=== PATIENT | male | born 1955 | race Caucasian/White ===

== ENCOUNTER → 2017-05-13 09:01 | Outpatient (CLI) | payer OTHER, SELFPAY ==
[2017-05-13 10:13] LABS: PSA,Total - Annual Screen 6.87 ng/mL (0.00-4.00)
== END ==
PROVIDERS: Visit Provider Family Medicine
DX: Z12.5 Encounter for screening for malignant neoplasm of prostate (principal)
CPT/HCPCS: 36415; 84153; G0103

== ENCOUNTER → 2017-06-24 09:11 | Outpatient (CLI) | payer OTHER, SELFPAY ==
--- NOTE | 2017-06-24 10:00 | PROSBIL_PTH ---
PATIENT: JAYDEN OLSEN LOC: [facility] U#:[id number] AGE/SX: 69/M ROOM: RE06/24/[address]: Dr. Jameson Brand MD : 1955 BED: DIS: SPEC #: [id number] RECD: 06/25/17 10:07 STATUS: ANAMARIA LATASHA #: [id number] TACHO: 06/24/17 10:[address]: Jameson Brand DEPT: SURGICAL PATHOLOGY RECD BY: Ifeanyi Thorpe ENTERED: 06/25/17 10:07 SP TYPE: PROST BX SAMIA DR: Dr. Pino Roberts MD Tissues: A - PROSTATE RIGHT B - PROSTATE RIGHT C - PROSTATE RIGHT D - PROSTATE LEFT E - PROSTATE LEFT F - PROSTATE LEFT Procedures: PROSTATE BX HEADER OPERATION: Prostate biopsy PRE-OP DIAGNOSIS: R97.20 TISSUE SUBMITTED: A - Right apex, B - Right mid, C - Right base, D - Left apex, E - Left mid, F - Left base MICROSCOPIC DIAGNOSIS A. Right prostate, apex, core biopsy: Focal glandular atrophy and mild chronic inflammation. B. Right prostate, mid, core biopsy: Benign prostatic tissue. C. Right prostate, base, core biopsy: Benign prostatic tissue. D. Left prostate, apex, core biopsy: Mild chronic inflammation. Focal high-grade prostatic intraepithelial neoplasia (HGPIN). E. Left prostate, mid, core biopsy: Focal glandular atrophy. F. Left prostate, base, core biopsy: Benign prostatic tissue. AM:tommy 06/28/17 COMMENT Case has been reviewed in consultation with Dr. Thayer who concurs with the above diagnosis. IDC:SJ MICROSCOPIC DESCRIPTION Slides are reviewed. GROSS DESCRIPTION A - Received is one container designated prostate, right apex. The specimen consists of two elongated fragments of light dolan-white soft tissue each measuring 1.7 cm in length and 0.1 cm in diameter. The specimen is totally submitted in one cassette. B - Received is one container designated prostate, right mid. The specimen consists of two elongated fragments of light dolan-white soft tissue measuring 1.2 and 1.5 cm in length and 0.1 cm in diameter. The specimen is totally submitted in one cassette. C - Received is one container designated prostate, right base. The specimen consists of two elongated fragments of light dolan-white soft tissue each measuring 1.5 and 0.1 cm in length and 0.1 cm in diameter. The specimen is totally submitted in one cassette. D - Received is one container designated prostate, left apex. The specimen consists of four elongated fragments of light dolan-white soft tissue measuring 0.5 to 1 cm in length and 0.1 cm in diameter. The specimen is totally submitted in one cassette. E - Received is one container designated prostate, left mid. The specimen consists of two elongated fragments of light dolan-white soft tissue each measuring 1.3 cm in length and 0.1 cm in diameter. The specimen is totally submitted in one cassette. F - Received is one container designated prostate, left base. The specimen consists of two elongated fragments of light dolan-white soft tissue measuring 1 and 2 cm in length and 0.1 cm in diameter. The specimen is totally submitted in one cassette. / SJ:rg 06/25/17 TC:5 CPT: 13472 x6
== END ==
PROVIDERS: Family Provider Family Medicine; PCP Family Medicine; Visit Provider Urology
DX: R97.20 Elevated prostate specific antigen [PSA] (principal)
CPT/HCPCS: 88305; G0416

== ENCOUNTER → 2017-07-23 14:47 | Outpatient (CLI) | payer OTHER, SELFPAY ==
[2017-07-23 17:32] LABS: AST(SGOT) 20 U/L (15-37); Alanine Aminotransfer ALT/SGPT 30 U/L (16-61); Albumin, Serum 4.1 g/dL (3.2-5.0); Alkaline Phosphatase 56 U/L (45-117); Bilirubin, Direct 0.21 mg/dL (0.00-0.30); Cholesterol 132 mg/dL (200); Globulin 3.1 g/dL (2.2-4.2); High Density Lipoprotein 49 mg/dL; Protein, Total 7.2 g/dL (6.4-8.2); Triglycerides 81 mg/dL; Very Low Density Lipoprotein 16 mg/dL (5-40)
== END ==
PROVIDERS: Family Provider Family Medicine; PCP Family Medicine; Visit Provider Physician Assistant Medical
DX: E78.5 Hyperlipidemia, unspecified (principal)
CPT/HCPCS: 36415; 80061; 80076

== ENCOUNTER → 2017-11-26 06:53 | Outpatient (CLI) | payer OTHER, SELFPAY | PROVIDERS: Family Provider Family Medicine; PCP Family Medicine; Visit Provider Urology | DX: R97.20 Elevated prostate specific antigen [PSA] (principal) | CPT/HCPCS: 36415; 84153 ==

== ENCOUNTER → 2018-01-20 07:17 | Outpatient (CLI) | payer OTHER, SELFPAY ==
[2018-01-20 08:46] LABS: AST(SGOT) 19 U/L (15-37); Alanine Aminotransfer ALT/SGPT 40 U/L (16-61); Albumin, Serum 3.7 g/dL (3.2-5.0); Alkaline Phosphatase 62 U/L (45-117); Bilirubin, Direct 0.22 mg/dL (0.00-0.30); Cholesterol 129 mg/dL (200); Globulin 3.2 g/dL (2.2-4.2); High Density Lipoprotein 55 mg/dL; Protein, Total 6.9 g/dL (6.4-8.2); Triglycerides 66 mg/dL; Very Low Density Lipoprotein 13 mg/dL (5-40)
== END ==
PROVIDERS: Family Provider Family Medicine; PCP Family Medicine; Referring Provider Physician Assistant Medical; Visit Provider Physician Assistant Medical
DX: E78.5 Hyperlipidemia, unspecified (principal)
CPT/HCPCS: 36415; 80061; 80076

== ENCOUNTER → 2018-05-12 09:50 | Outpatient (CLI) | payer OTHER, SELFPAY ==
[2018-05-12 12:17] LABS: Anion Gap 7 (5-15); BUN 16 mg/dL (7-18); BUN/Creat Ratio 17.3 RATIO (10-20); Calcium,Total 9.1 mg/dL (8.5-10.1); Chloride 104 mmol/L (98-107); Creatinine, Serum 0.92 mg/dL (0.70-1.30); EST Glomerular Filtration Rate 88 mL/min (>60); Est Glom Filt Rate - Afr Amer 107 mL/min (>60); Glucose 85 mg/dL (74-106); PSA,Total- Diagnostic 4.49 ng/mL (0.0-4.0); Potassium 4.2 mmol/L (3.5-5.1); Sodium Level 144 mmol/L (136-145)
== END ==
PROVIDERS: Family Provider Family Medicine; PCP Family Medicine; Visit Provider Family Medicine
DX: Z00.00 Encounter for general adult medical examination without abnormal findings (principal); R97.20 Elevated prostate specific antigen [PSA]
CPT/HCPCS: 36415; 80048; 84153

== ENCOUNTER → 2019-03-30 11:29 | Outpatient (CLI) | payer OTHER, SELFPAY ==
[2018-06-16 09:56] VITALS: BMI 26.4
[2019-03-30 14:27] LABS: Absolute Lymphocyte Count 1.59 X10^3/uL (0.83-4.51); Absolute Neutrophil Count 4.8 X10^3/uL (2.0-7.7); Basophil# 0.04 X10^3/uL; Basophil% 0.6 % (0-1); Eosinophils% 4.2 % (0-5); Hematocrit 42.4 % (40-54); Hemoglobin 13.7 g/dL (13.0-16.5); Lymphocyte # 1.59 X10^3/ul (4.0); Lymphocyte % 22.1 % (19-41); Mean Corp Hgb Conc 32.3 g/dL (32-36); Mean Corpuscular Hgb 30.4 pg (27.0-32.0); Mean Corpuscular Volume 94.2 fL (80-94); Mean Platelet Vol. 12.2 fl (6.2-12.0); Monocyte% 6.9 % (0-10); NRBC Flagged by Analyzer 0 % (0-5); Neutrophil # 4.75 X10^3/uL (2.7-7.7); Neutrophil % 65.9 % (47-70); Platelet Count 180 K/mm3 (150-450); RBC Distribution Width CV 12.9 % (11.6-14.6); RBC Distribution Width SD 44.3 fl (35.1-43.9); White Blood Count 7.2 K/mm3 (4.4-11.0)
[2019-03-30 14:48] LABS: ALB/GLOB Ratio 1.1 RATIO (0.9-2.4); AST(SGOT) 23 U/L (15-37); Alanine Aminotransfer ALT/SGPT 33 U/L (16-61); Albumin, Serum 3.7 g/dL (3.2-5.0); Alkaline Phosphatase 68 U/L (45-117); Anion Gap 3 (5-15); BUN 14 mg/dL (7-18); BUN/Creat Ratio 14.7 RATIO (10-20); Calcium,Total 8.6 mg/dL (8.5-10.1); Chloride 105 mmol/L (98-107); Cholesterol 129 mg/dL (200); Creatinine, Serum 0.95 mg/dL (0.70-1.30); EST Glomerular Filtration Rate 85 mL/min (>60); Est Glom Filt Rate - Afr Amer 103 mL/min (>60); Globulin 3.5 g/dL (2.2-4.2); Glucose 82 mg/dL (74-106); High Density Lipoprotein 51 mg/dL; PSA,Total- Diagnostic 5.87 ng/mL (0.0-4.0); Potassium 3.9 mmol/L (3.5-5.1); Protein, Total 7.2 g/dL (6.4-8.2); Sodium Level 139 mmol/L (136-145); Triglycerides 90 mg/dL; Very Low Density Lipoprotein 18 mg/dL (5-40)
[2019-03-30 14:55] LABS: Microalbumin:Creatinine Ratio 8.1 mg/g CRE (<30 mg/g CRE)
[2019-03-31 09:52] LABS: HIV - WCH Non-Reactive (Nonreactive); Hepatitis C Antibody Non-Reactive (Nonreactive)
== END ==
PROVIDERS: Family Provider Family Medicine; PCP Family Medicine; Referring Provider Family Medicine; Visit Provider Family Medicine
DX: R97.20 Elevated prostate specific antigen [PSA] (principal); I10 Essential (primary) hypertension; Z98.890 Other specified postprocedural states; W46.0XXA Contact with hypodermic needle, initial encounter
CPT/HCPCS: 36415; 80053; 80061; 82043; 82570; 84153; 85025; 86703; 86803

== ENCOUNTER → 2019-11-30 | Outpatient (CLI) | payer OTHER, SELFPAY ==
[2019-06-15 10:02] VITALS: BMI 26.4
[2019-11-30 15:38] LABS: Anion Gap 2 (5-15); BUN 18 mg/dL (7-18); BUN/Creat Ratio 17.6 RATIO (10-20); Chloride 104 mmol/L (98-107); Creatinine, Serum 1.02 mg/dL (0.70-1.30); EST Glomerular Filtration Rate 78 mL/min (>60); Est Glom Filt Rate - Afr Amer 95 mL/min (>60); Glucose 88 mg/dL (74-106); PSA,Total- Diagnostic 5.88 ng/mL (0.0-4.0); Sodium Level 140 mmol/L (136-145)
== END | disposition home or self-care (01) ==
LOC: MFPLAB 11:37
PROVIDERS: PCP Family Medicine; Referring Provider Family Medicine; Visit Provider Family Medicine
DX: I10 Essential (primary) hypertension (principal); R97.20 Elevated prostate specific antigen [PSA]
CPT/HCPCS: 36415; 80048; 84153

== ENCOUNTER → 2020-01-18 | Outpatient (CLI) | payer OTHER, SELFPAY ==
[2019-12-28 10:07] VITALS: BMI 26.2
--- NOTE | 2020-01-18 07:40 | ECHOD_ITS ---
Reason For Study: VALVE REPAIR EVAL Procedure This was a 2D Doppler, Color Flow transthoracic echocardiogram. The exam was of adequate technical quality. Exam performed in department. Left Ventricle Normal LV size. Left ventricular systolic function is normal. The estimated ejection fraction is 55 %. Diastolic function is indeterminate. No regional wall motion abnormalities noted. Right Ventricle Normal RV size. Normal systolic function. Atria The left atrium is mildly enlarged. Normal right atrium. No doppler evidence for ASD. Mitral Valve Mild diffuse mitral valve thickening. The mitral valve chordae are thickened and/or calcified. An annuloplasty ring is noted in the mitral position. MIld (1+) transvalvular insufficiency of the mitral valve. Tricuspid Valve Normal tricuspid valve. Mild tricuspid valve insufficiency. Right ventricular systolic pressure estimated to be 29 mmHg. Aortic Valve Trisinus/trileaflet aortic valve. Normal aortic valve. Trivial aortic valve insufficiency. Pulmonic Valve The pulmonic valve is not well visualized. Mild (1+) pulmonic valve insufficiency. Great Vessels Normal sized aortic root. Pericardium/Pleural No pericardial effusion. MMode/2D Measurements & Calculations LVIDd: 5.5 cm IVSd: 1.1 cm LVOT diam: 2.5 cm LVIDs: 3.8 cm LVPWd: 1.1 cm LVOT area: 5.0 cm2 RVDd: 4.2 cm FS: 31.3 % Ao root diam: 3.5 cm LAV(MOD-bp): 105.4 ml LVAd ap4: 43.2 cm2 LAV(MOD-bp) Indexed: 47.0 ml/m2 EDV(MOD-sp4): 171.6 ml LAV(MOD-sp2): 93.5 ml EDV(sp4-el): 176.3 ml LAV(MOD-sp4): 90.9 ml LVAs ap4: 27.3 cm2 ESV(MOD-sp4): 78.7 ml ESV(sp4-el): 79.6 ml EF(MOD-sp4): 54.1 % EF(sp4-el): 54.8 % SV(MOD-sp4): 92.9 ml SV(sp4-el): 96.7 ml LA A4 area: 28.5 cm2 LA dimension(2D): 4.4 cm RA A4 area: 20.9 cm2 Time Measurements MV dec time: 0.35 sec Doppler Measurements & Calculations MV E max afshin: 133.7 cm/sec Lat Peak E' Afshin: 11.5 cm/sec Med Peak E' Afshin: 6.7 cm/sec MV A max afshin: 118.3 cm/sec E/E' lat: 11.6 E/E' med: 20.0 MV E/A: 1.1 MV V2 max: 145.1 cm/sec MV P1/2t max afshin: 159.5 cm/sec Ao V2 max: 98.8 cm/sec MV max P.4 mmHg MV P1/2t: 105.1 msec Ao max P.9 mmHg MV V2 mean: 85.1 cm/sec MV mean P.4 mmHg MV dec slope: 444.3 cm/sec2 LYDIA(V,D): 3.7 cm2 MV V2 VTI: 47.0 cm MVA(P1/2t): 2.1 cm2 MVA(VTI): 2.0 cm2 AI max afshin: 449.7 cm/sec LV V1 max: 74.5 cm/sec SV(LVOT): 91.8 ml AI max P.9 mmHg LV V1 max P.2 mmHg AI dec slope: 214.1 cm/sec2 LV V1 mean P.1 mmHg AI P1/2t: 615.3 msec LV V1 mean: 49.4 cm/sec LV V1 VTI: 18.5 cm PA V2 max: 95.4 cm/sec PI end-d afshin: 85.0 cm/sec TR max afshin: 230.9 cm/sec TR max P.3 mmHg MV P1/2t-pr_phl: 112.2 msec Interpretation Summary Left ventricular systolic function is normal. The estimated ejection fraction is 55 %. The left atrium is mildly enlarged. An annuloplasty ring is noted in the mitral position. Mild diffuse mitral valve thickening. The mitral valve chordae are thickened and/or calcified. MIld (1+) transvalvular insufficiency of the mitral valve. Mild tricuspid valve insufficiency. Trivial aortic valve insufficiency. Mild (1+) pulmonic valve insufficiency. Right ventricular systolic pressure estimated to be 29 mmHg. Diastolic function is indeterminate. Ordering Physician: Mars Paz Referring Physician: MUKUL ANDRADE Performed By: Marion Olivares RDCS
== END | disposition home or self-care (01) ==
LOC: CVS 07:40
PROVIDERS: PCP Family Medicine; Visit Provider Internal Medicine Cardiovascular Disease
DX: I48.0 Paroxysmal atrial fibrillation (principal); I48.92 Unspecified atrial flutter; Z98.890 Other specified postprocedural states; I43 Cardiomyopathy in diseases classified elsewhere
CPT/HCPCS: 93306

== ENCOUNTER → 2020-08-23 12:43 | Outpatient (CLI) | payer BC, SELFPAY ==
[2020-08-16 14:43] VITALS: BMI 25.8
[2020-08-23 13:57] LABS: AST(SGOT) 28 U/L (15-37); Alanine Aminotransfer ALT/SGPT 43 U/L (16-61); Alkaline Phosphatase 71 U/L (45-117); Bilirubin, Direct 0.25 mg/dL (0.00-0.30); Cholesterol 114 mg/dL (200); Globulin 3.4 g/dL (2.2-4.2); High Density Lipoprotein 57 mg/dL; Protein, Total 7.4 g/dL (6.4-8.2); Triglycerides 52 mg/dL; Very Low Density Lipoprotein 10 mg/dL (5-40)
== END ==
PROVIDERS: PCP Family Medicine; Referring Provider Internal Medicine Cardiovascular Disease; Visit Provider Internal Medicine Cardiovascular Disease
DX: E78.00 Pure hypercholesterolemia, unspecified (principal); I34.0 Nonrheumatic mitral (valve) insufficiency; I48.92 Unspecified atrial flutter; Z98.890 Other specified postprocedural states
CPT/HCPCS: 36415; 80061; 80076

== ENCOUNTER → 2021-01-06 10:27 | Outpatient (CLI) | payer MEDICARE, BC, SELFPAY ==
[2021-01-06 12:06] LABS: Hematocrit 40.5 % (40-54); Hemoglobin 13.1 g/dL (13.0-16.5); Mean Corp Hgb Conc 32.3 g/dL (32-36); Mean Corpuscular Volume 95.7 fL (80-94); Mean Platelet Vol. 12.7 fl (6.2-12.0); Platelet Count 106 K/mm3 (150-450); RBC Distribution Width CV 13.1 % (11.6-14.6); RBC Distribution Width SD 45.7 fl (35.1-43.9); Red Blood Count 4.23 M/mm3 (4.6-6.2); White Blood Count 4.4 K/mm3 (4.4-11.0)
[2021-01-06 12:39] LABS: Anion Gap 7 (5-15); BUN 20 mg/dL (7-18); BUN/Creat Ratio 19.4 RATIO (10-20); Calcium,Total 9.4 mg/dL (8.5-10.1); Chloride 105 mmol/L (98-107); Creatinine, Serum 1.03 mg/dL (0.70-1.30); EST Glomerular Filtration Rate 77 mL/min (>60); Est Glom Filt Rate - Afr Amer 93 mL/min (>60); Glucose 102 mg/dL (74-106); Potassium 4.5 mmol/L (3.5-5.1); Sodium Level 141 mmol/L (136-145)
== END ==
PROVIDERS: PCP Family Medicine; Visit Provider Nurse Practitioner Family
DX: I10 Essential (primary) hypertension (principal); Z13.1 Encounter for screening for diabetes mellitus
CPT/HCPCS: 36415; 80048; 85027

== ENCOUNTER → 2021-01-23 15:20 | Outpatient (CLI) | payer MEDICARE, BC, SELFPAY ==
[2021-01-23 17:12] LABS: PSA,Total- Diagnostic 5.69 ng/mL (0.0-4.0)
== END ==
PROVIDERS: PCP Family Medicine; Referring Provider Urology; Visit Provider Urology
DX: R97.20 Elevated prostate specific antigen [PSA] (principal)
CPT/HCPCS: 36415; 84153

== ENCOUNTER → 2021-03-17 10:03 | Outpatient (CLI) | payer MEDICARE, BC, SELFPAY ==
[2021-03-17 11:26] LABS: AST(SGOT) 38 U/L (15-37); Alanine Aminotransfer ALT/SGPT 93 U/L (16-61); Albumin, Serum 3.7 g/dL (3.2-5.0); Alkaline Phosphatase 71 U/L (45-117); Bilirubin, Direct 0.23 mg/dL (0.00-0.30); Cholesterol 118 mg/dL (200); Globulin 3.6 g/dL (2.2-4.2); High Density Lipoprotein 49 mg/dL; Protein, Total 7.3 g/dL (6.4-8.2); Triglycerides 57 mg/dL; Very Low Density Lipoprotein 11 mg/dL (5-40)
== END ==
PROVIDERS: PCP Family Medicine; Referring Provider Internal Medicine Cardiovascular Disease; Visit Provider Internal Medicine Cardiovascular Disease
DX: E78.00 Pure hypercholesterolemia, unspecified (principal)
CPT/HCPCS: 36415; 80061; 80076

== ENCOUNTER → 2021-09-29 | Outpatient (CLI) | payer MEDICARE, BC, SELFPAY ==
[2021-09-29 17:34] LABS: AST(SGOT) 33 U/L (15-37); Alanine Aminotransfer ALT/SGPT 44 U/L (16-61); Albumin, Serum 3.9 g/dL (3.2-5.0); Alkaline Phosphatase 59 U/L (45-117); Bilirubin, Direct 0.23 mg/dL (0.00-0.30); Cholesterol 131 mg/dL (200); Globulin 3.3 g/dL (2.2-4.2); High Density Lipoprotein 54 mg/dL; Protein, Total 7.2 g/dL (6.4-8.2); Triglycerides 97 mg/dL; Very Low Density Lipoprotein 19 mg/dL (5-40)
== END | disposition home or self-care (01) ==
LOC: LAB 15:41
PROVIDERS: PCP Family Medicine; Visit Provider Internal Medicine Cardiovascular Disease
DX: E78.00 Pure hypercholesterolemia, unspecified (principal)
CPT/HCPCS: 36415; 80061; 80076

== ENCOUNTER → 2022-02-05 | Outpatient (CLI) | payer MEDICARE, BC, SELFPAY ==
[2022-02-05 11:52] LABS: PSA,Total- Diagnostic 6.86 ng/mL (0.0-4.0)
== END | disposition home or self-care (01) ==
LOC: LAB 09:36
PROVIDERS: PCP Family Medicine; Referring Provider Registered Nurse; Visit Provider Registered Nurse
DX: R97.20 Elevated prostate specific antigen [PSA] (principal)
CPT/HCPCS: 36415; 84153

== ENCOUNTER → 2022-05-07 | Outpatient (CLI) | payer MEDICARE, BC, SELFPAY ==
[2022-05-07 11:28] LABS: AST(SGOT) 21 U/L (15-37); Alanine Aminotransfer ALT/SGPT 37 U/L (16-61); Albumin, Serum 3.7 g/dL (3.2-5.0); Alkaline Phosphatase 63 U/L (45-117); Bilirubin, Direct 0.25 mg/dL (0.00-0.30); Cholesterol 115 mg/dL (200); Globulin 3.4 g/dL (2.2-4.2); High Density Lipoprotein 51 mg/dL; Protein, Total 7.1 g/dL (6.4-8.2); Triglycerides 63 mg/dL; Very Low Density Lipoprotein 13 mg/dL (5-40)
== END | disposition home or self-care (01) ==
LOC: LAB 10:47
PROVIDERS: PCP Family Medicine; Referring Provider Internal Medicine Cardiovascular Disease; Visit Provider Internal Medicine Cardiovascular Disease
DX: E78.00 Pure hypercholesterolemia, unspecified (principal)
CPT/HCPCS: 36415; 80061; 80076

== ENCOUNTER → 2022-05-25 | Outpatient (CLI) | payer MEDICARE, BC, SELFPAY ==
--- NOTE | 2022-05-25 07:52 | CT_ITS ---
PROCEDURE: CT RIGHT KNEE WITHOUT CONTRAST REASON FOR EXAM: Male, 66 years old. Preoperative planning for the Mako[employer] Robotic knee surgery. Knee pain. TECHNIQUE: Transaxial CT of the hip, knee and ankle were obtained. Coronal and sagittal reconstruction images of the knee were provided. Individualized dose optimization techniques were used for this CT. COMPARISON: None. FINDINGS: Standard protocol for the preoperative planning for the Mako[employer] robotic knee surgery was performed. There is mild osteoarthrosis of the hip, knee and ankle. CT/Extremity Lower without Contra IMPRESSION: Preoperative Mako[employer] Robotic knee surgical CT evaluation with findings as described above. Electronically Signed: Jak Hill, at 10:28 EST ,
== END | disposition home or self-care (01) ==
LOC: CT 07:50
PROVIDERS: PCP Family Medicine; Visit Provider Orthopaedic Surgery
DX: M17.11 Unilateral primary osteoarthritis, right knee (principal)
CPT/HCPCS: 73700

== ENCOUNTER 2022-06-01 05:18 | Day surgery (SDC) | payer MEDICARE, BC, SELFPAY ==
[2022-05-27 16:19] LABS: Absolute Lymphocyte Count 1.65 X10^3/uL (0.83-4.51); Absolute Neutrophil Count 3.6 X10^3/uL (2.0-7.7); Basophil# 0.04 X10^3/uL; Basophil% 0.6 % (0-1); Eosinophils% 6.4 % (0-5); Hematocrit 38.9 % (40-54); Hemoglobin 12.6 g/dL (13.0-16.5); Lymphocyte # 1.65 X10^3/ul (0.83-4.51); Lymphocyte % 26.2 % (19-41); Mean Corp Hgb Conc 32.4 g/dL (32-36); Mean Corpuscular Hgb 30.7 pg (27.0-32.0); Mean Corpuscular Volume 94.9 fL (80-94); Mean Platelet Vol. 12.8 fl (6.2-12.0); Monocyte% 9.5 % (0-10); NRBC Flagged by Analyzer 0 % (0-5); Neutrophil # 3.59 X10^3/uL (2.7-7.7); Neutrophil % 57.1 % (47-70); Platelet Count 120 K/mm3 (150-450); RBC Distribution Width CV 13.2 % (11.6-14.6); RBC Distribution Width SD 46.1 fl (35.1-43.9); White Blood Count 6.3 K/mm3 (4.4-11.0)
[2022-05-27 17:18] LABS: Albumin, Serum 3.8 g/dL (3.2-5.0); Anion Gap 5 (5-15); BUN 23 mg/dL (7-18); BUN/Creat Ratio 18.1 RATIO (10-20); Calcium,Total 8.8 mg/dL (8.5-10.1); Chloride 106 mmol/L (98-107); Creatinine, Serum 1.27 mg/dL (0.70-1.30); EST Glomerular Filtration Rate 60 mL/min (>60); Est Glom Filt Rate - Afr Amer 73 mL/min (>60); Glucose 95 mg/dL (74-106); Sodium Level 142 mmol/L (136-145)
[2022-05-27 17:23] LABS: Magnesium 2.5 mg/dL (1.6-2.6)
[2022-05-27 18:15] LABS: Hemoglobin A1c 5.5 % (3.8-5.6)
[2022-06-01] VITALS (9 sets, daily range): BP systolic 90–101; BP diastolic 50–68; PULSE 51–65; RESP 16–18; TEMP 36.2–36.9; O2SAT 95–100; BMI 28.2
[2022-06-01] MEDS: Magnesium 1 GM over 15 mins IV (06:07)
[2022-06-01] MEDS: Gabapentin 600 MG Tablet PO (06:12)
[2022-06-01] MEDS: Lactated Ringers 1,000 ML 999 ML IV (06:12)
[2022-06-01] MEDS: Acetaminophen 500 MG Tablet 1000 MG PO ×2 (06:12→13:54)
[2022-06-01 06:45] LABS: Bedside Glucose 97 mg/dL (74-106)
--- NOTE | 2022-06-01 07:30 | KNEE_PTH ---
PATIENT: JAYDEN [place]LSEN [place] [facility] [id number] AGE/SX: 66/M ROOM: RE06/01/[address]: Dr. Robb Longoria DO : 1955 BED: DIS: 06/01/2022 SPEC #: [id number] RECD: 06/01/22 11:24 STATUS: ANAMARIA REQ #: [id number] TACHO: 06/01/22 07:[address]: Robb Longoria DEPT: SURGICAL PATHOLOGY RECD BY: Susana Leigh ENTERED: 06/01/22 11:57 SP TYPE: TOTAL KNEE OTHR DR: Dr. Dustin Castro MD Tissues: Knee, NOS Procedures: Decalcification bone/plaque Surgery Specimen Level IV HEADER OPERATION: ERAS, total knee replacement robotic arm assist PRE-OP DIAGNOSIS: Unilateral primary osteoarthritis right knee TISSUE SUBMITTED: Right knee bone MICROSCOPIC DIAGNOSIS Right knee bone, total knee replacement/resection: Pieces of bone with degenerative osteoarthritic changes. SUSU:tommy 06/04/2022 MICROSCOPIC DESCRIPTION Slides are reviewed. GROSS DESCRIPTION Received is one container designated right knee bone. The specimen consists of multiple fragments of dolan-yellow bone measuring in aggregate 12.0 x 10.0 x 3.0 cm. No soft tissue is identified. A number of bony fragments contain articular surfaces consistent with tibial plateau and femoral condyle and displaying prominent osteophyte formation, eburnation, and bone erosion. Gravity Prospecting Observer Helper sections are submitted in one cassette after decalcification. / SUSU:tommy 06/01/2022 TC:5 CPT: 80337, 69039
--- NOTE | 2022-06-01 07:46 | RAD_ITS ---
STUDY: X-RAY - RIGHT KNEE REASON FOR EXAM: Male, 66 years old. Postoperative evaluation after total knee arthroplasty. TECHNIQUE: view(s) of the knee. COMPARISON: None. FINDINGS: 3 component total knee arthroplasty in anatomic position. There are expected post-operative findings. There are no complications. No other significant abnormality is identified. RAD/Knee 1 or 2 Views IMPRESSION: Total knee arthroplasty in anatomic alignment without complications. Electronically Signed: Jak Hill, at 10:22 EST ,
[2022-06-01] MEDS: Cefazolin 2 GM in 0.9% Normal Saline 100 ML IV (07:47)
[2022-06-01] MEDS: 0.9% Normal Saline 1,000 ML 125 ML IV (07:50)
[2022-06-01] MEDS: Scopolamine 1mg/72hr Patch 1 PATCH TD (08:00)
--- NOTE | 2022-06-01 09:20 | OP.PCM_ITS ---
Report of Operation Date of Procedure: 06/01/22 Pre-Operative Diagnosis: OA right knee Post-Operative Diagnosis: same Surgery/Procedure Performed:: Right TKR Description of Surgical Findings:: Report of Operation Date of Procedure: 06/01/2022 Preoperative Diagnosis: [right ] knee primary osteoarthritis Postoperative Diagnosis: [right ] knee primary osteoarthritis Operation: Robotic Assisted Knee Total Arthroplasty, [right ] knee Surgeon: Dr Robb Longoria DO Top Dyeing Machine Loader: Jak Steele PA-C Anesthesia: spinal Anesthesiologist: Bhargav Martin M.D. Findings: Stable knee with good patella tracking Specimen(s): Bony cuts Complications: No intraoperative complications Estimated Blood Loss:30 cc IV Fluids: 1000 cc crystalloid Implants Used: 1. Artur Triathlon press-fit CR size 7 femur 2. Artur Triathlon size 7 tibia 3. 38 mm patella 4. 10 mm CS polyethylene Brief History Operative Indications: [ (66 y/o male) ] with history of [right ] knee osteoarthrosis with radiographic findings with loss of joint space, osteophyte formation and subchondral sclerosis. Failed conservative measures as mentioned in the H&P. Discussion of total knee arthroplasty as well as risk and benefits were discussed with the patient including but not limited to blood loss, DVTs, PEs, neurovascular damage, general risk of anesthesia including loss of life, and stiffness or instability were also discussed with the patient. Patient demonstrated understanding and was able to sign informed consent. Procedure: On the date of procedure, patient's [right ] lower extremity was marked in the preoperative area. The patient was then taken back to the operating room where that patient was placed on the table in the supine position. All bony prominences were identified and well-padded. Anesthesia assumed control of the C-spine and airway throughout the remainder of the procedure. A tourniquet was placed on the [right ] upper thigh and the leg was prepped in a sterile fashion. The surgeon then scrubbed at this time. Upon reentering the room, the [right ] lower extremity was draped in a standard orthopedic fashion. A timeout was then called and everyone agreed upon the side, the site, the procedure to be performed, patient's identity and antibiotics given. Esmarch bandage was used to exsanguinate the extremity and the tourniquet was placed up to 250 mmHg with the knee in flexion. A midline skin incision was made and a sharp dissection was taken down through skin, subcutaneous tissue and fat. The standard medial parapatellar incision was made and the patella was subluxed laterally. An appropriate deep MCL release was done and the fat pad was resected. Our attention was then directed to the patella. The patella was everted and a flat resection was made. The knee was then flexed up and 2 femoral pins were placed inside the incision and 2 tibial pins were placed outside the incision in the medial tibia bicortically. Once this was completed, the 2 checkpoints in the femur and tibia were placed. Knee was then flexed up and the bony landmarks were registered. Once the was completed, the knee taken through range of motion and manually stressed allowing us to plan for an appropriate tibial cut. The robotic arm was brought into the field sterilely and checkpoint and saw were registered. Based on the patient's deformity, the tibial cut was made in [3 degrees varus ]. At this time, the tensioner was then placed in the joint and ligament tension was checked at 90 degrees and full extension. Based on the patient's ligamentous tension, appropriate adjustments were made to the operative plan and ligament releases were done. Once we were happy with our operative plan with balanced flexion and extension gaps, our attention was directed to the femur. The robot was brought into the field sterilely and registered. Posterior condylar cuts, anterior chamfer cuts and anterior cuts were appropriately made for a [size 7 ] femur. When these were completed, the saws were switched out in the distal femoral and posterior chamfer cuts were made. Protecting the soft tissue throughout this time. A [size 7 ] base plate was selected. The knee was flexed to 90 degrees and soft tissues and posterior osteophytes were removed from the joint. 40 cc of the periarticular injection was injected into the posterior medial corner of the joint. The appropriate trials were then placed on the femur and tibia. A trial polyethylene was trialed to ensure proper balancing and stability of the knee. The appropriate tibial internal rotation was then marked with a bovie. Our attention was then directed to the patella. The lug holes were drilled and the patella trial was placed. Patellar tracking was checked and deemed appropriate. Once we were happy, lug holes were drilled for the femur and trial components were removed. The tibia was subluxed and pinned into place and the keel was punched and drilled appropriately. Final components were verified and opened. The wound was copiously irrigated with normal saline. The components were impacted into place with the tibia, femur and finally the patella. The trial poly component was placed and the knee was placed in full extension. The tracking, alignment and balance were verified and a [ 10 mm CS ] polyethylene component was placed. Once the final components were placed an Irrisept lavage was performed and the wound was copiously irrigated with normal saline solution and the periarticular injection was given. the wound was closed in a layer-grey fashion using #1 vicryl interrupted sutures for the arthrotomy, 2-0 interrupted vicryl suture for the subcuticular layer and layla for final skin closure. A sterile compressive dressing was then placed. The patient was then awakened from anesthesia, transferred to the rjeannette and transferred to the PACU for recovery. My physician assistant operations manager was a vital part of this case. He was important in appropriate retraction during the case, and protection of soft tissues during bony cuts. His intimate knowledge of the case and my steps aided in safe and expedient completion of the procedure as well as appropriate position of the leg during the case. He was also vital in assisting with closure under my direct supervision. Due to the complexity of this case, robotic arm was used to assist in the surgery to improve accuracy and clinical outcomes. Post-op Plan: DVT ppx; Eliquis 5 mg po BID, thigh high compression stockings Follow up: in office in 2 weeks for wound check PT: to start POD #0 at hospital, outpatient PT should be arranged. Preoperative antibiotic: Ancef 2 grams IV Robb Longoria DO Surgeon: Robb Longoria gasser machine operator: Jak Steele Type of Anesthesia: Spinal Anesthesiologist: Bhargav Martin Specimen's removed: bone Estimated Blood Loss (mL): 30 cc Fluids Replaced: 1000 cc crysytalloid Admit VTE Documentation VTE Present on Admission: No VTE Mechan Device Prophylaxis: SCD's and Thigh High REECE Hose VTE Pharm Prophylaxis ordered?: Yes
[2022-06-01] MEDS: Lactated Ringers 1,000 ML 75 ML IV (10:10)
[2022-06-01] MEDS: oxyCODONE 5 MG Tablet PO (12:53)
--- NOTE | 2022-06-01 12:57 | SUR.PHASEII ---
PATIENT ABLE TO STAND AT THE BEDSIDE WITHOUT DIZZINESS, AND ABLE TO BEAR WEIGHT ON THE OPERATIVE LEG AND TAKE TWO STEPS. PHYSICAL THERAPY CALLED.
--- NOTE | 2022-06-01 13:24 | SUR.PHASEII ---
PATIENT IS CURRENTLY UP WITH PHYSICAL THERAPY.
== END 2022-06-01 16:20 | disposition home or self-care (01) ==
LOC: SDC 05:19 → AC 05:19
PROVIDERS: Anesthesiology; PCP Family Medicine; Referring Provider Orthopaedic Surgery; Visit Provider Orthopaedic Surgery
PROC: 0SRC0JZ Replacement of Right Knee Joint with Synthetic Substitute, Open Approach (ICD-10-PCS; CPT 27447; principal; 2022-06-01 07:00)
DX: M17.11 Unilateral primary osteoarthritis, right knee (principal); I48.0 Paroxysmal atrial fibrillation; E78.00 Pure hypercholesterolemia, unspecified; I10 Essential (primary) hypertension; G47.30 Sleep apnea, unspecified; E66.3 Overweight; Z68.26 Body mass index [BMI] 26.0-26.9, adult; Z79.82 Long term (current) use of aspirin; Z79.01 Long term (current) use of anticoagulants; Z79.899 Other long term (current) drug therapy; Z86.718 Personal history of other venous thrombosis and embolism
CPT/HCPCS: 27447; 01402; 64447; 36415; 73560; 80048; 82040; 82962; 83036; 83735; 85025; 87077; 87081; 88305; 88311; 97162; C1776; J7120; J2405; J3475

== ENCOUNTER → 2022-07-14 | Outpatient (CLI) | payer MEDICARE, BC, SELFPAY ==
[2022-07-14 13:10] LABS: Absolute Lymphocyte Count 1.12 X10^3/uL (0.83-4.51); Absolute Neutrophil Count 3.2 X10^3/uL (2.0-7.7); Basophil# 0.04 X10^3/uL; Basophil% 0.8 % (0-1); Eosinophil# 0.16 X10^3/uL; Eosinophils% 3.2 % (0-5); Hematocrit 31.1 % (40-54); Lymphocyte # 1.12 X10^3/ul (0.83-4.51); Lymphocyte % 22.6 % (19-41); Mean Corp Hgb Conc 32.2 g/dL (32-36); Mean Corpuscular Hgb 32.2 pg (27.0-32.0); Mean Platelet Vol. 12.5 fl (6.2-12.0); Monocyte# 0.39 X10^3/uL; Monocyte% 7.9 % (0-10); NRBC Flagged by Analyzer 0 % (0-5); Neutrophil # 3.23 X10^3/uL (2.7-7.7); Neutrophil % 65.3 % (47-70); Platelet Count 155 K/mm3 (150-450); RBC Distribution Width CV 15.3 % (11.6-14.6); RBC Distribution Width SD 55.8 fl (35.1-43.9); Red Blood Count 3.11 M/mm3 (4.6-6.2)
[2022-07-14 13:30] LABS: D-Dimer Quantitative (DVT/PE) 3.13 FEU/ug/m (0.27-0.49)
[2022-07-14 13:39] LABS: BNP,B-Type NATRIURETIC PEPTIDE 57.2 pg/mL (0-100)
[2022-07-14 13:46] LABS: ALB/GLOB Ratio 1.2 RATIO (0.9-2.4); AST(SGOT) 31 U/L (15-37); Alanine Aminotransfer ALT/SGPT 35 U/L (16-61); Albumin, Serum 3.9 g/dL (3.2-5.0); Alkaline Phosphatase 64 U/L (45-117); Anion Gap 3 (5-15); BUN 27 mg/dL (7-18); Calcium,Total 9.4 mg/dL (8.5-10.1); Chloride 109 mmol/L (98-107); Creatinine, Serum 1.23 mg/dL (0.70-1.30); EST Glomerular Filtration Rate 62 mL/min (>60); Est Glom Filt Rate - Afr Amer 76 mL/min (>60); Globulin 3.3 g/dL (2.2-4.2); Glucose 101 mg/dL (74-106); Potassium 4.3 mmol/L (3.5-5.1); Protein, Total 7.2 g/dL (6.4-8.2); Sodium Level 139 mmol/L (136-145)
== END | disposition home or self-care (01) ==
LOC: LAB 11:38
PROVIDERS: PCP Family Medicine; Referring Provider Nurse Practitioner Gerontology; Visit Provider Nurse Practitioner Gerontology
DX: R06.02 Shortness of breath (principal); I48.92 Unspecified atrial flutter; R42 Dizziness and giddiness
CPT/HCPCS: 36415; 80053; 83880; 85025; 85379

== ENCOUNTER → 2022-07-14 | Outpatient (CLI) | payer MEDICARE, BC, SELFPAY ==
--- NOTE | 2022-07-14 15:12 | CT_ITS ---
STUDY: CTA CHEST REASON FOR EXAM: Male, 66 years old. ELEVATE D DIMER RADIATION DOSAGE (If Supplied By Facility): CTDIvol = ( 13.26 ) mGy, DLP = ( 437.30 ) mGycm TECHNIQUE: The examination was performed with the intravenous administration of IV 100mL Isovue-370. Post-processing of the angiographic images was performed, with multiplanar reformation and 3D reconstruction. Individualized dose optimization techniques were used for this CT. COMPARISON: None. FINDINGS: Normal enhancement of the main pulmonary artery and right and left pulmonary arteries. Normal enhancement of the bilateral peripheral pulmonary arteries. There is no demonstrated pulmonary embolism. Normal thoracic aorta and visualized great vessels. There is no demonstrated aortic dissection. Calcific coronary artery disease. Prosthetic mitral valve. Normal mediastinum. Normal hilar regions. Normal visualized trachea and bronchi. The lungs are well expanded. Normal pulmonary parenchyma. Normal pleura. Gynecomastia. Sternotomy wires. Normal visualized upper abdomen. CT/CTA Chest W/WO Contrast IMPRESSION: No acute disease. Prosthetic mitral valve and sternotomy. Coronary artery disease. Electronically Signed: Mark Real MD at 17:37 EDT Reading Location ID and State: [address] [place] [address] , Service support ,
== END | disposition home or self-care (01) ==
LOC: CT 14:35
PROVIDERS: PCP Family Medicine; Visit Provider Nurse Practitioner Gerontology
DX: R79.89 Other specified abnormal findings of blood chemistry (principal); I48.92 Unspecified atrial flutter; R06.02 Shortness of breath; R42 Dizziness and giddiness
CPT/HCPCS: 36415; 71275; 80053; 83880; 85025; 85379; Q9967

== ENCOUNTER → 2022-07-17 | Outpatient (CLI) | payer MEDICARE, BC, SELFPAY | END | disposition home or self-care (01) | LOC: PSN 11:51 | PROVIDERS: PCP Family Medicine; Referring Provider Nurse Practitioner Gerontology; Visit Provider Nurse Practitioner Gerontology | DX: R42 Dizziness and giddiness (principal); I49.3 Ventricular premature depolarization | CPT/HCPCS: 93225; 93226 ==

== ENCOUNTER → 2022-07-24 | Outpatient (CLI) | payer MEDICARE, BC, SELFPAY ==
[2022-07-24 15:38] LABS: PSA,Total- Diagnostic 5.56 ng/mL (0.0-4.0)
== END | disposition home or self-care (01) ==
LOC: MFPLAB 11:27
PROVIDERS: PCP Family Medicine; Visit Provider Family Medicine
DX: I48.92 Unspecified atrial flutter (principal); R97.20 Elevated prostate specific antigen [PSA]
CPT/HCPCS: 36415; 84153

== ENCOUNTER → 2022-08-03 | Outpatient (CLI) | payer MEDICARE, BC, SELFPAY ==
--- NOTE | 2022-08-03 12:33 | ECHOD_ITS ---
Reason For Study: SOB Procedure This was a 2D Doppler, Color Flow transthoracic echocardiogram. Exam performed in department. Left Ventricle Normal LV size. Mild concentric left ventricular hypertrophy. The left ventricular ejection fraction is 65 %. Diastolic function is indeterminate. Right Ventricle Normal right ventricle. Atria The left atrium is severely enlarged. The right atrium is severely enlarged. Mitral Valve Mean transmitral valve gradient 7 mmHg. Mild-Moderate (1-2+) mitral valve insufficiency. Status post mitral valve repair with annuloplasty ring. Tricuspid Valve Moderate (2+) tricuspid valve insufficiency. Pulmonary artery systolic pressure is 51 mmHg. Moderate pulmonary hypertension. Aortic Valve Trisinus/trileaflet aortic valve. Mild (1+) aortic valve insufficiency. Pulmonic Valve The pulmonic valve is not well visualized. Mild (1+) pulmonic valve insufficiency. Great Vessels Mildly dilated aortic root. Pericardium/Pleural No pericardial effusion. MMode/2D Measurements & Calculations LVIDd: 6.9 cm IVSd: 0.99 cm Ao root diam: 3.7 cm LVIDs: 5.4 cm LVPWd: 1.2 cm RVDd: 4.7 cm FS: 21.5 % LAV(MOD-bp): 94.3 ml LVAd ap4: 43.2 cm2 SV(MOD-sp4): 88.8 ml LAV(MOD-bp) Indexed: 43.0 ml/m2 LVLd ap4: 8.8 cm LAV(MOD-sp2): 93.1 ml EDV(MOD-sp4): 172.7 ml LAV(MOD-sp4): 91.3 ml EDV(sp4-el): 179.7 ml LVAs ap4: 28.1 cm2 LVLs ap4: 7.8 cm ESV(MOD-sp4): 83.9 ml ESV(sp4-el): 85.5 ml EF(MOD-sp4): 51.4 % EF(sp4-el): 52.4 % SV(sp4-el): 94.2 ml LA A4 area: 28.7 cm2 LA dimension(2D): 5.5 cm RA A4 area: 22.9 cm2 Time Measurements MV dec time: 0.23 sec Doppler Measurements & Calculations MV E max afshin: 163.5 cm/sec Lat Peak E' Afshin: 15.9 cm/sec Med Peak E' Afshin: 10.8 cm/sec MV A max afshin: 35.3 cm/sec E/E' lat: 10.3 E/E' med: 15.2 MV E/A: 4.6 MV V2 max: 213.6 cm/sec Ao V2 max: 96.7 cm/sec MV max P.2 mmHg MV dec slope: 710.7 cm/sec2 Ao max P.7 mmHg MV V2 mean: 118.8 cm/sec Ao V2 mean: 73.4 cm/sec MV mean P.0 mmHg Ao mean P.4 mmHg MV V2 VTI: 51.3 cm Ao V2 VTI: 22.7 cm AV (velocity ratio): 0.84 AI max afshin: 353.6 cm/sec LV V1 max: 80.8 cm/sec PA V2 max: 94.1 cm/sec AI max P.0 mmHg LV V1 max P.6 mmHg PA V2 mean: 62.7 cm/sec LV V1 mean P.5 mmHg AI dec slope: 110.0 cm/sec2 LV V1 mean: 57.5 cm/sec AI P1/2t: 941.8 msec LV V1 VTI: 19.1 cm TR max afshin: 302.7 cm/sec PI dec slope: 381.3 cm/sec2 TR max P.6 mmHg ECHO/Echo Complete Interpretation Summary The left ventricular ejection fraction is 65 %. Diastolic function is indeterminate. The left atrium is severely enlarged. The right atrium is severely enlarged. Status post mitral valve repair with annuloplasty ring. Mild-Moderate (1-2+) mitral valve insufficiency. Mean transmitral valve gradient 7 mmHg. Consider further evaluation with cardic MR if clinically indicated. Moderate (2+) tricuspid valve insufficiency. Pulmonary artery systolic pressure is 51 mmHg. Moderate pulmonary hypertension. Mild (1+) aortic valve insufficiency. Mild (1+) pulmonic valve insufficiency. Mildly dilated aortic root. Ordering Physician: Laura Blanco Referring Physician: Laura Blanco Performed By: Ledy Padilla RCS
== END | disposition home or self-care (01) ==
LOC: CVS 12:31
PROVIDERS: PCP Family Medicine; Referring Provider Nurse Practitioner Gerontology; Visit Provider Nurse Practitioner Gerontology
DX: R06.02 Shortness of breath (principal); R42 Dizziness and giddiness
CPT/HCPCS: 93306

== ENCOUNTER → 2022-08-06 | Outpatient (CLI) | payer MEDICARE, BC, SELFPAY ==
--- NOTE | 2022-08-06 13:08 | CT_ITS ---
STUDY: CT BRAIN WITH AND WITHOUT CONTRAST REASON FOR EXAM: Male, 66 years old. HEARING LOSS BILATERAL; ACOUSTIC NEUROMA RADIATION DOSAGE (If Supplied By Facility): CTDIvol = ( 44.99 ) mGy, DLP = ( 1850.94 ) mGycm TECHNIQUE: Transaxial CT imaging of the brain was performed pre and post contrast administration. The examination was performed with intravenous administration of IV 50mL Isovue-370. Individualized dose optimization techniques were used for this CT. COMPARISON: Comparison is made with prior study July 06, 2016. FINDINGS: Normal soft tissue structures. Normal calvarium. Normal size ventricles and extra-axial spaces for the patient''s age. Normal white matter tracts of the cerebral hemispheres. Normal basal ganglia and thalami. Normal brainstem. Normal cerebellum. There is no intracranial hemorrhage. There are no findings of an acute ischemic infarction. Partial opacification of the maxillary sinuses. Mucosal thickening of the ethmoid sinuses. CT/Brain/Head W/WO Contrast IMPRESSION: Sinusitis. Electronically Signed: Ankit Granados MD at 10:51 EDT ,
== END | disposition home or self-care (01) ==
LOC: CT 13:07
PROVIDERS: PCP Family Medicine; Referring Provider Otolaryngology Otolaryngology/Facial Plastic Surgery; Visit Provider Otolaryngology Otolaryngology/Facial Plastic Surgery
DX: D33.3 Benign neoplasm of cranial nerves (principal); H90.3 Sensorineural hearing loss, bilateral
CPT/HCPCS: 70470; Q9967

== ENCOUNTER → 2022-08-14 | Outpatient (CLI) | payer MEDICARE, BC, SELFPAY ==
[2022-08-14 08:22] LABS: Anion Gap 3 (5-15); BUN 26 mg/dL (7-18); BUN/Creat Ratio 23.9 RATIO (10-20); Calcium,Total 8.7 mg/dL (8.5-10.1); Chloride 108 mmol/L (98-107); Creatinine, Serum 1.09 mg/dL (0.70-1.30); EST Glomerular Filtration Rate 72 mL/min (>60); Est Glom Filt Rate - Afr Amer 87 mL/min (>60); Glucose 105 mg/dL (74-106); Potassium 4.4 mmol/L (3.5-5.1); Sodium Level 140 mmol/L (136-145)
== END | disposition home or self-care (01) ==
LOC: LAB 07:35
PROVIDERS: PCP Family Medicine; Referring Provider Nurse Practitioner Gerontology; Visit Provider Nurse Practitioner Gerontology
DX: I05.9 Rheumatic mitral valve disease, unspecified (principal)
CPT/HCPCS: 36415; 80048

== ENCOUNTER → 2022-09-24 | Outpatient (CLI) | payer MEDICARE, BC, SELFPAY ==
[2022-09-24 16:39] LABS: Hematocrit 34.4 % (40-54); Hemoglobin 10.9 g/dL (13.0-16.5)
== END | disposition home or self-care (01) ==
LOC: LAB 16:17
PROVIDERS: PCP Family Medicine; Visit Provider Physician Assistant Medical
DX: D64.9 Anemia, unspecified (principal)
CPT/HCPCS: 36415; 85014; 85018

== ENCOUNTER → 2022-09-25 | Outpatient (CLI) | payer MEDICARE, BC, SELFPAY | END | disposition home or self-care (01) | LOC: LAB 06:35 → LABSPEC 06:38 | PROVIDERS: PCP Family Medicine; Referring Provider Physician Assistant Medical; Visit Provider Physician Assistant Medical | DX: D64.9 Anemia, unspecified (principal) | CPT/HCPCS: 82274 ==

== ENCOUNTER → 2022-10-05 | Outpatient (CLI) | payer MEDICARE, BC, SELFPAY | END | disposition home or self-care (01) | LOC: SL 20:21 | PROVIDERS: PCP Family Medicine; Referring Provider Nurse Practitioner Acute Care; Visit Provider Nurse Practitioner Acute Care | DX: G47.30 Sleep apnea, unspecified (principal) | CPT/HCPCS: 95811 ==

== ENCOUNTER → 2022-10-22 | Outpatient (CLI) | payer MEDICARE, BC, SELFPAY ==
--- NOTE | 2022-10-22 07:10 | CT_ITS ---
INDICATION: left inguinal hernia, h/o repair A radiation dose optimization technique was used for this scan. COMPARISON: None. IV Contrast dosage and agent: 98 cc Isovue-300 IV. FINDINGS: Contrast-enhanced serial CT axial images through the abdomen and pelvis with coronal and sagittal reformatted series. PANCREAS: No peripancreatic fat stranding. BOWEL/MESENTERY: No dilated bowel loops. No significant free fluid. No free air. GALLBLADDER: No pericholecystic fat stranding. LIVER/STOMACH: No obvious abnormality. URINARY COLLECTING SYSTEM/ KIDNEYS: No obstructing ureteral calculus. Left posterior exophytic interpolar renal lesion, likely renal cyst. Enlarged heterogeneous prostate. APPENDIX: Absent appendix with pericecal suture line. LUNG BASES: Unremarkable. BONES: Unremarkable for age. CT/Abdomen/Pelvis WITH Contrast IMPRESSION: No acute abdominal abnormality is identified. Electronically Signed: Wilbert Self MD at 6:29 EDT ,
[2022-10-22 07:41] LABS: EGFR FINGERSTICK > 60.0000 mL/min (>60)
== END | disposition home or self-care (01) ==
LOC: CT 07:09
PROVIDERS: PCP Family Medicine; Referring Provider Surgery; Visit Provider Surgery
DX: K40.90 Unilateral inguinal hernia, without obstruction or gangrene, not specified as recurrent (principal)
CPT/HCPCS: 74177; Q9967

== ENCOUNTER → 2022-11-11 | Outpatient (CLI) | payer MEDICARE, BC, SELFPAY | END | disposition home or self-care (01) | LOC: LABSPEC 10:57 | PROVIDERS: PCP Family Medicine; Referring Provider Surgery; Visit Provider Surgery | DX: Z01.818 Encounter for other preprocedural examination (principal) | CPT/HCPCS: 87077; 87081 ==

== ENCOUNTER 2022-11-30 09:45 | Day surgery (SDC) | payer MEDICARE, BC, SELFPAY ==
[2022-11-19 12:33] LABS: Absolute Lymphocyte Count 1.26 X10^3/uL (0.83-4.51); Absolute Neutrophil Count 3.1 X10^3/uL (2.0-7.7); Basophil# 0.03 X10^3/uL; Basophil% 0.6 % (0-1); Eosinophil# 0.19 X10^3/uL; Eosinophils% 3.7 % (0-5); Hemoglobin 11.4 g/dL (13.0-16.5); Lymphocyte # 1.26 X10^3/ul (0.83-4.51); Lymphocyte % 24.6 % (19-41); Mean Corp Hgb Conc 31.7 g/dL (32-36); Mean Corpuscular Hgb 30.2 pg (27.0-32.0); Mean Corpuscular Volume 95.2 fL (80-94); Mean Platelet Vol. 12.7 fl (6.2-12.0); Monocyte# 0.49 X10^3/uL; Monocyte% 9.6 % (0-10); NRBC Flagged by Analyzer 0 % (0-5); Neutrophil # 3.14 X10^3/uL (2.7-7.7); Neutrophil % 61.3 % (47-70); Platelet Count 113 K/mm3 (150-450); RBC Distribution Width CV 14.6 % (11.6-14.6); RBC Distribution Width SD 51.4 fl (35.1-43.9); Red Blood Count 3.78 M/mm3 (4.6-6.2); White Blood Count 5.1 K/mm3 (4.4-11.0)
[2022-11-19 13:03] LABS: Anion Gap 4 (5-15); BUN 22 mg/dL (7-18); BUN/Creat Ratio 21.8 RATIO (10-20); Calcium,Total 8.9 mg/dL (8.5-10.1); Chloride 106 mmol/L (98-107); Creatinine, Serum 1.01 mg/dL (0.70-1.30); EST Glomerular Filtration Rate 78 mL/min (>60); Est Glom Filt Rate - Afr Amer 95 mL/min (>60); Glucose 78 mg/dL (74-106); Sodium Level 140 mmol/L (136-145)
[2022-11-30] VITALS (8 sets, daily range): BP systolic 103–117; BP diastolic 62–97; PULSE 59–93; RESP 14–16; TEMP 36.3–37.2; O2SAT 92–97; BMI 24.1
[2022-11-30] MEDS: Lactated Ringers 1,000 ML 15 ML IV (10:32)
--- NOTE | 2022-11-30 11:14 | HP.PCM_ITS ---
History and Physical MR#: [id number] Acct: [id number] Name: JAYDEN OLSEN Rep #: [id number] : 1955 Provider: Dr. 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 Is patient in pain?: No Allergies No Known Allergies Allergy (Verified 11/11/22 08:34) Medications multivitamin 0.5 ea PO BID 02/17/17 [History Confirmed 11/11/22] tamsulosin 0.4 mg capsule 0.4 mg PO QHS 05/21/22 [History Confirmed 11/11/22] apixaban 5 mg tablet (Eliquis) 5 mg PO BID #180 tabs 07/14/22 [Rx Confirmed 11/11/22] furosemide 40 mg tablet (Lasix) 40 mg PO DAILY #30 tabs 08/07/22 [Rx Confirmed 11/11/22] atorvastatin 40 mg tablet 40 mg PO QHS #90 tabs 08/13/22 [Rx Confirmed 11/11/22] carvedilol 25 mg tablet 25 mg PO BID #180 tabs 08/13/22 [Rx Confirmed 11/11/22] ramipril 10 mg capsule 10 mg PO DAILY #90 caps 08/13/22 [Rx Confirmed 11/11/22] [facility] Medical History Alcohol use Arthritis Atrial fibrillation and flutter Bladder disease Cardiology follow-up encounter Cardiomyopathy CPAP (continuous positive airway pressure) dependence High cholesterol History of echocardiogram History of pain when walking History of stress test Hyperlipidemia Hypertension Left inguinal hernia Non-smoker Nonrheumatic mitral (valve) insufficiency Nonrheumatic mitral (valve) prolapse Palpitations Paroxysmal atrial fibrillation Paroxysmal atrial flutter Pulmonary hypertension Pure hypercholesterolemia radiofrequency ablation Tricuspid valve disorder Wears glasses Wears hearing aid Surgical History H/O mitral valve repair (~05/05/06) History of cardiac radiofrequency ablation (~01/26/07) Hx of appendectomy Family History Father Hypertension Cancer prostate Afib Social History Smoking Status: Never smoker alcohol intake: current alcohol intake frequency: a few times a week substance use type: does not use caffeine: Yes (socially) what type of physical activity do you participate in: walking frequency: 3-4 times per week duration: 30-45 minutes/day seatbelt use: always do you feel safe at home: Yes HPI HPI HPI: Update: Patient presents for update H&P. He denies any significant health updates. He did complete a CT scan as requested before today's visit. He also confirms that he has completed his moved to his new house and no longer will be needing to lift anything for a while. He reports that his symptoms are stable for his left inguinal hernia and that he is still experiencing bulging that he has to push back in 1-2 times per day. Below is recapitulated from patient's consultation visit 10/10/2022: Patient is a 66-year-old male who presents for complaint of new left groin bulge. He is referred from [facility] urgent care after a recent visit on 10/03/2022. This finding was first noticed by patient approximately 2 weeks ago while he was doing some moving activity as he and his family are transitioning to a new home. Patient states that he feels a twinge of discomfort, but by enlarge he has simply noticed a bulge. He denies any impact to his bowels. Patient gives a history of a prior inguinal hernia repair on the contralateral side with Dr. Herr. Patient is a retired dentist. Patient has no personal history of smoking. Patient has no personal history of recurrent cutaneous infections including staph. He is prescribed Eliquis for history of atrial fibrillation. He also has a diagnosis of pulmonary hypertension which he states pain after he experienced some exertional shortness of breath while walking his dog, but has not experienced this of late. Although Dr. Olsen is no longer working, he reports that he remains active in physical therapy after having a total knee replacement 4 months ago. He also states that he works with a sailing crew and that this activity should be wrapped up by the end of October. Pertinent surgical history includes: Appendectomy with primary umbilical hernia repair in 2018 (patient notes that his right inguinal hernia was performed sometime before this, but is unable to provide an exact date ROS General General: Yes weight change; No appetite, fatigue, colon cancer, breast cancer or weakness HEENT HEENT: No difficulty swallowing, eye injury, eye surgery, swollen glands or hoarseness Endo Endocrine: No thyroid disease, diabetes mellitus, thyroid cancer, Hair loss, heat intolerance or cold intolerance Skin Skin: No rash or changing moles Breast Breast: No left breast lump, right breast lump, nipple discharge, breast pain, abnormal mammogram, abnormal US or breast enlargement Musc Musculoskeletal: No back problems, arthritis, rheumatoid arthritis, gout or joint pain Cardio Cardiovascular: Yes murmur, heart disease and atrial fibrillation; No pacemaker, high blood pressure, heart attack, heart stent, palpitations, shortness of breat with exertion or chest pain Psych Psychiatric: No depression, anxiety or hearing voices Resp Respiratory: No shortness of breath, Yes sleep apnea, No cough, No COPD, No asthma, No emphysema and No wheezing Gastro Gastrointestinal: No abdominal pain, No nausea or vomiting, No diarrhea, No constipation, No blood in stool, No acid reflux, No hemorrhoids, No ulcers, No gallbladder problem and No black,tarry stools [place] Hematologic: No blood thinners, No blood disorders, No bleeding, No anemia and No blood clots Neuro Neurologic: No system reviewed and no additional complaints, except as documented, No as per HPI, No abnormal gait, No abnormal hearing, No abnormal movements, No abnormal speech, No behavioral changes, No burning sensations, No confusion, No convulsions, No disequilibrium, No dizziness, No localized weakness, No frequent falls, No headache(s), No lack of coordination, No loss of vision, No memory loss, No numbness, No other visual disturbances, No radicular pain, No restless legs, No sensory deficit, No syncope, No tingling, No tremor(s), No weakness and No other Exam Const General: cooperative, comfortable and no acute distress Orientation: alert, awake and oriented x3 Resp Effort & Inspection: normal respiratory effort Other: Left inguinal bulge that is reducible with some discomfort. Palpable indirect inguinal hernia defect Assessment and Plan Assessment and Plan (1) Left inguinal hernia: Status: Acute Comment: This is a 66-year-old male who presents for newly appreciated left inguinal hernia that is minimally symptomatic. Patient with stable symptoms and has now cleared to schedule to be able to abide by lifting restrictions. CT imaging was performed and no hernia was discussed by radiology, however, I see soft tissue adjacent to the spermatic cord on the left which is not present on the right. Patient does have a hernia by exam. Therefore, I recommend proceeding with our original plan of a robot-assisted left inguinal hernia repair with mesh. I briefly reviewed the details of the procedure and Dr. Olsen denies any further questions. A MRSA swab was obtained before our appointment ahead of mesh placement intraoperatively. Plan: ? Plan to proceed with outpatient left robot-assisted inguinal hernia repair with mesh via a transabdominal preperitoneal approach. We will follow-up MRSA swab to be sure patient does not require treatment for staph aureus. I have examined the patient and the H&P has been reviewed. There are no clinical changes since date of exam and patient confirms completion of staph eradication protocol. Procedure and post procedure details were briefly reviewed. Neither patient nor spouse offer any further questions. Therefore we will proceed to the operating room for scheduled robotic assisted left inguinal hernia repair with mesh.
[2022-11-30] MEDS: Cefazolin 2 GM in 0.9% Normal Saline 100 ML IV (11:16)
--- NOTE | 2022-11-30 13:57 | PCM.OPRPT ---
Report of Operation Date of Procedure: 11/30/22 Pre-Operative Diagnosis: Left inguinal hernia Post-Operative Diagnosis: Left indirect inguinal hernia with small cord lipoma Surgery/Procedure Performed:: Left robot-assisted transabdominal preperitoneal hernia repair with mesh Description of Surgical Findings:: Moderately large left indirect inguinal hernia Surgeon: Robb Sheridan yarn preparation supervisor: Jaida Linn Type of Anesthesia: General/Supplemental Anesthesiologist: Bhargav Martin Specimen's removed: None Estimated Blood Loss (mL): 20 Fluids Replaced: 1800 Description of Procedure: After appropriate identification the preoperative holding area the patient was brought to the operating room where he was positioned supine on the operating table. Preoperative antibiotics were completed and the patient was administered a general anesthetic. Patient's abdomen was then prepped and draped in usual sterile fashion. Formal timeout followed to confirm patient and procedure. Procedure was begun with an optical entry facilitated by Veress insufflation at Emmanuel's point. Once pneumoperitoneum reached a set point pressure of 12 mmHg a left paramedian incision was made and a 8 mm robotic trocar was placed with a careful Optiview technique. Follow-up laparoscopic investigation revealed no inadvertent injury to the viscera below. A second port was placed a hand's breath right of this index port under laparoscopic visualization. Then the Veress needle was withdrawn and a third and final robotic port was placed through this site. Patient was positioned in slight Trendelenburg and in this positioning I could visualize a moderately large indirect abdominal wall defect on the left but the right was closed with a tail of suture visible in the midportion of the closure. The robot was docked in standard fashion. Robotically, a peritoneal flap was created on the left extending from the medial umbilical ligament to the level of the ASIS (external) and was bluntly dissected to expose the medial parietal compartment and lateral visceral compartments. Medially I could visualize the pubis and Julito's ligament while laterally I extended the dissection down to the level of the ASIS/psoas complex. The hernia sac was identified and from the cord structures deeply with selective use of monopolar energy. This ultimately demonstrated that the hernia was an inguinoscrotal indirect hernia. A small cord lipoma was identified and removed from the internal opening with careful dissection, but as I attempted to free this from the cord structures inferiorly I encountered a fatty cord and no discrete plane. Mild oozing was encountered as I tried to insinuate a plane and thus this attempt was abandoned. Additionally I identified what appeared to be some retroperitoneal fat diving deeply between the cord and the vas deferens. This was delivered into the surgical bed, but I elected to not transected as it did not appear to compromise her mesh lie. Lastly, more medially I encountered a fat pad that appeared to lie directly adjacent the medial aspect of the femoral vein based on pulsations from the femoral artery. Part of this fat pad appeared to put the future mesh placement at risk for curling inferiorly so great care was taken to try to eliminate at least this portion of the fat pad, but the majority of it was left intact against the location of the vessels deeply. Then the peritoneal flap was inspected to ensure that cord was appropriately parietalized and there was no pulling of the cord structures or the viscera deeply over the psoas using the pull test. Once satisfied, a Bard 3D max, size large, mid weight mesh was placed into the abdomen along with suture. It was positioned within the preperitoneal pocket so that there was good medial and inferior overlap. It was then tacked to the admuniculum of the linea alba just superior to the pubic tubercle and laterally in a partial-thickness bite of the abdominal wall using a 3-0 Vicryl suture. The peritoneal flap was then closed with a running 3-0 V-Loc suture taking care to conceal the barbs of the suture beneath the peritoneum. With the peritoneal defects closed, sutures and a Ray-Lorna (placed for some mild oozing within the preperitoneal pocket) were systematically removed from the peritoneum. At this point I instructed my assistant child care teacher to perform a local block of the ilioinguinal nerve under my direction and inspection using 10 mL local anesthetic taking advantage of our laparoscopic visualization. Pneumoperitoneum was evacuated before removing the trocars. The port sites were closed at the skin with running 4-0 Monocryl in a subcuticular fashion. Steri-Strips and OpSite's were used as dressings. Patient's testicles were confirmed within the scrotum. Patient was then awoken from anesthetic and transferred to PACU for ongoing recovery. Grafts/Implants Used: Left 3D max MID anatomic mesh Lot [id number], reference [id number] Complications None Admit VTE Documentation VTE Present on Admission: Yes VTE Mechan Device Prophylaxis: SCD's Procedures Digestive 40xxx-49xxx: 43487 Lap ing hernia repair init
[2022-11-30] MEDS: Bupivacaine Mpf 0.5% 30 ML VIAL (14:00)
--- NOTE | 2022-11-30 14:08 | DCINST_ITS ---
Discharge Instructions Diet Discharge Diet: No restrictions Activity Discharge Activity: May Not Drive (While taking narcotic pain medication) and May Shower May shower in (days): 2 Ice area for (Minutes): 20 Lifting Restrictions: No lifting greater than 10 pounds for the next 5 weeks Dressing / Incision Call your doctor if your incision/area has: Continuous Slow Oozing, Increased Pain/ Swelling, Increased Redness, Foul Smelling Discharge and Swelling at the incision site Call your doctor if you observe: Fever of 101 or Higher, Inability to urinate and Inability to have a bowel movement Change Dressing in: 2 days (Please leave Steri-Strips intact until they fall off spontaneously or are taken off at your follow-up visit) Remove Dressing in: 2 days Cleanse incision/area with: Soap & Water and Keep Dressing Clean & Dry Follow Up Care Please Follow Up With: Robb Sheridan MD When: 1 week postop Test Results: Test results from this visit will be discussed in further detail at your follow- up appointment, if applicable. Discharge Plan Admission Primary Reason for Your Visit: Left inguinal hernia repair Attending Provider: Robb Sheridan Primary Care Provider: Dustin Castro Discharge Orders/Prescriptions Prescriptions: New oxycodone 5 mg tablet 5 mg PO Q6H PRN (Reason: pain) 3 Days Qty: 14 0RF Continued multivitamin 1 EACH tablet 0.5 ea PO BID tamsulosin 0.4 mg Capsule 0.4 mg PO QHS furosemide [Lasix] 40 mg tablet 40 mg PO DAILY Qty: 30 6RF atorvastatin 40 mg tablet 40 mg PO QHS Qty: 90 3RF carvedilol 25 mg tablet 25 mg PO BID Qty: 180 3RF ramipril 10 mg capsule 10 mg PO DAILY Qty: 90 3RF chlorhexidine gluconate [Hibiclens] 4 % liquid 1 applic topical ONCE Qty: 118 0RF Rx Instructions: as a single dose, Shower with 1x daily x 1 week mupirocin 2 % ointment 1 applic topical BID Qty: 15 0RF Rx Instructions: apply to bilateral nares bid x 1 week Held Eliquis 5 mg tablet 5 mg PO BID Qty: 180 3RF Hold Instructions: Resume on 12/02/22. Hold for 48 hours postop Referrals / Follow Up: Dustin Castro MD [Primary Care Provider] - Disposition Disposition (needs filled in before D/C Order can be placed): Home, Self Care
--- NOTE | 2022-11-30 16:10 | SUR.PHASEII ---
DR. BENNETT AT BEDSIDE TO SEE PT WHEN THIS NURSE WAS IN THE ROOM TO TAKE PT TO BATHROOM. PER DR. BENNETT VERBAL ORDER PT TO BE D/C TO HOME ONCE ALL CRITERIA IS MET.
== END 2022-11-30 16:18 | disposition home or self-care (01) ==
LOC: SDC 09:49 → AC 09:49
PROVIDERS: Anesthesiology; PCP Family Medicine; Referring Provider Surgery; Visit Provider Surgery
PROC: 0YQ64ZZ Repair Left Inguinal Region, Percutaneous Endoscopic Approach (ICD-10-PCS; CPT 49650; principal; 2022-11-30 11:15)
DX: K40.90 Unilateral inguinal hernia, without obstruction or gangrene, not specified as recurrent (principal); I27.20 Pulmonary hypertension, unspecified; I48.0 Paroxysmal atrial fibrillation; I10 Essential (primary) hypertension; E78.00 Pure hypercholesterolemia, unspecified; Z79.899 Other long term (current) drug therapy; Z79.01 Long term (current) use of anticoagulants; Z96.659 Presence of unspecified artificial knee joint
CPT/HCPCS: 49650; S2900; 00840; 36415; 80048; 85025; J7120; J2405

== ENCOUNTER 2023-01-07 11:03 | Outpatient (CLI) | payer MEDICARE, BC, SELFPAY ==
[2023-01-07 12:04] LABS: Absolute Lymphocyte Count 1.56 X10^3/uL (0.83-4.51); Absolute Neutrophil Count 2.9 X10^3/uL (2.0-7.7); Basophil# 0.05 X10^3/uL; Eosinophil# 0.23 X10^3/uL; Eosinophils% 4.4 % (0-5); Hematocrit 35.5 % (40-54); Hemoglobin 11.6 g/dL (13.0-16.5); Lymphocyte # 1.56 X10^3/ul (0.83-4.51); Lymphocyte % 30.1 % (19-41); Mean Corp Hgb Conc 32.7 g/dL (32-36); Mean Corpuscular Hgb 31.3 pg (27.0-32.0); Mean Corpuscular Volume 95.7 fL (80-94); Mean Platelet Vol. 12.1 fl (6.2-12.0); Monocyte# 0.37 X10^3/uL; Monocyte% 7.1 % (0-10); NRBC Flagged by Analyzer 0 % (0-5); Neutrophil # 2.94 X10^3/uL (2.7-7.7); Neutrophil % 56.8 % (47-70); Platelet Count 131 K/mm3 (150-450); RBC Distribution Width CV 13.6 % (11.6-14.6); Red Blood Count 3.71 M/mm3 (4.6-6.2); White Blood Count 5.2 K/mm3 (4.4-11.0)
[2023-01-07 12:24] LABS: Microalbumin,Random Urine < 5.0 mg/L (NO RANGE EST.)
[2023-01-07 12:34] LABS: Vitamin B12 989 pg/mL (211-911)
[2023-01-07 14:21] LABS: ALB/GLOB Ratio 1.1 RATIO (0.9-2.4); AST(SGOT) 30 U/L (15-37); Alanine Aminotransfer ALT/SGPT 48 U/L (16-61); Albumin, Serum 3.8 g/dL (3.2-5.0); Alkaline Phosphatase 72 U/L (45-117); Anion Gap 3 (5-15); BUN 20 mg/dL (7-18); BUN/Creat Ratio 18.2 RATIO (10-20); Calcium,Total 9.1 mg/dL (8.5-10.1); Chloride 106 mmol/L (98-107); EST Glomerular Filtration Rate 71 mL/min (>60); Est Glom Filt Rate - Afr Amer 86 mL/min (>60); Globulin 3.6 g/dL (2.2-4.2); Glucose 93 mg/dL (74-106); PSA,Total- Diagnostic 7.52 ng/mL (0.0-4.0); Potassium 4.2 mmol/L (3.5-5.1); Protein, Total 7.4 g/dL (6.4-8.2); Sodium Level 138 mmol/L (136-145)
[2023-01-08 09:41] LABS: Ferritin 113 ng/mL (26-388)
[2023-01-12 18:07] LABS: Methylmalonic Acid Bld 112 nmol/L (0-378)
== END 2023-01-07 23:59 | disposition home or self-care (01) ==
LOC: MFPLAB 11:05
PROVIDERS: PCP Family Medicine; Visit Provider Family Medicine
DX: R20.2 Paresthesia of skin (principal); R97.20 Elevated prostate specific antigen [PSA]; I10 Essential (primary) hypertension; G47.33 Obstructive sleep apnea (adult) (pediatric); D64.9 Anemia, unspecified
CPT/HCPCS: 36415; 80053; 82043; 82570; 82607; 82728; 82746; 83921; 84153; 85025

== ENCOUNTER → 2023-07-14 | Outpatient (CLI) | payer MEDICARE, BC, SELFPAY ==
--- NOTE | 2023-07-14 10:08 | ECHOD_ITS ---
Reason For Study: PULMONARY HYPERTENSION Procedure This was a 2D Doppler, Color Flow transthoracic echocardiogram. Exam performed in department. Left Ventricle Normal LV size. Left ventricular systolic function is normal. The estimated ejection fraction is 55 %. No regional wall motion abnormalities noted. Right Ventricle Normal RV size. Normal systolic function. Atria The left atrium is mildly enlarged. Normal right atrium. Mitral Valve Mild-Moderate (1-2+) anteriorly directed mitral valve insufficiency. Status post mitral valve repair. Tricuspid Valve Normal tricuspid valve. Mild (1+) tricuspid valve insufficiency. Pulmonary artery systolic pressure is 34 mmHg. Aortic Valve Trisinus/trileaflet aortic valve. Mild (1+) aortic valve insufficiency. Pulmonic Valve Normal pulmonic valve. Great Vessels Normal aortic root. The pulmonary artery is normal size. Inferior vena cava collapse with sniff. Pericardium/Pleural No pericardial effusion. MMode/2D Measurements & Calculations LVIDd: 6.2 cm IVSd: 1.2 cm LVOT diam: 2.5 cm LVIDs: 2.9 cm LVPWd: 0.99 cm LVOT area: 5.0 cm2 RVDd: 4.8 cm FS: 53.5 % Ao root diam: 4.3 cm LAV(MOD-bp): 96.7 ml LVAd ap4: 42.2 cm2 LAV(MOD-bp) Indexed: 43.2 ml/m2 LVLd ap4: 8.9 cm LAV(MOD-sp2): 121.7 ml EDV(MOD-sp4): 161.7 ml LAV(MOD-sp4): 70.8 ml EDV(sp4-el): 169.9 ml LVAs ap4: 24.4 cm2 LVLs ap4: 7.7 cm ESV(MOD-sp4): 63.6 ml ESV(sp4-el): 65.6 ml EF(MOD-sp4): 60.7 % EF(sp4-el): 61.4 % LVAd ap2: 41.9 cm2 SV(MOD-sp4): 98.1 ml SV(MOD-sp2): 97.4 ml LVLd ap2: 8.8 cm EDV(MOD-sp2): 173.4 ml EDV(sp2-el): 169.1 ml LVAs ap2: 27.0 cm2 LVLs ap2: 7.9 cm ESV(MOD-sp2): 76.1 ml ESV(sp2-el): 78.2 ml EF(MOD-sp2): 56.1 % SV(sp4-el): 104.4 ml LA dimension(2D): 5.2 cm LA A4 area: 25.0 cm2 RA A4 area: 17.0 cm2 TAPSE: 1.8 cm Time Measurements MV dec time: 0.34 sec Doppler Measurements & Calculations MV E max afshin: 163.2 cm/sec Lat Peak E' Afshin: 7.2 cm/sec Med Peak E' Afshin: 4.8 cm/sec MV A max afshin: 37.3 cm/sec E/E' lat: 22.5 E/E' med: 34.2 MV E/A: 4.4 MV V2 max: 183.0 cm/sec Ao V2 max: 97.4 cm/sec MV max P.4 mmHg MV dec slope: 477.2 cm/sec2 Ao max P.8 mmHg MV V2 mean: 84.5 cm/sec Ao V2 mean: 69.1 cm/sec MV mean P.9 mmHg Ao mean P.1 mmHg MV V2 VTI: 39.3 cm Ao V2 VTI: 20.0 cm AV (velocity ratio): 0.77 MVA(VTI): 1.9 cm2 LYDIA(I,D): 3.8 cm2 LYDIA(V,D): 3.0 cm2 AI max afshin: 414.3 cm/sec LV V1 max: 59.3 cm/sec SV(LVOT): 76.6 ml AI max P.6 mmHg LV V1 max P.4 mmHg AI dec slope: 215.8 cm/sec2 LV V1 mean P.91 mmHg AI P1/2t: 562.2 msec LV V1 mean: 46.4 cm/sec LV V1 VTI: 15.4 cm PA V2 max: 99.3 cm/sec PI end-d afshin: 107.4 cm/sec TR max afshin: 255.8 cm/sec PA max PG (full): 2.9 mmHg TR max P.2 mmHg ECHO/Echo Complete Interpretation Summary Status post mitral valve repair. Normal LV size. Left ventricular systolic function is normal. The estimated ejection fraction is 55 %. Mild-Moderate (1-2+) anteriorly directed mitral valve insufficiency. Mild (1+) aortic valve insufficiency. Pulmonary artery systolic pressure is 34 mmHg. Compared to the previous echocardiogram the pulmonary pressures are much improv ed. Ordering Physician: Donald Callahan Referring Physician: Dustin Castro MD Performed By: Stephani Soria RDCS
== END | disposition home or self-care (01) ==
LOC: CVS 10:07
PROVIDERS: PCP Family Medicine; Referring Provider Internal Medicine Cardiovascular Disease; Visit Provider Internal Medicine Cardiovascular Disease
DX: I27.20 Pulmonary hypertension, unspecified (principal)
CPT/HCPCS: 93306

== ENCOUNTER → 2023-09-09 | Outpatient (CLI) | payer MEDICARE, BC, SELFPAY ==
--- NOTE | 2023-09-09 09:07 | CDU_ITS ---
Reason For Study: R/O ocular stroke Rt. Velocities/BP Lt. Velocities/BP Prox CCA 121.9/31.1 cm/sec. Prox CCA 133.9/38.9 cm/sec. Mid CCA 85.1/18.8 cm/sec. Mid CCA 101/24.3 cm/sec. Dist CCA 71.6/26.2 cm/sec. Dist CCA 82.8/30 cm/sec. Prox ICA 53.2/16.3 cm/sec. Prox ICA 55.3/28.9 cm/sec. Mid ICA 90/42.1 cm/sec. Mid ICA 98.1/39.9 cm/sec. Dist ICA 88.8/39.7 cm/sec. Dist ICA 77.3/38.8 cm/sec. Rt. ICA/CCA = 1.06. Lt. ICA/CCA = 0.97. Prox ECA 60.5/11.4 cm/sec. Prox ECA 76.2/10.2 cm/sec. Rt. Vert. 44.3/15.7 cm/sec. Lt. Vert. 52/24.5 cm/sec. Right Extracranial There is intimal thickening but no significant atherosclerotic plaque noted in the right common carotid artery. There is heterogeneous, irregular atherosclerotic plaque noted in the right internal carotid artery. There is intimal thickening but no significant atherosclerotic plaque noted in the right external carotid artery. Antegrade flow is noted in the right vertebral artery. Left Extracranial There is intimal thickening but no significant atherosclerotic plaque noted in the left common carotid artery. There is heterogeneous, irregular atherosclerotic plaque noted in the left internal carotid artery. There is intimal thickening but no significant atherosclerotic plaque noted in the left external carotid artery. Antegrade flow is noted in the left vertebral artery. Procedure Carotid Duplex [id number]. This is a Carotid Duplex examination using B-mode, color flow and specral Doppler. Exam performed in department. VL/Carotid Duplex Ultrasound Interpretation Summary Mild (<50%) stenosis right extracranial internal carotid. Mild (<50%) stenosis left extracranial internal carotid. Patent and antegrade vertebrals bilaterally. Ordering Physician: Pino Ha Referring Physician: Dustin Castro MD Performed By: Dori Macias RVT
== END | disposition home or self-care (01) ==
LOC: CVS 09:07
PROVIDERS: PCP Family Medicine; Referring Provider Nurse Practitioner Family; Visit Provider Nurse Practitioner Family
DX: H53.132 Sudden visual loss, left eye (principal); I48.0 Paroxysmal atrial fibrillation; Z86.73 Personal history of transient ischemic attack (TIA), and cerebral infarction without residual deficits; Z98.890 Other specified postprocedural states
CPT/HCPCS: 93880

== ENCOUNTER 2023-09-17 13:59 | Observation (INO) | payer MEDICARE, BC, SELFPAY ==
[2023-09-17 14:00] VITALS: BP 111/75; PULSE 66; RESP 18; TEMP 36.4; O2SAT 99; BMI 25.7
--- NOTE | 2023-09-17 14:21 | EKG12_ITS ---
Test Reason : VISION PROBLEMS Blood Pressure : / mmHG Vent. Rate : 067 BPM Atrial Rate : 267 BPM P-R Int : 000 ms QRS Dur : 112 ms QT Int : 410 ms P-R-T Axes : 269 -35 052 degrees QTc Int : 433 ms Atrial flutter with variable A-V block Left axis deviation Incomplete left bundle branch block Abnormal ECG Confirmed by ANGEL IRVIN, CODY ([id number]), design editor MARY ANN HORTON ([id number]) on 09/20/2023 10:48:00 AM Referred By: Confirmed By:CODY ORTIZ MD
--- NOTE | 2023-09-17 14:22 | CT_ITS ---
EXAM: CT ANGIOGRAPHY HEAD AND NECK WITH INTRAVENOUS CONTRAST CLINICAL INDICATION: Neuro deficit, acute, stroke suspected TECHNIQUE: [place] [facility] [place]/head and neck CT angiography protocol performed with intravenous contrast. This CT exam was performed using one or more of the following dose reduction techniques: automated exposure control, adjustment of the mA and/or kV according to patient size, and/or use of iterative reconstruction technique. MIP reconstructed images were created and reviewed. CONTRAST: IV 100mL [id number] COMPARISON: No relevant prior studies available. FINDINGS: HEAD: RIGHT ANTERIOR CEREBRAL ARTERY: Normal. No occlusion or significant stenosis. Anterior communicating artery is present. No aneurysm. RIGHT MIDDLE CEREBRAL ARTERY: Normal. No occlusion or significant stenosis. No aneurysm. RIGHT POSTERIOR CEREBRAL ARTERY: Normal. No occlusion or significant stenosis. No aneurysm. RIGHT INTRACRANIAL INTERNAL CAROTID ARTERY: Normal. No significant stenosis. No dissection or occlusion. RIGHT INTRACRANIAL VERTEBRAL ARTERY: Normal. No significant stenosis. No dissection or occlusion. LEFT ANTERIOR CEREBRAL ARTERY: Normal. No occlusion or significant stenosis. No aneurysm. LEFT MIDDLE CEREBRAL ARTERY: Normal. No occlusion or significant stenosis. No aneurysm. LEFT POSTERIOR CEREBRAL ARTERY: Normal. No occlusion or significant stenosis. No aneurysm. LEFT INTRACRANIAL INTERNAL CAROTID ARTERY: Normal. No significant stenosis. No dissection or occlusion. LEFT INTRACRANIAL VERTEBRAL ARTERY: Normal. No significant stenosis. No dissection or occlusion. BASILAR ARTERY: Normal. No occlusion or significant stenosis. No aneurysm. OTHER VASCULATURE: No vascular malformation. NECK: RIGHT COMMON CAROTID ARTERY: Normal. No significant stenosis. No dissection or occlusion. RIGHT EXTRACRANIAL INTERNAL CAROTID ARTERY: Mild calcific plaquing at the right carotid bulb. No significant stenosis. No dissection or occlusion. RIGHT EXTERNAL CAROTID ARTERY: Normal. No occlusion. RIGHT EXTRACRANIAL VERTEBRAL ARTERY: Normal. No significant stenosis. No dissection or occlusion. LEFT COMMON CAROTID ARTERY: Normal. No significant stenosis. No dissection or occlusion. LEFT EXTRACRANIAL INTERNAL CAROTID ARTERY: Mild calcific plaquing at the left carotid bulb. No significant stenosis. No dissection or occlusion. LEFT EXTERNAL CAROTID ARTERY: Normal. No occlusion. LEFT EXTRACRANIAL VERTEBRAL ARTERY: Normal. No significant stenosis. No dissection or occlusion. THYROID: Multiple subcentimeter thyroid nodules are noted. BRACHIOCEPHALIC AND SUBCLAVIAN ARTERIES: Unremarkable as visualized. No occlusion or significant stenosis. LUNG APICES: Unremarkable as visualized. HEAD and NECK: BONES/JOINTS: Normal. No discrete lytic or blastic abnormalities. SOFT TISSUES: Normal. CAROTID STENOSIS REFERENCE USING NASCET CRITERIA: % ICA stenosis = (1 - narrowest ICA diameter/diameter of distal cervical ICA) x 100. Mild - <50% stenosis. Moderate - 50-69% stenosis. Severe - 70-94% stenosis. Near occlusion - 95-99% stenosis. Occluded - 100% stenosis. CT/CTA Head AND Neck W/ Contrast IMPRESSION: No evidence of arterial stenosis, occlusion, dissection or intracranial aneurysm. Electronically Signed: Tonio Rice MD at 16:25 EDT ,
--- NOTE | 2023-09-17 14:22 | ED.VIS.STROK ---
HPI History of Present Illness Chief Complaint: Vision Prob Detail of Chief Complaint: Vision loss/TIA Informant: patient Narrative Narrative: Patient presents with vision loss that started around 12:30 PM today. Patient states that he had sudden onset of loss of vision in his left eye the outer upper third of his visual field for about 2 minutes. Currently symptoms have resolved. He tells me had a similar episode about 2 weeks ago involving the right eye that resolved. Since then he had a carotid echo and he has 50% stenosis but did not feel any intervention was indicated. Patient currently on Eliquis for history of A-fib and has had prior mitral valve repair. Patient denies any difficulty with speech. He denies any weakness in extremities. [facility] Medical History Alcohol use Arthritis Atrial fibrillation and flutter Bladder disease Cardiology follow-up encounter Cardiomyopathy CPAP (continuous positive airway pressure) dependence Enlarged prostate High cholesterol History of echocardiogram History of edema History of pain when walking History of stress test Hyperlipidemia Hypertension Left inguinal hernia Non-smoker Nonrheumatic mitral (valve) insufficiency Nonrheumatic mitral (valve) prolapse Palpitations Paroxysmal atrial fibrillation Paroxysmal atrial flutter Pulmonary hypertension Pure hypercholesterolemia radiofrequency ablation Tricuspid valve disorder Wears glasses Wears hearing aid Home Medications ?Medication ?Instructions ?Recorded ?Last Taken ?Type multivitamin 0.5 ea PO BID 02/17/17 Unknown History apixaban 5 mg tablet (Eliquis) 5 mg PO BID #180 tabs 05/27/23 Unknown Rx atorvastatin 40 mg tablet 40 mg PO QHS #90 tabs 05/27/23 Unknown Rx carvedilol 25 mg tablet 25 mg PO BID #180 tabs 05/27/23 Unknown Rx furosemide 40 mg tablet (Lasix) 40 mg PO DAILY #90 tabs 05/27/23 Unknown Rx ramipril 10 mg capsule 10 mg PO DAILY #90 caps 05/27/23 Unknown Rx tamsulosin 0.4 mg capsule 0.4 mg PO DAILY 06/11/23 Unknown History Allergy/AdvReac Type Severity Reaction Status Date / Time No Known Allergies Allergy Verified 09/17/23 14:00 Family History Father Hypertension Cancer prostate Afib Surgical History H/O mitral valve repair (~05/05/06) History of cardiac radiofrequency ablation (~01/26/07) Hx of appendectomy Status post hernia repair Social History Smoking Status: Never smoker alcohol intake: current alcohol intake frequency: a few times a week substance use type: does not use caffeine: Yes (socially) what type of physical activity do you participate in: walking frequency: 3-4 times per week duration: 30-45 minutes/day seatbelt use: always do you feel safe at home: Yes ROS ROS ED Review of Systems ROS Unobtainable: other Constitutional Constitutional ED: Reports lethargy; Denies chills, fever(s), sweats or weight loss Eyes Eyes: Reports change in vision; Denies blurry vision or diplopia ENT ENT ED: Denies rhinorrhea or sore throat Cardiovascular Cardiovascular: Denies chest pain, orthopnea or racing heartbeat Respiratory/Chest Respiratory/Chest: Denies cough, dyspnea, dyspnea on exertion, orthopnea or sputum Gastrointestinal Gastrointestinal: Denies abdominal pain, diarrhea, nausea or vomiting Genitourinary Genitourinary ED: Denies dysuria, hematuria or urinary frequency Musculoskeletal Musculoskeletal: Denies arthralgias, back pain, myalgias or neck pain Integumentary Denies abscess, Abrasions or rash Neurologic Neurologic: Denies headache(s) or weakness Psychiatric Psychiatric: Denies anxiety, depression or suicidal thoughts Endocrine Endocrinology: Denies polydipsia, polyphagia or polyuria Hematologic/Lymphatic Hematologic/Lymphatic: Denies easy bleeding, easy bruising or lymphadenopathy Allergic/Immunologic Allergic/Immunologic ED: Denies mouth swelling, tongue swelling or urticaria EXAM Physical Exam Const Vital Signs: 09/17/23 14:00 09/17/23 14:45 09/17/23 16:00 Temperature 97.6 F L Temperature Source Temporal Pulse Rate 66 54 L Respiratory Rate 18 17 Blood Pressure 111/75 113/74 Blood Pressure Mean 87 87 Pulse Ox 99 97 Oxygen Delivery Method Room Air Room Air Room Air Positive well nourished and well developed General Appearance ED: well developed and NAD HEENT Reports TM's clear and moist mucous membranes normocephalic and atraumatic; Negative for trauma or tenderness Tympanic Membrane ED: Yes TM's clear Eyes PERRL and EOMs intact bilaterally General Eye ED: Negative for pale conjunctiva or scleral icterus Neck no lymphadenopathy, supple and no JVD General: Negative for tenderness Chest Wall inspection of chest normal and palpation of chest normal Chest: Negative for tenderness Resp normal respiratory effort and clear to auscultation bilaterally Effort and Inspection: Negative for respiratory distress or pain with movement Auscultation: Negative for rhonchi, wheezes or diminished lung sounds Cardio regular rate, regular rhythm, S1 normal heart sound, S2 normal heart sound and no murmurs Peripheral Pulses: pulses 2+ throughout GI normal to inspection, nondistended, normoactive bowel sounds, soft to palpation, non-tender, non-distended and no masses Back/Spine no CVA tenderness and no thoracic nor lumbar tenderness Extremity normal to inspection General Extremety ED: Negative for edema General Extremity: Negative for edema Neuro oriented x3, CN's II-XII intact bilaterally, no sensory deficits noted and gait normal Sensorium / Orientation: awake, alert, oriented to person, oriented to place and oriented to time Motor Exam: strength 5/5 throughout and strength abnormal Psych mental status grossly normal Skin no rashes or lesions noted and no wounds MDM MDM MDM Narrative Medical decision making narrative: Patient presents with vision change in the left eye that is now resolved. Concern for amaurosis fugax. Similar episode 2 weeks ago. Episode last time was in the right eye. Patient taking his Eliquis regularly. CBC with differential patient recommend 6.0 with hemoglobin 11.5 and platelet count of 104. Chemistries unremarkable. Troponin was 12. EKG showed atrial flutter with variable block. Rate of 67 bpm. CTA head and neck ordered and currently pending. Case turned over to evening physician awaiting CTA results and final disposition. Feel patient will likely require admission for further testing such as possibly echocardiogram. It is unclear if patient can have an MRI as he tells me that from prior heart surgery he has a wire that had broken off and was left in his chest from an internal defibrillator. Lab Data Attestation: I reviewed the patient's lab results. Labs: Laboratory Results - last 24 hr 09/17/23 14:32 WBC 6.0 RBC 3.69 L Hgb 11.5 L Hct 35.1 L MCV 95.1 H MCH 31.2 MCHC 32.8 RDW Std Deviation 47.0 H RDW Coeff of Iván 13.4 Plt Count 104 L MPV 12.2 H Immature Gran % (Auto) 0.300 Neut % (Auto) 61.6 Lymph % (Auto) 22.4 [place] % (Auto) 10.1 H Eos % (Auto) 4.9 Baso % (Auto) 0.7 Absolute Neuts (auto) 3.7 Absolute Lymphs (auto) 1.33 Nucleated RBC % 0 PT 14.9 INR 1.2 APTT 38.4 H Sodium 139 Potassium 3.9 Chloride 106 Carbon Dioxide 27.0 Anion Gap 6 BUN 29 H Creatinine 1.25 Estim Creat Clear Calc 68.54 Est GFR (MDRD) Af Amer 74 Est GFR (MDRD) Non-Af 61 BUN/Creatinine Ratio 23.2 H Glucose 93 Calcium 8.6 Troponin I High Sens 12 Radiography Diagnostic Testing: Clinical Impression(s) from Imaging Studies Chest X-Ray 09/17/23 15:12 IMPRESSION: There is prominence of the central pulmonary arteries. The lungs are clear. Electronically Signed: Ankit Granados MD at 15:21 EDT , 1 view chest x-ray obtained interpreted by myself no evidence of infiltrate or pneumothorax or acute disease process. Radiology felt there was prominence of the central pulmonary arteries but the lungs are clear. EKG Initial EKG: Attestation: I personally reviewed and interpreted this EKG as follows: Comments: Atrial flutter with variable block and incomplete right bundle branch block ventricular rate of 67 bpm Discharge Plan Triage Chief Complaint: Vision Prob ED Provider: Roslyn Cook Dx/Rx/DC Orders Clinical Impression: Brain TIA, Atrial flutter Prescriptions: No Action tamsulosin 0.4 mg capsule 0.4 mg PO DAILY multivitamin 1 EACH tablet 0.5 ea PO BID ramipril 10 mg capsule 10 mg PO DAILY Qty: 90 3RF furosemide [Lasix] 40 mg tablet 40 mg PO DAILY Qty: 90 3RF carvedilol 25 mg tablet 25 mg PO BID Qty: 180 3RF atorvastatin 40 mg tablet 40 mg PO QHS Qty: 90 3RF Eliquis 5 mg tablet 5 mg PO BID Qty: 180 3RF Primary Care Provider: Dustin Castro Referrals: Dustin Castro MD [Primary Care Provider] - Print Language: Welsh Disposition Disposition: Acute Care Hospital [facility]
[2023-09-17 14:40] LABS: Absolute Lymphocyte Count 1.33 X10^3/uL (0.83-4.51); Absolute Neutrophil Count 3.7 X10^3/uL (2.0-7.7); Basophil# 0.04 X10^3/uL; Basophil% 0.7 % (0-1); Eosinophil# 0.29 X10^3/uL; Eosinophils% 4.9 % (0-5); Hematocrit 35.1 % (40-54); Hemoglobin 11.5 g/dL (13.0-16.5); Lymphocyte # 1.33 X10^3/ul (0.83-4.51); Lymphocyte % 22.4 % (19-41); Mean Corp Hgb Conc 32.8 g/dL (32-36); Mean Corpuscular Hgb 31.2 pg (27.0-32.0); Mean Corpuscular Volume 95.1 fL (80-94); Mean Platelet Vol. 12.2 fl (6.2-12.0); Monocyte% 10.1 % (0-10); NRBC Flagged by Analyzer 0 % (0-5); Neutrophil # 3.67 X10^3/uL (2.7-7.7); Neutrophil % 61.6 % (47-70); Platelet Count 104 K/mm3 (150-450); RBC Distribution Width CV 13.4 % (11.6-14.6); Red Blood Count 3.69 M/mm3 (4.6-6.2)
[2023-09-17 14:51] LABS: International Normalized Ratio 1.2; Prothrombin Time (Protime)PT. 14.9 SECONDS (11.7-14.9)
[2023-09-17 14:52] LABS: Partial Thromboplast Time 38.4 Seconds (24.1-36.2)
[2023-09-17 15:08] LABS: Anion Gap 6 (5-15); BUN 29 mg/dL (7-18); BUN/Creat Ratio 23.2 RATIO (10-20); Calcium,Total 8.6 mg/dL (8.5-10.1); Chloride 106 mmol/L (98-107); Creatinine, Serum 1.25 mg/dL (0.70-1.30); EST Glomerular Filtration Rate 61 mL/min (>60); Est Glom Filt Rate - Afr Amer 74 mL/min (>60); Estimated Creatinine Clearance 68.54 ml/min; Glucose 93 mg/dL (74-106); Potassium 3.9 mmol/L (3.5-5.1); Sodium Level 139 mmol/L (136-145); Troponin-I HS 12 pg/mL (3.0-78.0)
--- NOTE | 2023-09-17 15:12 | RAD_ITS ---
STUDY: X-RAY CHEST REASON FOR EXAM: Male, 67 years old. Neuro deficit, acute, stroke suspected TECHNIQUE: Single AP portable view of the chest. COMPARISON: None. FINDINGS: EKG electrodes are seen. The lungs are clear and expanded. There is no demonstrated pleural abnormality. Sternal cerclage wires are present from a prior sternotomy. The patient is status post mitral valve replacement. Normal mediastinum and jose. There is prominence of the pulmonary hilar arteries without peripheral pulmonary vascular congestion, suggesting pulmonary hypertension. Normal visualized aortic arch and descending thoracic aorta. There are diffuse degenerative changes of the visualized thoracic spine. Normal visualized ribs, clavicles, and shoulders. There is no demonstrated abnormality of the visualized soft tissue structures of the upper abdomen. RAD/Chest 1 View IMPRESSION: There is prominence of the central pulmonary arteries. The lungs are clear. Electronically Signed: Ankit Granados MD at 15:21 EDT ,
[2023-09-17 16:00] VITALS: BP 113/74; PULSE 54; RESP 17; O2SAT 97
--- NOTE | 2023-09-17 17:05 | HP.PCM.HOS_ITS ---
HPI - General General Date of Admission: 09/17/23 Date of Service: 09/17/23 Chief Complaint: vision impairment HPI Narrative JAYDEN OLSEN, is a 67 M with a PMH as outlined who presents via the ED on 09/17/2023 with a complaint of loss of vision in the left eye earlier today. He says he had loss of vision in the left eye at around 12:30pm. He says the loss of vision was in the outer upper third of his left eye. He says it lasted for a couple of minutes and subsequently improved. At the time he came into the ED his symptoms had resolved and have not recurred. He had similar complaints about a couple of weeks ago and states at that time he came into the ED and had an MRI which did not show any evidence of a stroke. He also had a carotid ultrasound and 2D echo done. He has a history of A-fib and is on Eliquis. He denied any numbness or tingling, dizziness, lightheadedness, palpitations, abdominal pain or any other symptoms. He denied any focal weakness in his arms or legs. Review of systems otherwise negative. Vitals in the ED were blood pressure 117/77, pulse rate of 65, respirate rate of 16 and temp of 98.2 Fahrenheit. He was saturating at 100% on room air. CBC showed hemoglobin of 11.5 with WBC of 6 and platelets of 104. Chemistry was unremarkable. Initial troponin was negative. Chest x-ray showed no acute cardiopulmonary pathology. CTA head and neck showed no hemodynamically significant stenosis. CT brain done as part of the CTA head and neck was pending read. He is being admitted to be managed for TIA to rule out a stroke. [facility] Medical History Alcohol use Arthritis Atrial fibrillation and flutter Bladder disease Cardiology follow-up encounter Cardiomyopathy CPAP (continuous positive airway pressure) dependence Enlarged prostate High cholesterol History of echocardiogram History of edema History of pain when walking History of stress test Hyperlipidemia Hypertension Left inguinal hernia Non-smoker Nonrheumatic mitral (valve) insufficiency Nonrheumatic mitral (valve) prolapse Palpitations Paroxysmal atrial fibrillation Paroxysmal atrial flutter Pulmonary hypertension Pure hypercholesterolemia radiofrequency ablation Tricuspid valve disorder Wears glasses Wears hearing aid Home Medications ?Medication ?Instructions ?Recorded ?Last Taken ?Type multivitamin 0.5 ea PO BID 02/17/17 Unknown History apixaban 5 mg tablet (Eliquis) 5 mg PO BID #180 tabs 05/27/23 Unknown Rx atorvastatin 40 mg tablet 40 mg PO QHS #90 tabs 05/27/23 Unknown Rx carvedilol 25 mg tablet 25 mg PO BID #180 tabs 05/27/23 Unknown Rx furosemide 40 mg tablet (Lasix) 40 mg PO DAILY #90 tabs 05/27/23 Unknown Rx tamsulosin 0.4 mg capsule 0.4 mg PO DAILY 06/11/23 Unknown History ramipril 10 mg capsule 10 mg PO QHS 09/17/23 Unknown History Allergy/AdvReac Type Severity Reaction Status Date / Time No Known Allergies Allergy Verified 09/17/23 14:00 Family History Father Hypertension Cancer prostate Afib Surgical History H/O mitral valve repair (~05/05/06) History of cardiac radiofrequency ablation (~01/26/07) Hx of appendectomy Status post hernia repair Social History (Updated 09/17/23 @ 18:19 by Lady Almanza) household members: spouse housing: house Smoking Status: Never smoker alcohol intake: current alcohol intake frequency: a few times a week substance use type: does not use caffeine: Yes (socially) what type of physical activity do you participate in: walking frequency: 3-4 times per week duration: 30-45 minutes/day seatbelt use: always do you feel safe at home: Yes ROS Constitutional Constitutional: Denies anorexia, chills, fatigue, fever(s), malaise or weakness Eyes Eyes: Reports change in vision ENT HEENT: Denies dysphagia, headache(s), hearing loss or nasal congestion Cardiovascular Cardiovascular: Denies chest pain, dyspnea on exertion, edema, lightheadedness, orthopnea, palpitations, paroxysmal nocturnal dyspnea, rapid heart rate or syncope Respiratory/Chest Respiratory/Chest: Denies cough, dyspnea, productive cough, shortness of breath at rest or shortness of breath with exertion Gastrointestinal Gastrointestinal: Denies abdominal pain, constipation, diarrhea, nausea or vomiting Genitourinary Genitourinary: Denies burning urination, difficulty urinating or dysuria Musculoskeletal Musculoskeletal: Denies arthralgias or back pain Neurologic Neurologic: Denies confusion, dizziness, focal weakness, headache(s), numbness, paresthesias, seizure-like activity, syncope, tingling or tremor(s) Psychiatric Psychiatric: Denies anxiety Vital Signs Vital Signs Vital Signs: 09/17/23 14:00 09/17/23 14:45 09/17/23 16:00 Temperature 97.6 F L Temperature Source Temporal Pulse Rate 66 54 L Respiratory Rate 18 17 Blood Pressure 111/75 113/74 Blood Pressure Mean 87 87 Pulse Ox 99 97 Oxygen Delivery Method Room Air Room Air Room Air Weight Weight: 205 lb 14.4 oz Body Mass Index (BMI) 25.7 Physical Exam Const alert, oriented x3 and no apparent distress HEENT normocephalic, head/scalp atraumatic, hearing grossly normal bilaterally, moist oral mucous membranes and oropharynx normal Mouth: oral and palatal mucosa normal Eyes PERRL, EOMs intact bilaterally and conjunctivae normal Neck supple Resp normal respiratory effort, no retractions, no use of accessory muscles and clear to auscultation bilaterally Cardio regular rate, regular rhythm, S1 normal heart sound, S2 normal heart sound and no murmurs GI normal to inspection, nondistended, normoactive bowel sounds, soft to palpation, non-tender and non-distended Extremity normal to inspection, full ROM and no clubbing, cyanosis or edema Neuro oriented x3, moves all extremities and no focal motor deficits Neuro Narrative: has reduced peripheral visual field vision in left eye, most pronounced in the upper outer and lower outer visual you.Cranial nerves otherwise intact. Sensorium / Orientation: awake and alert Speech: speech normal Motor Exam: strength 5/5 throughout Psych affect normal Results Lab / Micro Data 09/17/23 14:32 09/17/23 14:32 Labs: Laboratory Results - last 24 hr 09/17/23 14:32: WBC 6.0, RBC 3.69 L, Hgb 11.5 L, Hct 35.1 L, MCV 95.1 H, MCH 31.2, MCHC 32.8, RDW Std Deviation 47.0 H, RDW Coeff of Iván 13.4, Plt Count 104 L, MPV 12.2 H, Immature Gran % (Auto) 0.300, Neut % (Auto) 61.6, Lymph % (Auto) 22.4, [place] % (Auto) 10.1 H, Eos % (Auto) 4.9, Baso % (Auto) 0.7, Absolute Neuts (auto) 3.7, Absolute Lymphs (auto) 1.33, Nucleated RBC % 0, PT 14.9, INR 1.2, A PTT 38.4 H, Sodium 139, Potassium 3.9, Chloride 106, Carbon Dioxide 27.0, Anion Gap 6, BUN 29 H, Creatinine 1.25, Estim Creat Clear Calc 68.54, Est GFR (MDRD) Af Amer 74, Est GFR (MDRD) Non-Af 61, BUN/Creatinine Ratio 23.2 H, Glucose 93, Calcium 8.6, Troponin I High Sens 12 Imaging Radiology Impression Head/Neck CTA 09/17/23 14:22 IMPRESSION: No evidence of arterial stenosis, occlusion, dissection or intracranial aneurysm. Electronically Signed: Tonio Rice MD at 16:25 EDT , Chest X-Ray 09/17/23 15:12 IMPRESSION: There is prominence of the central pulmonary arteries. The lungs are clear. Electronically Signed: Ankit Granados MD at 15:21 EDT , Assessment & Plan Assessment/Plan (1) Brain TIA: PLAN: Plan #TIA * Admitted with a complaint of a transient loss of vision in the left eye in the upper outer quadrant. Symptoms have resolved. * He had similar symptoms at the end of July and came in. CT of the brain with and did not show any evidence of a stroke. He could not have MRI due to his pacemaker * Patient had CTA of the head and neck with this admission which did not show any hemodynamically significant stenosis. CT of the brain was done as part of the CTA head and neck but the official read is pending. * Patient has atrial flutter and is on Eliquis and has been compliant with it. The question is whether he needs to be switched from the Eliquis to another anticoagulant in light of his recurrent TIAs. Will defer to neurologist. * EKG showed atrial flutter * Consult neurology. PT OT consult. * He did have a carotid duplex on 09/09/2023 which showed mild stenosis of the right extracranial internal carotid arteries bilaterally. * Cannot have MRI of the brain due to him having an internal defibrillator which is not compatible with an MRI. * His last echo was on 07/14/2023 which showed s/p mitral valve repair and EF of 55% pulmonary artery systolic pressure of 34 mmHg and normal left ventricular systolic function. * Will order limited echo. * #Atrial flutter: On Eliquis. On carvedilol. #Thrombocytopenia: Platelets at 104. This is chronic. Will monitor. #Primary idiopathic hypertrophic cardiomyopathy: Has a defibrillator in situ. On carvedilol and ramipril #S/p mitral valve repair: Stable #Hyperlipidemia: On statin DVT prophylaxis: Already on Eliquis CODE STATUS: Full code * Patient counseled extensively about different types of CODE STATUS including full code, DNR CCA and DNR CCA. Patient elects to be full code. Total [id number] time 17 minutes. Charges/Coding Visit Charges Inpatient E&M: 13260 Init Hosp L2 Procedures Hospitalists Procedures: 84294 Advncd Care Plan 30 Min
[2023-09-17 17:33] VITALS: BP 111/63; PULSE 44; RESP 17; TEMP 36.8; O2SAT 99
[2023-09-17 17:40] VITALS: BP 117/77; PULSE 65; RESP 16; TEMP 36.8; O2SAT 100; BMI 25.7
[2023-09-17 21:40] VITALS: BP 116/75; PULSE 65; RESP 16; TEMP 36.6; O2SAT 98
[2023-09-17] MEDS: Atorvastatin Calcium 40 MG Tablet PO (21:59)
[2023-09-17] MEDS: APIXABAN 5 MG TABLET PO (21:59)
[2023-09-18 00:05] VITALS: RESP 18; O2SAT 98
[2023-09-18 01:08] VITALS: BMI 25.7
[2023-09-18 01:40] VITALS: BP 105/72; PULSE 66; RESP 16; TEMP 36.6; O2SAT 99
[2023-09-18 05:32] LABS: Absolute Lymphocyte Count 1.25 X10^3/uL (0.83-4.51); Absolute Neutrophil Count 2.9 X10^3/uL (2.0-7.7); Basophil# 0.04 X10^3/uL; Basophil% 0.8 % (0-1); Eosinophil# 0.31 X10^3/uL; Eosinophils% 6.2 % (0-5); Hematocrit 35.9 % (40-54); Hemoglobin 11.6 g/dL (13.0-16.5); Lymphocyte # 1.25 X10^3/ul (0.83-4.51); Lymphocyte % 24.8 % (19-41); Mean Corp Hgb Conc 32.3 g/dL (32-36); Mean Corpuscular Hgb 30.9 pg (27.0-32.0); Mean Corpuscular Volume 95.7 fL (80-94); Mean Platelet Vol. 12.5 fl (6.2-12.0); Monocyte# 0.54 X10^3/uL; Monocyte% 10.7 % (0-10); NRBC Flagged by Analyzer 0 % (0-5); Neutrophil # 2.89 X10^3/uL (2.7-7.7); Neutrophil % 57.3 % (47-70); POSITIVE COUNT YES; Platelet Count 84 K/mm3 (150-450); RBC Distribution Width CV 13.5 % (11.6-14.6); RBC Distribution Width SD 47.4 fl (35.1-43.9); Red Blood Count 3.75 M/mm3 (4.6-6.2)
[2023-09-18 05:40] VITALS: BP 120/81; PULSE 68; RESP 16; TEMP 36.6; O2SAT 98
[2023-09-18 06:00] LABS: Anion Gap 3 (5-15); BUN 22 mg/dL (7-18); Calcium,Total 8.7 mg/dL (8.5-10.1); Chloride 107 mmol/L (98-107); Cholesterol 122 mg/dL (200); Creatinine, Serum 1.05 mg/dL (0.70-1.30); EST Glomerular Filtration Rate 75 mL/min (>60); Est Glom Filt Rate - Afr Amer 90 mL/min (>60); Estimated Creatinine Clearance 81.59 ml/min; Glucose 83 mg/dL (74-106); High Density Lipoprotein 46 mg/dL; Potassium 4.2 mmol/L (3.5-5.1); Sodium Level 138 mmol/L (136-145); Triglycerides 70 mg/dL; Very Low Density Lipoprotein 14 mg/dL (5-40)
--- NOTE | 2023-09-18 08:23 | CT_ITS ---
STUDY: CT BRAIN WITHOUT CONTRAST REASON FOR EXAM: Male, 67 years old. Mental status change RADIATION DOSAGE (If Supplied By Facility): CTDIvol = ( 44.99 ) mGy, DLP = ( 796.11 ) mGycm TECHNIQUE: Transaxial CT imaging of the brain was performed without administration of intravenous contrast material. Individualized dose optimization techniques were used for this CT. COMPARISON: Yesterday FINDINGS: Normal soft tissue structures. Normal calvarium. Normal size ventricles and extra-axial spaces for the patient''s age. Normal white matter tracts of the cerebral hemispheres. Normal basal ganglia and thalami. Normal brainstem. Normal cerebellum. There is no intracranial hemorrhage. There are no findings of an acute ischemic infarction. Normal visualized paranasal sinuses. CT/Brain/Head without Contrast IMPRESSION: Normal unenhanced CT scan of the brain for age. No interval change Electronically Signed: Jaime Donald MD at 10:31 EDT ,
[2023-09-18 09:16] VITALS: BP 120/74; PULSE 70; RESP 16; TEMP 36.6; O2SAT 96
[2023-09-18] MEDS: APIXABAN 5 MG TABLET PO (09:20)
[2023-09-18] MEDS: Multivitamins,Therapeutic Tablet 1 TABLET PO (09:20)
[2023-09-18] MEDS: Tamsulosin HCl 0.4 MG Capsule PO (09:20)
[2023-09-18] MEDS: Furosemide 40 MG Tablet PO (09:20)
--- NOTE | 2023-09-18 11:05 | CON.PCM.NE_ITS ---
Assessment and Plan: Neuro Assessment/Plan JAYDEN OLSEN is a 67 M with a past medical history of afib, HTN presented with left upper quadrantopia that resolved he had a similar episode that affected the right eye 2 weeks ago with negative work up. Diagnosis: TIA Plan: cont Eliquis Follow up CT head TTE vascular risk modification cont statin follow up with Neurology HPI Consult Data Date of Consult: 09/18/23 HPI Narrative HPI Narrative: JAYDEN OLSEN, is a 67 M with hx of HLd, TIA, Afib who a presents with a transient right upper quadrant field cut. he has an episode 2 weeks ago with lowr left eye visual disturbance, work up was negative. [facility] Medical History Alcohol use Arthritis Atrial fibrillation and flutter Bladder disease Cardiology follow-up encounter Cardiomyopathy CPAP (continuous positive airway pressure) dependence Enlarged prostate High cholesterol History of echocardiogram History of edema History of pain when walking History of stress test Hyperlipidemia Hypertension Left inguinal hernia Non-smoker Nonrheumatic mitral (valve) insufficiency Nonrheumatic mitral (valve) prolapse Palpitations Paroxysmal atrial fibrillation Paroxysmal atrial flutter Pulmonary hypertension Pure hypercholesterolemia radiofrequency ablation Tricuspid valve disorder Wears glasses Wears hearing aid Home Medications ?Medication ?Instructions ?Recorded ?Last Taken ?Type multivitamin 0.5 ea PO BID 02/17/17 Unknown History apixaban 5 mg tablet (Eliquis) 5 mg PO BID #180 tabs 05/27/23 Unknown Rx atorvastatin 40 mg tablet 40 mg PO QHS #90 tabs 05/27/23 Unknown Rx carvedilol 25 mg tablet 25 mg PO BID #180 tabs 05/27/23 Unknown Rx furosemide 40 mg tablet (Lasix) 40 mg PO DAILY #90 tabs 05/27/23 Unknown Rx tamsulosin 0.4 mg capsule 0.4 mg PO DAILY 06/11/23 Unknown History ramipril 10 mg capsule 10 mg PO QHS 09/17/23 Unknown History Allergy/AdvReac Type Severity Reaction Status Date / Time No Known Allergies Allergy Verified 09/17/23 14:00 Family History Father Hypertension Cancer prostate Afib Surgical History H/O mitral valve repair (~05/05/06) History of cardiac radiofrequency ablation (~01/26/07) Hx of appendectomy Status post hernia repair Social History (Updated 09/17/23 @ 18:19 by Lady Almanza) household members: spouse housing: house Smoking Status: Never smoker alcohol intake: current alcohol intake frequency: a few times a week substance use type: does not use caffeine: Yes (socially) what type of physical activity do you participate in: walking frequency: 3-4 times per week duration: 30-45 minutes/day seatbelt use: always do you feel safe at home: Yes Vital Signs Vital Signs Vital Signs: 09/17/23 14:00 09/17/23 14:45 09/17/23 16:00 Temperature 97.6 F L Temperature Source Temporal Pulse Rate 66 54 L Pulse Strength Respiratory Rate 18 17 Respiratory Effort Respiratory Depth Respiratory Pattern Blood Pressure 111/75 113/74 Blood Pressure Mean 87 87 Blood Pressure Source Blood Pressure Position Blood Pressure Location Pulse Ox 99 97 Oxygen Delivery Method Room Air Room Air Room Air Fraction of Inspired Oxygen (FIO2) 09/17/23 17:33 09/17/23 17:40 09/17/23 20:01 Temperature 98.3 F 98.2 F Temperature Source Oral Pulse Rate 44 L 65 Pulse Strength Respiratory Rate 17 16 Respiratory Effort Normal Non-Labored Respiratory Depth Normal Respiratory Pattern Normal Blood Pressure 111/63 117/77 Blood Pressure Mean 79 90 Blood Pressure Source Monitor Blood Pressure Position Semi-Fowlers Blood Pressure Location Left Arm Pulse Ox 99 100 Oxygen Delivery Method Room Air Room Air Fraction of Inspired Oxygen (FIO2) 09/17/23 21:40 09/18/23 00:05 09/18/23 00:05 Temperature 97.9 F Temperature Source Oral Pulse Rate 65 Pulse Strength Respiratory Rate 16 18 Respiratory Effort Respiratory Depth Respiratory Pattern Blood Pressure 116/75 Blood Pressure Mean 88 Blood Pressure Source Monitor Blood Pressure Position Semi-Fowlers Blood Pressure Location Left Arm Pulse Ox 98 98 98 Oxygen Delivery Method Room Air CPAP Fraction of Inspired Oxygen (FIO2) 21 21 09/18/23 01:40 09/18/23 01:44 09/18/23 05:40 Temperature 97.8 F 97.9 F Temperature Source Oral Oral Pulse Rate 66 68 Pulse Strength Respiratory Rate 16 16 Respiratory Effort Normal Non-Labored Respiratory Depth Normal Respiratory Pattern Normal Blood Pressure 105/72 120/81 H Blood Pressure Mean 83 94 Blood Pressure Source Monitor Monitor Blood Pressure Position Semi-Fowlers Sitting Blood Pressure Location Left Arm Left Arm Pulse Ox 99 98 Oxygen Delivery Method Room Air Room Air Room Air Fraction of Inspired Oxygen (FIO2) 09/18/23 08:38 09/18/23 09:16 09/18/23 09:17 Temperature 97.9 F Temperature Source Oral Pulse Rate 70 Pulse Strength Normal (2+) Respiratory Rate 16 Respiratory Effort Respiratory Depth Respiratory Pattern Blood Pressure 120/74 Blood Pressure Mean 89 Blood Pressure Source Monitor Blood Pressure Position Sitting Blood Pressure Location Right Arm Pulse Ox 96 Oxygen Delivery Method Room Air Room Air Fraction of Inspired Oxygen (FIO2) 09/18/23 09:17 Temperature Temperature Source Pulse Rate Pulse Strength Respiratory Rate Respiratory Effort Normal Non-Labored Respiratory Depth Normal Respiratory Pattern Normal Blood Pressure Blood Pressure Mean Blood Pressure Source Blood Pressure Position Blood Pressure Location Pulse Ox Oxygen Delivery Method Room Air Fraction of Inspired Oxygen (FIO2) Weight Weight: 93.6 kg Body Mass Index (BMI) 25.7 EEG Results Procedure Details EEG Procedure Details: JAYDEN OLSEN is a 67 year old M with a past medical history of , who presents for evaluation of Electroencephalogram on DATE at TIME NIHSS NIHSS Nursing Documentation NIHSS Nursing Documentation: NIHSS: Ischemic Stroke/TIA Start: 09/17/23 17:40 Text: For PCU Patients: NIH and Neuro Check every 4 Status: Active hours, PRN and with change in RN caregiver. Freq: [id number] Protocol: Activity Type Activity Date Activity User E-sign Co-sign Detail Recorded Client Recorded Date Recorded By Document 09/18/23 09:17 HS Desktop 09/18/23 09:24 09/18/23 09:17 NIH Stroke Scale [NIHSS] A score of 0 is normal or asymptomatic . Total possible score is 42. Inpatient: RN or Physician to activate a stroke alert for onset of new stroke symptoms or with NIHSS increase >/= 3 points. Following change in neurological status, NIHSS will be performed per physician order or more frequently PRN. -1a. Level of Consciousness Alert; keenly responsive -1b. LOC Questions Answers BOTH questions correctly. -1c. LOC Commands Performs both tasks correctly . -2. Best Gaze Normal -3. Visual No visual loss -4. Facial Palsy Normal symmetrical movements -5a. Left Arm No drift; arm holds 90 (or 45 ) degrees for full 10 seconds -5b. Right Arm No drift; arm holds 90 (or 45 ) degrees for full 10 seconds -6a. Left Leg No drift; leg holds 30-degree position for full 5 seconds -6b. Right Leg No drift; leg holds 30-degree position for full 5 seconds -7. Limb Ataxia Absent -8. Sensory Normal; no sensory loss -9. Best Language No aphasia; normal -10. Dysarthria Normal -11. Extinction and Inattention No abnormality -Total 0 Query Text:A score of 0 is normal or asymptomatic. Total possible score is 42 . ED: Notify Physician for NIHSS increase by > / = 3 points. Inpatient: RN or Physician to activate a stroke alert for NIHSS increase of > / = 3 points. Coma Scale [Assess] -Eye Opening Spontaneous -Motor Obeys Commands -Verbal Oriented [Total] -Coma Scale Total 15 Physical Exam Neuro Neuro Narrative: awake alert oriented x3 following commands PERRLA, EMOI face symmetric no focal weakness visual filed full Lab / Micro Data 09/18/23 04:58 09/18/23 04:58 Labs: Laboratory Results - last 24 hr 09/17/23 14:32: WBC 6.0, RBC 3.69 L, Hgb 11.5 L, Hct 35.1 L, MCV 95.1 H, MCH 31.2, MCHC 32.8, RDW Std Deviation 47.0 H, RDW Coeff of Iván 13.4, Plt Count 104 L, MPV 12.2 H, Immature Gran % (Auto) 0.300, Neut % (Auto) 61.6, Lymph % (Auto) 22.4, Bonner % (Auto) 10.1 H, Eos % (Auto) 4.9, Baso % (Auto) 0.7, Absolute Neuts (auto) 3.7, Absolute Lymphs (auto) 1.33, Nucleated RBC % 0, PT 14.9, INR 1.2, A PTT 38.4 H, Sodium 139, Potassium 3.9, Chloride 106, Carbon Dioxide 27.0, Anion Gap 6, BUN 29 H, Creatinine 1.25, Estim Creat Clear Calc 68.54, Est GFR (MDRD) Af Amer 74, Est GFR (MDRD) Non-Af 61, BUN/Creatinine Ratio 23.2 H, Glucose 93, Calcium 8.6, Troponin I High Sens 12 09/18/23 04:58: WBC 5.0, RBC 3.75 L, Hgb 11.6 L, Hct 35.9 L, MCV 95.7 H, MCH 30.9, MCHC 32.3, RDW Std Deviation 47.4 H, RDW Coeff of Iván 13.5, Plt Count 84 L , MPV 12.5 H, Immature Gran % (Auto) 0.200, Neut % (Auto) 57.3, Lymph % (Auto) 24.8, Bonner % (Auto) 10.7 H, Eos % (Auto) 6.2 H, Baso % (Auto) 0.8, Absolute Neuts (auto) 2.9, Absolute Lymphs (auto) 1.25, Nucleated RBC % 0, Sodium 138, Potassium 4.2, Chloride 107, Carbon Dioxide 28.0, Anion Gap 3 L, BUN 22 H, Creatinine 1.05, Estim Creat Clear Calc 81.59, Est GFR (MDRD) Af Amer 90, Est GFR (MDRD) Non-Af 75, BUN/Creatinine Ratio 21.0 H, Glucose 83, Calcium 8.7, Triglycerides 70, Cholesterol 122, LDL Cholesterol 62, VLDL Cholesterol 14, HDL Cholesterol 46 Imaging Radiology Impression Head/Neck CTA 09/17/23 14:22 IMPRESSION: No evidence of arterial stenosis, occlusion, dissection or intracranial aneurysm. Electronically Signed: Tonio Rice MD at 16:25 EDT , ADDENDUM: 09/17/23 2148 IMPRESSION: 1. Normal CT examination of the brain for age. 2. No intracranial mass, hemorrhage, or acute territorial infarct. Electronically Signed: Samm Mejia MD at 21:35 EDT , Chest X-Ray 09/17/23 15:12 IMPRESSION: There is prominence of the central pulmonary arteries. The lungs are clear. Electronically Signed: Ankit Granados MD at 15:21 EDT , Brain CT 09/18/23 08:23 IMPRESSION: Normal unenhanced CT scan of the brain for age. No interval change Electronically Signed: Jaime Donald MD at 10:31 EDT , Active Medications Active Medications Active Medications: Current Medications Generic Name Dose Route Start Last Admin Trade Name Freq PRN Reason Stop Dose Admin Acetaminophen 650 mg 09/17/23 17:40 Acetaminophen 325 Mg Tablet PO Q6H PRN PRN Pain 1-10 Or Fever >100.7 Apixaban 5 mg 09/17/23 22:00 09/18/23 09:20 Apixaban 5 Mg Tablet PO 5 mg BID ILYA Administration Atorvastatin Calcium 40 mg 09/17/23 22:00 09/17/23 21:59 Atorvastatin Calcium 40 Mg Tablet PO 40 mg QHS ILYA Administration Furosemide 40 mg 09/18/23 10:00 09/18/23 09:20 Furosemide 40 Mg Tablet PO 40 mg DAILY ILYA Administration Protocol Labetalol HCl 20 mg 09/17/23 14:21 Labetalol (Compound) 20 Mg/4 Ml Syringe IV 09/18/23 14:21 X1 PRN BLOOD PRESSURE Morphine Sulfate 2 - 4 mg 09/17/23 17:40 Morphine 2 Mg/Ml Syringe IV Q3H PRN PRN Pain Score 6-10 Morphine Sulfate 2 - 4 mg 09/17/23 18:26 Morphine 4 Mg/Ml Syringe IV Q3H PRN PRN Pain Score 6-10 Multivitamins 1 tablet 09/18/23 08:00 09/18/23 09:20 Multivitamins,Therapeutic Tablet PO 1 tablet DAILYCM ILYA Administration Nitroglycerin 0.4 mg 09/17/23 17:40 Nitroglycerin (Inpatient Use) 0.4 Mg Tab.Subl SL Q5M PRN CARDIAC/CHEST PAIN Ondansetron HCl 4 mg 09/17/23 17:40 Ondansetron 4 Mg/2 Ml Vial IV Q8H PRN PRN NAUSEA/VOMITING Oxycodone HCl 5 mg 09/17/23 17:40 Oxycodone 5 Mg Tablet PO Q4H PRN PRN Pain Score 4-10 Sodium Chloride 10 - 40 ml 09/17/23 17:52 0.9% Saline Lock 10 Ml Syringe IV UD PRN SALINE FLUSH Tamsulosin HCl 0.4 mg 09/18/23 08:30 09/18/23 09:20 Tamsulosin Hcl 0.4 Mg Capsule PO 0.4 mg DAILY@0830 ILYA Administration
--- NOTE | 2023-09-18 12:01 | CASEMGMT ---
Social Work Pt completed PHQ-9 w/SW, pt scored a 0. No indication of depression at this time. JASWANT Leon
--- NOTE | 2023-09-18 13:12 | DCINST_ITS ---
Discharge Instructions Diet Discharge Diet: Low fat / Low cholesterol Activity Discharge Activity: Return to Normal Activity Dressing / Incision Call your doctor if you observe: Fever of 101 or Higher, Shortness of breath, Dizziness, Fainting spells, Swelling in the ankles, Chest pain and Increased palpitations (irregular heartbeat) Follow Up Care Test Results: Test results from this visit will be discussed in further detail at your follow- up appointment, if applicable. Discharge Plan Admission Admit Date/Time: 09/17/23 17:06 Attending Provider: Mickey Flores Primary Care Provider: Dustin Castro Consulting Providers: Yordy Navarro; Swati Rouse; Kaylie Bell; Coral Paiz; Brea Andrade; Akbar Handley; Lupis Arroyo; Johann Hernandez; Dann Jha; Shawna Olson; Ion Shearer; Negin Lovett; Karrie Dinh; Guy Denis; Guevara Glover; hCika Villavicencio; Jose Angel Andrews; Davina Earl; Taj Boyle; Fabiola Bowling Instructions Additional Instructions / Restrictions: Obtain outpatient referral for neurology from your PCP Discharge Orders/Prescriptions Prescriptions: Continued tamsulosin 0.4 mg capsule 0.4 mg PO DAILY multivitamin 1 EACH tablet 0.5 ea PO BID ramipril 10 mg capsule 10 mg PO QHS furosemide [Lasix] 40 mg tablet 40 mg PO DAILY Qty: 90 3RF carvedilol 25 mg tablet 25 mg PO BID Qty: 180 3RF Eliquis 5 mg tablet 5 mg PO BID Qty: 180 3RF Changed atorvastatin 40 mg tablet 80 mg PO QHS Qty: 90 3RF Referrals / Follow Up: Dustin Castro MD [Primary Care Provider] - Within 1 Week Disposition Disposition (needs filled in before D/C Order can be placed): Home, Self Care
--- NOTE | 2023-09-18 14:32 | DS.PCM_ITS ---
Providers Date of Admission: 09/17/23 Primary Care Physician: Dr. Dustin Castro MD Consultations 09/17/23 17:40 Consult: Tele-Neurology Routine Consulting Provider: [facility] Reason for Consult: Acute Ischemic Stroke/TIA EMERGENT Consult: No MD Notified: Yes Date Notified: 09/17/23 Time Notified: 18:01 Method of Notification: Answering Service Nursing Unit Staff Notify [facility] of Tele-Neurology Consult: Yes Reason For Visit: LOSS OF VISION Diagnosis Discharge Diagnosis (1) Brain TIA: Status: Acute Code(s): G45.9 - Transient cerebral ischemic attack, unspecified Medications at Discharge Home Medications multivitamin 0.5 ea PO BID 02/17/17 apixaban 5 mg tablet (Eliquis) 5 mg PO BID #180 tabs 05/27/23 carvedilol 25 mg tablet 25 mg PO BID #180 tabs 05/27/23 furosemide 40 mg tablet (Lasix) 40 mg PO DAILY #90 tabs 05/27/23 tamsulosin 0.4 mg capsule 0.4 mg PO DAILY 06/11/23 ramipril 10 mg capsule 10 mg PO QHS 09/17/23 atorvastatin 40 mg tablet 80 mg (2 x 40 mg) PO QHS #90 tabs 09/18/23 Hospital Course Operations None Procedures None Summary of Care Provided Minutes Spent on Discharge: 39 Hospital Course: Per HPI: JAYDEN OLSEN, is a 67 M with a PMH as outlined who presents via the ED on 09/17/2023 with a complaint of loss of vision in the left eye earlier today. He says he had loss of vision in the left eye at around 12:30pm. He says the loss of vision was in the outer upper third of his left eye. He says it lasted for a couple of minutes and subsequently improved. At the time he came into the ED his symptoms had resolved and have not recurred. He had similar complaints about a couple of weeks ago and states at that time he came into the ED and had an MRI which did not show any evidence of a stroke. He also had a carotid ultrasound and 2D echo done. He has a history of A-fib and is on Eliquis. He denied any numbness or tingling, dizziness, lightheadedness, palpitations, abdominal pain or any other symptoms. He denied any focal weakness in his arms or legs. Review of systems otherwise negative. Vitals in the ED were blood pressure 117/77, pulse rate of 65, respirate rate of 16 and temp of 98.2 Fahrenheit. He was saturating at 100% on room air. CBC showed hemoglobin of 11.5 with WBC of 6 and platelets of 104. Chemistry was unremarkable. Initial troponin was negative. Chest x-ray showed no acute cardiopulmonary pathology. CTA head and neck showed no hemodynamically significant stenosis. CT brain done as part of the CTA head and neck was pending read. He is being admitted to be managed for TIA to rule out a stroke. Hospital Course: 1. TIA?67-year-old male with a history of atrial flutter status post ablation presents to the hospital with temporary vision loss in his left eye in the upper outer quadrant. 2 weeks prior he had to had similar vision loss in his right eye that had resolved. Workup at that time was unremarkable. He cannot have an MRI secondary to pacemaker lead therefore he had a CT of the brain on admission and then a repeat CT on the day of discharge today, both were unremarkable. CTA of the head and neck was also normal. Neurology evaluated him and had no further workup as he had had an echo at the end of July with an EF of 55% and a PASP of 34 mmHg with mild to moderate mitral valve insufficiency and normal diastole, this was not repeated. He is currently on Eliquis and appropriate dosage as well as Lipitor at 40 mg p.o. nightly, I did increase his Lipitor to 80 mg given that he is only 67 years old. He does have thrombocytopenia which is chronic therefore will not proceed with aspirin. I do recommend he follow-up with his PCP next week and obtain an outpatient referral for neurology. 2. Atrial flutter, thrombocytopenia, primary idiopathic hypertrophic cardiomyopathy, status post mitral valve repair, hyperlipidemia, essential hypertension are all chronic medical conditions which complicate his care. His home medications were continued where appropriate Physical Exam Narrative General: Alert, Oriented x3, Cooperative, No apparent distress HEENT: Atraumatic, PERRLA, EOMI, Normocephalic Oral: Moist Mucosa Neck: Supple, No JVD Lungs: Clear to auscultation, Normal air movement, No rhonchi, No wheeze, No rales Cardiovascular: Regular rate, Regular Rhythm, Normal S1, Normal S2, DIDIER Abdomen: Soft, Non Tender, Non-Distended, No Hepato-splenomegaly Extremities: No edema, Capillary Refill Less than 3 Seconds Skin: No rashes, No breakdown Musculoskeletal: No Tenderness to Palpation of Joints or Extremities Neurological: No focal neurological deficits, Motor Exam 5/5 strength throughout, Sensory exam intact to light touch and pain Psych/Mental Status: Normal Affect, Appropriate Weight / BMI Weight Weight: 206 lb 5.643 oz Body Mass Index (BMI) 25.7 ABG / Lab / Microbiology Data 09/18/23 04:58 09/18/23 04:58 Laboratory: Laboratory Results - last 24 hr 09/17/23 14:32: WBC 6.0, RBC 3.69 L, Hgb 11.5 L, Hct 35.1 L, MCV 95.1 H, MCH 31.2, MCHC 32.8, RDW Std Deviation 47.0 H, RDW Coeff of Iván 13.4, Plt Count 104 L, MPV 12.2 H, Immature Gran % (Auto) 0.300, Neut % (Auto) 61.6, Lymph % (Auto) 22.4, Jackson % (Auto) 10.1 H, Eos % (Auto) 4.9, Baso % (Auto) 0.7, Absolute Neuts (auto) 3.7, Absolute Lymphs (auto) 1.33, Nucleated RBC % 0, PT 14.9, INR 1.2, A PTT 38.4 H, Sodium 139, Potassium 3.9, Chloride 106, Carbon Dioxide 27.0, Anion Gap 6, BUN 29 H, Creatinine 1.25, Estim Creat Clear Calc 68.54, Est GFR (MDRD) Af Amer 74, Est GFR (MDRD) Non-Af 61, BUN/Creatinine Ratio 23.2 H, Glucose 93, Calcium 8.6, Troponin I High Sens 12 09/18/23 04:58: WBC 5.0, RBC 3.75 L, Hgb 11.6 L, Hct 35.9 L, MCV 95.7 H, MCH 30.9, MCHC 32.3, RDW Std Deviation 47.4 H, RDW Coeff of Iván 13.5, Plt Count 84 L , MPV 12.5 H, Immature Gran % (Auto) 0.200, Neut % (Auto) 57.3, Lymph % (Auto) 24.8, Jackson % (Auto) 10.7 H, Eos % (Auto) 6.2 H, Baso % (Auto) 0.8, Absolute Neuts (auto) 2.9, Absolute Lymphs (auto) 1.25, Nucleated RBC % 0, Sodium 138, Potassium 4.2, Chloride 107, Carbon Dioxide 28.0, Anion Gap 3 L, BUN 22 H, Creatinine 1.05, Estim Creat Clear Calc 81.59, Est GFR (MDRD) Af Amer 90, Est GFR (MDRD) Non-Af 75, BUN/Creatinine Ratio 21.0 H, Glucose 83, Calcium 8.7, Triglycerides 70, Cholesterol 122, LDL Cholesterol 62, VLDL Cholesterol 14, HDL Cholesterol 46 Radiography Diagnostic Testing: Radiology Impression Head/Neck CTA 09/17/23 14:22 IMPRESSION: No evidence of arterial stenosis, occlusion, dissection or intracranial aneurysm. Electronically Signed: Tonio Rice MD at 16:25 EDT , ADDENDUM: 09/17/23 2148 IMPRESSION: 1. Normal CT examination of the brain for age. 2. No intracranial mass, hemorrhage, or acute territorial infarct. Electronically Signed: Samm Mejia MD at 21:35 EDT , Chest X-Ray 09/17/23 15:12 IMPRESSION: There is prominence of the central pulmonary arteries. The lungs are clear. Electronically Signed: Ankit Granados MD at 15:21 EDT , Brain CT 09/18/23 08:23 IMPRESSION: Normal unenhanced CT scan of the brain for age. No interval change Electronically Signed: Jaime Donald MD at 10:31 EDT , D/C Instructions Discharge Diet: Low fat / Low cholesterol Call your doctor if you observe: Fever of 101 or Higher, Shortness of breath, Dizziness, Fainting spells, Swelling in the ankles, Chest pain and Increased palpitations (irregular heartbeat) Meaningful Use Info Meaningful Use Meaningful Use Diagnoses (Choose all that apply): None applicable Ischemic Stroke Statin Dosing Therapy Reference: STATIN DOSE THERAPY REFERENCE: * Patients > 75 years receive moderate or high dose statin therapy. * Patients 75 years or YOUNGER should receive HIGH intensity statin dose unless contraindicated. You will be required to document reason for non-treatment if statin daily dose does not meet guidelines. HIGH DOSE STATIN THERAPY DAILY Atorvastatin > than or = to 40 mg Rosuvastatin > than or = to 20 mg Amlodipine + Atorvastatin > than or = to 2.5/40 mg Ezetimibe + Simvastatin 10/80 mg Simvastatin 80mg Discharge Plan Admission Admit Date/Time: 09/17/23 17:06 Attending Provider: Mickey Flores Primary Care Provider: Dustin Castro Consulting Providers: Yordy Navarro; Swati Rouse; Kaylie Bell; Coral Paiz; Brea Andrade; Akbar Handley; Lupis Arroyo; Johann Hernandez; Dann Jha; Shawna Olson; Ion Shearer; Negin Lovett; Karrie Dinh; Guy Denis; Guevara Glover; Chiak Villavicencio; Jose Angle Andrews; Davina Earl; Taj Boyle; Fabiola Bowling Instructions Additional Instructions / Restrictions: Obtain outpatient referral for neurology from your PCP Discharge Orders/Prescriptions Prescriptions: Continued tamsulosin 0.4 mg capsule 0.4 mg PO DAILY multivitamin 1 EACH tablet 0.5 ea PO BID ramipril 10 mg capsule 10 mg PO QHS furosemide [Lasix] 40 mg tablet 40 mg PO DAILY Qty: 90 3RF carvedilol 25 mg tablet 25 mg PO BID Qty: 180 3RF Eliquis 5 mg tablet 5 mg PO BID Qty: 180 3RF Changed atorvastatin 40 mg tablet 80 mg PO QHS Qty: 90 3RF Referrals / Follow Up: Dustin Castro MD [Primary Care Provider] - Within 1 Week Disposition Disposition (needs filled in before D/C Order can be placed): Home, Self Care Charges/Coding Visit Charges Inpatient E&M: 62863 Disch Hosp >30min
[2023-09-18 14:35] VITALS: BP 112/69; PULSE 68; RESP 16; TEMP 36.7; O2SAT 97
== END 2023-09-18 13:14 | disposition home or self-care (01) ==
LOC: ED 16:19 → PCU 17:28
PROVIDERS: Admitting Provider Student in an Organized Health Care Education/Training Program; Emergency Provider Emergency Medicine; PCP Family Medicine; Visit Provider Family Medicine
DX: G45.9 Transient cerebral ischemic attack, unspecified (principal); I48.92 Unspecified atrial flutter; I48.0 Paroxysmal atrial fibrillation; I42.2 Other hypertrophic cardiomyopathy; Z95.0 Presence of cardiac pacemaker; E78.00 Pure hypercholesterolemia, unspecified; D69.6 Thrombocytopenia, unspecified; I10 Essential (primary) hypertension; H53.8 Other visual disturbances; Z79.01 Long term (current) use of anticoagulants; Z79.899 Other long term (current) drug therapy
CPT/HCPCS: 36415; 70450; 70496; 70498; 71045; 80048; 80061; 84484; 85025; 85610; 85730; 93005; 94660; 94762; 97161; 97165; 97802; 99221; 99285; Q9967; A4216; G0378

== ENCOUNTER 2023-09-27 10:41 | Outpatient (CLI) | payer MEDICARE, BC, SELFPAY ==
--- NOTE | 2023-09-27 10:43 | ECHOTEE_ITS ---
Reason For Study: EMBOLI Medication TERENCE probe 6VT-D (SN [id number]) passed with minimal difficulty. No complications were noted. Cetacaine Topical [place] given X3 orally. Versed 3 mg given slow IVP. Fentanyl 50 mcg given slow IVP. Performed a rapid injection of agitated mix of 9 cc saline and 1cc air to assess for atrial septal defect. Left Ventricle Normal LV size. The left ventricular ejection fraction is 55 %. No regional wall motion abnormalities noted. Right Ventricle Normal RV size. Normal systolic function. Atria Bubble contrast study negative for right to left interatrial shunt. Intact atrial septum. The left atrium is moderately enlarged. No thrombus is detected in the left atrial appendage. Normal right atrium. Mitral Valve Mild-Moderate (1-2+) eccentric mitral valve insufficiency. Status post mitral valve repair. Status post mitral valve repair with annuloplasty ring. Tricuspid Valve Normal tricuspid valve. Mild tricuspid valve insufficiency. Aortic Valve Trisinus/trileaflet aortic valve. Trivial aortic valve insufficiency. Pulmonic Valve Normal pulmonic valve. Vessels Normal aortic root. Normal arch. The pulmonary artery is normal size. Pericardium No pericardial effusion. ECHO/Echo Transesophageal (TERENCE) Interpretation Summary Normal LV size. The left ventricular ejection fraction is 55 %. Status post mitral valve repair. Status post mitral valve repair with annuloplasty ring. Mild-Moderate (1-2+) eccentric mitral valve insufficiency. No evidence of thrombogenic or embolic source. Ordering Physician: Donald Callahan Referring Physician: Dustin Castro Performed By: Petr Cummings RCS
== END 2023-09-27 13:20 | disposition home or self-care (01) ==
PROVIDERS: PCP Family Medicine; Visit Provider Internal Medicine Cardiovascular Disease
DX: G45.9 Transient cerebral ischemic attack, unspecified (principal)
CPT/HCPCS: 93312; 93320; 93325; J7040; A4216

== ENCOUNTER → 2024-06-02 | Outpatient (CLI) | payer MEDICARE, BC, SELFPAY ==
[2024-06-02 15:29] LABS: Absolute Lymphocyte Count 1.53 X10^3/uL (0.83-4.51); Absolute Neutrophil Count 4.1 X10^3/uL (2.0-7.7); Basophil# 0.04 X10^3/uL; Basophil% 0.6 % (0-1); Eosinophil# 0.29 X10^3/uL; Eosinophils% 4.4 % (0-5); Hematocrit 36.4 % (40-54); Hemoglobin 11.9 g/dL (13.0-16.5); Lymphocyte # 1.53 X10^3/ul (0.83-4.51); Lymphocyte % 23.1 % (19-41); Mean Corp Hgb Conc 32.7 g/dL (32-36); Mean Corpuscular Hgb 31.2 pg (27.0-32.0); Mean Corpuscular Volume 95.3 fL (80-94); Mean Platelet Vol. 13.4 fl (6.2-12.0); Monocyte% 9.1 % (0-10); NRBC Flagged by Analyzer 0 % (0-5); Neutrophil # 4.14 X10^3/uL (2.7-7.7); Neutrophil % 62.5 % (47-70); POSITIVE COUNT YES; Platelet Count 88 K/mm3 (150-450); RBC Distribution Width CV 13.2 % (11.6-14.6); RBC Distribution Width SD 46.2 fl (35.1-43.9); Red Blood Count 3.82 M/mm3 (4.6-6.2); White Blood Count 6.6 K/mm3 (4.4-11.0)
[2024-06-02 15:50] LABS: Differential Indicated SCAN CRITERIA MET
[2024-06-02 16:24] LABS: Platelet Estimate MOD DEC (ADEQ)
[2024-06-02 16:25] LABS: Anisocytosis 1+; Macrocytosis 1+; Red Cell Morphology N CHROM NORMAL (NORM C&C)
[2024-06-02 17:59] LABS: Vitamin B12 456 pg/mL (211-911)
[2024-06-02 18:17] LABS: Anion Gap 5 (5-15); BUN 31 mg/dL (7-18); BUN/Creat Ratio 20.9 RATIO (10-20); Calcium,Total 9.3 mg/dL (8.5-10.1); Chloride 107 mmol/L (98-107); Creatinine, Serum 1.48 mg/dL (0.70-1.30); EST Glomerular Filtration Rate 50 mL/min (>60); Est Glom Filt Rate - Afr Amer 61 mL/min (>60); Glucose 83 mg/dL (74-106); Magnesium 2.4 mg/dL (1.6-2.6); Potassium 4.1 mmol/L (3.5-5.1); Sodium Level 142 mmol/L (136-145)
[2024-06-02 19:13] LABS: Ferritin 105 ng/mL (26-388); PSA,Total- Diagnostic 6.16 ng/mL (0.0-4.0)
[2024-06-05 15:07] LABS: PROEL- A/G Ratio 1.4 (0.7-1.7); PROEL- Alpha-1 Globulin 0.3 g/dL (0.0-0.4); PROEL- Alpha-2 Globulin 0.5 g/dL (0.4-1.0); PROEL- Gamma Globulin 1.1 g/dL (0.4-1.8); PROEL- Globulin, Total 2.9 g/dL (2.2-3.9); PROEL- TOTAL PROTEIN 6.9 g/dL (6.0-8.5); PROEL-M-Spike 0.3 g/dL (Not Observed)
== END | disposition home or self-care (01) ==
LOC: MTLAB 13:09
PROVIDERS: PCP Family Medicine; Referring Provider Physician Assistant Medical; Visit Provider Physician Assistant Medical
DX: D64.9 Anemia, unspecified (principal); I48.0 Paroxysmal atrial fibrillation; R97.20 Elevated prostate specific antigen [PSA]
CPT/HCPCS: 36415; 80048; 82607; 82728; 82746; 83735; 84153; 84165; 84443; 85025

== ENCOUNTER → 2024-06-07 | Outpatient (CLI) | payer MEDICARE, BC, SELFPAY | END | disposition home or self-care (01) | LOC: PSN 08:57 | PROVIDERS: PCP Family Medicine; Referring Provider Physician Assistant Medical; Visit Provider Physician Assistant Medical | DX: I48.0 Paroxysmal atrial fibrillation (principal); I48.92 Unspecified atrial flutter; R00.2 Palpitations; I49.3 Ventricular premature depolarization; R42 Dizziness and giddiness | CPT/HCPCS: 93225; 93226 ==

== ENCOUNTER → 2024-06-30 | Outpatient (CLI) | payer MEDICARE, BC, SELFPAY | END | disposition home or self-care (01) | LOC: CVS 10:25 | PROVIDERS: PCP Family Medicine; Referring Provider Physician Assistant Medical; Visit Provider Physician Assistant Medical | DX: I48.0 Paroxysmal atrial fibrillation (principal); I48.92 Unspecified atrial flutter; I43 Cardiomyopathy in diseases classified elsewhere; I49.3 Ventricular premature depolarization; Z98.890 Other specified postprocedural states | CPT/HCPCS: 93306 ==

== ENCOUNTER 2025-03-22 15:16 | Emergency (ER) | payer MEDICARE, BC, SELFPAY ==
[2025-03-22 15:17] VITALS: BP 116/59; PULSE 62; RESP 14; TEMP 36.7; O2SAT 100
--- NOTE | 2025-03-22 15:56 | VDLE_ITS ---
Reason For Study Reason For Study: Right leg swelling RIGHT LEFT GSV is normal. CFV is compressible, spontaneous, phasic, competent, CFV is compressible, spontaneous, phasic, competent and demonstrates normal augmentation. and demonstrates normal augmentation. FV is compressible, spontaneous, phasic, competent and demonstrates normal augmentation. POP V is compressible, spontaneous, phasic, competent and demonstrates normal augmentation. T/P Trunk is compressible. PTV is compressible. RT PerV is compressible. Procedure This is a venous duplex using B-mode, color flow and spectral Doppler. Exam performed portable in ED. A preliminary report was called and/or faxed to [facility]. VL/Venous Duplex US, Unilateral Interpretation Summary Deep veins of the right lower extremity are patent and compressible segmentally . There is no evidence of right lower extremity deep vein thrombosis. Valvular competence appears intact within the p roximal deep venous system on the right . The right great saphenous vein appears patent and compressible segmentally. The left common femoral vein is patent and compressible . Ordering Physician: Roslyn Cook Referring Physician: Dustin Castro MD Performed By: Dori Macias RVT
--- NOTE | 2025-03-22 15:57 | EDS_ITS ---
HPI History of Present Illness Chief Complaint: Lower Extremity Injury Detail of Chief Complaint: Right leg swelling Informant: patient Narrative Narrative: Patient presents with right leg swelling that started 2 to 3 days ago. Patient states that he was taken off his Eliquis for about a week because he had cochlear implant surgery. Started back on his Eliquis 2 days ago. He denies chest pain or shortness of breath. Denies injury to his leg. He has history of A-fib. [facility] Medical History (Reviewed 01/29/25 @ 08:46 by Maritza Fabian [employer], [employer]) MGUS (monoclonal gammopathy of unknown significance) Enlarged prostate History of edema Left inguinal hernia Wears hearing aid Wears glasses Alcohol use Arthritis Bladder disease High cholesterol Non-smoker CPAP (continuous positive airway pressure) dependence History of pain when walking History of echocardiogram History of stress test Hypertension Cardiology follow-up encounter Nonrheumatic mitral (valve) insufficiency Paroxysmal atrial flutter Pure hypercholesterolemia Palpitations radiofrequency ablation Hyperlipidemia Paroxysmal atrial fibrillation Nonrheumatic mitral (valve) prolapse Pulmonary hypertension Cardiomyopathy Tricuspid valve disorder Atrial fibrillation and flutter Home Medications ?Medication ?Instructions ?Recorded ?Last Taken ?Type multivitamin 0.5 ea PO BID 02/17/17 Unkno wn History tamsulosin 0.4 mg capsule 0.4 mg PO DAILY 06/11/23 Unk nown History atorvastatin 40 mg tablet 80 mg (2 x 40 mg) PO QHS #90 tabs 09/18/23 Unknown Rx aspirin 81 mg tablet,delayed 81 mg PO QDAY #90 tabs Unknown Rx release (Adult Low Dose Aspirin) apixaban 5 mg tablet (Eliquis) 5 mg PO BID #180 TABLET S 04/20/24 Unknown Rx carvedilol 25 mg tablet 25 mg PO BID #180 tabs 04/28 Unknown Rx furosemide 40 mg tablet (Lasix) 40 mg PO DAILY #90 tab s 04/28/24 Unknown Rx ramipril 5 mg capsule 10 mg PO QDAY 01/19/25 Unkno wn History Allergy/AdvReac Type Severity Reaction Status Date / Time No Known Allergies Allergy Verified 03/22/25 15:22 Family History (Reviewed 01/29/25 @ 08:46 by Maritza Fabian [employer], [employer]) Father Hypertension Cancer prostate Afib Surgical History (Reviewed 01/29/25 @ 08:46 by Maritza Fabian [employer], [employer]) Status post hernia repair History of cardiac radiofrequency ablation (~01/26/07) Hx of appendectomy H/O mitral valve repair (~05/05/06) Social History (Reviewed 01/29/25 @ 08:46 by Maritza Fabian [employer], [employer]) household members: spouse housing: house Smoking Status: Never smoker alcohol intake: current alcohol intake frequency: a few times a week substance use type: does not use caffeine: Yes (socially) what type of physical activity do you participate in: walking frequency: 3-4 times per week duration: 30-45 minutes/day seatbelt use: always do you feel safe at home: Yes ROS ROS ED Review of Systems ROS Unobtainable: other Constitutional Constitutional ED: Reports lethargy; Denies chills, fever(s), sweats or weight loss Eyes Eyes: Denies blurry vision, change in vision or diplopia ENT ENT ED: Denies rhinorrhea or sore throat Cardiovascular Cardiovascular: Denies chest pain, orthopnea or racing heartbeat Respiratory/Chest Respiratory/Chest: Denies cough, dyspnea, dyspnea on exertion, orthopnea or sputum Gastrointestinal Gastrointestinal: Denies abdominal pain, diarrhea, nausea or vomiting Genitourinary Genitourinary ED: Denies dysuria, hematuria or urinary frequency Musculoskeletal Musculoskeletal: Reports other Details: Right leg swelling ; Denies arthralgias, back pain, myalgias or neck pain Integumentary Denies abscess, Abrasions or rash Neurologic Neurologic: Denies headache(s) or weakness Psychiatric Psychiatric: Denies anxiety, depression or suicidal thoughts Endocrine Endocrinology: Denies polydipsia, polyphagia or polyuria Hematologic/Lymphatic Hematologic/Lymphatic: Denies easy bleeding, easy bruising or lymphadenopathy Allergic/Immunologic Allergic/Immunologic ED: Denies mouth swelling, tongue swelling or urticaria EXAM Physical Exam Const Vital Signs: 03/22/25 15:17 Temperature 98.1 F Temperature Source Temporal Pulse Rate 62 Respiratory Rate 14 Blood Pressure 116/59 L Blood Pressure Mean 78 Pulse Ox 100 Oxygen Delivery Method Room Air Positive well nourished and well developed General Appearance ED: well developed and NAD HEENT Reports TM's clear and moist mucous membranes normocephalic and atraumatic; Negative for trauma or tenderness Tympanic Membrane ED: Yes TM's clear Eyes PERRL and EOMs intact bilaterally General Eye ED: Negative for pale conjunctiva or scleral icterus Neck no lymphadenopathy, supple and no JVD General: Negative for tenderness Chest Wall inspection of chest normal and palpation of chest normal Chest: Negative for tenderness Resp normal respiratory effort and clear to auscultation bilaterally Effort and Inspection: Negative for respiratory distress or pain with movement Auscultation: Negative for rhonchi, wheezes or diminished lung sounds Cardio S1 normal heart sound, S2 normal heart sound and no murmurs; Negative for regular rate or regular rhythm Rhythm: abnormal rhythm irregularly irregular Peripheral Pulses: pulses 2+ throughout GI normal to inspection, nondistended, normoactive bowel sounds, soft to palpation, non-tender, non-distended and no masses Back/Spine no CVA tenderness and no thoracic nor lumbar tenderness Extremity Extremity Narrative: Right leg-mild edema just proximal to the ankle. Questionable cords palpated to posterior calf. Positive Homans' sign. Neurovascularly intact. General Extremety ED: Negative for edema General Extremity: Negative for edema Neuro oriented x3, CN's II-XII intact bilaterally, no sensory deficits noted and gait normal Sensorium / Orientation: awake, alert, oriented to person, oriented to place and oriented to time Motor Exam: strength 5/5 throughout and strength abnormal Psych mental status grossly normal Skin no rashes or lesions noted and no wounds MDM MDM MDM Narrative Medical decision making narrative: Patient presents with swelling to his right lower extremity concern for DVT. Currently on Eliquis. Clinically looks well. Not having any chest pain or shortness of breath and vital signs are stable. Venous Doppler of the right lower extremity obtained was negative for DVT. At this point he is advised to continue on his Eliquis. There is no signs of infection currently. There is been no injury. I do not feel any further imaging is indicated. Patient advised to return if increasing pain, redness, fever, or condition should worsen anyway. Discharge Plan Triage Chief Complaint: Lower Extremity Injury ED Provider: Roslyn Cook Dx/Rx/DC Orders Clinical Impression: Leg edema, right Instructions: ED Peripheral Edema, Unilateral Prescriptions: No Action tamsulosin 0.4 mg capsule 0.4 mg PO DAILY acetaminophen 325 mg tablet 325 mg tablet 0RF ramipril 5 mg capsule 10 mg PO QDAY multivitamin 1 EACH tablet 0.5 ea PO BID atorvastatin 40 mg tablet 80 mg PO QHS Qty: 90 3RF aspirin [Adult Low Dose Aspirin] 81 mg tablet,delayed release (DR/EC) 81 mg PO QDAY Qty: 90 3RF Eliquis 5 mg tablet 5 mg PO BID Qty: 180 3RF carvedilol 25 mg tablet 25 mg PO BID Qty: 180 3RF furosemide [Lasix] 40 mg tablet 40 mg PO DAILY Qty: 90 3RF Primary Care Provider: Dustin Castro Referrals: Dustin Castro MD [Primary Care Provider, Family Practice] - 3-5 Days Print Language: Ukrainian Disposition Disposition: Home, Self Care
[2025-03-22 16:39] VITALS: BP 109/87; PULSE 75; RESP 14; TEMP 36.7; O2SAT 100
--- OUTSIDE RECORDS SUMMARY | 2025-03-22 18:23 | XMS RPT_ITS | CCD ---
Author Organization [facility] Care Team Providers Care Piling Cutter Name Role Phone Dr. Mukul Castro Primary Care Provider Dr. Mukul Castro Referring Provider Dr. Mars Paz Attending Provider Dr. Mukul Castro Primary Care Provider [phone] Dr. Mukul Castro Referring Provider [phone] Mars Paz Attending Provider Farncis NEUROLOGY PHYSICIAN ASSISTANT, NEUROLOGY PHYSICIAN ASSISTANT-C Laura Attending Provider Dr. Rickey Wilson Attending Provider Dr. Mukul Castro Primary Care Provider [phone] Dr. Mukul Castro Referring Provider [phone] Caren IZAGUIRRE, NEUROLOGY PHYSICIAN ASSISTANT-C Maritza Attending Provider Bridgette SINGLETON, PA Lady Toth Attending Provider Glenis SINGLETON, ARELI Toth Attending Provider Dr. Robb Sheridan Attending Provider [phone] Dr. Mukul Castro Primary Care Provider Dr. Mukul Castro Referring Provider Dr. Robb Sheridan Referring Provider [phone] Robb Sheridan Other Provider Mukul Castro MD Primary Care Provider Dr. Mukul Castro Primary Care Provider [phone] Dr. Mukul Castro Referring Provider [phone] Dr. Donald Callahan Attending Provider [phone]([phone] Mukul Castro MD Primary Care Provider 1([facility])[phone] Dr. Mukul Castro MD Referring Provider Dr. Donald Callahan MD Attending Provider Lady Adler Attending Provider [phone] Lady Adler Referring Provider [phone] Faraz IRVIN, Dr. Brunner Attending Provider Austin Galloway Attending Provider Matthew IRVIN, Mukul A Primary Care Provider Radha IRVIN, Reymundo Unavailable Matthew IRVIN, Muklu A Primary Care Provider MERARI COVARRUBIAS Attending Unavailable CASTRO, MUKUL A Primary Care Unavailable ABRAMOVICHREYMUNDO Referring Unavailable CASTRO, MUKUL A Primary Care Unavailable RADHA, REYMUNDO Referring Unavailable CASTRO, MUKUL A Primary Care Unavailable REYMUNDO GARCIA Attending Unavailable CASTRO, MUKUL A Primary Care Unavailable DANIELAAMBERNADINE, REYMUNDO Referring Unavailable CASTRO, MUKUL A Primary Care Unavailable RADHA, REYMUNDO Attending Unavailable CASTRO, MUKUL A Primary Care Unavailable Matthew IRVIN, Dr. Chan Primary Care Physician Matthew IRVIN, Dr. Chan Referring Provider Francis IZAGUIRRE-Laura Massey Attending Physician Caren IZAGUIRRE-Maritza Massey Attending Physician [phone] Dr. Mukul Castro MD Primary Care Physician Dr. Mukul Castro MD Referring Provider Francis IZAGUIRRE-Laura Massey Attending Physician Caren NEUROLOGY PHYSICIAN ASSISTANT-CMaritza Attending Physician MERARI COVARRUBIAS Attending Physician Unavailable MERARI COVARRUBIAS Referring Provider Unavailable Donald Callahan Attending Unavailable Castro, Mukul Primary Care Unavailable Fracnis IZAGUIRRE, Laura Attending Unavailable Castro, Mukul Referring Unavailable Castro, Mukul Primary Care Unavailable Francis NEUROLOGY PHYSICIAN ASSISTANT, Laura Attending Unavailable Castro, Mukul Referring Unavailable Castro, Mukul Primary Care Unavailable Castro, Mukul Primary Care Unavailable Lady Adler Referring Unavail able Lady Adler Attending Unavail able DARCI STEWARD Attending Unavailable DARCI STEWARD Referring Unavailable Castro, Mukul Primary Care Unavailable Francis NEUROLOGY PHYSICIAN ASSISTANT, Laura Attending Unavailable Francis NEUROLOGY PHYSICIAN ASSISTANT, Laura Referring Unavailable Castro, Mukul Primary Care Unavailable Bridgette SINGLETON, Lady Toth Attending Unavail able Bridgette SINGLETON, Lady Toth Referring Unavail able Castro, Mukul Primary Care Unavailable Castro, Mukul Primary Care Unavailable Bridgette SINGLETON, Lady Toth Referring Unavail able Bridgette SINGLETON, Lady Toth Attending Unavail able Castro, Mukul Primary Care Unavailable Bridgette SINGLETON, Lady Toth Referring Unavail able Kannan Ruth Attending Unavailmiesha Fabian NEUROLOGY PHYSICIAN ASSISTANT, Maritza Attending Unavailable Castro, Mukul Referring Unavailable Castro, Mukul Primary Care Unavailable Donald Callahan Attending Unavailable Castro, Mukul Primary Care Unavailable Castro, Mukul Referring Unavailable Castro, Mukul Primary Care Unavailable Austin Galloway Attending Unavailable Castro, Mukul Referring Unavailable CASTRO, MUKUL A Primary Care Unavailable JOSELYN BARRIOS Attending Unavailable CASTRO, MUKUL A Primary Care Unavailable ROBERT MENDOZA Attending Unavailable CASTRO, MUKUL A Primary Care Unavailable MERARI COVARRUBIAS Admitting Unavailable MERARI COVARRUBIAS Attending Unavailable CASTRO, MUKUL A Primary Care Unavailable Medications Current Medications Medication Drug Class(es) Dates Sig (Normalized) Sig (Original) aspirin 81 mg delayed release oral tablet (20 sources) Platelet Aggregation Inhibitor, Nonsteroidal Anti-inflammatory Drug Start: 09-27-2023 Start: 02-17-2017 End: 09-24-2022 take 1 tablet by mouth once daily Aspirin 81 MG tablet,chewable Discontinued 81 mg PO DAILY@0800 February 17, 2017 12:00am September 24, 2022 2:59pm Start: 08-18-2007 ASPIRIN 325 MG TAB Take one(1) tablet daily. 0 08/18/2007 Active atorvastatin 40 mg oral tablet (20 sources) HMG-CoA Reductase Inhibitor Start: 09-18-2023 take 2 tablets by mouth at bedtime Start: 02-17-2017 End: 09-18-2023 take 1 tablet by mouth at bedtime Atorvastatin 40 mg tablet Discontinued 40 mg PO AT BEDTIME 90 3 May 27, 2023 1:52pm September 18, 2023 12:13pm azithromycin 250 mg oral tablet (1 source) Macrolide Antimicrobial Start: 03-01-2023 End: 03-06-2023 azithromycin (Zithromax Z-Elian) 250 mg tablet Indications: Acute bronchitis, unspecified organism Take 2 tablets (500 mg) on Day 1, followed by 1 tablet (250 mg) once daily on Days 2 through 5. 6 tablet 0 03/01/2023 03/06/2023 Active doxycycline hyclate 100 mg oral capsule (2 sources) Tetracycline-class Drug Start: 02-16-2025 End: 02-26-2025 doxycycline (Vibramycin) 100 mg capsule Indications: Erythema migrans (Lyme disease) Take 1 capsule (100 mg) by mouth 2 times a day for 7 days. Take with at least 8 ounces (large glass) of water, do not lie down for 30 minutes after 14 capsule 02/16/2025 02/16/2025 Discontinued furosemide 40 mg oral tablet (20 sources) Loop Diuretic Start: 08-07-2022 End: 04-28-2024 take 1 tablet by mouth once daily furosemide (Lasix) 40 mg tablet Take 1 tablet (40 mg) by mouth once daily. 01/29/2023 Active methylPREDNISolone (3 sources) Corticosteroid Start: 03-01-2023 methylPREDNISolone (Medrol Dospak) 4 mg tablets Indications: Acute bronchitis, unspecified organism Take as directed on package. 21 tablet 03/01/2023 Active Start: 03-01-2023 methylPREDNISo lone (Medrol Dospak) 4 mg tablets Indications: Acute bronchitis, unspecified organism Take as directed on package. 21 tablet 0 03/01/2023 Active Multivitamin 1 EACH tablet (4 sources) Start: 02-17-2017 Start: 02-17-2017 Start: 02-17-2017 Multivitamin 1 EACH tablet Active 0.5 NMA PO TWICE A DAY February 17, 2017 1:00am Multivitamin preparation (12 sources) Start: 02-17-2017 Multivitamin A ctive 0.5 EACH PO TWICE A DAY February 17, 2017 12:00am Start: 02-17-2017 Multivitamin A ctive 0.5 EACH PO TWICE A DAY February 17, 2017 1:00am multivitamin tablet (7 sources) take 1 tablet by naman th once daily multivitamin tablet Take 1 tablet by mouth once daily. Active take 0.5 tablet by mouth twice d aily multivitamin tablet Take 0.5 tablets by mouth two times a day. Active take 1 tablet by mouth once lauri y multivitamin tablet Take 1 tablet by mouth once daily. 0 Active omega-3 fatty acids/vitamin e(FISH OIL 1,000 MG CAP) (5 sources) Start: 08-07-2009 omega-3 fatty acids/vitamin e(FISH OIL 1,000 MG CAP) one capsule twice a day 0 08/07/2009 Active ramipril 5 mg oral capsule (20 sources) Angiotensin Converting Enzyme Inhibitor Start: 01-19-2025 take 2 capsules by mouth once daily Start: 03-28-2024 End: 01-19-2025 take 1 capsule by mouth once daily Ramipril 5 mg capsule Discontinued 5 mg PO daily 90 April 28, 2024 4:46pm January 19, 2025 8:16am Start: 08-07-2022 End: 03-28-2024 take 1 capsule by mouth once daily Ramipril 10 mg capsule Discontinued 10 mg PO DAILY 90 3 May 27, 2023 1:52pm September 17, 2023 3:50pm Start: 08-07-2009 End: 08-07-2022 take 1 capsule by mouth twice daily Ramipril 10 mg capsule Discontinued 10 mg PO TWICE A DAY 180 3 January 09, 2022 3:24pm August 07, 2022 3:22pm tamsulosin hydrochloride 0.4 mg oral capsule (20 sources) alpha-Adrenergic Sawyer Start: 05-21-2022 End: 02-18-2023 take 1 capsule by mouth once daily warfarin sodium 7.5 mg oral tablet (5 sources) Vitamin K Antagonist Start: 08-18-2007 warfarin sodium(COUMADI N 7.5 MG TAB) Take one(1) tablet daily. 0 08/18/2007 Active Completed/Discontinued Medications Medication Drug Class(es) Dates Sig (Normalized) Sig (Original) apixaban 5 mg oral tablet (20 sources) Factor Xa Inhibitor Start: 02-17-2017 End: 04-20-2024 take 1 tablet by mouth twice daily Apixaban (Eliquis) 5 mg tablet Discontinued 5 mg PO TWICE A DAY 180 3 May 27, 2023 1:53pm April 20, 2024 11:43am carvedilol 25 mg oral tablet (20 sources) alpha-Adrenergic Sawyer, beta-Adrenergic Sawyer Start: 08-18-2007 End: 04-28-2024 take 1 tablet by mouth twice daily Carvedilol 25 mg tablet Discontinued 25 mg PO TWICE A DAY 180 3 May 27, 2023 1:52pm April 28, 2024 4:46pm chlorhexidine gluconate 40 mg/ml medicated liquid soap (6 sources) Start: 11-16-2022 End: 02-18-2023 apply 1 dose topically once daily Chlorhexidine Gluconate (Hibiclens) 4 % liquid Discontinued 1 NMA TOPICAL ONCE 118 0 November 15, 2022 11:00pm February 18, 2023 1:28pm as a single dose, Shower with 1x daily x 1 week mupirocin 0.02 mg/mg topical ointment (6 sources) RNA Synthetase Inhibitor Antibacterial Start: 11-16-2022 End: 02-18-2023 Mupirocin 2 % ointment Discontinued 1 NMA TOPICAL TWICE A DAY 15 0 November 15, 2022 11:00pm February 18, 2023 1:28pm apply to bilateral nares bid x 1 week Start: 11-16-2022 End: 02-18-2023 Mupirocin 2 % ointment Disco ntinued 1 NMA TOPICAL TWICE A DAY 15 November 16, 2022 12:00am February 18, 2023 2:28pm apply to bilateral nares bid x 1 week Start: 11-16-2022 End: 02-18-2023 Mupirocin Discontinued 1 JACE LIC TOPICAL TWICE A DAY 15 November 16, 2022 12:00am February 18, 2023 2:28pm apply to bilateral nares bid x 1 week Start: 11-16-2022 Mupirocin Acti ve 1 APPLIC TOPICAL TWICE A DAY November 16, 2022 12:00am apply to bilateral nares bid x 1 week oxyCODONE hydrochloride 5 mg oral tablet (6 sources) Opioid Agonist Start: 11-30-2022 End: 02-18-2023 take 1 tablet by mouth every six hours as needed for pain Oxycodone 5 mg tablet Discontinued 5 mg PO EVERY 6 HOURS as needed for pain 14 3 0 November 30, 2022 February 18, 2023 1:28pm Left inguinal hernia Problems Active Problems Problem Classification Problem Date Documented Date Episodic/Chronic Abdominal hernia (18 sources) Left inguinal hernia ; Translations: [Unilateral inguinal hernia, without obstruction or gangrene, not specified as recurrent] Onset: 08-26-2009 10-03-2022 Episodic Comment on above: This is a 66-year-ol d male who presents for newly appreciated left inguinal hernia that is minimally symptomatic.Patient with stable symptoms and has now cleared to schedule to be able to abide by lifting restrictions. CT imaging was performed and no hernia was discussed by radiology, however, I see soft tissue adjacent to the spermatic cord on the left which is not present on the right. Patient does have a hernia by exam. Therefore, I recommend proceeding with our original plan of a robot-assisted left inguinal hernia repair with mesh. I briefly reviewed the details of the procedure and Dr. Carpio denies any further questions. A MRSA swab was obtained before our appointment ahead of mesh placement intraoperatively. Acute bronchitis (1 source) Acute bronchitis; Translations: [Acute bronchitis, unspecified] 03-01-2023 Episodic Appendicitis and other appendiceal conditions (18 sources) Appendicitis; Translations: [Unspecified appendicitis] Onset: 01-11-2025 06-09-2018 Episodic Cardiac dysrhythmias (20 sources) Ventricular premature beats; Translations: [Ventricular premature depolarization] Onset: 08-18-2007 Chronic Comment on above: Paroxysmal Cardiac dysrhythmias (18 sources) Palpitations; Translations: [Palpitations] Onset: 01-11-2025 06-08-2018 Episodic Coagulation and hemorrhagic disorders (2 sources) Thrombocytopenic disorder; Translations: [Thrombocytopenia, unspecified] Onset: 01-24-2025 07-12-2024 Chronic Conditions associated with dizziness or vertigo (20 sources) Lightheadedness; Translations: [Dizziness and giddiness] Onset: 01-11-2025 07-14-2022 Episodic Deficiency and other anemia (1 source) Iron deficiency anemia, unspecified; Translations: [Iron deficiency anemia, unspecified iron deficiency anemia type] Onset: 01-03-2025 Episodic Disorders of lipid metabolism (20 sources) Pure hypercholesterolemia; Translations: [Pure hypercholesterolemia, unspecified] Onset: 01-11-2025 Chronic Essential hypertension (1 source) Essential (primary) hypertension; Translations: [Essential hypertension, malignant] Onset: 01-03-2025 Chronic Heart valve disorders (20 sources) Mitral valve prolapse; Translations: [Nonrheumatic mitral (valve) prolapse] Onset: 05-03-2006 07-22-2017 Chronic Comment on above: MV repair 2007 Hyperplasia of prostate (1 source) Benign prostatic hyperplasia with lower urinary tract symptoms; Translations: [Benign prostatic hyperplasia with lower urinary tract symptoms, symptom details unspecified] Onset: 01-03-2025 Chronic Neoplasms of unspecified nature or uncertain behavior (7 sources) Monoclonal gammopathy (clinical); Translations: [Monoclonal gammopathy] Onset: 01-03-2025 07-12-2024 Chronic Other aftercare (20 sources) Patient encounter status; Translations: [Other alf (current) drug therapy] 07-22-2017 Episodic Other aftercare (8 sources) Long-term current use of drug therapy; Translations: [Other computer terminal operator (current) drug therapy] 07-22-2017 Episodic Comment on above: Anticoagulant Other and ill-defined cerebrovascular disease (18 sources) Cerebrovascular disease; Translations: [Other cerebrovascular disease] Onset: 01-11-2025 06-09-2018 Chronic Other and ill-defined cerebrovascular disease (2 sources) Cerebral ischemia; Translations: [Cerebral ischemia] Onset: 09-20-2023 01-11-2025 Chronic Other circulatory disease (18 sources) Cardiac implant in situ; Translations: [Presence of cardiac and vascular implant and graft, unspecified] Onset: 01-11-2025 07-22-2017 Chronic Other ear and sense organ disorders (3 sources) Bilateral sensory hearing loss; Translations: [Sensorineural hearing loss, bilateral] Onset: 01-18-2025 01-18-2025 Chronic Other ear and sense organ disorders (1 source) Asymmetrical sensorineural hearing loss; Translations: [Sensorineural hearing loss, bilateral] 01-18-2025 Chronic Other ear and sense organ disorders (2 sources) Sensorineural hearing loss, bilateral; Translations: [Sensorineural hearing loss, bilateral] Onset: 02-19-2025 Chronic Other infections; including parasitic (1 source) Erythema chronica migrans; Translations: [Lyme disease, unspecified] 02-16-2025 Episodic Other infections; including parasitic (2 sources) Lyme disease, unspecified; Translations: [Lyme disease, unspecified] Onset: 02-16-2025 Episodic Other lower respiratory disease (14 sources) Dyspnea on exertion; Translations: [Other forms of dyspnea] Onset: 01-11-2025 07-14-2022 Episodic Other lower respiratory disease (6 sources) Other forms of dyspnea; Translations: [Other respiratory abnormalities] 07-14-2022 Episodic Other screening for suspected conditions (not mental disorders or infectious disease) (18 sources) Abnormal results of cardiovascular function studies; Translations: [Abnormal result of cardiovascular function study, unspecified] Onset: 01-11-2025 07-22-2017 Episodic Gina-; endo-; and myocarditis; cardiomyopathy (except that caused by tuberculosis or sexually transmitted disease) (20 sources) Primary idiopathic hypertrophic cardiomyopathy; Translations: [Other hypertrophic cardiomyopathy] Onset: 01-11-2025 Chronic Comment on above: resolved Pulmonary heart disease (18 sources) Pulmonary hypertension; Translations: [Pulmonary hypertension, unspecified] Onset: 01-11-2025 07-16-2017 Chronic Residual codes; unclassified (13 sources) Sleep apnea; Translations: [Sleep apnea, unspecified] Onset: 01-11-2025 09-22-2022 Chronic Residual codes; unclassified (4 sources) Sleep apnea, unspecified; Translations: [Unspecified sleep apnea] 09-22-2022 Chronic Residual codes; unclassified (20 sources) History of repair of mitral valve; Translations: [Other specified postprocedural states] Onset: 04-12-2006 06-09-2018 Episodic Comment on above: mini mitral valve re pair #36 ring 05/05/06 Residual codes; unclassified (20 sources) History of radiofrequency ablation operation for arrhythmia; Translations: [Other specified postprocedural states] Onset: 01-10-2007 06-09-2018 Episodic Comment on above: Ablation of SVT 01/10 10/16 Residual codes; unclassified (20 sources) Other specified postprocedural states; Translations: [Personal history of surgery to heart and great vessels, presenting hazards to health] Onset: 04-12-2006 Episodic Residual codes; unclassified (5 sources) History of hernia repair; Translations: [Other specified postprocedural states] 12-10-2022 Episodic Comment on above: This is a 67-year-ol d male who is presenting for his first postoperative visit now 10 days status post robot-assisted left inguinal hernia repair with mesh. He is recovering remarkably well and well-healing on exam. He is pleased with his progress and admits that he will be difficult to adhere to the activity restrictions as imposed preoperatively, but confirms his understanding of why they are as they are and pledges his compliance. Given his progress, I have offered him follow-up at 5 weeks postop for another wound check but told him that if there are no concerns he is invited to cancel. Transient cerebral ischemia (20 sources) Transient cerebral ischemia; Translations: [Transient cerebral ischemic attack, unspecified] Onset: 08-18-2007 06-09-2018 Chronic Unclassified (2 sources) Autogenerated Problem Onset: 01-18-2025 01-18-2025 Unclassified (1 source) Cough, unspecified; Translations: [Cough, unspecified] Onset: 06-20-2024 Past or Other Problems Problem Classification Problem Date Documented Date Episodic/Chronic Blindness and vision defects (10 sources) Sudden visual loss of left eye; Translations: [Sudden visual loss, left eye] Onset: 09-16-2023 09-08-2023 Episodic Deficiency and other anemia (12 sources) Anemia; Translations: [Anemia, unspecified] Onset: 06-15-2024 09-24-2022 Episodic Deficiency and other anemia (6 sources) Anemia, unspecified; Translations: [Anemia, unspecified] Onset: 06-15-2024 09-24-2022 Episodic Other circulatory disease (4 sources) History of transient ischemic attack; Translations: [Personal history of transient ischemic attack (TIA), and cerebral infarction without residual deficits] Onset: 09-08-2016 09-08-2023 Episodic Other lower respiratory disease (7 sources) Dyspnea; Translations: [Shortness of breath] Onset: 05-03-2006 10-21-2023 Episodic Unclassified (16 sources) radiofrequency ablation 06-09-2018 Comment on above: of SVT, radiofrequen cy ablation of SVT may 2007 Results Test Name Value Interpretation Reference Range Facility [email or web address] 02-14-2025 SP/[email or web address] [facility] [address] [place] [address]. [address] [place] [address] / REHABILITATION SERVICES INITIAL EVALUATION MR#: [id number] Acct: [id number] Name: JAYDEN CARPIO EDEMRE Rep #: [id number] : [id number] 69 From: Nasim Evans M.A. [facility] Referring DrPriya: MERARI COVARRUBIAS Status: REG RCR Insurance: MEDICARE PART A B ANTHEM Visit History Visit Info Date of Eval: 02/12/25 Today is Visit #: 1 Office Administration: DMITRI History Attending Doctor: MERARI COVARRUBIAS Referring Doctor: MERARI COVARRUBIAS Reason for Referral: AUDITORY DR TO FAX Medical Diagnosis: Hearing Loss Date of Onset of Diagnosis: 2020 Previous speech therapy: No Other Relevant Medical History/Diagnoses/Surger y: Patient attended this evaluation as a pre surgery appointment prior to his cochlear implant surgery on Mar 15, 2025 at [facility]. No information was provided to therapist prior to appointment as to reason for visit ( No clinical notes, audiology information or diagnosis) and patient stated he attended as it was required to complete before having his surgery. During the evaluation patient was able to use his my chart to assess his last visit with his ENT after several minutes to give therapist more information. Patient is having cochlear implant brand [employer] in his left ear. Hearing history: Patient reported that he has had issues for several years with hearing aids bilaterally given 3-4 years ago. 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 Currently, his hearing for range for voice is 30% in his right ear and no ability in his left ear. Patient reported that he needs to use lip reading while listening to be able to communicate. 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 Pain Is pain an issue with your current prescribed condition?: No Personal Preferred language: Colombian Patient Allergies Allergies Allergies: Allergies No Known Allergies Allergy (Verified 01/29/25 08:36) Subjective Articulation/Phonol Subjective Additional Information: No articulation errors demonstrated during conversation. Reference: Neuro-QoL instrument Radiation Oncology Patient Other Other Communication: -: Patient needed to face therapist to be able to communicate as he had difficulty with receptive language due to hearing loss. He can express himself well without any errors observed in conversation for expressive language. Patient needed to lip read along with listening to be able to understand questions and conversation. He turned his right ear to therapist to be able to hear therapist. If therapist was on left side he did not respond to therapist's statement/question. Conversation in noise was much more difficult with communication needing to be repeated by communication partner. With increased background noise, patient exhibited significant difficulty. Patient reports: -: Patient reported that he has to ask communication partner to repeat 90% of what is said to him unless he can lip read. This is not functional in many situations including on the phone. This impacts his ability to communicate wants and needs medically if he would need to contact 911 and in a doctor's office. Patient reported that he has limited his social activities due to his hearing. He also has deficits in communication with his grandchild who are young ( ages 4 and 6) as they do not understand his communication deficits. Education: -: Patient was given education regarding need for therapy for receptive language abilities to participate in conversation following cochlear implant activation. Comprehension activities to include understanding spoken language at the patient's level such as words, phrases, sentences, etc. to be able to fully participate in all activities and with all communication partners. Plan Plan Plan: Speech therapy is recommended after the patient has had his cochlear implant activated. Recommend sessions begin in April 2024 as his activation date is 04/04/25. Therapy will focus on total communication through patient education and receptive language listening tasks for increased receptive language comprehension. Recommendations Treatment Warranted: Yes Treatment Warranted: Receptive/ Expressive Language Progress Prognosis: Good Frequency Frequency: 1x/Week Duration: 2 Months Visits in this POC: 8 Patient/Family Goal Patient/Family Goal: Patient would like to be able to communicate more easily. Goals that are Established Determination:: Goals will be added/modified as deemed necessary and appropriate. Therapy will be discontinued when results of re-evaluation indica (more content not included)... Normal [facility] Pulmonary Visit Reporton Pulmonary Visit Report [facility] Pulmonary Medicine [address] [place] [address] OFFICE VISIT Date of Service: 01/29/25 MR#: [id number] Acct: [id number] Name: JAYDEN CARPIO Rep #: [id number] : 1955 Provider: JOE Fabian Age/Sex: 69/M Location: [facility] [place].PMW Status: Signed Assessment and Plan Assessment and Plan (1) Sleep apnea: Status: Chronic Qualifiers: Sleep apnea type: obstructive Qualified Code(s): G47.33 - Obstructive sleep apnea (adult) (pediatric) Plan: He is using and benefiting from Pap therapy. No indication for titration study at this time. Contact the office for any new or worsening symptoms in the meantime. Follow-up in 1 year. Plan Details Additional Comments: This note was generated with [employer] dictation software. It may contain incorrect words, spelling, and punctuation that were not noted in checking the note before signing. Portions of this documentation have been copied and pasted from previous office visit notes to provide a cohesive continuity of the history. The note has been reviewed, edited, and updated, as necessary. Follow Up: 1 Year HPI 1 Y FU Chief Complaint: Routine follow-up HPI Comments Details: This patient presents to the office today for follow-up on his obstructive sleep apnea. He is ambulatory and on room air. He has not recently been seen in the ED or urgent care for any respiratory illness. He has not required any antibiotics or prednisone for any breathing problems. He denies any shortness of breath. He denies any cough, sputum production or hemoptysis. He denies any wheezing, chest tightness, chest pain or palpitations. He also denies any fever, chills or body aches. He wakes up feeling rested and refreshed. He is not requiring naps. He is not having difficulty with dry mouth or mask leaks. He is not having excessive nocturia. Compliance report for the past 30 days shows 97 % compliance with an average use of 6 hours and 10 minutes per night. Current setting is CPAP 12 cmH2O with residual AHI 1.9 events per hour. Leaks do not appear to be problematic. Intake Vital Signs 07/20/24 11:06 01/29/25 08:37 Height 6 ft 3 in 6 ft 3 in Weight: 213 lb 193 lb BMI 26.6 24.1 BP 119/67 104/61 Blood Pressure Location Rt brachial Rt brachial Position Sitting Sitting Respiration 18 18 Pulse 62 59 L Pulse Source Monitor Monitor Temp 97.4 F L Temperature Source Temporal Artery Pulse Oximetry (%) 95 99 Oxygen Delivery Method room air room air Intake Visit Reasons: 1 Y FU Nephrologist Required: No DME Vendor: [employer] Accompanied by: Self Is patient in pain?: No Allergies No Known Allergies Allergy (Verified 01/29/25 08:36) Medications ???Medication ???Instructions ???Recorded ???Confirmed ???Type multivitamin 0.5 ea PO BID 02/17/17 01/29/25 Hi story tamsulosin 0.4 mg capsule 0.4 mg PO DAILY 06/11/23 01/29/25 History atorvastatin 40 mg tablet 80 mg (2 x 40 mg) PO QHS #90 tabs 09/18/23 01/29/25 Rx aspirin 81 mg tablet,delayed 81 mg PO QDAY #90 tabs 09/27/23 Rx release (Adult Low Dose Aspirin) apixaban 5 mg tablet (Eliquis) 5 mg PO BID #180 TABLETS 04/20/24 01/29/25 Rx carvedilol 25 mg tablet 25 mg PO BID #180 tabs 04/28/24 Rx furosemide 40 mg tablet (Lasix) 40 mg PO DAILY #90 tabs 04/28/24 1 Rx acetaminophen 325 mg tablet 325 mg Tablet#2 Samples 06/20/24 1 Sample (Tylenol) ramipril 5 mg capsule 10 mg PO QDAY 01/19/25 01/29/25 Hi story Have you fallen in the past year?: No PFSH Medical History (Reviewed 01/29/25 @ 08:46 by Maritza Fabian NEUROLOGY PHYSICIAN ASSISTANT, NEUROLOGY PHYSICIAN ASSISTANT-C) MGUS (monoclonal gammopathy of unknown significance) Enlarged prostate History of edema Left inguinal hernia Wears hearing aid Wears glasses Alcohol use Arthritis Bladder disease High cholesterol Non-smoker CPAP (continuous positive airway pressure) dependence History of pain when walking History of echocardiogram History of stress test Hypertension Cardiology follow-up encounter Nonrheumatic mitral (valve) insufficiency Paroxysmal atrial flutter Pure hypercholesterolemia Palpitations radiofrequency ablation Hyperlipidemia Paroxysmal atrial fibrillation Nonrheumatic mitral (valve) prolapse Pulmonary hypertension Cardiomyopathy Tricuspid valve disorder Atrial fibrillation and flutter Surgical History (Reviewed 01/29/25 @ 08:46 by Maritza Fabian NEUROLOGY PHYSICIAN ASSISTANT, NEUROLOGY PHYSICIAN ASSISTANT-C) Status post hernia repair History of cardiac radiofrequency ablation ( 01/26/07) Hx of appendectomy H/O mitral valve repair ( 05/05/06) Family History (Reviewed 01/29/25 @ 08:46 by Maritza Fabian NEUROLOGY PHYSICIAN ASSISTANT, NEUROLOGY PHYSICIAN ASSISTANT-C) Father Hypertension Cancer prostate Afib Social History ... Normal [facility] CNOVSPon 01-24-2025 CNOVSP Visit (SP) Office (HEMAWS) -------- JAYDEN CARPIO ([id number]) 1955 M Date Time Provider Department 01/24/25 10:20 AM REYMUNDO GARCIA During your visit today, we recorded the following information about you: Temperature Pulse Blood pressure Weight 99 degrees 67/minute 112/68 89.6 kg Reymundo Garcia MD 01/24/2025 12:28 PM Signed (Elements copied from my note dated July 12, 2024, have been reviewed and updated where appropriate, and all reflect current assessment and medical decision making from today's encounter, January 24, 2025) HISTORY OF PRESENT ILLNESS: Jayden Carpio is a 69 year old male mitral valve replacement April 2006 we note chronic mild anemia and thrombocytopenia since then. He has been followed by Dr Castro, recently SPEP was done, shows low level M spike. We discussed the possible issue with this, also reviewed other labs, Cr 1.48 in May 2024, otherwise chemistries were normal. He feels well, notes no clinical changes other than recent onset atrial fibrillation. On eliquis and asa. Here for follow up of mgus Reviewed labs CLINICAL IMPRESSION: Chronic mild anemia, thrombocytopenia. Chronic and stable Monoclonal gammopathy, no CRAB RECOMMENDATION/PLAN: 1. Labs and follow up in 6 months. Written and verbal health teaching given to patient, patient verbalizes understanding and agrees with treatment plan. PAST MEDICAL HISTORY Diagnosis Date Atrial flutter (HCC) 08/18/2007 S/P Ablation x 4, 5-07 9-07, 10-, 2-08 BPH (benign prostatic hyperplasia) Hypertension PMH - PAST MEDICAL HISTORY OF No prolonged adult or childhood illness TIA (transient ischemic attack) Unspecified transient cerebral ischemia 08/18/2007 Episode 3-07 PAST SURGICAL HISTORY Procedure Laterality Date APPENDECTOMY HERNIA REPAIR HX 2022 PAST SURGICAL HISTORY OF Cardiac Ablation 02/05/07, 06/08/07, 2008 REPAIR OF KNEE Right REPLACEMENT MITRAL VALVE W/CARDIOPULMONARY BYP 04/12/2006 Mitral valve repair RPR 1ST INGUN HRNA AGE 5 YRS/> REDUCIBLE 08/22/2009 Right inguinal FAMILY HISTORY Problem Relation Age of Onset COPD Father Prostate Cancer Father other (good health [Other]) Sister living other (good health [Other]) Brother living Social History Tobacco Use Smoking status: Never Smokeless tobacco: Never Substance Use Topics Alcohol use: Yes Comment: 2-3 glasses a wine over a week ALLERGIES: ALLERGIES No Known Allergies CURRENT OUTPATIENT MEDICATIONS: aspirin, enteric coated (ASPIRIN, ENTERIC COATED) 81 mg EC tablet Take 81 mg by mouth once daily. apixaban (ELIQUIS) 5 mg tab(s) Take 5 mg by mouth two times a day. furosemide (LASIX) 40 mg tablet Take 40 mg by mouth once daily. ramipril (ALTACE) 5 mg capsule Take 5 mg by mouth once daily. tamsulosin (FLOMAX) 0.4 mg Take 0.4 mg by mouth once daily. multivitamin tablet Take 0.5 tablets by mouth two times a day. carvedilol(COREG 25 MG TAB) Take one(1) tablet twice daily. ramipril(ALTACE 10 MG CAP) one tablet twice a day (Patient not taking: Reported on 07/12/2024) omega-3 fatty acids/vitamin e(FISH OIL 1,000 MG CAP) one capsule twice a day (Patient not taking: Reported on 07/12/2024) ASPIRIN 325 MG TAB Take one(1) tablet daily. (Patient not taking: Reported on 07/12/2024) warfarin sodium(COUMADIN 7.5 MG TAB) Take one(1) tablet daily. (Patient not taking: Reported on 07/12/2024) REVIEW OF SYSTEMS: GENERAL: No fever, night sweats, weight loss or malaise. All other reviewed and negative other than HPI. PHYSICAL EXAMINATION: VITAL SIGNS: BP 112/68 Pulse 67 Temp 99 Wt 197 lb 8 oz (89.6kg) SpO2 98% GENERAL APPEARANCE: Well appearing, in no acute distress, alert and oriented x3, well-hydrated, well nourished. I spent a total of 30 minutes on the date of the service which included preparing to see the patient, [id number] patient care, completing clinical documentation, obtaining and/or reviewing separately obtained history, counseling and educating the patient/family/caregiver , ordering medications, tests, or procedures, independently interpreting results (not separately reported), and communicating results to the patient/family/caregiver . Electronically Signed: Reymundo Garcia MD January 24, 2025 Allergies As of Date: 01/24/2025 (No Known Allergies) Date Reviewed: 01/24/2025 Reviewed by: Lee Ann Martin LPN - Fully Assessed Reason for Visit: Established Patient [175] Cmt: Monoclonal gammopathy Primary Visit Diagnosis:Monoclonal gammopathy [D47.2] Other Visit Diagnoses:Anemia, unspecified type [D64.9] Thrombocytopenia [D69.6] Follow-up and Disposition History for Encounter Date Provider Department Center 01/24/2025 [id number], DREW EDVIN [facility] Prescriptions as of 01/24/2025 - aspirin, enteric coated (ASPIRIN, ENTERIC COATED) 81 mg EC tablet Take 81 mg by (more content not included)... Normal [facility] Cardiology Visit Reporton Cardiology Visit Report [facility] [id number] [place] [address] OFFICE VISIT Date of Service: 01/19/25 MR#: [id number] Acct: [id number] Name: JAYDEN CARPIO Rep #: [id number] : 1955 Provider: JOE canales Age/Sex: 69/M [place] [facility] [place]: Signed HPI HPI History of Present Illness Details: This is a 69-year-old white male who presents to the office today for a cardiovascular follow up visit. 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 He states he is having a cochlear implant in March of this year. From a cardiac standpoint, the patient is doing well. He denies any palpitations, chest pain, pressure or heaviness. He does acknowledge SOB with climbing hills. He does walk 10,0000 steps a day, and states his SOB is not as noticeable since increasing steps. He denies Orthopnea, and PND. He does not have bleeding issues; no blood in urine, stool, or nosebleeds. He denies any decrease in energy level, myalgias, or claudication. He does not have edema, or sudden weight gain. He does wear compression stockings. He denies lightheadedness, dizziness, syncopal or near syncopal episodes, and headaches. Intake Vital Signs 07/20/24 11:06 01/19/25 07:40 Height 6 ft 3 in 6 ft 3 in Weight: 213 lb 196 lb BMI 26.6 24.5 BP 119/67 115/71 Blood Pressure Location Rt brachial Lt brachial Position Sitting Sitting Respiration 18 18 Pulse 62 76 Pulse Source Monitor Monitor Pulse Oximetry (%) 95 99 Oxygen Delivery Method room air Intake Visit Reasons: 6 M FU Nephrologist Required: No Is patient in pain?: No Allergies No Known Allergies Allergy (Verified 01/19/25 09:37) Medications ???Medication ???Instructions ???Recorded ???Confirmed ???Type multivitamin 0.5 ea PO BID 02/17/17 01/19/25 Hi story tamsulosin 0.4 mg capsule 0.4 mg PO DAILY 06/11/23 01/19/25 History atorvastatin 40 mg tablet 80 mg (2 x 40 mg) PO QHS #90 tabs 09/18/23 01/19/25 Rx aspirin 81 mg tablet,delayed 81 mg PO QDAY #90 tabs 09/27/23 Rx release (Adult Low Dose Aspirin) apixaban 5 mg tablet (Eliquis) 5 mg PO BID #180 TABLETS 04/20/24 01/19/25 Rx carvedilol 25 mg tablet 25 mg PO BID #180 tabs 04/28/24 Rx furosemide 40 mg tablet (Lasix) 40 mg PO DAILY #90 tabs 04/28/24 1 Rx acetaminophen 325 mg tablet 325 mg Tablet#2 Samples 06/20/24 1 Sample (Tylenol) ramipril 5 mg capsule 10 mg PO QDAY 10/10/25 10/10/25 Hi story Ejection fraction %: 60 Have you fallen in the past year?: No Nurse's Note: cochlear implant in March [facility] Medical History MGUS (monoclonal gammopathy of unknown significance) Enlarged prostate History of edema Left inguinal hernia Wears hearing aid Wears glasses Alcohol use Arthritis Bladder disease High cholesterol Non-smoker CPAP (continuous positive airway pressure) dependence History of pain when walking History of echocardiogram History of stress test Hypertension Cardiology follow-up encounter Nonrheumatic mitral (valve) insufficiency Paroxysmal atrial flutter Pure hypercholesterolemia Palpitations radiofrequency ablation Hyperlipidemia Paroxysmal atrial fibrillation Nonrheumatic mitral (valve) prolapse Pulmonary hypertension Cardiomyopathy Tricuspid valve disorder Atrial fibrillation and flutter Surgical History Status post hernia repair History of cardiac radiofrequency ablation ( 01/26/07) Hx of appendectomy H/O mitral valve repair ( 05/05/06) Family History Father Hypertension Cancer prostate Afib Social History household members: spouse housing: house Smoking Status: Never smoker alcohol intake: current alcohol intake frequency: a few times a week substance use type: does not use caffeine: Yes (socially) what type of physical activity do you participate in: walking frequency: 3-4 times per week duration: 30-45 minutes/day seatbelt use: always do you feel safe at home: Yes ROS Const Const: Negative for fatigue, weakness, headache(s) or frequent falls Eyes Eyes: Negative for blurry vision ENT ENT: Positive for hearing loss; Negative for headache(s), dizziness or Nosebleed/epistaxis Cardio Chest Pain: No Palpitations: No Edema: None Muscle aches with walking: None Additional Details: occasional PVC, not bothersome (more content not included)... Normal [facility] CBC W Auto Differential pane l (Bld)on 01-03-2025 Basophils (Bld) [#/Vol] 0.04 10*3/uL Normal <0.11 [facility] Comment on above: Order Comment: Speci men Type: BLOOD SPECIMEN Ordering Facility: [facility] Address: [address] [place] [address] Performed By: #### I FESC #### [facility] CLIA [id number] [address] [place] [address] [place] Basophils/100 WBC (Bld) 0.8 % Normal [facility] Comment on above: Order Comment: Speci men Type: BLOOD SPECIMEN Ordering Facility: [facility] Address: [address] [place] [address] Performed By: #### I FESC #### [facility] CLIA [id number] [address] [place] [address] [place] Differential cell count method Nom (Bld) Auto Normal [facility] Comment on above: Order Comment: Speci men Type: BLOOD SPECIMEN Ordering Facility: [facility] Address: [address] [place] [address] Performed By: #### I FESC #### [facility] CLIA [id number] [address] [place] [address] [place] Eosinophils (Bld) [#/Vol] 0.28 10*3/uL Normal <0.46 [facility] Comment on above: Order Comment: Speci men Type: BLOOD SPECIMEN Ordering Facility: [facility] Address: [address] [place] [address] Performed By: #### I FESC #### [facility] CLIA [id number] [address] [place] [address] [place] Eosinophils/100 WBC (Bld) 5.4 % Normal [facility] Comment on above: Order Comment: Speci men Type: BLOOD SPECIMEN Ordering Facility: [facility] Address: [address] [place] [address] Performed By: #### I FESC #### [facility] CLIA [id number] [address] [place] [address] [place] Erythrocyte distribution width (RBC) [Ratio] 14.6 % Normal 11.5-15.0 [facility] Comment on above: Order Comment: Speci men Type: BLOOD SPECIMEN Ordering Facility: [facility] Address: [address] [place] [address] Performed By: #### I FESC #### [facility] CLIA [id number] [address] [place] [address] [place] Hematocrit (Bld) [Volume fraction] 33.8 % Low 39.0-51.0 [facility] Comment on above: Order Comment: Speci men Type: BLOOD SPECIMEN Ordering Facility: [facility] Address: [address] [place] [address] Performed By: #### I FESC #### [facility] CLIA [id number] [address] [place] [address] [place] Hemoglobin (Bld) [Mass/Vol] 11.1 g/dL Low 13.0-17.0 [facility] Comment on above: Order Comment: Speci men Type: BLOOD SPECIMEN Ordering Facility: [facility] Address: [address] [place] [address] Performed By: #### I FESC #### [facility] CLIA [id number] [address] [place] [address] [place] Immature granulocytes (Bld) [#/Vol] 10*3/uL Normal <0.10 [facility] Comment on above: Order Comment: Speci men Type: BLOOD SPECIMEN Ordering Facility: [facility] Address: [address] [place] [address] Performed By: #### I FESC #### [facility] CLIA [id number] [address] [place] [address] [place] Immature granulocytes/100 WBC (Bld) 0.2 % Normal [facility] Comment on above: Order Comment: Speci men Type: BLOOD SPECIMEN Ordering Facility: [facility] Address: [address] [place] [address] Performed By: #### I FESC #### [facility] CLIA [id number] [address] [place] [address] [place] Lymphocytes (Bld) [#/Vol] 1.12 10*3/uL Normal 1.00-4.00 [facility] Comment on above: Order Comment: Speci men Type: BLOOD SPECIMEN Ordering Facility: [facility] Address: [address] [place] [address] Performed By: #### I FESC #### [facility] CLIA [id number] [address] [place] [address] [place] Lymphocytes/100 WBC (Bld) 21.4 % Normal [facility] Comment on above: Order Comment: Speci men Type: BLOOD SPECIMEN Ordering Facility: [facility] Address: [address] [place] [address] Performed By: #### I FESC #### [facility] CLIA [id number] [address] [place] [address] [place] MCH (RBC) [Entitic mass] 31.0 pg Normal 26.0-34.0 [facility] Comment on above: Order Comment: Speci men Type: BLOOD SPECIMEN Ordering Facility: [facility] Address: [address] [place] [address] Performed By: #### I FESC #### [facility] CLIA [id number] [address] [place] [address] [place] MCHC (RBC) [Mass/Vol] 32.8 g/dL Normal 30.5-36.0 [facility] Comment on above: Order Comment: Speci men Type: BLOOD SPECIMEN Ordering Facility: [facility] Address: [address] [place] [address] Performed By: #### I FESC #### [facility] CLIA [id number] [address] [place] [address] [place] MCV (RBC) [Entitic vol] 94.4 fL Normal 80.0-100.0 C [facility] Comment on above: Order Comment: Speci men Type: BLOOD SPECIMEN Ordering Facility: [facility] Address: [address] [place] [address] Performed By: #### I FESC #### [facility] CLIA [id number] [address] [place] [address] [place] Monocytes (Bld) [#/Vol] 0.49 10*3/uL Normal <0.87 [facility] Comment on above: Order Comment: Speci men Type: BLOOD SPECIMEN Ordering Facility: [facility] Address: [address] [place] [address] Performed By: #### I FESC #### [facility] CLIA [id number] [address] [place] [address] [place] Monocytes/100 WBC (Bld) 9.4 % Normal C [facility] Comment on above: Order Comment: Speci men Type: BLOOD SPECIMEN Ordering Facility: [facility] Address: [address] [place] [address] Performed By: #### I FESC #### [facility] CLIA [id number] [address] [place] [address] [place] Neutrophils (Bld) [#/Vol] 3.29 10*3/uL Normal 1.45-7.50 [facility] Comment on above: Order Comment: Speci men Type: BLOOD SPECIMEN Ordering Facility: [facility] Address: [address] [place] [address] Performed By: #### I FESC #### [facility] CLIA [id number] [address] [place] [address] [place] Neutrophils/100 WBC (Bld) 62.8 % Normal [facility] Comment on above: Order Comment: Speci men Type: BLOOD SPECIMEN Ordering Facility: [facility] Address: [address] [place] [address] Performed By: #### I FESC #### [facility] CLIA [id number] [address] [place] [address] [place] Nucleated RBC (Bld) [#/Vol] 10*3/uL Normal <0.01 [facility] Comment on above: Order Comment: Speci men Type: BLOOD SPECIMEN Ordering Facility: [facility] Address: [address] [place] [address] Performed By: #### I FESC #### [facility] CLIA [id number] [address] [place] [address] [place] Nucleated RBC/100 WBC (Bld) [Ratio] 0.0 /100 WBC Normal [facility] Comment on above: Order Comment: Speci men Type: BLOOD SPECIMEN Ordering Facility: [facility] Address: [address] [place] [address] Performed By: #### I FESC #### [facility] CLIA [id number] [address] [place] [address] [place] Platelet mean volume (Bld) [Entitic vol] 12.7 fL Normal 9.0-12.7 [facility] Comment on above: Order Comment: Speci men Type: BLOOD SPECIMEN Ordering Facility: [facility] Address: [address] [place] [address] Performed By: #### I FESC #### [facility] CLIA [id number] [address] [place] [address] [place] Platelets (Bld) [#/Vol] 121 10*3/uL Low 150-400 [facility] Comment on above: Order Comment: Speci men Type: BLOOD SPECIMEN Ordering Facility: [facility] Address: [address] [place] [address] Performed By: #### I FESC #### [facility] CLIA [id number] [address] [place] [address] [place] RBC (Bld) [#/Vol] 3.58 10*6/uL Low 4.20-6.[address] [facility] Comment on above: Order Comment: Speci men Type: BLOOD SPECIMEN Ordering Facility: [facility] Address: [address] [place] [address] Performed By: #### I FESC #### [facility] CLIA [id number] [address] [place] [address] [place] WBC (Bld) [#/Vol] 5.23 10*3/uL Normal 3.70-11.[address] [facility] Comment on above: Order Comment: Speci men Type: BLOOD SPECIMEN Ordering Facility: [facility] Address: [address] [place] [address] Performed By: #### I FESC #### [facility] CLIA [id number] [address] [place] [address] [place] Comprehensive metabolic 2000 panelon 01-03-2025 Albumin [Mass/Vol] 4.3 g/dL Normal 3.9-4.9 [facility] Comment on above: Order Comment: Speci men Type: BLOOD SPECIMEN Ordering Facility: [facility] Address: [address] [place] [address] Performed By: #### S ERIMM #### [facility] CLIA [id number] [address] [place] [address] [place] ALP [Catalytic activity/Vol] 89 U/L Normal 38-113 [facility] Comment on above: Order Comment: Speci men Type: BLOOD SPECIMEN Ordering Facility: [facility] Address: [address] [place] [address] Performed By: #### S ERIMM #### [facility] [facility] CLIA [id number] [address] [place] [address] [place] ALT [Catalytic activity/Vol] 37 U/L Normal 10-54 [facility] Comment on above: Order Comment: Speci men Type: BLOOD SPECIMEN Ordering Facility: [facility] Address: [address] [place] [address] Performed By: #### S ERIMM #### [facility] CLIA [id number] [address] [place] [address] [place] Anion gap [Moles/Vol] 10 mmol/L Normal 8-15 [facility] Comment on above: Order Comment: Speci men Type: BLOOD SPECIMEN Ordering Facility: [facility] Address: [address] [place] [address] Performed By: #### S ERIMM #### [facility] CLIA [id number] [address] [place] [address] [place] AST [Catalytic activity/Vol] 30 U/L Normal 14-40 [facility] Comment on above: Order Comment: Speci men Type: BLOOD SPECIMEN Ordering Facility: [facility] Address: [address] [place] [address] Performed By: #### S ERIMM #### [facility] CLIA [id number] [address] [place] [address] [place] Bilirubin [Mass/Vol] 1.0 mg/dL Normal 0.2-1.3 [facility] Comment on above: Order Comment: Speci men Type: BLOOD SPECIMEN Ordering Facility: [facility] Address: [address] [place] [address] Performed By: #### S ERIMM #### [facility] CLIA [id number] [address] [place] [address] [place] Calcium [Mass/Vol] 9.3 mg/dL Normal 8.5-10.2 [facility] Comment on above: Order Comment: Speci men Type: BLOOD SPECIMEN Ordering Facility: [facility] Address: [address] [place] [address] Performed By: #### S ERIMM #### [facility] CLIA [id number] [address] [place], [place] [address] [place] Chloride [Moles/Vol] 100 mmol/L Normal 98-107 [facility] Comment on above: Order Comment: Speci men Type: BLOOD SPECIMEN Ordering Facility: [facility] Address: [address] [place] [address] Performed By: #### S ERIMM #### [facility] CLIA [id number] [address] [place] [address] [place] CO2 [Moles/Vol] 27 mmol/L Normal 22-30 [facility] Comment on above: Order Comment: Speci men Type: BLOOD SPECIMEN Ordering Facility: [facility] Address: [address] [place] [address] Performed By: #### S ERIMM #### [facility] CLIA [id number] [address] [place] [address] [place] [facility] Creatinine [Mass/Vol] 1.17 mg/dL Normal 0.73-1.22 [facility] Comment on above: Order Comment: Speci men Type: BLOOD SPECIMEN Ordering Facility: [facility] Address: [address] [place] [address] Performed By: #### S ERIMM #### [facility] CLIA [id number] [address] [place] [address] eGFRcr SerPlBld CKD-EPI 2020 67 mL/min/1.73m??? Normal >=60 [facility] Comment on above: Order Comment: Speci men Type: BLOOD SPECIMEN Ordering Facility: [facility] Address: [address] [place] [address] Result Comment: Cherie mated Glomerular Filtration Rate (eGFR) is calculated using the 2020 CKD-EPI creatinine equation. This equation utilizes serum creatinine, sex, and age as parameters. The creatinine assay has traceable calibration to isotope dilution-mass spectrometry. Refer to KDIGO guidelines for clinical interpretation. In patients with unstable renal function, e.g. those with acute kidney injury, the eGFR may not accurately reflect actual GFR. Performed By: #### S ERIMM #### [facility] CLIA [id number] [address] [id number] [address] [place] Glucose [Mass/Vol] 98 mg/dL Normal 74-99 [facility] Comment on above: Order Comment: Specjenn colon Type: BLOOD SPECIMEN Ordering Facility: [facility] Address: [address] [place] [address] Result Comment: The [place] Diabetes Association (ADA) provides guidance for cutoff values for fasting glucose and random glucose. The ADA defines fasting as no caloric intake for at least 8 hours. Fasting plasma glucose results between 100 to 125 mg/dL indicate increased risk for diabetes (prediabetes). Fasting plasma glucose results greater than or equal to 126 mg/dL meet the criteria for diagnosis of diabetes. In the absence of unequivocal hyperglycemia, results should be confirmed by repeat testing. In a patient with classic symptoms of hyperglycemia or hyperglycemic crisis, random plasma glucose results greater than or equal to 200 mg/dL meet the criteria for diagnosis of diabetes. Reference: Standards of Medical Care in Diabetes 2016, [place] Diabetes Association. Diabetes Care. 2016.39(Suppl 1). Performed By: #### S ERIMM #### [facility] CLIA [id number] [address] [place] [address] [place] Potassium [Moles/Vol] 4.4 mmol/L Normal 3.7-5.1 [facility] Comment on above: Order Comment: Manohar colon Type: BLOOD SPECIMEN Ordering Facility: [facility] Address: [address] [place] [address] Performed By: #### S ERIMM #### [facility] CLIA [id number] [address] [place] [address] [place] Protein [Mass/Vol] 7.0 g/dL Normal 6.3-8.0 [facility] Comment on above: Order Comment: Manohar colon Type: BLOOD SPECIMEN Ordering Facility: [facility] Address: [address] [place] [address] Performed By: #### S ERIMM #### [facility] CLIA [id number] [address] [place] [address] [place] Sodium [Moles/Vol] 137 mmol/L Normal 136-144 [facility] Comment on above: Order Comment: Speci men Type: BLOOD SPECIMEN Ordering Facility: [facility] Address: [address] [place] [address] Performed By: #### S TRICEM #### [facility] CLIA [id number] [address] [place] [address] [place] Urea nitrogen [Mass/Vol] 29 mg/dL High 9- [facility] Comment on above: Order Comment: Speci men Type: BLOOD SPECIMEN Ordering Facility: [facility] Address: [address] [place] [address] Performed By: #### S TRICEM #### [facility] CLIA [id number] [address] [place] [address] [place] Folate SerPl-mCncon 01-04-20 25 Folate [Mass/Vol] 15.0 ng/mL Normal >4.7 [facility] Comment on above: Order Comment: Speci men Type: BLOOD SPECIMEN Ordering Facility: [facility] Address: [address] [place] [address] Performed By: #### S TRICEM #### [facility] CLIA [id number] [address] [place] [address] [place] IMMUNOFIXATION SCREEN, SERUM on 01-03-2025 INTERPRETATION (MPA) Atypical restricted bands are present in the IgG and lambda regions. Consistent with IgG lambda monoclonal gammopathy. Normal [facility] Comment on above: Order Comment: Speci men Type: BLOOD SPECIMEN Ordering Facility: [facility] Address: [address] [place] [address] Performed By: #### I FESC #### [facility] CLIA [id number] [address] [place] [address] [place] MPA RESULT M protein is present. Abnormal No M p rotein is identified. [facility] Comment on above: Order Comment: Speci men Type: BLOOD SPECIMEN Ordering Facility: [facility] Address: [address] [place] [address] Performed By: #### I FES #### [facility] CLIA [id number] [address] [place] [address] [place] STAFF REVIEW (MPA) Reviewed by Aakash Hauser M.D. Normal [facility] Comment on above: Order Comment: Speci men Type: BLOOD SPECIMEN Ordering Facility: [facility] Address: [address] [place] [address] Performed By: #### I FES #### [facility] CLIA [id number] [address] [place] [address] [place] IMMUNOGLOBULINS,IGG,IGA,IGMo n 01-03-2025 IgA [Mass/Vol] 241 mg/dL Normal 70-400 [facility] Comment on above: Order Comment: Speci men Type: BLOOD SPECIMEN Ordering Facility: [facility] Address: [address] [place] [address] Performed By: #### S ERIMM #### [facility] CLIA [id number] [address] [place] [address] [place] IgG [Mass/Vol] 1304 mg/dL Normal 700-1600 [facility] Comment on above: Order Comment: Speci men Type: BLOOD SPECIMEN Ordering Facility: [facility] Address: [address] [place] [address] Performed By: #### S ERIMM #### [facility] CLIA [id number] [address] [place], [place] [address] [place] IgM [Mass/Vol] 60 mg/dL Normal 40-230 [facility] Comment on above: Order Comment: Speci men Type: BLOOD SPECIMEN Ordering Facility: [facility] Address: [address] [place] [address] Performed By: #### S ERIMM #### [facility] CLIA [id number] [address] [place], [place] [address] [place] KAPPA/WILL,FREE,SERon 2024 Immunoglobulin light chains.kappa.free (S) [Mass/Vol] 25.6 mg/L High 3.3-19.4 [facility] Comment on above: Order Comment: Speci men Type: BLOOD SPECIMEN Ordering Facility: [facility] Address: [address] [place] [address] Result Comment: Rare ly, increased serum free light chains levels may not be detected or accurately quantified due to prozone phenomenon or in high viscosity samples using this immunoturbidimetric assay. Correlation with other laboratory results and clinical findings is recommended. The [place] Free Light Chain was performed using the Binding Site Optilite immunoturbidimetric method. Result obtained with different assay methods or kits cannot be used interchangeably. Performed By: #### K LFRS #### [facility] CLIA [id number] [address] [place] [address] [place] Immunoglobulin light chains.kappa/Immunoglob ulin light chains.lambda (S) [Mass ratio] 0.56 Normal 0.26-1.65 [facility] Comment on above: Order Comment: Speci [facility] Type: BLOOD SPECIMEN Ordering Facility: [facility] Address: [address] [place] [address] Performed By: #### K LFRS #### [facility] CLIA [id number] [address] [place] [address] [place] Immunoglobulin light chains.lambda.free [Mass/Vol] 46.0 mg/L High 5.7-26.3 [facility] Comment on above: Order Comment: Speci men Type: BLOOD SPECIMEN Ordering Facility: [facility] Address: [address] [place] [address] Result Comment: Rare ly, increased serum free light chains levels may not be detected or accurately quantified due to prozone phenomenon or in high viscosity samples using this immunoturbidimetric assay. Correlation with other laboratory results and clinical findings is recommended. The Lambda Free Light Chain was performed using the Binding Site Optilite immunoturbidimetric method. Result obtained with different assay methods or kits cannot be used interchangeably. Performed By: #### K LFRS #### [facility] CLIA [id number] [address] [place] [address] [place] PROTEIN ELECTROPHORESIS SERU M (P)on 01-03-2025 Albumin [Mass/Vol] 4.23 g/dL Normal 3.43-5.41 [facility] Comment on above: Order Comment: Speci men Type: BLOOD SPECIMEN Ordering Facility: [facility] Address: [address] [place] [address] Performed By: #### S ERIMM #### [facility] CLIA [id number] [address] [place] [address] [place] Alpha 1 globulin Elph [Mass/Vol] 0.36 g/dL Normal 0.18-0.43 [facility] Comment on above: Order Comment: Speci men Type: BLOOD SPECIMEN Ordering Facility: [facility] Address: [address] [place] [address] Performed By: #### S ERIMM #### [facility] CLIA [id number] [address] [place] [address] [place] Alpha 2 globulin Elph [Mass/Vol] 0.45 g/dL Normal 0.42-0.98 [facility] Comment on above: Order Comment: Speci men Type: BLOOD SPECIMEN Ordering Facility: [facility] Address: [address] [place] [address] Performed By: #### S ERIMM #### [facility] CLIA [id number] [address] [place] [address] [place] Beta globulin Elph [Mass/Vol] 0.78 g/dL Normal 0.61-1.17 [facility] Comment on above: Order Comment: Speci men Type: BLOOD SPECIMEN Ordering Facility: [facility] Address: [address] [place] [address] Performed By: #### S ERIMM #### [facility] CLIA [id number] [address] [place] [address] [place] Gamma globulin Elph [Mass/Vol] 1.07 g/dL Normal 0.53-1.51 [facility] Comment on above: Order Comment: Speci men Type: BLOOD SPECIMEN Ordering Facility: [facility] Address: [address] [place] [address] Performed By: #### S ERIMM #### [facility] CLIA [id number] [address] [place] [address] [place] INTERPRETATION COMMENT FOR PROTEIN ELECTROPHORESIS See separate immunofixation report for characterization of monoclonal gammopathy. Normal [facility] Comment on above: Order Comment: Speci men Type: BLOOD SPECIMEN Ordering Facility: [facility] Address: [address] [place] [address] Performed By: #### S ERIMM #### [facility] CLIA [id number] [address] [place] [address] [place] M-PROTEIN LOCATION Gamma Fraction 1 Normal [facility] Comment on above: Order Comment: Speci men Type: BLOOD SPECIMEN Ordering Facility: [facility] Address: [address] [place] [address] Performed By: #### S ERIMM #### [facility] CLIA [id number] [address] [place] [address] [place] Protein Fractions [Interp] An M protein is identified on protein electrophoresis. Abnormal No definitive M protein is identified on protein electrophore sis. [facility] Comment on above: Order Comment: Speci men Type: BLOOD SPECIMEN Ordering Facility: [facility] Address: [address] [place] [address] Performed By: #### S ERIMM #### [facility] CLIA [id number] [address] [place] [address] [place] Protein.monoclonal Elph [Mass/Vol] 0.41 g/dL High <=0.00 [facility] Comment on above: Order Comment: Speci men Type: BLOOD SPECIMEN Ordering Facility: [facility] Address: [address] [place] [address] Performed By: #### S ERIMM #### [facility] CLIA [id number] [address] [place] [address] STATES OF [facility] SPE STAFF REVIEW Reviewed by Aakash Hauser M.D. Normal [facility] Comment on above: Order Comment: Speci men Type: BLOOD SPECIMEN Ordering Facility: [facility] Address: [address] [place] [address] Performed By: #### S ERIMM #### [facility] CLIA [id number] [address] [place] [address] [place] PSA SerPl-mCncon 01-03-2025 Prostate specific Ag [Mass/Vol] 6.33 ng/mL High <2.60 [facility] Comment on above: Order Comment: Speci men Type: BLOOD SPECIMEN Ordering Facility: [facility] Address: [address] [place] [address] Result Comment: Tota l PSA test methodology used is the Electrochemiluminescence Immunoassay by [employer]. Total PSA values by differing methodologies cannot be interchanged. For an individual patient, the significance of a PSA level should be interpreted in a broad clinical context, including age, race, family history, digital rectal exam, prostate size, results of prior testing (prostate biopsy, free PSA, PCA3), and use of 5-alpha reductase inhibitors. Considering the high incidence of asymptomatic cancer in the general population that may not pose an ultimate risk to a patient, the decision to recommend urological evaluation or prostate biopsy should be individualized after consideration of all these factors. REFERENCE: Jovon Potts M.D., M.P.H., Wilbert Wallace M.D., Ph.D., Yusef Lagos M.D., Tiffani Reed, M.P.H., Maliha Medrano, Sc.Sue. Effect of Verification Bias on Screening for Prostate Cancer by Measurement of Prostatic Specific Antigen. N Engl J Med 2003,349:335-42. Performed By: #### 2 857-1 #### [facility] CLIA [id number] [address] [place] [address] [place] Prot SerPl-mCncon 01-03-2025 Protein [Mass/Vol] 6.9 g/dL Normal 6.3-8.0 [facility] Comment on above: Order Comment: Speci men Type: BLOOD SPECIMEN Ordering Facility: [facility] Address: [address] [place] [address] Performed By: #### S ERIMM #### [facility] CLIA [id number] [address] [place] [address] [place] Vit B12 SerPl-mCncon 025 Cobalamin (Vitamin B12) [Mass/Vol] 756 pg/mL Normal 232-1245 [facility] Comment on above: Order Comment: Speci men Type: BLOOD SPECIMEN Ordering Facility: [facility] Address: [address] [place] [address] Performed By: #### S ERIMM #### [facility] IA [id number] [address] [place] [address] [place] 12 Lead EKG performed by [facility] on 07-20-2024 12 Lead EKG performed by [address] [address] 12 Lead EKG performed by [facility] 07/20/24 0940 MR#: [id number] Acct: [id number] Name: JAYDEN CARPIO Rep #: [id number] : 1955 68 From: Laura Blanco NEUROLOGY PHYSICIAN ASSISTANT NEUROLOGY PHYSICIAN ASSISTANT-C Attending Dr: Laura Blanco NP-C Status: MARY REID Ordering Dr: Laura Blanco NP NEUROLOGY PHYSICIAN ASSISTANT-C Date: 07/20/24 [place] [facility] [place] M C Admitted: [facility]/12 Lead EKG performed by [facility] ECG Report Interpretation --Atrial fibrillationElectronical ly signed on 07/25/2024 at 14:54 by Donald Callahanwood Software Version [id number] 07/25/24 1459 Date Laura DIAZ CC: Dr. Mukul Castro MD Date Dictated: 07/20/24939 Date Transcribed: 07/20/24939 Expansion Joint Finisher: RIANA Signed Normal [facility] Cardiology Visit Reporton Cardiology Visit Report [facility] [address] [place] [address] OFFICE VISIT Date of Service: 07/20/24 MR#: [id number] Acct: [id number] Name: JAYDEN CARPIO Rep #: [id number] : 1955 Provider: JOE canales Age/Sex: 68/M [place] [facility] [place] Signed HPI HPI History of Present Illness Details: This is a 68-year-old white male who presents to the office today for a cardiovascular visit. 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 He had an episode not too long ago where he thinks he had an unusual sensation in his eye but that disappeared after approximately 2 minutes. From a cardiac standpoint, the patient is doing well. He denies any palpitations, chest pain, pressure or heaviness. He does acknowledge SOB with walking up hill. He states that he does stop once walking up hill to catch his breath. He did take the elevator coming to the office today, when he usually takes the steps. He denies Orthopnea, and PND. He does not have bleeding issues; no blood in urine, stool, or nosebleeds. He denies any decrease in energy level, myalgias, or claudication. He does not have edema, or sudden weight gain. He denies lightheadedness, dizziness, syncopal or near syncopal episodes, and headaches. Intake Vital Signs 06/20/24 15:17 07/20/24 11:06 Height 6 ft 3 in 6 ft 3 in Weight: 213 lb BMI 26.6 BP 119/67 Blood Pressure Location Rt brachial Position Sitting Respiration 18 Pulse 62 Pulse Source Monitor Pulse Oximetry (%) 95 Oxygen Delivery Method room air Intake Visit Reasons: Extreme Fatigue/AFIB Nephrologist Required: No Accompanied by: Self Is patient in pain?: No Allergies No Known Allergies Allergy (Verified 07/20/24 11:17) Medications ???Medication ???Instructions ???Recorded ???Confirmed ???Type multivitamin 0.5 ea PO BID 02/17/17 07/20/24 Hi story tamsulosin 0.4 mg capsule 0.4 mg PO DAILY 06/11/23 07/20/24 History atorvastatin 40 mg tablet 80 mg (2 x 40 mg) PO QHS #90 tabs 09/18/23 07/20/24 Rx aspirin 81 mg tablet,delayed 81 mg PO QDAY #90 tabs 09/27/23 Rx release (Adult Low Dose Aspirin) apixaban 5 mg tablet (Eliquis) 5 mg PO BID #180 TABLETS 04/20/24 07/20/24 Rx carvedilol 25 mg tablet 25 mg PO BID #180 tabs 04/28/24 Rx furosemide 40 mg tablet (Lasix) 40 mg PO DAILY #90 tabs 04/28/24 0 07/20/24 Rx ramipril 5 mg capsule 5 mg PO QDAY #90 caps 04/28/2402/03 Rx acetaminophen 325 mg tablet 325 mg Tablet#2 Samples 06/20/24 0 07/20/24 Sample (Tylenol) Have you fallen in the past year?: No PFSH Medical History MGUS (monoclonal gammopathy of unknown significance) Enlarged prostate History of edema Left inguinal hernia Wears hearing aid Wears glasses Alcohol use Arthritis Bladder disease High cholesterol Non-smoker CPAP (continuous positive airway pressure) dependence History of pain when walking History of echocardiogram History of stress test Hypertension Cardiology follow-up encounter Nonrheumatic mitral (valve) insufficiency Paroxysmal atrial flutter Pure hypercholesterolemia Palpitations radiofrequency ablation Hyperlipidemia Paroxysmal atrial fibrillation Nonrheumatic mitral (valve) prolapse Pulmonary hypertension Cardiomyopathy Tricuspid valve disorder Atrial fibrillation and flutter Surgical History Status post hernia repair History of cardiac radiofrequency ablation ( 01/26/07) Hx of appendectomy H/O mitral valve repair ( 05/05/06) Family History Father Hypertension Cancer prostate Afib Social History household members: spouse housing: house Smoking Status: Never smoker alcohol intake: current alcohol intake frequency: a few times a week substance use type: does not use caffeine: Yes (socially) what type of physical activity do you participate in: walking frequency: 3-4 times per week duration: 30-45 minutes/day seatbelt use: always do you feel safe at home: Yes ROS Const Const: Negative for fatigue or weakness ENT ENT: Negative for dizziness or balance problems Cardio Chest Pain: No Palpitations: No Edema: None Muscle aches with walking: None Resp Respiratory: Positive for SOB with activity; Negative for SOB at rest or SOB orthopnea SOB lying down GI GI: Negative nausea, vomiting or heartburn Mus (more content not included)... Normal [facility] 07-19-2024 [facility] Telephone (EDVIN) -------- JAYDEN CARPIO ([id number]) 1955 M Date Time Provider Department 07/19/24 REYMUNDO GARCIA During your visit today, we recorded the following information about you: Reymundo Garcia MD 07/19/2024 11:05 AM Signed Called patient. Left VM re labs and x ray results. All appear consistent with MGUS. Will plan recheck of MGUS labs in 6 months. Reymundo Garcia MD July 19, 2024 Haylie Moore 07/19/2024 11:31 AM Signed I called and left a message for Jayden to call us back to schedule the below requested appointments Hello pt needs MGUS labs in 6 months, follow up 1 week after labs, in person preferred. Per Alice Raza 07/24/2024 4:03 PM Signed Lvm for patient to return the call Lydia Gaytan 07/25/2024 2:19 PM Signed Scheduled with patient Allergies As of Date: 07/19/2024 (No Known Allergies) Date Reviewed: 07/12/2024 Reviewed by: Lynsey Murray Ma, MA - Fully Assessed Reason for Visit: Results [95] Primary Visit Diagnosis:Monoclonal gammopathy [D47.2] Order(s):COMPLETE BLOOD COUNT AND DIFFERENTIAL [SQCBCDIF] Order #: [id number] STANDING KAPPA/WILL,FREE,SER [SQKLFRS] Order #: [id number] STANDING BASIC METABOLIC PANEL [SQBMP] Order #: [id number] STANDING PROTEIN ELECTROPHORESIS SERUM W/INTERP [SQSEPG] Order #: [id number] STANDING MONOCLONAL PROTEIN, SERUM (BLOOD) [SQSERMPA] Order #: [id number] STANDING Prescriptions as of 07/25/2024 - aspirin, enteric coated (ASPIRIN, ENTERIC COATED) 81 mg EC tablet Take 81 mg by mouth once daily. - apixaban (ELIQUIS) 5 mg tab(s) Take 5 mg by mouth two times a day. - furosemide (LASIX) 40 mg tablet Take 40 mg by mouth once daily. - ramipril (ALTACE) 5 mg capsule Take 5 mg by mouth once daily. - tamsulosin (FLOMAX) 0.4 mg Take 0.4 mg by mouth once daily. - multivitamin tablet Take 0.5 tablets by mouth two times a day. - ramipril(ALTACE 10 MG CAP) one tablet twice a day - omega-3 fatty acids/vitamin e(FISH OIL 1,000 MG CAP) one capsule twice a day - ASPIRIN 325 MG TAB Take one(1) tablet daily. - carvedilol(COREG 25 MG TAB) Take one(1) tablet twice daily. - warfarin sodium(COUMADIN 7.5 MG TAB) Take one(1) tablet daily. 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 Calcium [Mass/Vol] 9.6 mg/dL 8.5 - 10. 2 mg/dL [facility] Chloride [Moles/Vol] 105 mmol/L 98 - 10 7 mmol/L [facility] CO2 [Moles/Vol] 29 mmol/L 22 - 30 mmol/L [facility] Creatinine [Mass/Vol] 1.1 mg/dL 0.73 - 1.22 mg/dL [facility] GFR/1.73 sq M.predicted among non-blacks MDRD (S/P/Bld) [Vol rate/Area] 73 mL/min/{1.73_m2} - PINF [facility] Comment on above: Estimated Glomerular Filtration Rate (eGFR) is calculated using the 2020 CKD-EPI creatinine equation. This equation utilizes serum creatinine, sex, and age as parameters. The creatinine assay has traceable calibration to isotope dilution-mass spectrometry. Refer to KDIGO guidelines for clinical interpretation. In patients with unstable renal function, e.g. those with acute kidney injury, the eGFR may not accurately reflect actual GFR. Glucose [Mass/Vol] 91 mg/dL 74 - 99 mg/dL [facility] Comment on above: The [place] Diabete s Association (ADA) provides guidance for cutoff values for fasting glucose and random glucose. The ADA defines fasting as no caloric intake for at least 8 hours. Fasting plasma glucose results between 100 to 125 mg/dL indicate increased risk for diabetes (prediabetes). Fasting plasma glucose results greater than or equal to 126 mg/dL meet the criteria for diagnosis of diabetes. In the absence of unequivocal hyperglycemia, results should be confirmed by repeat testing. In a patient with classic symptoms of hyperglycemia or hyperglycemic crisis, random plasma glucose results greater than or equal to 200 mg/dL meet the criteria for diagnosis of diabetes. Reference: Standards of Medical Care in Diabetes 2016, [place] Diabetes Association. Diabetes Care. 2016.39(Suppl 1). Interpretation and review of laboratory results Abnormal [facility] Potassium [Moles/Vol] 3.9 mmol/L 3.7 - 5.1 mmol/L [facility] Sodium [Moles/Vol] 139 mmol/L 136 - 144 mmol/L [facility] Urea nitrogen [Mass/Vol] 31 mg/dL High 9 - 24 mg/dL [facility] Basic metabolic 2000 panelon 07-12-2024 Anion gap [Moles/Vol] 5 mmol/L Low 8-15 [facility] Comment on above: Order Comment: Nici isaiah Type: BLOOD SPECIMEN Ordering Facility: [facility] Address: [address] [place] [address] Performed By: #### S ERIMM #### [facility] CLIA [id number] [address] [place] [address] [place] Calcium [Mass/Vol] 9.6 mg/dL Normal 8.5-10.2 [facility] Comment on above: Order Comment: Nici isaiah Type: BLOOD SPECIMEN Ordering Facility: [facility] Address: [address] [place] [address] Performed By: #### S ERIMM #### [facility] CLIA [id number] [address] [place] [address] [place] Chloride [Moles/Vol] 105 mmol/L Normal 98-107 [facility] Comment on above: Order Comment: Speci men Type: BLOOD SPECIMEN Ordering Facility: [facility] Address: [address] [place] [address] Performed By: #### S ERIMM #### [facility] CLIA [id number] [address] [place] [address] [place] CO2 [Moles/Vol] 29 mmol/L Normal 22-30 [facility] Comment on above: Order Comment: Specejnn men Type: BLOOD SPECIMEN Ordering Facility: [facility] Address: [address] [place] [address] Performed By: #### S ERIMM #### [facility] CLIA [id number] [address] [place] [address] [place] Creatinine [Mass/Vol] 1.10 mg/dL Normal 0.73-1.22 [facility] Comment on above: Order Comment: Speci men Type: BLOOD SPECIMEN Ordering Facility: [facility] Address: [address] [place] [address] Performed By: #### S ERIMM #### [facility] CLIA [id number] [address] [place] [address] [place] Creatinine and Glomerular filtration rate.predicted panel (S/P/Bld) 73 mL/min/1.73m??? Normal >=60 [facility] Comment on above: Order Comment: Manohar men Type: BLOOD SPECIMEN Ordering Facility: [facility] Address: [address] [place] [address] Result Comment: Cherie mated Glomerular Filtration Rate (eGFR) is calculated using the 2020 CKD-EPI creatinine equation. This equation utilizes serum creatinine, sex, and age as parameters. The creatinine assay has traceable calibration to isotope dilution-mass spectrometry. Refer to KDIGO guidelines for clinical interpretation. In patients with unstable renal function, e.g. those with acute kidney injury, the eGFR may not accurately reflect actual GFR. Performed By: #### S ERIMM #### [facility] CLIA [id number] [address] [place] [address] [place] Glucose [Mass/Vol] 91 mg/dL Normal 74-99 [facility] Comment on above: Order Comment: Nici men Type: BLOOD SPECIMEN Ordering Facility: [facility] Address: [address] [place] [address] Result Comment: The [place] Diabetes Association (ADA) provides guidance for cutoff values for fasting glucose and random glucose. The ADA defines fasting as no caloric intake for at least 8 hours. Fasting plasma glucose results between 100 to 125 mg/dL indicate increased risk for diabetes (prediabetes). Fasting plasma glucose results greater than or equal to 126 mg/dL meet the criteria for diagnosis of diabetes. In the absence of unequivocal hyperglycemia, results should be confirmed by repeat testing. In a patient with classic symptoms of hyperglycemia or hyperglycemic crisis, random plasma glucose results greater than or equal to 200 mg/dL meet the criteria for diagnosis of diabetes. Reference: Standards of Medical Care in Diabetes 2016, [place] Diabetes Association. Diabetes Care. 2016.39(Suppl 1). Performed By: #### S ERIMM #### [facility] CLIA [id number] [address] [place] [address] [place] Potassium [Moles/Vol] 3.9 mmol/L Normal 3.7-5.1 [facility] Comment on above: Order Comment: Manohar colon Type: BLOOD SPECIMEN Ordering Facility: [facility] Address: [address] [place] [address] Performed By: #### S ERIMM #### [facility] CLIA [id number] [address] [place] [address] [place] Sodium [Moles/Vol] 139 mmol/L Normal 136-144 [facility] Comment on above: Order Comment: Manohar colon Type: BLOOD SPECIMEN Ordering Facility: [facility] Address: [address] [place] [address] Performed By: #### S ERIMM #### [facility] CLIA [id number] [address] [place] [address] [place] Urea nitrogen [Mass/Vol] 31 mg/dL High 9-24 [facility] Comment on above: Order Comment: Manohar colon Type: BLOOD SPECIMEN Ordering Facility: [facility] Address: [address] [place] [address] Performed By: #### S ERIMM #### [facility] CLIA [id number] [address] [place] [address] [place] CBC W Auto Differential pane l (Bld)on 07-12-2024 Basophils (Bld) [#/Vol] 0.04 10*3/uL [facility] Basophils/100 WBC (Bld) 0.7 % [facility] Differential cell count method Nom (Bld) Auto [facility] Eosinophils (Bld) [#/Vol] 0.24 10*3/uL [facility] Eosinophils/100 WBC (Bld) 4.5 % [facility] Erythrocyte distribution width (RBC) [Ratio] 14 % 11.5 - 15.0 % [facility] Hematocrit (Bld) [Volume fraction] 33.8 % Low 39.0 - 51.0 % [facility] Hemoglobin (Bld) [Mass/Vol] 11.1 g/dL Low 13.0 - 17.0 g/dL [facility] Immature granulocytes (Bld) [#/Vol] [facility] Immature granulocytes/100 WBC (Bld) 0.2 % [facility] Interpretation and review of laboratory results Abnormal [facility] Lymphocytes (Bld) [#/Vol] 1.27 10*3/uL [facility] Lymphocytes/100 WBC (Bld) 23.7 % [facility] MCH (RBC) [Entitic mass] 30.8 pg 26.0 - 34.[address] [facility] MCHC (RBC) [Mass/Vol] 32.8 g/dL 30.5 - 36.0 g/dL [facility] MCV (RBC) [Entitic vol] 93.9 fL 80.0 - 100.[address] [facility] Monocytes (Bld) [#/Vol] 0.54 10*3/uL [facility] Monocytes/100 WBC (Bld) 10.1 % [facility] Neutrophils (Bld) [#/Vol] 3.25 10*3/uL [facility] Neutrophils/100 WBC (Bld) 60.8 % [facility] Nucleated RBC (Bld) [#/Vol] [facility] Nucleated RBC/100 WBC (Bld) [Ratio] 0 % /[address] [facility] Platelet mean volume (Bld) [Entitic vol] 12.4 fL 9.0 - 12.[address] [facility] Platelets (Bld) [#/Vol] 109 10*3/uL Low [facility] RBC (Bld) [#/Vol] 3.6 10*6/uL Low 4.20 - 6.0 0 m/uL [facility] WBC (Bld) [#/Vol] 5.35 10*3/uL [facility] Basophils (Bld) [#/Vol] 0.04 10*3/uL Normal <0.11 [facility] Comment on above: Order Comment: Speci men Type: BLOOD SPECIMEN Ordering Facility: [facility] Address: [address] [place] [address] Performed By: #### 5 7021-8 #### [facility] CLIA [id number] [address] [place] [address] [place] Basophils/100 WBC (Bld) 0.7 % Normal [facility] Comment on above: Order Comment: Speci men Type: BLOOD SPECIMEN Ordering Facility: [facility] Address: [address] [place] [address] Performed By: #### 5 7021-8 #### [facility] CLIA [id number] [address] [place] [address] [place] Differential cell count method Nom (Bld) Auto Normal [facility] Comment on above: Order Comment: Speci men Type: BLOOD SPECIMEN Ordering Facility: [facility] Address: [address] [place] [address] Performed By: #### 5 7021-8 #### [facility] CLIA [id number] [address] [place] [address] [place] Eosinophils (Bld) [#/Vol] 0.24 10*3/uL Normal <0.46 [facility] Comment on above: Order Comment: Speci men Type: BLOOD SPECIMEN Ordering Facility: [facility] Address: [address] [place] [address] Performed By: #### 5 7021-8 #### [facility] CLIA [id number] [address] [place] [address] [place] Eosinophils/100 WBC (Bld) 4.5 % Normal [facility] Comment on above: Order Comment: Speci men Type: BLOOD SPECIMEN Ordering Facility: [facility] Address: [address] [place] [address] Performed By: #### 5 7021-8 #### [facility] CLIA [id number] [address] [place] [address] [place] Erythrocyte distribution width (RBC) [Ratio] 14.0 % Normal 11.5-15.0 [facility] Comment on above: Order Comment: Speci men Type: BLOOD SPECIMEN Ordering Facility: [facility] Address: [address] [place] [address] Performed By: #### 5 7021-8 #### [facility] CLIA [id number] [address] [place] [address] [place] Hematocrit (Bld) [Volume fraction] 33.8 % Low 39.0-51.0 [facility] Comment on above: Order Comment: Speci men Type: BLOOD SPECIMEN Ordering Facility: [facility] Address: [address] [address] Performed By: #### 5 7021-8 #### [facility] CLIA [id number] [address] [place] [address] [place] Hemoglobin (Bld) [Mass/Vol] 11.1 g/dL Low 13.0-17.0 [facility] Comment on above: Order Comment: Speci men Type: BLOOD SPECIMEN Ordering Facility: [facility] Address: [address] [place] [address] Performed By: #### 5 7021-8 #### [facility] CLIA [id number] [address] [place] [address] [place] Immature granulocytes (Bld) [#/Vol] 10*3/uL Normal <0.10 [facility] Comment on above: Order Comment: Speci men Type: BLOOD SPECIMEN Ordering Facility: [facility] Address: [address] [place] [address] Performed By: #### 5 7021-8 #### [facility] CLIA [id number] [address] [place] [address] [place] Immature granulocytes/100 WBC (Bld) 0.2 % Normal [facility] Comment on above: Order Comment: Speci men Type: BLOOD SPECIMEN Ordering Facility: [facility] Address: [address] [place] [address] Performed By: #### 5 7021-8 #### [facility] CLIA [id number] [address] [place] [address] [place] Lymphocytes (Bld) [#/Vol] 1.27 10*3/uL Normal 1.00-4.00 [facility] Comment on above: Order Comment: Speci men Type: BLOOD SPECIMEN Ordering Facility: [facility] Address: [address] [place] [address] Performed By: #### 5 7021-8 #### [facility] CLIA [id number] [address] [place] [address] [place] Lymphocytes/100 WBC (Bld) 23.7 % Normal [facility] Comment on above: Order Comment: Speci men Type: BLOOD SPECIMEN Ordering Facility: [facility] Address: [address] [place] [address] Performed By: #### 5 7021-8 #### [facility] CLIA [id number] [address] [place] [address] [place] MCH (RBC) [Entitic mass] 30.8 pg Normal 26.0-34.0 [facility] Comment on above: Order Comment: Speci men Type: BLOOD SPECIMEN Ordering Facility: [facility] Address: [address] [place] [address] Performed By: #### 5 7021-8 #### [facility] CLIA [id number] [address] [place] [address] [place] MCHC (RBC) [Mass/Vol] 32.8 g/dL Normal 30.5-36.0 [facility] Comment on above: Order Comment: Speci men Type: BLOOD SPECIMEN Ordering Facility: [facility] Address: [address] [place] [address] Performed By: #### 5 7021-8 #### [facility] CLIA [id number] [address] [place] [address] [place] MCV (RBC) [Entitic vol] 93.9 fL Normal 80.0-100.0 C [facility] Comment on above: Order Comment: Speci men Type: BLOOD SPECIMEN Ordering Facility: [facility] Address: [address] [place] [address] Performed By: #### 5 7021-8 #### [facility] CLIA [id number] [address] [place] [address] [place] Monocytes (Bld) [#/Vol] 0.54 10*3/uL Normal <0.87 [facility] Comment on above: Order Comment: Speci men Type: BLOOD SPECIMEN Ordering Facility: [facility] Address: [address] [place] [address] Performed By: #### 5 7021-8 #### [facility] CLIA [id number] [address] [place] [address] [place] Monocytes/100 WBC (Bld) 10.1 % Normal C [facility] Comment on above: Order Comment: Speci men Type: BLOOD SPECIMEN Ordering Facility: [facility] Address: [address] [address] Performed By: #### 5 7021-8 #### [facility] CLIA [id number] [address] [place] [address] [place] Neutrophils (Bld) [#/Vol] 3.25 10*3/uL Normal 1.45-7.50 [facility] Comment on above: Order Comment: Speci men Type: BLOOD SPECIMEN Ordering Facility: [facility] Address: [address] [place] [id number] Performed By: #### 5 7021-8 #### [facility] CLIA [id number] [address] [place] [address] [place] Neutrophils/100 WBC (Bld) 60.8 % Normal [facility] Comment on above: Order Comment: Speci men Type: BLOOD SPECIMEN Ordering Facility: [facility] Address: [address] [place] [address] Performed By: #### 5 7021-8 #### [facility] CLIA [id number] [address] [place] [address] [place] Nucleated RBC (Bld) [#/Vol] 10*3/uL Normal <0.01 [facility] Comment on above: Order Comment: Speci men Type: BLOOD SPECIMEN Ordering Facility: [facility] Address: [address] [place] [address] Performed By: #### 5 7021-8 #### [facility] CLIA [id number] [address] [place] [address] [place] Nucleated RBC/100 WBC (Bld) [Ratio] 0.0 /100 WBC Normal [facility] Comment on above: Order Comment: Speci men Type: BLOOD SPECIMEN Ordering Facility: [facility] Address: [address] [address] Performed By: #### 5 7021-8 #### [facility] CLIA [id number] [address] [place] [address] [place] Platelet mean volume (Bld) [Entitic vol] 12.4 fL Normal 9.0-12.7 [facility] Comment on above: Order Comment: Speci men Type: BLOOD SPECIMEN Ordering Facility: [facility] Address: [address] [place] [address] Performed By: #### 5 7021-8 #### [facility] CLIA [id number] [address] [place] [address] [place] Platelets (Bld) [#/Vol] 109 10*3/uL Low 150-400 [facility] Comment on above: Order Comment: Speci men Type: BLOOD SPECIMEN Ordering Facility: [facility] Address: [address] [place] [address] Performed By: #### 5 7021-8 #### [facility] CLIA [id number] [address] [place] [address] [place] RBC (Bld) [#/Vol] 3.60 10*6/uL Low 4.20-6.[address] [facility] Comment on above: Order Comment: Speci men Type: BLOOD SPECIMEN Ordering Facility: [facility] Address: [address] [place] [address] Performed By: #### 5 7021-8 #### [facility] CLIA [id number] [address] [place] [address] [place] WBC (Bld) [#/Vol] 5.35 10*3/uL Normal 3.70-11.[address] [facility] Comment on above: Order Comment: Speci men Type: BLOOD SPECIMEN Ordering Facility: [facility] Address: [address] [place] [address] Performed By: #### 5 7021-8 #### [id number] [address] [place] [address] [place] CNOVSPon 07-12-2024 CNOVSP Visit (SP) Office (HEMAWS) -------- JAYDEN CARPIO ([id number]) 1955 M Date Time Provider Department 07/12/24 10:30 AM REYMUNDO GARCIA During your visit today, we recorded the following information about you: Temperature Pulse Blood pressure Weight 98.6 degrees 64/minute 107/64 95.3 kg Height 1.924 m Reymundo Garcia MD 07/12/2024 11:15 AM Signed HISTORY OF PRESENT ILLNESS: Jayden Carpio is a 68 year old male mitral valve replacement April 2006 we note chronic mild anemia and thrombocytopenia since then. He has been followed by Dr Castro, recently SPEP was done, shows low level M spike. We discussed the possible issue with this, also reviewed other labs, Cr 1.48 in May 2024, otherwise chemistries were normal. He feels well, notes no clinical changes other than recent onset atrial fibrillation. On eliquis and asa. CLINICAL IMPRESSION: Chronic mild anemia, thrombocytopenia. Monoclonal gammopathy RECOMMENDATION/PLAN: 1. Labs, osseous survey as ordered 2. We will follow up by phone next week for review of results, plan follow up. Written and verbal health teaching given to patient, patient verbalizes understanding and agrees with treatment plan. PAST MEDICAL HISTORY Diagnosis Date Atrial flutter (HCC) 08/18/2007 S/P Ablation x 4, 5-07 9-07, 10-07, 2-08 BPH (benign prostatic hyperplasia) Hypertension PMH - PAST MEDICAL HISTORY OF No prolonged adult or childhood illness TIA (transient ischemic attack) Unspecified transient cerebral ischemia 08/18/2007 Episode 3-07 PAST SURGICAL HISTORY Procedure Laterality Date APPENDECTOMY HERNIA REPAIR HX 2022 PAST SURGICAL HISTORY OF Cardiac Ablation 02/05/07, 06/08/07, 2008 REPAIR OF KNEE Right REPLACEMENT MITRAL VALVE W/CARDIOPULMONARY BYP 04/12/2006 Mitral valve repair RPR 1ST INGUN HRNA AGE 5 YRS/> REDUCIBLE 08/22/2009 Right inguinal FAMILY HISTORY Problem Relation Age of Onset COPD Father Prostate Cancer Father other (good health [Other]) Sister living other (good health [Other]) Brother living Social History Tobacco Use Smoking status: Never Smokeless tobacco: Never Substance Use Topics Alcohol use: Yes Comment: 2-3 glasses a wine over a week ALLERGIES: ALLERGIES No Known Allergies CURRENT OUTPATIENT MEDICATIONS: aspirin, enteric coated (ASPIRIN, ENTERIC COATED) 81 mg EC tablet Take 81 mg by mouth once daily. apixaban (ELIQUIS) 5 mg tab(s) Take 5 mg by mouth two times a day. furosemide (LASIX) 40 mg tablet Take 40 mg by mouth once daily. ramipril (ALTACE) 5 mg capsule Take 5 mg by mouth once daily. tamsulosin (FLOMAX) 0.4 mg Take 0.4 mg by mouth once daily. multivitamin tablet Take 0.5 tablets by mouth two times a day. carvedilol(COREG 25 MG TAB) Take one(1) tablet twice daily. ramipril(ALTACE 10 MG CAP) one tablet twice a day (Patient not taking: Reported on 07/12/2024) omega-3 fatty acids/vitamin e(FISH OIL 1,000 MG CAP) one capsule twice a day (Patient not taking: Reported on 07/12/2024) ASPIRIN 325 MG TAB Take one(1) tablet daily. (Patient not taking: Reported on 07/12/2024) warfarin sodium(COUMADIN 7.5 MG TAB) Take one(1) tablet daily. (Patient not taking: Reported on 07/12/2024) REVIEW OF SYSTEMS: GENERAL: No fever, night sweats, weight loss or malaise. All other reviewed and negative other than HPI. PHYSICAL EXAMINATION: VITAL SIGNS: BP 107/64 Pulse 64 Temp (Src) 98.6 (Temporal) Ht 6' 3.75 (1.92m) Wt 210 lb (95.3kg) SpO2 100% BMI 25.73 kg/(m2). GENERAL APPEARANCE: Well appearing, in no acute distress, alert and oriented x3, well-hydrated, well nourished. I spent a total of 45 minutes on the date of the service which included preparing to see the patient, [id number] patient care, completing clinical documentation, obtaining and/or reviewing separately obtained history, counseling and educating the patient/family/caregiver , ordering medications, tests, or procedures, independently interpreting results (not separately reported), and communicating results to the patient/family/caregiver . Electronically Signed: Reymundo Garcia MD July 12, 2024 10:40 AM Referring Provider: MUKUL CASTRO [[id number]] Allergies As of Date: 07/12/2024 (No Known Allergies) Date Reviewed: 07/12/2024 Reviewed by: Lynsey Murray Ma, MA - Fully Assessed Reason for Visit: New Patient Evaluation [154] Primary Visit Diagnosis:Monoclonal gammopathy [D47.2] Other Visit Diagnoses:Anemia, unspecified type [D64.9] Thrombocytopenia [D69.6] Order(s):COMPLETE BLOOD COUNT AND DIFFERENTIAL [SQCBCDIF] Order #: [id number] FUTURE KAPPA/WILL,FREE,SER [SQKLFRS] Order #: [id number] FUTURE BASIC METABOLIC PANEL [SQBMP] Order #: [id number] FUTURE PROTEIN ELECTROPHORESIS SERUM W/INTERP [SQSEPG] Order #: [id number] FUTURE MONOCLONAL PROTEIN, SERUM (BLOOD) [SQSERMPA] Order #: [id number] FUTUR (more content not included)... Normal [facility] FERRITINon 07-12-2024 Ferritin [Mass/Vol] 166 ng/mL 30.3 - 5 65.7 ng/mL [facility] Ferritin SerPl-mCncon 2024 Ferritin [Mass/Vol] 166.0 ng/mL Normal 30.3-565.7 [facility] Comment on above: Order Comment: Specjenn colon Type: BLOOD SPECIMEN Ordering Facility: [facility] Address: [address] [place] [address] Performed By: #### I [facility] #### [facility] CLIA [id number] [address] [place] [address] [place] IMMUNOFIXATION SCREEN, SERUM on 07-12-2024 INTERPRETATION (MPA) Atypical restricted bands are present in the IgG and lambda regions. Consistent with IgG lambda monoclonal gammopathy. Normal [facility] Comment on above: Order Comment: Manohar colon Type: BLOOD SPECIMEN Ordering Facility: [facility] Address: [address] [place] [address] Performed By: #### S ERIM #### [facility] CLIA [id number] [address] [place] [address] [place] MPA RESULT M protein is present. Abnormal No M p rotein is identified. [facility] Comment on above: Order Comment: Manohar colon Type: BLOOD SPECIMEN Ordering Facility: [facility] Address: [address] [place] [address] Performed By: #### S ERIMM #### [facility] CLIA [id number] [address] [place] [address] [place] STAFF REVIEW (MPA) Reviewed by Heri Orosco [facility] Comment on above: Order Comment: Speci men Type: BLOOD SPECIMEN Ordering Facility: [facility] Address: [address] [place] [address] Performed By: #### S ERIMM #### [facility] CLIA [id number] [address] [place] [address] [place] IMMUNOGLOBULINS,IGG,IGA,IGMo n 07-12-2024 IgA [Mass/Vol] 251 mg/dL Normal 70-400 [facility] Comment on above: Order Comment: Speci men Type: BLOOD SPECIMEN Ordering Facility: [facility] Address: [address] [place] [address] Performed By: #### S ERIMM #### [facility] CLIA [id number] [address] [place] [address] [place] IgG [Mass/Vol] 1206 mg/dL Normal 700-1600 [facility] Comment on above: Order Comment: Speci men Type: BLOOD SPECIMEN Ordering Facility: [facility] Address: [address] [place] [address] Performed By: #### S ERIMM #### [facility] CLIA [id number] [address] [place] [address] [place] IgM [Mass/Vol] 69 mg/dL Normal 40-230 [facility] Comment on above: Order Comment: Speci men Type: BLOOD SPECIMEN Ordering Facility: [facility] Address: [address] [place] [address] Performed By: #### S ERIMM #### [facility] CLIA [id number] [address] [place], [place] [address] [place] Iron and Iron binding capaci ty panelon 07-12-2024 Interpretation and review of laboratory results Normal [facility] Iron [Mass/Vol] 62 ug/dL 41 - 186 ug/dL [facility] Iron binding capacity [Mass/Vol] 318 ug/dL 232 - 386 ug/dL [facility] Iron/TIBC [Molar ratio] 19.5 % 15.0 - 57.0 % [facility] Iron [Mass/Vol] 62 ug/dL Normal 41-186 [facility] Comment on above: Order Comment: Speci men Type: BLOOD SPECIMEN Ordering Facility: [facility] Address: [address] [place] [address] Performed By: #### I FESC #### [facility] CLIA [id number] [address] [place] [address] [place] [facility] Iron binding capacity [Mass/Vol] 318 ug/dL Normal 232-386 [facility] Comment on above: Order Comment: Speci men Type: BLOOD SPECIMEN Ordering Facility: [facility] Address: [address] [place] [address] Performed By: #### I FESC #### [facility] CLIA [id number] [address] [place] [address] [place] Iron/TIBC [Molar ratio] 19.5 % Normal 15.0-57.0 C [facility] Comment on above: Order Comment: Speci men Type: BLOOD SPECIMEN Ordering Facility: [facility] Address: [address] [place] [address] Performed By: #### I FESC #### [facility] CLIA [id number] [address] [place] [address] [place] KAPPA/WILL,FREE,SERon 2024 Immunoglobulin light chains.kappa.free (S) [Mass/Vol] 29.3 mg/L High 3.3-19.4 [facility] Comment on above: Order Comment: Speci men Type: BLOOD SPECIMEN Ordering Facility: [facility] Address: [address] [place] [address] Result Comment: Rare ly, increased serum free light chains levels may not be detected or accurately quantified due to prozone phenomenon or in high viscosity samples using this immunoturbidimetric assay. Correlation with other laboratory results and clinical findings is recommended. The [place] Free Light Chain was performed using the Binding Site Optilite immunoturbidimetric method. Result obtained with different assay methods or kits cannot be used interchangeably. Performed By: #### I FESC #### [facility] CLIA [id number] [address] [place] [address] Immunoglobulin light chains.kappa/Immunoglob ulin light chains.lambda (S) [Mass ratio] 0.62 Normal 0.26-1.65 [facility] Comment on above: Order Comment: Speci men Type: BLOOD SPECIMEN Ordering Facility: [facility] Address: [address] [place] [address] Performed By: #### I FESC #### [facility] CLIA [id number] [address] [place] [address] Immunoglobulin light chains.lambda.free [Mass/Vol] 47.2 mg/L High 5.7-26.3 [facility] Comment on above: Order Comment: Speci men Type: BLOOD SPECIMEN Ordering Facility: [facility] Address: [address] [place] [address] Result Comment: Rare ly, increased serum free light chains levels may not be detected or accurately quantified due to prozone phenomenon or in high viscosity samples using this immunoturbidimetric assay. Correlation with other laboratory results and clinical findings is recommended. The Lambda Free Light Chain was performed using the Binding Site Optilite immunoturbidimetric method. Result obtained with different assay methods or kits cannot be used interchangeably. Performed By: #### I FESC #### [facility] CLIA [id number] [address] [place] [address] [place] No Panel Informationon 07-12 Interpretation and review of laboratory results Normal [facility] PROTEIN ELECTROPHORESIS SERU M (P)on 07-12-2024 Albumin [Mass/Vol] 4.30 g/dL Normal 3.43-5.41 [facility] Comment on above: Order Comment: Speci men Type: BLOOD SPECIMEN Ordering Facility: [facility] Address: [address] [place] [address] Performed By: #### I FESC #### [facility] CLIA [id number] [address] [place], [place] [address] [place] Alpha 1 globulin Elph [Mass/Vol] 0.37 g/dL Normal 0.18-0.43 [facility] Comment on above: Order Comment: Speci men Type: BLOOD SPECIMEN Ordering Facility: [facility] Address: [address] [place] [address] Performed By: #### I FESC #### [facility] CLIA [id number] [address] [place] [address] [place] Alpha 2 globulin Elph [Mass/Vol] 0.39 g/dL Low 0.42-0.98 [facility] Comment on above: Order Comment: Speci men Type: BLOOD SPECIMEN Ordering Facility: [facility] Address: [address] [place] [address] Performed By: #### I FESC #### [facility] CLIA [id number] [address] [place] [address] [place] Beta globulin Elph [Mass/Vol] 0.90 g/dL Normal 0.61-1.17 [facility] Comment on above: Order Comment: Speci men Type: BLOOD SPECIMEN Ordering Facility: [facility] Address: [address] [place] [address] Performed By: #### I FESC #### [facility] CLIA [id number] [address] [place] [address] [place] Gamma globulin Elph [Mass/Vol] 1.04 g/dL Normal 0.53-1.51 [facility] Comment on above: Order Comment: Speci men Type: BLOOD SPECIMEN Ordering Facility: [facility] Address: [address] [place] [address] Performed By: #### I FESC #### [facility] CLIA [id number] [address] [place] [address] [place] INTERPRETATION COMMENT FOR PROTEIN ELECTROPHORESIS See separate immunofixation report for characterization of monoclonal gammopathy. Normal [facility] Comment on above: Order Comment: Speci men Type: BLOOD SPECIMEN Ordering Facility: [facility] Address: [address] [place] [address] Performed By: #### I FESC #### [facility] CLIA [id number] [address] [place] [address] [place] M-PROTEIN LOCATION Gamma Fraction 1 Normal [facility] Comment on above: Order Comment: Speci men Type: BLOOD SPECIMEN Ordering Facility: [facility] Address: [address] [place] [address] Performed By: #### I FESC #### [facility] CLIA [id number] [address] [place] [address] [place] Protein Fractions [Interp] An M protein is identified on protein electrophoresis. Abnormal No definitive M protein is identified on protein electrophore sis. [facility] Comment on above: Order Comment: Speci men Type: BLOOD SPECIMEN Ordering Facility: [facility] Address: [address] [place] [address] Performed By: #### I FESC #### [facility] CLIA [id number] [address] [place] [address] [place] Protein.monoclonal Elph [Mass/Vol] 0.35 g/dL High <=0.00 [facility] Comment on above: Order Comment: Speci men Type: BLOOD SPECIMEN Ordering Facility: [facility] Address: [address] [place] [address] Performed By: #### I FESC #### [facility] CLIA [id number] [address] [place], [place] [address] [place] SPE STAFF REVIEW Reviewed by Aakash Hauser M.D. Normal [facility] Comment on above: Order Comment: Specjnen colon Type: BLOOD SPECIMEN Ordering Facility: [facility] Address: [address] [place] [address] Performed By: #### I FES #### [facility] CLIA [id number] [address] [place] [address] [place] Prot SerPl-mCncon 07-12-2024 Protein [Mass/Vol] 7.0 g/dL Normal 6.3-8.0 [facility] Comment on above: Order Comment: Speci men Type: BLOOD SPECIMEN Ordering Facility: [facility] Address: [address] [place] [address] Performed By: #### I [facility] #### [facility] CLIA [id number] [address] [place] [address] [place] VITAMIN B12on 07-12-2024 Cobalamin (Vitamin B12) [Mass/Vol] 1016 pg/mL 232 - 1245 pg/mL [facility] Vit B12 SerPl-mCncon 025 Cobalamin (Vitamin B12) [Mass/Vol] 1016 pg/mL Normal 232-1245 [facility] Comment on above: Order Comment: Nici isaiah Type: BLOOD SPECIMEN Ordering Facility: [facility] Address: [address] [place] [address] Performed By: #### I FES #### [facility] CLIA [id number] [address] [place] [address] [place] XR BONE SURVEY ROUTINEon XR BONE SURVEY ROUTINE * * *Final Report * * * DATE OF EXAM: Jul 12 2024 11:38AM WRX [id number] - XR BONE SURVEY ROUTINE / PROCEDURE REASON: Monoclonal gammopathy * * * * Physician Interpretation * * * * EXAM(s): XR BONE SURVEY ROUTINE..... HISTORY: 68 years old Clinical information: Monoclonal gammopathy monoclonal gammopathy TECHNIQUE: Images: XR BONE SURVEY ROUTINE Comparison: None. RESULT: Findings: AP pelvis-no osteolytic or sclerotic lesions. SI joints intact. Symmetrical degenerative changes, both hips and lower lumbar spine. Dorsal spine-osteopenia. Endplate spurring and sclerosis. No compression fractures. No pedicle erosion. Paraspinous soft tissues normal. Metallic wires incidentally noted in the sternum. Mild dextroscoliosis Lumbar spine-osteopenia. Degenerative disc disease at the L3-4, L4-5, and 5 1 levels. Prominent marginal osteophytes. No compression fractures. No pedicle erosion. Paraspinous soft tissues are normal. 5 lumbar type vertebral bodies. L4-5 located at the level of the iliac crests. Bilateral RIBS-no lytic or sclerotic lesions and no fractures Cervical spine-disc space narrowing from C4 through T1. Marginal spur formation and apophyseal joint sclerosis, same levels. Accessory ossicle adjacent to the tip of the spinous process of C7. Odontoid process intact without evidence of erosion. Vertebrae are anatomically aligned. Skull-no osteolytic or sclerotic lesions. Left humerus-no osteolytic or sclerotic lesions. No bone destruction. Shoulder is radiographically normal. Right humerus-no lytic or sclerotic lesions. Shoulder and elbow joint intact. Right hip-mild degenerative change in the hip joint. No fractures, lytic lesions, or bone destruction Right femur-unremarkable. Total knee prosthesis Left femur-no abnormalities. Left tibia and fibula-no lytic or sclerotic lesions identified. Knee and ankle joints intact. Soft tissues unremarkable. Right tibia and fibula -total knee arthroplasty. Ghost shadows mid shaft right tibia presumably from old surgery. No lytic or sclerotic lesions. No soft tissue swelling. . IMPRESSION: Bone survey showing no osteolytic or sclerotic lesions, bone destruction, or other focal abnormality. Mild osteopenia noted. Expansion Joint [facility] Transcribe Date/Time: Jul 18 2024 2:53P Dictated by : ADITHYA OLIVAS MD This examination was interpreted and the report reviewed and electronically signed by: ADITHYA OLIVAS MD on Jul 18 2024 3:03PM EST [id number] Normal [facility] Feroz 07-06-2024 EMELIA Telephone (HEMAWS) -------- JAYDEN CARPIO ([id number]) 1955 M Date Time Provider Department 07/06/24 REYMUNDO GARCIA During your visit today, we recorded the following information about you: Lydia Juarez 07/06/2024 3:36 PM Signed Patient called stating Dr. Mukul Castro had sent a referral twice in last two weeks. Patient will have them send again to [facility]. Patient states referral is for abnormal lab. Miracle Dugan LPN 07/07/2024 2:49 PM Signed Spoke with Mukul Castro office, [place]. Informed we need records on this pt. JASSI Klein Pamela S, LPN 07/10/2024 4:23 PM Signed Records received , waiting for scheduling. JASSI Klein Angela 07/11/2024 9:27 AM Signed Spoke to patient and scheduled with Dr. Garcia 07/12 Alice Madden Allergies As of Date: 07/06/2024 (No Known Allergies) Date Reviewed: 09/02/2009 Reviewed by: Varsha Moreno Rn - Reviewed Reason for Visit: New Patient [172] Prescriptions as of 07/11/2024 - ramipril(ALTACE 10 MG CAP) one tablet twice a day - omega-3 fatty acids/vitamin e(FISH OIL 1,000 MG CAP) one capsule twice a day - ASPIRIN 325 MG TAB Take one(1) tablet daily. - carvedilol(COREG 25 MG TAB) Take one(1) tablet twice daily. - warfarin sodium(COUMADIN 7.5 MG TAB) Take one(1) tablet daily. 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] 08/18/2007 Inguinal Hernia [K40.90] 08/26/2009 Encounter Status:Closed by ALICE MADDEN on 4/1/25 Normal [facility] Panel InformationOrdered By: Austin Galvin on 06-20-2024 Influenza Types A,B Rapid (Clinic) Negative [facility] POC Nasal Swab RSV Negative [facility] POC SARS CoV-2 Antigen Negative [facility] Urgent Care Visit Reporton 0 06-20-2024 Urgent Care Visit Report [facility] [address] , [address] [place] [address] OFFICE VISIT Date of Service: 06/20/24 MR#: [id number] Acct: [id number] Name: JAYDEN CARPIO Rep #: [id number] : 1955 Provider: ARELI Levy Age/Sex: 68/M Location: [facility] Status: Signed Intake Vital Signs 03/28/24 12:55 06/20/24 15:17 Height 6 ft 3 in 6 ft 3 in Weight: 208 lb 217 lb 8 oz BMI 25.9 27.1 BP 95/60 130/62 H Blood Pressure Location Lt brachial Lt brachial Position Sitting Sitting Respiration 16 16 Pulse 68 108 H Pulse Source Monitor NIBP Temp 101.1 F H Temp Source Oral Pulse Oximetry (%) 94 Oxygen Delivery Method room air Intake Visit Reasons: COUGH, CONGESTION Chief Complaint: cough, congest, BA, drainage Nephrologist Required: No Is patient in pain?: No Allergies No Known Allergies Allergy (Verified 06/20/24 15:47) Medications ???Medication ???Instructions ???Recorded ???Confirmed ???Type multivitamin 0.5 ea PO BID 02/17/17 06/20/24 Hi story tamsulosin 0.4 mg capsule 0.4 mg PO DAILY 06/11/23 06/20/24 History atorvastatin 40 mg tablet 80 mg (2 x 40 mg) PO QHS #90 tabs 09/18/23 06/20/24 Rx aspirin 81 mg tablet,delayed 81 mg PO QDAY #90 tabs 09/27/23 Rx release (Adult Low Dose Aspirin) apixaban 5 mg tablet (Eliquis) 5 mg PO BID #180 TABLETS 04/20/24 06/20/24 Rx carvedilol 25 mg tablet 25 mg PO BID #180 tabs 04/28/24 Rx furosemide 40 mg tablet (Lasix) 40 mg PO DAILY #90 tabs 04/28/24 0 06/20/24 Rx ramipril 5 mg capsule 5 mg PO QDAY #90 caps 04/28/2403/06 Rx acetaminophen 325 mg tablet #2 Samples 06/20/24 06/20/24 Sampl e (Tylenol) Have you fallen in the past year?: No Nurse's Note: cough, congest, BA, drainage x 24 hours. current oral temp 101.1. Tylenol 650mg po given today at 1545 for fever. [facility] Medical History Enlarged prostate History of edema Left inguinal hernia Wears hearing aid Wears glasses Alcohol use Arthritis Bladder disease High cholesterol Non-smoker CPAP (continuous positive airway pressure) dependence History of pain when walking History of echocardiogram History of stress test Hypertension Cardiology follow-up encounter Nonrheumatic mitral (valve) insufficiency Paroxysmal atrial flutter Pure hypercholesterolemia Palpitations radiofrequency ablation Hyperlipidemia Paroxysmal atrial fibrillation Nonrheumatic mitral (valve) prolapse Pulmonary hypertension Cardiomyopathy Tricuspid valve disorder Atrial fibrillation and flutter Surgical History Status post hernia repair History of cardiac radiofrequency ablation ( 01/26/07) Hx of appendectomy H/O mitral valve repair ( 05/05/06) Family History Father Hypertension Cancer prostate Afib Social History household members: spouse housing: house Smoking Status: Never smoker alcohol intake: current alcohol intake frequency: a few times a week substance use type: does not use caffeine: Yes (socially) what type of physical activity do you participate in: walking frequency: 3-4 times per week duration: 30-45 minutes/day seatbelt use: always do you feel safe at home: Yes HPI HPI Chief Complaint: cough, congest, BA, drainage Details: JAYDEN CARPIO, is a 68 M who presents to the office today for initial evaluation in the [facility] for approximately 24-hour history of persistent fever, cough, myalgias, congestion/ runny nose. Patient notes no complaints of chest pain or shortness of breath or dyspnea on exertion. Several close contacts recently dx???d w/ similar URI complaints. Tylenol taken to assist in at 3:45 PM today. Non-smoker. No other associated symptoms and no other alleviating/aggravating factors. ROS Const Constitutional: No other (As above) Exam Const General: cooperative, healthy appearing and no acute distress Orientation: alert, awake and oriented x3 HENMT Head: normal to inspection Ears: hearing grossly normal bilaterally, external ears normal, TM's normal bilaterally and EAC's normal Nose: external nose normal, nares normal, septum normal and clear nasal discharge Face and sinus: normal facial exam, sinuses nontender and face symmetric Mouth: oral mucosae normal, lip normal, tongue normal and oropharynx normal Throat: posterior oropharynx normal, tonsils normal, uvula midline and no postnasal drainage Eyes General: appearance normal, both eyes and all related structures Neck Neck: normal visual inspection, full ROM, no lymphadenopathy, no meningeal signs and supple Neck mass: No Thyr (more content not included)... Normal [facility] Protein Electroph, Son 06-05 Albumin [Mass/Vol] 4.0 g/dL Normal 2.9-4.4 [facility] Comment on above: Order Comment: Order Date: 01/10/24 Order Info: 0060-1 - PROEL Performed By: #### L 506.0250, L3100.3450, L501.9940, L503.0105, L503.6550, L100.0100 #### [facility] [address] [place], [place], [id number] (722) Albumin/Globulin [Mass ratio] 1.4 {ratio} Normal 0.7-1.7 [facility] Comment on above: Order Comment: Order Date: 01/10/24 Order Info: 0060-1 - PROEL Performed By: #### L 506.0250, L3100.3450, L501.9940, L503.0105, L503.6550, L100.0100 #### [facility] [address] [place], [address] ALPHA-1 GLOBUL 0.3 g/dL Normal 0.0-0.4 [facility] Comment on above: Order Comment: Order Date: 01/10/24 Order Info: 0060-1 - PROEL Performed By: #### L 506.0250, L3100.3450, L501.9940, L503.0105, L503.6550, L100.0100 #### [facility] [address] [place], [address] ALPHA-2 GLOBUL 0.5 g/dL Normal 0.4-1.0 [facility] Comment on above: Order Comment: Order Date: 01/10/24 Order Info: 0060-1 - PROEL Performed By: #### L 506.0250, L3100.3450, L501.9940, L503.0105, L503.6550, L100.0100 #### [facility] [address] [place], [place], [id number] (209) BETA GLOBULIN 1.0 g/dL Normal 0.7-1.3 [facility] Comment on above: Order Comment: Order Date: 01/10/24 Order Info: 0060- - PROEL Performed By: #### L 506.0250, L3100.3450, L501.9940, L503.0105, L503.6550, L100.0100 #### [facility] [address] [place], [address] GAMMA GLOBULIN 1.1 g/dL Normal 0.4-1.8 [facility] Comment on above: Order Comment: Order Date: 01/10/24 Order Info: 0060-1 - PROEL Performed By: #### L 506.0250, L3100.3450, L501.9940, L503.0105, L503.6550, L100.0100 #### [facility] [address] [place], [address] Globulin (S) [Mass/Vol] 2.9 g/dL Normal 2.2-3.9 [facility] Comment on above: Order Comment: Order Date: 01/10/24 Order Info: 0060-1 - PROEL Performed By: #### L 506.0250, L3100.3450, L501.9940, L503.0105, L503.6550, L100.0100 #### [facility] [address] [place], [place], [id number] INTERPRETATION Comment Normal . [facility] Comment on above: Order Comment: Order Date: 01/10/24 Order Info: 0060-1 - PROEL Result Comment: Prot ein electrophoresis scan will follow via computer, mail, or rn neurology delivery. Performed By: #### L 506.0250, L3100.3450, L501.9940, L503.0105, L503.6550, L100.0100 #### [facility] [address] [place], [place], [id number] M-SPIKE 0.3 g/dL Abnormal Not Observed [facility] Comment on above: Order Comment: Order Date: 01/10/24 Order Info: 0060-1 - PROEL Performed By: #### L 506.0250, L3100.3450, L501.9940, L503.0105, L503.6550, L100.0100 #### [facility] [address] [place], [place], [id number] NOTE: Comment Normal . [facility] Comment on above: Order Comment: Order Date: 01/10/24 Order Info: 0060-1 - PROEL Result Comment: The SPE pattern demonstrates a single peak (M-spike) in the gamma region which may represent monoclonal protein. This peak may also be caused by circulating immune complexes, cryoglobulins, C-reactive protein, fibrinogen or hemolysis. If clinically indicated, the presence of a monoclonal gammopathy may be confirmed by immuno-fixation, as well as an evaluation of the urine for the presence of Bence-Malone protein. Performed at: [address] [id number] Plumber Supervisor: Carlitos Nolasco PhD, Phone: [phone] Performed By: #### L 506.0250, L3100.3450, L501.9940, L503.0105, L503.6550, L100.0100 #### [facility] [address] [place], [place], [address] Protein [Mass/Vol] 6.9 g/dL Normal 6.0-8.5 [facility] Comment on above: Order Comment: Order Date: 01/10/24 Order Info: [id number] - PROEL Performed By: #### L 506.0250, L3100.3450, L501.9940, L503.0105, L503.6550, L100.0100 #### [facility] [address] [place], [place], [id number] Absolute neutrophil countOrd ered By: Mukul Castro on 06-02-2024 Neutrophils (Bld) [#/Vol] 4.1 10*3/uL 2.0-7.7 [facility] Addendum DocumentOrdered By: Mukul Castro on 06-02-2024 Protein Electrophoresis Note Comment . [facility] Comment on above: The SPE pattern demo nstrates a single peak (M-spike) in thegamma region which may represent monoclonal protein. Thispeak may also be caused by circulating immune complexes,cryoglobulins, C-reactive protein, fibrinogen or hemolysis. If clinically indicated, the presence of a monoclonalgammopathy may be confirmed by immuno-fixation, as well asan evaluation of the urine for the presence of Bence-Jonesprotein.Performed at: [facility] [address] [id number] Director: Carlitos Nolasco PhD, Phone: [phone] Albumin Elph [Mass/Vol]Order ed By: Mukul Castro on 06-02-2024 Albumin [Mass/Vol] 4.0 g/dL 2.9-4.4 [facility] Albumin/Globulin Elph [Mass ratio]Ordered By: Mukul Castro on 06-02-2024 Albumin/Globulin (PEP) 1.4 0.7-1.7 [facility] Wzuhq-1-ujsumrzx measurement by protein electrophoresisOrdered By: Mukul Castro on 06-02-2024 Lchud-9-Ighjkbeoy 0.3 g/dL 0.0-0.4 [facility] Coktj-8-oorkvzvb measurement by protein electrophoresisOrdered By: Mukul Castro on 06-02-2024 Kzkzh-9-Edkqjxxnc 0.5 g/dL 0.4-1.0 [facility] Basic Metabolic Profile (BMP )on 06-02-2024 BUN/CRE 20.9 RATIO High 10-20 [facility] Comment on above: Performed By: #### L 100.0100, L500.2500, L501.5200, L501.9520 ####[facility] [address] [place], [address] CA,Total 9.3 mg/dL Normal 8.5-10.1 [facility] Comment on above: Performed By: #### L 100.0100, L500.2500, L501.5200, L501.9520 ####[facility] [address] [place], [address] Chloride [Moles/Vol] 107 mmol/L Normal 98-107 [facility] Comment on above: Performed By: #### L 100.0100, L500.2500, L501.5200, L501.9520 ####[facility] [address] [place], [address] CO2 [Moles/Vol] 30.0 mmol/L Normal 21.0-32.0 [facility] Comment on above: Performed By: #### L 100.0100, L500.2500, L501.5200, L501.9520 ####[facility] [address] [place], [address] Creatinine [Mass/Vol] 1.48 mg/dL High 0.70-1.[address] [facility] Comment on above: Result Comment: The validity of the calculated GFR GFRAA in patients over 70 years has not been determined. Clinical correlation is essential. Performed By: #### L 100.0100, L500.2500, L501.5200, L501.9520 ####[facility] [address] [place], [address] EST GFR - AA 61 mL/min Normal >60 [facility] Comment on above: Result Comment: Afri can Spanish GFR Calc Performed By: #### L 100.0100, L500.2500, L501.5200, L501.9520 ####[facility] [address] [place], [address] GAP 5 Normal 5-15 [facility] Comment on above: Performed By: #### L 100.0100, L500.2500, L501.5200, L501.9520 ####[facility] [address] [place], [address] GFR/1.73 sq M.predicted among non-blacks MDRD (S/P/Bld) [Vol rate/Area] 50 mL/min/{1.73_m2} Low >60 [facility] Comment on above: Result Comment: Non- GFR Calc Performed By: #### L 100.0100, L500.2500, L501.5200, L501.9520 ####[facility] [address] [place], [address] Glucose [Mass/Vol] 83 mg/dL Normal 74-106 [facility] Comment on above: Performed By: #### L 100.0100, L500.2500, L501.5200, L501.9520 ####[facility] [address] [place], [address] Potassium [Moles/Vol] 4.1 mmol/L Normal 3.5-5.[address] [facility] Comment on above: Performed By: #### L 100.0100, L500.2500, L501.5200, L501.9520 ####[facility] [address] [place], [address] Sodium [Moles/Vol] 142 mmol/L Normal 136-145 [facility] Comment on above: Performed By: #### L 100.0100, L500.2500, L501.5200, L501.9520 ####[facility] [address] [place], [address] Urea nitrogen [Mass/Vol] 31 mg/dL High 7-18 [facility] Comment on above: Performed By: #### L 100.0100, L500.2500, L501.5200, L501.9520 ####[facility] [address] [place], [address] Basophil percentageOrdered B y: Mukul Castro on 06-02-2024 Basophils/100 WBC (Bld) 0.6 % 0-1 [facility] Beta globulin Elph [Mass/Vol ]Ordered By: Mukul Castro on 06-02-2024 Beta Globulins 1.0 g/dL 0.7-1.3 [facility] Blood urea nitrogen (BUN)/cr eatinine ratioOrdered By: Lady Angeles on 06-02-2024 Urea nitrogen/Creatinine [Mass ratio] 20.9 mg/mg High 10-20 [facility] CBC W/Diff, Automatedon - Anisocytosis Ql (Bld) 1+ Normal [facility] Comment on above: Order Comment: Order Date: 01/10/24 Order Info: [id number] - CBCD Performed By: #### L 506.0250, L3100.3450, L501.9940, L503.0105, L503.6550, L100.0100 #### [facility] [address] [place], [address] MACROCYTOSIS 1+ Normal [facility] Comment on above: Order Comment: Order Date: 01/10/24 Order Info: [id number]- - CBCD Performed By: #### L 506.0250, L3100.3450, L501.9940, L503.0105, L503.6550, L100.0100 #### [facility] [address] [place], [address] RED CELL MORPH N CHROM Normal NORM C C [facility] Comment on above: Order Comment: Order Date: 01/10/24 Order Info: 018- - CBCD Performed By: #### L 506.0250, L3100.3450, L501.9940, L503.0105, L503.6550, L100.0100 #### [facility] [address] [place], [address] PLT EST MOD DEC Normal ADEQ [facility] Comment on above: Order Comment: Order Date: 01/10/24 Order Info: [id number] - CBCD Performed By: #### L 506.0250, L3100.3450, L501.9940, L503.0105, L503.6550, L100.0100 #### [facility] [address] [place], [address] SMEAR COMMENT SEE COMMENT Normal [facility] Comment on above: Order Comment: Order Date: 01/10/24 Order Info: [id number]- - CBCD Result Comment: THRO MBOCYTOPENIA NOTED Performed By: #### L 506.0250, L3100.3450, L501.9940, L503.0105, L503.6550, L100.0100 #### [facility] [address] [place], [address] Absolute Neut Normal 2.0-7.7 [facility] Comment on above: Result Comment: DUPL ICATE Performed By: #### L 100.0100, L500.2500, L501.5200, L501.9520 #### [facility] [address] [place], [address] HCT Normal 40-54 [facility] Comment on above: Result Comment: DUPL ICATE Performed By: #### L 100.0100, L500.2500, L501.5200, L501.9520 #### [facility] [address] [place], [address] HGB Normal 13.0-16.5 [facility] Comment on above: Result Comment: DUPL ICATE Performed By: #### L 100.0100, L500.2500, L501.5200, L501.9520 #### [facility] [address] [place], [address] MCH Normal 27.0-32.0 [facility] Comment on above: Result Comment: DUPL ICATE Performed By: #### L 100.0100, L500.2500, L501.5200, L501.9520 #### [facility] [address] [place], [address] MCHC Normal 32-36 [facility] Comment on above: Result Comment: DUPL ICATE Performed By: #### L 100.0100, L500.2500, L501.5200, L501.9520 #### [facility] [address] [place], [address] MCV Normal 80-94 [facility] Comment on above: Result Comment: DUPL ICATE Performed By: #### L 100.0100, L500.2500, L501.5200, L501.9520 #### [facility] [address] [place], [address] NEUT% Normal 47-70 [facility] Comment on above: Result Comment: DUPL ICATE Performed By: #### L 100.0100, L500.2500, L501.5200, L501.9520 #### [facility] [address] [place], [address] PLT Normal 150-450 [facility] Comment on above: Result Comment: DUPL ICATE Performed By: #### L 100.0100, L500.2500, L501.5200, L501.9520 #### [facility] [address] [place], [address] RBC Normal 4.6-6.2 [facility] Comment on above: Result Comment: DUPL ICATE Performed By: #### L 100.0100, L500.2500, L501.5200, L501.9520 #### [facility] [address] [place], [address] RDW CV Normal 11.6-14.6 [facility] Comment on above: Result Comment: DUPL ICATE Performed By: #### L 100.0100, L500.2500, L501.5200, L501.9520 #### [facility] [address] [place], [address] RDW SD Normal 35.1-43.9 [facility] Comment on above: Result Comment: DUPL ICATE Performed By: #### L 100.0100, L500.2500, L501.5200, L501.9520 #### [facility] [address] [place], [address] WBC Normal 4.4-11.0 [facility] Comment on above: Result Comment: DUPL ICATE Performed By: #### L 100.0100, L500.2500, L501.5200, L501.9520 #### [facility] [address] [place], [address] Carbon dioxide measurementOr dered By: Lady Angeles on 06-02-2024 CO2 [Moles/Vol] 30.0 mmol/L 21.0-32.0 [facility] Chloride measurementOrdered By: Lady Angeles on 06-02-2024 Chloride [Moles/Vol] 107 mmol/L 98-107 [facility] total prostate sp ecific antigen (PSA) measurementOrdered By: Mukul Castro on 06-02-2024 Prostate Specific Antigen Total 6.16 ng/mL High 0.0-4.0 [facility] Comment on above: This test was perfor med using the TPSA assay method for [employer] chemistry system. Values obtained with differentassay methods cannot be used interchangably.When changing PSA assays in the course of monitoring apatient, additional sequential testing should be carriedout to confirm baseline values. Eosinophil percentageOrdered By: Mukul Castro on 06-02-2024 Eosinophils/100 WBC (Bld) 4.4 % 0-5 [facility] Erythrocyte distribution wid th ratioOrdered By: Mukul Castro on 06-02-2024 Erythrocyte distribution width (RBC) [Ratio] 13.2 % 11.6-14.6 [facility] Erythrocyte distribution wid th standard deviationOrdered By: Mukul Castro on 06-02-2024 Erythrocyte distribution width (RBC) [Entitic vol] 46.2 fL High 35.1-43.9 [facility] Estimated glomerular filtrat ion rate (GFR) AmericanOrdered By: Lady Angeles on 06-02-2024 Estimated GFR (MDRD) Amer 61 mL/min >60 [facility] Comment on above: GFR Calc Ferritinon 06-02-2024 Ferritin [Mass/Vol] 105 ng/mL Normal 26-388 [facility] Comment on above: Order Comment: Order Date: 01/10/24 Order Info: [id number] - PSAD Comments: cc copy to Dr. Beckham copy to Dr. Cabrera Order Info: [id number] - JOSE Order Info: [id number] - FOLS Performed By: #### L 506.0250, L3100.3450, L501.9940, L503.0105, L503.6550, L100.0100 #### [facility] [address] [place] [address]. [place], [address] Ferritin measurementOrdered By: Mukul Castro on 06-02-2024 Ferritin [Mass/Vol] 105 ng/mL 26-388 [facility] Folates, (Folic Acid)on 05-14 FOLATES 14.20 ng/mL Normal 3.1-55.4 [facility] Comment on above: Order Comment: Order Date: 01/10/24 Order Info: [id number] - PSAD Comments: cc copy to Dr. Beckham copy to Dr. Cabrera Order Info: [id number] - JOSE Order Info: [id number] - FOLS cc copy to Dr. Beckham copy to Dr. Cabrera N Performed By: #### L 506.0250, L3100.3450, L501.9940, L503.0105, L503.6550, L100.0100 #### [facility] [place], [address] Folic acid measurementOrdere d By: Mukul Casrto on 06-02-2024 Folate 14.20 ng/mL 3.1-55.4 [facility] Gamma globulin measurement b y protein electrophoresisOrdered By: Mukul Castro on 06-02-2024 Gamma Globulins 1.1 g/dL 0.4-1.8 [facility] Globulin (S) [Mass/Vol]Order ed By: Mukul Castro on 06-02-2024 Globulin (PEP) 2.9 g/dL 2.2-3.9 [facility] Glomerular filtration rate ( GFR) estimationOrdered By: Lady Angeles on 06-02-2024 Estimated GFR (MDRD) Non-Af Amer 50 mL/min Low >60 [facility] Comment on above: Non- GFR Calc Glucose measurementOrdered B y: Lady Angeles on 06-02-2024 Glucose [Mass/Vol] 83 mg/dL 74-106 [facility] Hematocrit Auto (Bld) [Volum e fraction]Ordered By: Mukul Castro on 06-02-2024 Hematocrit (Bld) [Volume fraction] 36.4 % Low 40-54 [facility] Hemoglobin measurementOrdere d By: Mukul Castro on 06-02-2024 Hemoglobin (Bld) [Mass/Vol] 11.9 g/dL Low 13.0-16.5 [facility] Immature granulocytes/100 WB C Auto (Bld)Ordered By: Mukul Castro on 06-02-2024 Immature granulocytes/100 WBC (Bld) 0.300 % 0.0-0.9 [facility] Comment on above: IG% - Immature Granu locytes (promyelocytes, myelocytes and metamyelocytes) > 1% indicates that a LEFT SHIFT is Present. Laboratory - Hematology and Cell countsOrdered By: Mukul Castro on 06-02-2024 Anisocytosis Ql (Bld) 1+ [facility] Lymphocytes Auto (Unsp spec) [#/Vol]Ordered By: Mukul Castro on 06-02-2024 Lymphocytes (Bld) [#/Vol] 1.53 10*3/uL 0.83-4.51 [facility] Lymphocytes/100 WBC Auto (Un sp spec)Ordered By: Mukul Castro on 06-02-2024 Lymphocytes/100 WBC (Bld) 23.1 % 19-41 [facility] MCV (mean corpuscular volume ) determinationOrdered By: Mukul Castro on 06-02-2024 MCV (RBC) [Entitic vol] 95.3 fL High 80-94 [facility] Macrocytes Ql (Bld)Ordered B y: Mukul Castro on 06-02-2024 Macrocytosis 1+ [facility] Magnesiumon 06-02-2024 Magnesium [Mass/Vol] 2.4 mg/dL Normal 1.6-2.6 [facility] Comment on above: Performed By: #### L 100.0100, L500.2500, L501.5200, L501.9520 ####[facility] [address] [place], [place], [id number] Magnesium measurementOrdered By: Lady Angeles on 06-02-2024 Magnesium [Mass/Vol] 2.4 mg/dL 1.6-2.6 [facility] Manual differential comment Yan (Bld) [Interp]Ordered By: Mukul Castro on 06-02-2024 Differential Comment SEE COMMENT [facility] Comment on above: THROMBOCYTOPENIA NOT ED Mean corpuscular hemoglobin (MCH) determinationOrdered By: Mukul Castro on 06-02-2024 MCH (RBC) [Entitic mass] 31.2 pg 27.0-32.0 [facility] Mean corpuscular hemoglobin concentration (MCHC) determinationOrdered By: Mukul Castro on 06-02-2024 MCHC (RBC) [Mass/Vol] 32.7 g/dL 32-[address] [facility] Mean platelet volume determi nationOrdered By: Mukul Castro on 06-02-2024 Platelet mean volume (Bld) [Entitic vol] 13.4 fL High 6.2-12.0 [facility] Monocyte percentageOrdered B y: Mukul Castro on 06-02-2024 Monocytes/100 WBC (Bld) 9.1 % 0-10 [facility] Neutrophil percentageOrdered By: Mukul Castro on 06-02-2024 Neutrophils/100 WBC (Bld) 62.5 % 47-70 [facility] Nucleated red blood cell per centageOrdered By: Mukul Castro on 06-02-2024 Nucleated RBC/100 WBC (Bld) [Ratio] 0 % 0-5 [facility] PSA,Total- Diagnosticon 05-14 PSA, DIAGNOSTIC 6.16 ng/mL High 0.0-4.0 [facility] Comment on above: Order Comment: Order Date: 01/10/24 Order Info: [id number] - PSAD Comments: cc copy to Dr. Beckham copy to Dr. Cabrera Order Info: [id number] - JOSE Order Info: [id number] - FOLS Result Comment: This test was performed using the TPSA assay method for the [employer] chemistry system. Values obtained with different assay methods cannot be used interchangably. When changing PSA assays in the course of monitoring a patient, additional sequential testing should be carried out to confirm baseline values. Performed By: #### L 506.0250, L3100.3450, L501.9940, L503.0105, L503.6550, L100.0100 #### [facility] [address] [place] [address], [id number] Platelet countOrdered By: Catrachito Castro on 06-02-2024 Platelets (Bld) [#/Vol] 88 10*3/uL Low 150-450 [facility] Platelets LM Ql (Bld)Ordered By: Mukul Castro on 06-02-2024 Platelet Estimate MOD DEC ADEQ [facility] Potassium measurementOrdered By: Lady Angeles on 06-02-2024 Potassium [Moles/Vol] 4.1 mmol/L 3.5-5.[address] [facility] Protein Fractions Elph [Inte rp]Ordered By: Mukul Castro on 06-02-2024 Protein Electrophoresis Interpret Comment . [facility] Comment on above: Protein electrophore sis scan will follow via computer,mail, or rn neurology delivery. Protein.monoclonal Elph [Mas s/Vol]Ordered By: Mukul Castro on 06-02-2024 Protein [Mass/Vol] 0.3 g/dL High Not Observed [facility] RBC Auto (Bld) [#/Vol]Ordere d By: Mukul Castro on 06-02-2024 RBC (Bld) [#/Vol] 3.82 10*6/uL Low 4.6-6.2 [facility] RBC morphology finding Nom ( Bld)Ordered By: Mukul Castro on 06-02-2024 Red Blood Cell Morphology N CHROM NORMAL NORM C&C [facility] Serum anion gap measurementO rdered By: Lady Angeles on 06-02-2024 Anion gap [Moles/Vol] 5 mmol/L 5-[address] [facility] Serum or plasma calcium tamia urement (mass/volume)Ordered By: Lady Angeles on 06-02-2024 Calcium [Mass/Vol] 9.3 mg/dL 8.5-10.1 [facility] Serum or plasma creatinine m easurement (mass/volume)Ordered By: Lady Angeles on 06-02-2024 Creatinine [Mass/Vol] 1.48 mg/dL High 0.70-1.[address] [facility] Comment on above: The validity of the calculated GFR & GFRAA in patients over 70 years has not been determined. Clinical correlation is essential. Serum or plasma protein tamia urement (mass/volume)Ordered By: Mukul Castro on 06-02-2024 Protein [Mass/Vol] 6.9 g/dL 6.0-8.5 [facility] Serum or plasma urea nitroge n measurement (mass/volume)Ordered By: Lady Angeles on 06-02-2024 Urea nitrogen [Mass/Vol] 31 mg/dL High 7-18 [facility] Sodium levelOrdered By: Michael Angeles on 06-02-2024 Sodium [Moles/Vol] 142 mmol/L 136-145 [facility] TSH QnOrdered By: Lady Montero on 06-02-2024 Thyroid Stimulating Hormone (TSH) 1.480 uIU/mL 0.358-3.740 [facility] Thyroid Stim Hormone (TSH)on 06-02-2024 TSH 1.480 uIU/mL Normal 0.358-3.740 [facility] Comment on above: Performed By: #### L 100.0100, L500.2500, L501.5200, L501.9520 ####[facility] [address] [place], [address] Vitamin B12on 06-02-2024 Cobalamin (Vitamin B12) [Mass/Vol] 456 pg/mL Normal [facility] Comment on above: Order Comment: Order Date: 01/10/24 Order Info: [id number] - B12 Performed By: #### L 506.0250, L3100.3450, L501.9940, L503.0105, L503.6550, L100.0100 #### [facility] [address] [place], [address] Vitamin B12 measurementOrder ed By: Mukul Castro on 06-02-2024 Cobalamin (Vitamin B12) [Mass/Vol] 456 pg/mL [facility] White blood cell (WBC) count Ordered By: Mukul Castro on 06-02-2024 WBC (Bld) [#/Vol] 6.6 10*3/uL 4.4-11.0 [facility] Cardiology Visit Reporton Cardiology Visit Report [facility] [address] [place], [place] [address] OFFICE VISIT Date of Service: 03/28/24 MR#: [id number] Acct: [id number] Name: JAYDEN CARPIO Rep #: [id number] : 1955 Provider: Dr. Donald Callahan MD Age/Sex: 68/M [place] [facility] [place] Signed HPI HPI History of Present Illness Details: This is a 68-year-old white male who presents to the office today for an urgent visit. 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 He had an episode not too long ago where he thinks he had an unusual sensation in his eye but that disappeared after approximately 2 minutes.From a cardiac standpoint, patient is doing well. He does not have any chest discomfort/heaviness/tig htness. His exercise tolerance is stable for his age. He does not have any worsening symptoms of shortness of breath. He denies any PND. He does not have any orthopnea. He does not have any symptoms of congestive heart failure. He does not have any palpitations that he is aware of. He does not have any lightheadedness or dizziness. He does not have any near-syncope or syncope. He does not have any lower extremity edema. He does not have any symptoms of claudication. Intake Vital Signs 06/11/23 12:55 01/13/24 08:26 03/28/24 12:55 Height 6 ft 3 in 6 ft 3 in 6 ft 3 in Weight: 208 lb BMI 25.9 BP 95/60 Blood Pressure Location Lt brachial Position Sitting Respiration 16 Pulse 68 Pulse Source Monitor Intake Visit Reasons: 9 m fu w [facility] per [facility] Nephrologist Required: No Accompanied by: Self Is patient in pain?: No Allergies No Known Allergies Allergy (Verified 03/28/24 13:10) Medications ???Medication ???Instructions ???Recorded ???Confirmed ???Type multivitamin 0.5 ea PO BID 02/17/17 03/28/24 History apixaban 5 mg tablet (Eliquis) 5 mg PO BID #180 tabs 05/27/23 03/28/24 Rx carvedilol 25 mg tablet 25 mg PO BID #180 tabs 05/27/23 03/28/24 Rx furosemide 40 mg tablet (Lasix) 40 mg PO DAILY #90 tabs 05/27/23 03/28/24 Rx tamsulosin 0.4 mg capsule 0.4 mg PO DAILY 06/11/23 03/28/24 History atorvastatin 40 mg tablet 80 mg (2 x 40 mg) PO QHS #90 tabs 09/18/23 03/28/24 Rx aspirin 81 mg tablet,delayed 81 mg PO QDAY #90 tabs 09/27/23 03/28/24 Rx release (Adult Low Dose Aspirin) ramipril 5 mg capsule 5 mg PO QDAY #90 caps 03/28/24 03/28/24 Rx Have you fallen in the past year?: No PFSH Medical History Enlarged prostate History of edema Left inguinal hernia Wears hearing aid Wears glasses Alcohol use Arthritis Bladder disease High cholesterol Non-smoker CPAP (continuous positive airway pressure) dependence History of pain when walking History of echocardiogram History of stress test Hypertension Cardiology follow-up encounter Nonrheumatic mitral (valve) insufficiency Paroxysmal atrial flutter Pure hypercholesterolemia Palpitations radiofrequency ablation Hyperlipidemia Paroxysmal atrial fibrillation Nonrheumatic mitral (valve) prolapse Pulmonary hypertension Cardiomyopathy Tricuspid valve disorder Atrial fibrillation and flutter Surgical History Status post hernia repair History of cardiac radiofrequency ablation ( 01/26/07) Hx of appendectomy H/O mitral valve repair ( 05/05/06) Family History Father Hypertension Cancer prostate Afib Social History household members: spouse housing: house Smoking Status: Never smoker alcohol intake: current alcohol intake frequency: a few times a week substance use type: does not use caffeine: Yes (socially) what type of physical activity do you participate in: walking frequency: 3-4 times per week duration: 30-45 minutes/day seatbelt use: always do you feel safe at home: Yes ROS Const Const: Positive for difficulty sleeping (CPAP use); Negative for fatigue, weakness, headache(s) or daytime sleepiness ENT ENT: Negative for headache(s), dizziness or Nosebleed/epistaxis Cardio Chest Pain: No Palpitations: No Edema: Bilateral (BLE trace at times) Resp Respiratory: Negative for SOB with activity, SOB at rest, SOB orthopnea SOB lying down or Cough GI GI: Negative nausea, vomiting or heartburn Neuro Neuro: Negative for dizziness, lightheadedness, near syncope, headache(s) or weakness Endo Endo: Negative for fatigue Cardiology Exam Const Appearance: cooperative, healthy appearing, comfort (more content not included)... Normal [facility] POCT BD Veritor [facility] Agon 03-01-2023 POC [facility] Flu A-Ag Presumptive negativ e for [facility] FLU A (no antigen detected) Presumptive negative for [facility] FLU A (no antigen detected) [facility] Work Phone: POC [facility] Flu B-Ag Presumptive negativ e for [facility] FLU B (no antigen detected) Presumptive negative for [facility] FLU B (no antigen detected) [facility] Work Phone: SARS-CoV-2 (COVID-19) RNA ELLIOTT+probe Ql (Unsp spec) Presumptive negative for [facility] SARS-CoV-2 (no antigen detected) Presumptive negative for [facility] SARS-CoV-2 (no antigen detected) [facility] Work Phone: [facility] Work Phone: Absolute lymphocyte countOrd ered By: Mukul Lopez on 11-19-2022 Lymphocytes Auto (Unsp spec) [#/Vol] 1.26 10*3/uL 0.83-4.51 [facility] Basophil percentageOrdered B y: Mukul Lopez on 11-19-2022 Basophils/100 WBC (Bld) 0.6 % 0-1 [facility] Chloride [Moles/Vol] 106 mmol/L 98-107 [facility] Eosinophils/100 WBC (Bld) 3.7 % 0-5 [facility] Glucose [Mass/Vol] 78 mg/dL 74-106 [facility] Neutrophils (Bld) [#/Vol] 3.1 10*3/uL 2.0-7.7 [facility] Neutrophils/100 WBC (Bld) 61.3 % 47-70 [facility] Potassium [Moles/Vol] 4.0 mmol/L 3.5-5.[address] [facility] Sodium [Moles/Vol] 140 mmol/L 136-145 [facility] WBC (Bld) [#/Vol] 5.1 10*3/uL 4.4-11.0 [facility] Blood erythrocytes count (nu mber/volume)Ordered By: Mukul Lopez on 11-19-2022 RBC (Bld) [#/Vol] 3.78 10*6/uL 4.6-6.2 [facility] Blood hemoglobin measurement (mass/volume)Ordered By: Mukul Lopez on 11-19-2022 Hemoglobin (Bld) [Mass/Vol] 11.4 g/dL 13.0-16.5 [facility] Blood lymphocytes/100 leukoc ytesOrdered By: Mukul Lopez on 11-19-2022 Lymphocytes/100 WBC (Bld) 24.6 % 19-41 [facility] Blood monocytes/100 leukocyt esOrdered By: Mukul Lopez on 11-19-2022 Monocytes/100 WBC (Bld) 9.6 % 0-10 [facility] Blood platelet mean volumeOr dered By: Mukul Lopez on 11-19-2022 Platelet mean volume (Bld) [Entitic vol] 12.7 fL 6.2-12.0 [facility] Determination of erythrocyte mean corpuscular volume (MCV)Ordered By: Mukul Lopez on 11-19-2022 MCV (RBC) [Entitic vol] 95.2 fL 80-94 [facility] Hematocrit Auto (Bld) [Volum e fraction]Ordered By: Mukul Lopez on 11-19-2022 Hematocrit (Bld) [Volume fraction] 36.0 % 40-54 [facility] Laboratory - Chemistry and C hemistry - challengeOrdered By: Mukul Lopez on 11-19-2022 CO2 [Moles/Vol] 30.0 mmol/L 21.0-32.0 [facility] Urea nitrogen/Creatinine [Mass ratio] 21.8 mg/mg 10-20 [facility] Laboratory - Hematology and Cell countsOrdered By: Mukul Lopez on 11-19-2022 Erythrocyte distribution width (RBC) [Entitic vol] 51.4 fL 35.1-43.9 [facility] Erythrocyte distribution width (RBC) [Ratio] 14.6 % 11.6-14.6 [facility] Immature granulocytes/100 WBC (Bld) 0.200 % 0.0-0.9 [facility] Comment on above: IG% - Immature Granu locytes (promyelocytes, myelocytes and metamyelocytes) > 1% indicates that a LEFT SHIFT is Present. MCH (RBC) [Entitic mass] 30.2 pg 27.0-32.0 [facility] Nucleated RBC/100 WBC (Bld) [Ratio] 0 % 0-5 [facility] MCHC Auto (RBC) [Mass/Vol]Or dered By: Mukul Lopez on 11-19-2022 MCHC (RBC) [Mass/Vol] 31.7 g/dL 32-[address] [facility] No Panel InformationOrdered By: Mukul Lopez on 11-19-2022 Estimated GFR (MDRD) Amer 95 mL/min >60 [facility] Comment on above: GFR Calc Estimated GFR (MDRD) Non-Af Amer 78 mL/min >60 [facility] Comment on above: Non- GFR Calc Platelets bldOrdered By: Vani Lopez on 11-19-2022 Platelets (Bld) [#/Vol] 113 10*3/uL 150-450 [facility] Serum or plasma calcium tamia urement (mass/volume)Ordered By: Mukul Lopez on 11-19-2022 Calcium [Mass/Vol] 8.9 mg/dL 8.5-10.1 [facility] Serum or plasma creatinine m easurement (mass/volume)Ordered By: Mukul Lopez on 11-19-2022 Creatinine [Mass/Vol] 1.01 mg/dL 0.70-1.[address] [facility] Comment on above: The validity of the calculated GFR & GFRAA in patients over 70 years has not been determined. Clinical correlation is essential. Serum or plasma urea nitroge n measurement (mass/volume)Ordered By: Mukul Lopez on 11-19-2022 Urea nitrogen [Mass/Vol] 22 mg/dL 7-18 [facility] Thin prep Papanicolaou smear with manual screeningOrdered By: Mukul Lopez on 11-19-2022 Thin prep Papanicolaou smear with manual screening 4 5-15 [facility] No Panel InformationOrdered By: Robb Sheridan on 11-11-2022 Nasal Screen MRSA/MSSA [facility] Basophil percentageOrdered B y: Robb Sheridan on 10-22-2022 Creatinine [Mass/Vol] 1.0 mg/dL 0.70-1.[address] [facility] No Panel InformationOrdered By: Robb Sheridan on 10-22-2022 Bedside Estimated GFR (eGFR) > 60.0000 mL/min >60 [facility] Stool gastrointestinal hemog lobin detection by immunologic methodOrdered By: Lady Angeles on 09-25-2022 Lower GI hemoglobin IA Ql (Stl) [facility] Lower GI hemoglobin IA Ql (Stl) [facility] Blood hemoglobin measurement (mass/volume)Ordered By: Lady Angeles on 09-24-2022 Hemoglobin (Bld) [Mass/Vol] 10.9 g/dL 13.0-16.5 [facility] Hematocrit Auto (Bld) [Volum e fraction]Ordered By: Lady Angeles on 09-24-2022 Hematocrit (Bld) [Volume fraction] 34.4 % 40-54 [facility] Basophil percentageOrdered B y: Laura Blanco on 08-14-2022 Chloride [Moles/Vol] 108 mmol/L 98-107 [facility] Glucose [Mass/Vol] 105 mg/dL 74-106 [facility] Comment on above: Fasting Glucose resu lt from 100 to 125 mg/dL suggests IMPAIRED HOMEOSTASIS per A.D.A. criteria. Potassium [Moles/Vol] 4.4 mmol/L 3.5-5.[address] [facility] Sodium [Moles/Vol] 140 mmol/L 136-145 [facility] Laboratory - Chemistry and C hemistry - challengeOrdered By: Laura Blanco on 08-14-2022 CO2 [Moles/Vol] 29.0 mmol/L 21.0-32.0 [facility] Urea nitrogen/Creatinine [Mass ratio] 23.9 mg/mg 10-20 [facility] No Panel InformationOrdered By: Laura Blacno on 08-14-2022 Estimated GFR (MDRD) Amer 87 mL/min >60 [facility] Comment on above: GFR Calc Estimated GFR (MDRD) Non-Af Amer 72 mL/min >60 [facility] Comment on above: Non- GFR Calc Serum or plasma calcium tamia urement (mass/volume)Ordered By: Laura Blanco on 08-14-2022 Calcium [Mass/Vol] 8.7 mg/dL 8.5-10.1 [facility] Serum or plasma creatinine m easurement (mass/volume)Ordered By: Laura Blanco on 08-14-2022 Creatinine [Mass/Vol] 1.09 mg/dL 0.70-1.[address] [facility] Comment on above: The validity of the calculated GFR & GFRAA in patients over 70 years has not been determined. Clinical correlation is essential. Serum or plasma urea nitroge n measurement (mass/volume)Ordered By: Laura Blanco on 08-14-2022 Urea nitrogen [Mass/Vol] 26 mg/dL 7-18 [facility] Thin prep Papanicolaou smear with manual screeningOrdered By: Laura Blanco on 08-14-2022 Thin prep Papanicolaou smear with manual screening 3 5-15 [facility] No Panel InformationOrdered By: Dr. Castro on 07-24-2022 Prostate Specific Antigen Total 5.56 ng/mL 0.0-4.0 [facility] Comment on above: This test was perfor med using the TPSA assay method for the[employer] chemistry system. Values obtained with differentassay methods cannot be used interchangably.When changing PSA assays in the course of monitoring apatient, additional sequential testing should be carriedout to confirm baseline values. Absolute lymphocyte countOrd ered By: Laura Blanco on 07-14-2022 Lymphocytes Auto (Unsp spec) [#/Vol] 1.12 10*3/uL 0.83-4.51 [facility] Basophil percentageOrdered B y: Dr. Castro on 07-14-2022 Bilirubin [Mass/Vol] 0.70 mg/dL 0.20-1.00 [facility] Comment on above: For patients on eltr ombopag therapy, use of Dimension [place] TBIL is not recommended. Chloride [Moles/Vol] 109 mmol/L 98-107 [facility] Glucose [Mass/Vol] 101 mg/dL 74-106 [facility] Comment on above: Fasting Glucose resu lt from 100 to 125 mg/dL suggests IMPAIRED HOMEOSTASIS per A.D.A. criteria. Potassium [Moles/Vol] 4.3 mmol/L 3.5-5.[address] [facility] Protein [Mass/Vol] 7.2 g/dL 6.4-8.2 [facility] Sodium [Moles/Vol] 139 mmol/L 136-145 [facility] Basophil percentageOrdered B y: Laura Blanco on 07-14-2022 Basophils/100 WBC (Bld) 0.8 % 0-1 [facility] Eosinophils/100 WBC (Bld) 3.2 % 0-5 [facility] Neutrophils (Bld) [#/Vol] 3.2 10*3/uL 2.0-7.7 [facility] Neutrophils/100 WBC (Bld) 65.3 % 47-70 [facility] WBC (Bld) [#/Vol] 5.0 10*3/uL 4.4-11.0 [facility] Blood erythrocytes count (nu mber/volume)Ordered By: Laura Blanco on 07-14-2022 RBC (Bld) [#/Vol] 3.11 10*6/uL 4.6-6.2 [facility] Blood hemoglobin measurement (mass/volume)Ordered By: Laura Blanco on 07-14-2022 Hemoglobin (Bld) [Mass/Vol] 10.0 g/dL 13.0-16.5 [facility] Blood lymphocytes/100 leukoc ytesOrdered By: Laura Blanco on 07-14-2022 Lymphocytes/100 WBC (Bld) 22.6 % 19-41 [facility] Blood monocytes/100 leukocyt esOrdered By: Laura Blanco on 07-14-2022 Monocytes/100 WBC (Bld) 7.9 % 0-10 [facility] Blood platelet mean volumeOr dered By: Laura Blanco on 07-14-2022 Platelet mean volume (Bld) [Entitic vol] 12.5 fL 6.2-12.0 [facility] Determination of erythrocyte mean corpuscular volume (MCV)Ordered By: Laura Blanco on 07-14-2022 MCV (RBC) [Entitic vol] 100.0 fL 80-94 [facility] Hematocrit Auto (Bld) [Volum e fraction]Ordered By: Laura Blanco on 07-14-2022 Hematocrit (Bld) [Volume fraction] 31.1 % 40-54 [facility] Laboratory - Chemistry and C hemistry - challengeOrdered By: Dr. Castro on 07-14-2022 ALP [Catalytic activity/Vol] 64 U/L 45-117 [facility] ALT [Catalytic activity/Vol] 35 U/L 16-61 [facility] CO2 [Moles/Vol] 27.0 mmol/L 21.0-32.0 [facility] Globulin (S) [Mass/Vol] 3.3 g/dL 2.2-4.2 [facility] Urea nitrogen/Creatinine [Mass ratio] 22.0 mg/mg 10-20 [facility] Laboratory - Chemistry and C hemistry - challengeOrdered By: Laura Blanco on 07-14-2022 Natriuretic peptide B (Bld) [Mass/Vol] 57.2 pg/mL 0-100 [facility] - Hematology and Cell countsOrdered By: Laura Blanco on 07-14-2022 Erythrocyte distribution width (RBC) [Entitic vol] 55.8 fL 35.1-43.9 [facility] Erythrocyte distribution width (RBC) [Ratio] 15.3 % 11.6-14.6 [facility] Immature granulocytes/100 WBC (Bld) 0.200 % 0.0-0.9 [facility] Comment on above: IG% - Immature Granu locytes (promyelocytes, myelocytes and metamyelocytes) > 1% indicates that a LEFT SHIFT is Present. MCH (RBC) [Entitic mass] 32.2 pg 27.0-32.0 [facility] Nucleated RBC/100 WBC (Bld) [Ratio] 0 % 0-5 [facility] MCHC Auto (RBC) [Mass/Vol]Or dered By: Laura Blanco on 07-14-2022 MCHC (RBC) [Mass/Vol] 32.2 g/dL 32-[address] [facility] No Panel InformationOrdered By: Dr. Castro on 07-14-2022 Estimated GFR (MDRD) Amer 76 mL/min >60 [facility] Comment on above: GFR Calc Estimated GFR (MDRD) Non-Af Amer 62 mL/min >60 [facility] Comment on above: Non- GFR Calc No Panel InformationOrdered By: Laura Blanco on 07-14-2022 D-Dimer Quantitative (PE/DVT) 3.13 FEU/ug/m 0.27-0.49 [facility] Comment on above: D-Dimer ELEVATED (>0 .49): Additional studies and clinicalassessments are indicated to conclude diagnosis of:Deep Vein Thrombosis (DVT) or Pulmonary Embolism (PE)CRITICAL VALUE VERIFIED. [facility]07/14[facility]22 1330 Misa Hendrickszano.RESULTS READ BACK BY SAME . Platelets bldOrdered By: Vinay Blanco on 07-14-2022 Platelets (Bld) [#/Vol] 155 10*3/uL 150-450 [facility] Serum or plasma albumin tamia urement (mass/volume)Ordered By: Dr. Castro on 07-14-2022 Albumin [Mass/Vol] 3.9 g/dL 3.2-5.0 [facility] Serum or plasma albumin/glob ulin mass ratioOrdered By: Dr. Castro on 07-14-2022 Albumin/Globulin [Mass ratio] 1.2 {ratio} 0.9-2.4 [facility] Serum or plasma calcium tamia urement (mass/volume)Ordered By: Dr. Castro on 07-14-2022 Calcium [Mass/Vol] 9.4 mg/dL 8.5-10.1 [facility] Serum or plasma creatinine m easurement (mass/volume)Ordered By: Dr. Castro on 07-14-2022 Creatinine [Mass/Vol] 1.23 mg/dL 0.70-1.[address] [facility] Comment on above: The validity of the calculated GFR & GFRAA in patients over 70 years has not been determined. Clinical correlation is essential. Serum or plasma urea nitroge n measurement (mass/volume)Ordered By: Dr. Castro on 07-14-2022 Urea nitrogen [Mass/Vol] 27 mg/dL 7-18 [facility] Thin prep Papanicolaou smear with manual screeningOrdered By: Dr. Castro on 07-14-2022 Thin prep Papanicolaou smear with manual screening 31 U/L 15-37 [facility] Thin prep Papanicolaou smear with manual screening 3 5-15 [facility] Glucose Glucometer (BldC) [M ass/Vol]Ordered By: Dr. Longoria on 02-20-2023 Glucose [Mass/Vol] 97 mg/dL 74-106 [facility] Comment on above: MANAGEMENT OF PATIEN T CARE PER NURSING PROTOCOL No Panel InformationOrdered By: Dr. Longoria on 05-28-2022 Nasal Screen MRSA/MSSA [facility] Absolute lymphocyte countOrd ered By: Dr. Longoria on 05-27-2022 Lymphocytes Auto (Unsp spec) [#/Vol] 1.65 10*3/uL 0.83-4.51 [facility] Basophil percentageOrdered B y: Dr. Longoria on 05-27-2022 Basophils/100 WBC (Bld) 0.6 % 0-1 [facility] Chloride [Moles/Vol] 106 mmol/L 98-107 [facility] Eosinophils/100 WBC (Bld) 6.4 % 0-5 [facility] Glucose [Mass/Vol] 95 mg/dL 74-106 [facility] Neutrophils (Bld) [#/Vol] 3.6 10*3/uL 2.0-7.7 [facility] Neutrophils/100 WBC (Bld) 57.1 % 47-70 [facility] Potassium [Moles/Vol] 4.0 mmol/L 3.5-5.[address] [facility] Sodium [Moles/Vol] 142 mmol/L 136-145 [facility] WBC (Bld) [#/Vol] 6.3 10*3/uL 4.4-11.0 [facility] Blood erythrocytes count (nu mber/volume)Ordered By: Dr. Longoria on 05-27-2022 RBC (Bld) [#/Vol] 4.10 10*6/uL 4.6-6.2 [facility] Blood hemoglobin measurement (mass/volume)Ordered By: Dr. Longoria on 05-27-2022 Hemoglobin (Bld) [Mass/Vol] 12.6 g/dL 13.0-16.5 [facility] Blood lymphocytes/100 leukoc ytesOrdered By: Dr. Longoria on 05-27-2022 Lymphocytes/100 WBC (Bld) 26.2 % 19-41 [facility] Blood monocytes/100 leukocyt esOrdered By: Dr. Longoria on 02-15-2023 Monocytes/100 WBC (Bld) 9.5 % 0-10 [facility] Blood platelet mean volumeOr dered By: Dr. Longoria on 05-27-2022 Platelet mean volume (Bld) [Entitic vol] 12.8 fL 6.2-12.0 [facility] Determination of erythrocyte mean corpuscular volume (MCV)Ordered By: Dr. Longoria on 05-27-2022 MCV (RBC) [Entitic vol] 94.9 fL 80-94 [facility] Hematocrit Auto (Bld) [Volum e fraction]Ordered By: Dr. Longoria on 05-27-2022 Hematocrit (Bld) [Volume fraction] 38.9 % 40-54 [facility] Laboratory - Chemistry and C hemistry - challengeOrdered By: Dr. Longoria on 05-27-2022 CO2 [Moles/Vol] 31.0 mmol/L 21.0-32.0 [facility] Urea nitrogen/Creatinine [Mass ratio] 18.1 mg/mg 10-20 [facility] Laboratory - Chemistry and C hemistry - challengeOrdered By: Dr. Lopez on 05-27-2022 Magnesium [Mass/Vol] 2.5 mg/dL 1.6-2.6 [facility] Laboratory - Hematology and Cell countsOrdered By: Dr. Longoria on 05-27-2022 Erythrocyte distribution width (RBC) [Entitic vol] 46.1 fL 35.1-43.9 [facility] Erythrocyte distribution width (RBC) [Ratio] 13.2 % 11.6-14.6 [facility] Immature granulocytes/100 WBC (Bld) 0.200 % 0.0-0.9 [facility] Comment on above: IG% - Immature Granu locytes (promyelocytes, myelocytes and metamyelocytes) > 1% indicates that a LEFT SHIFT is Present. MCH (RBC) [Entitic mass] 30.7 pg 27.0-32.0 [facility] Nucleated RBC/100 WBC (Bld) [Ratio] 0 % 0-5 [facility] MCHC Auto (RBC) [Mass/Vol]Or dered By: Dr. Longoria on 05-27-2022 MCHC (RBC) [Mass/Vol] 32.4 g/dL 32-[address] [facility] No Panel InformationOrdered By: Dr. Longoria on 05-27-2022 Estimated GFR (MDRD) Amer 73 mL/min >60 [facility] Comment on above: GFR Calc Estimated GFR (MDRD) Non-Af Amer 60 mL/min >60 [facility] Comment on above: Non- GFR Calc Platelets bldOrdered By: Dr. Longoria on 05-27-2022 Platelets (Bld) [#/Vol] 120 10*3/uL 150-450 [facility] Serum or plasma albumin tamia urement (mass/volume)Ordered By: Dr. Longoria on 05-27-2022 Albumin [Mass/Vol] 3.8 g/dL 3.2-5.0 [facility] Serum or plasma calcium tamia urement (mass/volume)Ordered By: Dr. Longoria on 05-27-2022 Calcium [Mass/Vol] 8.8 mg/dL 8.5-10.1 [facility] Serum or plasma creatinine m easurement (mass/volume)Ordered By: Dr. Longoria on 05-27-2022 Creatinine [Mass/Vol] 1.27 mg/dL 0.70-1.[address] [facility] Comment on above: The validity of the calculated GFR & GFRAA in patients over 70 years has not been determined. Clinical correlation is essential. Serum or plasma urea nitroge n measurement (mass/volume)Ordered By: Dr. Longoria on 05-27-2022 Urea nitrogen [Mass/Vol] 23 mg/dL 7-18 [facility] Thin prep Papanicolaou smear with manual screeningOrdered By: Dr. Longoria on 05-27-2022 Thin prep Papanicolaou smear with manual screening 5 5-15 [facility] Whole blood hemoglobin A1c/t otal hemoglobin ratio (mass fraction)Ordered By: Dr. Longoria on 05-27-2022 HbA1c (Bld) [Mass fraction] 5.5 % 3.8-5.6 [facility] Comment on above: Normal < 5.7 % Predi abetic 5.7 - 6.4 % Diabetic >or= 6.5 % Please note range changes. Basophil percentageOrdered B y: Dr. Paz on 05-07-2022 Bilirubin [Mass/Vol] 0.90 mg/dL 0.20-1.00 [facility] Comment on above: For patients on eltr ombopag therapy, use of Dimension [place] TBIL is not recommended. Cholesterol [Mass/Vol] 115 mg/dL <200 [facility] Comment on above: <200 mg/dL Desirable 200-240 mg/dL Borderline >240 mg/dL High Risk Protein [Mass/Vol] 7.1 g/dL 6.4-8.2 [facility] Triglyceride [Mass/Vol] 63 mg/dL <199 [facility] Comment on above: The drugs N-Acetylcy steine and Metamizole may falsely depress this assay.Serum Triglycerides Reference Interval Normal <150 mg/dL Borderline high 150 - 199 mg/dL High 200 - 499 mg/dL Very High > or = 500 mg/dL Direct bilirubinOrdered By: Dr. Paz on 05-07-2022 Bilirubin.direct [Mass/Vol] 0.25 mg/dL 0.00-0.30 [facility] Laboratory - Chemistry and C hemistry - challengeOrdered By: Dr. Paz on 05-07-2022 ALP [Catalytic activity/Vol] 63 U/L 45-117 [facility] ALT [Catalytic activity/Vol] 37 U/L 16-61 [facility] Globulin (S) [Mass/Vol] 3.4 g/dL 2.2-4.2 [facility] Serum or plasma albumin tamia urement (mass/volume)Ordered By: Dr. Paz on 05-07-2022 Albumin [Mass/Vol] 3.7 g/dL 3.2-5.0 [facility] Serum or plasma cholesterol in HDL measurement (mass/volume)Ordered By: Dr. Paz on 05-07-2022 Cholesterol in HDL [Mass/Vol] 51 mg/dL >40 [facility] Comment on above: The drugs N-Acetylcy steine and Metamizole may falsely depress this assay. Reference Range HDL <40 mg/dL Low HDL Cholesterol HDL >or= 60 mg/dL High HDL Cholesterol Serum or plasma cholesterol in VLDL measurement (mass/volume)Ordered By: Dr. Paz on 05-07-2022 Cholesterol in VLDL [Mass/Vol] 13 mg/dL 5-40 [facility] Serum or plasma low density lipoprotein (LDL) cholesterol measurement (mass/volume)Ordered By: Dr. Paz on 05-07-2022 Cholesterol in LDL [Mass/Vol] 51 mg/dL 0-130 [facility] Thin prep Papanicolaou smear with manual screeningOrdered By: Dr. Paz on 05-07-2022 Thin prep Papanicolaou smear with manual screening 21 U/L 15-37 [facility] No Panel InformationOrdered By: ZINA Cast on 02-05-2022 Prostate Specific Antigen Total 6.86 ng/mL 0.0-4.0 [facility] Comment on above: This test was perfor med using the TPSA assay method for [email or web address] chemistry system. Values obtained with differentassay methods cannot be used interchangably.When changing PSA assays in the course of monitoring apatient, additional sequential testing should be carriedout to confirm baseline values. Basophil percentageon 2021 Bilirubin [Mass/Vol] 1.10 mg/dL 0.20-1.00 [facility] Work Phone: Comment on above: For patients on eltr ombopag therapy, use of Dimension [place] TBIL is not recommended. Cholesterol [Mass/Vol] 131 mg/dL <200 [facility] Work Phone: Comment on above: <200 mg/dL Desirable 200-240 mg/dL Borderline >240 mg/dL High Risk Protein [Mass/Vol] 7.2 g/dL 6.4-8.2 [facility] Work Phone: Triglyceride [Mass/Vol] 97 mg/dL <199 [facility] Work Phone: Comment on above: The drugs N-Acetylcy steine and Metamizole may falsely depress this assay.Serum Triglycerides Reference Interval Normal <150 mg/dL Borderline high 150 - 199 mg/dL High 200 - 499 mg/dL Very High > or = 500 mg/dL Direct bilirubinon Bilirubin.direct [Mass/Vol] 0.23 mg/dL 0.00-0.30 [facility] Work Phone: Laboratory - Chemistry and C hemistry - challengeon 09-29-2021 ALP [Catalytic activity/Vol] 59 U/L 45-117 [facility] Work Phone: ALT [Catalytic activity/Vol] 44 U/L 16-61 [facility] Work Phone: Globulin (S) [Mass/Vol] 3.3 g/dL 2.2-4.2 [facility] Work Phone: Serum or plasma albumin tamia urement (mass/volume)on 09-29-2021 Albumin [Mass/Vol] 3.9 g/dL 3.2-5.0 [facility] Work Phone: Serum or plasma cholesterol in HDL measurement (mass/volume)on 09-29-2021 Cholesterol in HDL [Mass/Vol] 54 mg/dL >40 [facility] Work Phone: Comment on above: The drugs N-Acetylcy steine and Metamizole may falsely depress this assay. Reference Range HDL <40 mg/dL Low HDL Cholesterol HDL >or= 60 mg/dL High HDL Cholesterol Serum or plasma cholesterol in VLDL measurement (mass/volume)on 09-29-2021 Cholesterol in VLDL [Mass/Vol] 19 mg/dL 5-40 [facility] Work Phone: Serum or plasma low density lipoprotein (LDL) cholesterol measurement (mass/volume)on 09-29-2021 Cholesterol in LDL [Mass/Vol] 58 mg/dL 0-130 [facility] Work Phone: Thin prep Papanicolaou smear with manual screeningon 09-29-2021 Thin prep Papanicolaou smear with manual screening 33 U/L 15-37 [facility] Work Phone: Vital Signs Date Time Vital Sign Value Performing Clinician Facility 02-16-2025 09:33-0500 Body temperature 97.39 [degF] Joselyn ALVARADO Work Phone: [facility] 02-16-2025 09:33-0500 Diastolic blood pressure 65 mm[Hg] Joselyn Sophie ELECTRONICS TECHNICIAN APPRENTICE-STUDY ASSISTANT Work Phone: [facility] 02-16-2025 09:33-0500 Heart rate 58 /min Joselyn Barrios ELECTRONICS TECHNICIAN APPRENTICE-STUDY ASSISTANT Work Phone: [facility] 02-16-2025 09:33-0500 Respiratory rate 15 /min Joselyn Barrios ELECTRONICS TECHNICIAN APPRENTICE-STUDY ASSISTANT Work Phone: [facility] 02-16-2025 09:33-0500 SaO2% (BldA) [Mass fraction] 95 % Joselyn Barrios ELECTRONICS TECHNICIAN APPRENTICE-STUDY ASSISTANT Work Phone: [facility] 02-16-2025 09:33-0500 Systolic blood pressure 110 mm[Hg] Joselyn Barrios ELECTRONICS TECHNICIAN APPRENTICE-STUDY ASSISTANT Work Phone: [facility] 01-29-2025 08:37-0400 Body height 190.[address] Mukul Castro MD Work Phone: [facility] 01-29-2025 08:37-0400 Body mass index (BMI) [Ratio] 24.1 kg/m2 Dr. Mukul Castro MD Work Phone: [facility] 01-29-2025 08:37-0400 Body temperature 97.4 [degF] Dr. Mukul Castro MD Work Phone: [facility] 01-29-2025 08:37-0400 Body weight 87.[address] Mukul Castro MD Work Phone: [facility] 01-29-2025 08:37-0400 Diastolic blood pressure 61 mm[Hg] Dr. Mukul Castro MD Work Phone: [facility] 01-29-2025 08:37-0400 Heart rate 59 /min Dr. Mukul Castro MD Work Phone: [facility] 01-29-2025 08:37-0400 Respiratory rate 18 /min Dr. Mukul Castro MD Work Phone: [facility] 01-29-2025 08:37-0400 SaO2% (BldA) [Mass fraction] 99 % Dr. Mukul Castro MD Work Phone: [facility] 01-29-2025 08:37-0400 Systolic blood pressure 104 mm[Hg] Dr. Mukul Castro MD Work Phone: [facility] 01-19-2025 07:40-0400 Body mass index (BMI) [Ratio] 24.5 kg/m2 Dr. Mukul Castro MD Work Phone: [facility] 01-19-2025 07:40-0400 Body weight 88.[address] Mukul Castro MD Work Phone: [facility] 01-19-2025 07:40-0400 Diastolic blood pressure 71 mm[Hg] Dr. Mukul Castro MD Work Phone: [facility] 01-19-2025 07:40-0400 Heart rate 76 /min Dr. Mukul Castro MD Work Phone: [facility] 01-19-2025 07:40-0400 Respiratory rate 18 /min Dr. Mukul Castro MD Work Phone: [facility] 01-19-2025 07:40-0400 SaO2% (BldA) [Mass fraction] 99 % Dr. Mukul Castro MD Work Phone: [facility] 01-19-2025 07:40-0400 Systolic blood pressure 115 mm[Hg] Dr. Mukul Castro MD Work Phone: [facility] 01-18-2025 11:24-0400 Body height 190.5 cm Merari Covarrubias MD Work Phone: [facility] 01-18-2025 11:24-0400 Body mass index (BMI) [Ratio] 24.5 kg/m2 Merari Covarrubias MD Work Phone: [facility] 01-18-2025 11:24-0400 Body temperature 97.7 [degF] Merari Covarrubias MD Work Phone: [facility] 01-18-2025 11:24-0400 Body weight 88.91 kg Merari Covarrubias MD Work Phone: [facility] 07-12-2024 10:25-0400 Body height 192.4 cm Reymundo Garcia MD Work Phone: [facility] 07-12-2024 10:25-0400 Body mass index (BMI) [Ratio] 25.73 kg/m2 Reymundo Garcia MD Work Phone: [facility] 07-12-2024 10:25-0400 Body temperature 98.6 [degF] Reymundo Garcia MD Work Phone: [facility] 07-12-2024 10:25-0400 Body weight 95.25 kg Reymundo Garcia MD Work Phone: [facility] 07-12-2024 10:25-0400 Diastolic blood pressure 64 mm[Hg] Reymundo Garcia MD Work Phone: [facility] 07-12-2024 10:25-0400 Heart rate 64 /min Reymundo Garcia MD Work Phone: [facility] 07-12-2024 10:25-0400 SaO2% (BldA) [Mass fraction] 100 % Reymundo Garcia MD Work Phone: [facility] 07-12-2024 10:25-0400 Systolic blood pressure 107 mm[Hg] Reymundo Garcia MD Work Phone: [facility] 06-20-2024 15:17-0400 Body height 190.[address] Mukul Castro MD Work Phone: [facility] 06-20-2024 15:17-0400 Body mass index (BMI) [Ratio] 27.1 kg/m2 Dr. Mukul Castro MD Work Phone: [facility] 06-20-2024 15:17-0400 Body temperature 101.1 [degF] Dr. Mukul Castro MD Work Phone: [facility] 06-20-2024 15:17-0400 Body weight 98.[address] Mukul Castro MD Work Phone: 1(083)006-442950 [place] [address] 06-20-2024 15:17-0400 Diastolic blood pressure 62 mm[Hg] Dr. Mukul Castro MD Work Phone: 1(776)832-930881 [place] [address] 06-20-2024 15:17-0400 Heart rate 108 /min Dr. Mukul Castro MD Work Phone: 0(355)373-219481 [place] [address] 06-20-2024 15:17-0400 Respiratory rate 16 /min Dr. Mukul Castro MD Work Phone: 5(533)464-949381 [place] [address] 06-20-2024 15:17-0400 SaO2% (BldA) [Mass fraction] 94 % Dr. Mukul Castro MD Work Phone: 3(941)787-851981 [place] [address] 06-20-2024 15:17-0400 Systolic blood pressure 130 mm[Hg] Dr. Mukul Castro MD Work Phone: 1(789)370-288581 [place] [address] 03-28-2024 12:55-0500 Body mass index (BMI) [Ratio] 25.9 kg/m2 Dr. Mukul Castro MD Work Phone: 0(399)883-029281 [place] [address] 03-28-2024 12:55-0500 Body weight 94.[address] Mukul Castro MD Work Phone: 3(113)056-897181 [place] [address] 03-28-2024 12:55-0500 Diastolic blood pressure 60 mm[Hg] Dr. Mukul Castro MD Work Phone: 5(898)896-927081 [place] [address] 03-28-2024 12:55-0500 Heart rate 68 /min Dr. Mukul Castro MD Work Phone: 2(940)365-676081 [place] [address] 03-28-2024 12:55-0500 Respiratory rate 16 /min Dr. Mukul Castro MD Work Phone: 0(829)792-091181 [place] [address] 03-28-2024 12:55-0500 Systolic blood pressure 95 mm[Hg] Dr. Mukul Castro MD Work Phone: 9(632)178-293681 [place] [address] 06-11-2023 12:55-0500 Body height 190.[address] Mukul Castro Work Phone: [facility] 06-11-2023 12:55-0500 Body mass index (BMI) [Ratio] 26.3 kg/m2 Dr. Mukul Castro Work Phone: [facility] 06-11-2023 12:55-0500 Body weight 95.[address] Mukul Castro Work Phone: [facility] 06-11-2023 12:55-0500 Diastolic blood pressure 64 mm[Hg] Dr. Mukul Castro Work Phone: [facility] 06-11-2023 12:55-0500 Heart rate 67 /min Dr. Mukul Castro Work Phone: [facility] 06-11-2023 12:55-0500 Respiratory rate 16 /min Dr. Mukul Castro Work Phone: [facility] 06-11-2023 12:55-0500 Systolic blood pressure 102 mm[Hg] Dr. Mukul Castro Work Phone: [facility] 03-01-2023 11:22-0500 Body height 190.5 cm Cassius Simon ELECTRONICS TECHNICIAN APPRENTICE-STUDY ASSISTANT Work Phone: [facility] 03-01-2023 11:22-0500 Body mass index (BMI) [Ratio] 25.62 kg/m2 Cassius Simon ELECTRONICS TECHNICIAN APPRENTICE-STUDY ASSISTANT Work Phone: [facility] 03-01-2023 11:22-0500 Body temperature 98.91 [degF] Cassius Simon ELECTRONICS TECHNICIAN APPRENTICE-STUDY ASSISTANT Work Phone: [facility] 03-01-2023 11:22-0500 Body weight 92.99 kg Cassius Simon ELECTRONICS TECHNICIAN APPRENTICE-STUDY ASSISTANT Work Phone: [facility] 03-01-2023 11:22-0500 Diastolic blood pressure 63 mm[Hg] Cassius Simon ELECTRONICS TECHNICIAN APPRENTICE-STUDY ASSISTANT Work Phone: [facility] 03-01-2023 11:22-0500 Heart rate 94 /min Cassius Simon ELECTRONICS TECHNICIAN APPRENTICE-STUDY ASSISTANT Work Phone: [facility] 03-01-2023 11:22-0500 Respiratory rate 18 /min Cassius Simon APRN-STUDY ASSISTANT Work Phone: [facility] 03-01-2023 11:22-0500 SaO2% (BldA) [Mass fraction] 97 % Cassius Simon APRN-STUDY ASSISTANT Work Phone: [facility] 03-01-2023 11:22-0500 Systolic blood pressure 109 mm[Hg] Cassius Simon APRN-STUDY ASSISTANT Work Phone: [facility] 11-30-2022 15:33-0400 Body temperature 97.8 [degF] Dr. Mukul Castro Work Phone: [facility] 11-30-2022 15:33-0400 Diastolic blood pressure 62 mm[Hg] Dr. Mukul Castro Work Phone: [facility] 11-30-2022 15:33-0400 Heart rate 59 /min Dr. Mukul Castro Work Phone: [facility] 11-30-2022 15:33-0400 Respiratory rate 16 /min Dr. Mukul Castro Work Phone: [facility] 11-30-2022 15:33-0400 SaO2% (BldA) [Mass fraction] 97 % Dr. Mukul Castro Work Phone: [facility] 11-30-2022 15:33-0400 Systolic blood pressure 108 mm[Hg] Dr. Mukul Castro Work Phone: [facility] 11-30-2022 15:15-0400 Inhaled oxygen flow rate 2 L/min Dr. Mukul Castro Work Phone: [facility] 11-30-2022 10:12-0400 Body height 190.[address] Mukul Castro Work Phone: [facility] 11-30-2022 10:12-0400 Body mass index (BMI) [Ratio] 24.1 kg/m2 Dr. Mukul Castro Work Phone: [facility] 11-30-2022 10:12-0400 Body weight 87.[address] Mukul Castro Work Phone: [facility] 11-11-2022 08:35-0400 Body mass index (BMI) [Ratio] 25 kg/m2 Dr. Mukul Castro Work Phone: [facility] 11-11-2022 08:35-0400 Body weight 90.[address] Mukul Castro Work Phone: [facility] 11-11-2022 08:35-0400 Diastolic blood pressure 58 mm[Hg] Dr. Mukul Castro Work Phone: [facility] 11-11-2022 08:35-0400 Respiratory rate 18 /min Dr. Mukul Castro Work Phone: [facility] 11-11-2022 08:35-0400 Systolic blood pressure 111 mm[Hg] Dr. Mukul Castro Work Phone: [facility] 10-09-2022 09:24-0400 Body height 190.[address] Mukul Castro Work Phone: [facility] 10-09-2022 09:24-0400 Body mass index (BMI) [Ratio] 24.7 kg/m2 Dr. Mukul Castro Work Phone: [facility] 10-09-2022 09:24-0400 Body temperature 97.9 [degF] Dr. Mukul Castro Work Phone: [facility] 10-09-2022 09:24-0400 Body weight 89.[address] Mukul Castro Work Phone: [facility] 10-09-2022 09:24-0400 Diastolic blood pressure 58 mm[Hg] Dr. Mukul Castro Work Phone: [facility] 10-09-2022 09:24-0400 Heart rate 71 /min Dr. Mukul Castro Work Phone: [facility] 10-09-2022 09:24-0400 Respiratory rate 18 /min Dr. Mukul Castro Work Phone: [facility] 10-09-2022 09:24-0400 SaO2% (BldA) [Mass fraction] 97 % Dr. Mukul Castro Work Phone: [facility] 10-09-2022 09:24-0400 Systolic blood pressure 97 mm[Hg] Dr. Mukul Castro Work Phone: [facility] 10-03-2022 09:41-0400 Body mass index (BMI) [Ratio] 24.9 kg/m2 Dr. Mukul Castro Work Phone: [facility] 10-03-2022 09:41-0400 Body temperature 98.2 [degF] Dr. Mukul Castro Work Phone: [facility] 10-03-2022 09:41-0400 Body weight 90.[address] Mukul Castro Work Phone: [facility] 10-03-2022 09:41-0400 Diastolic blood pressure 68 mm[Hg] Dr. Mukul Castro Work Phone: [facility] 10-03-2022 09:41-0400 Heart rate 70 /min Dr. Mukul Castro Work Phone: [facility] 10-03-2022 09:41-0400 Respiratory rate 16 /min Dr. Mukul Castro Work Phone: [facility] 10-03-2022 09:41-0400 SaO2% (BldA) [Mass fraction] 98 % Dr. Mukul Castro Work Phone: [facility] 10-03-2022 09:41-0400 Systolic blood pressure 104 mm[Hg] Dr. Mukul Castro Work Phone: [facility] 09-24-2022 15:17-0400 Body height 190.[address] Mukul Castro Work Phone: [facility] 09-24-2022 15:17-0400 Body mass index (BMI) [Ratio] 25 kg/m2 Dr. Mukul Castro Work Phone: [facility] 09-24-2022 15:17-0400 Body weight 90.[address] Mukul Castro Work Phone: [facility] 09-24-2022 15:17-0400 Diastolic blood pressure 62 mm[Hg] Dr. Mukul Castro Work Phone: [facility] 09-24-2022 15:17-0400 Heart rate 71 /min Dr. Mukul Castro Work Phone: [facility] 09-24-2022 15:17-0400 Respiratory rate 18 /min Dr. Mukul Castro Work Phone: 7(721)217-391150 [place] [address] 09-24-2022 15:17-0400 SaO2% (BldA) [Mass fraction] 98 % Dr. Mukul Castro Work Phone: 2(039)431-125950 [place] [address] 09-24-2022 15:17-0400 Systolic blood pressure 106 mm[Hg] Dr. Mukul Castro Work Phone: 3(127)655-425550 [place] [address] 09-22-2022 07:43-0400 Body mass index (BMI) [Ratio] 24.5 kg/m2 Dr. Mukul Castro Work Phone: [facility] 09-22-2022 07:43-0400 Body temperature 98.6 [degF] Dr. Mukul Castro Work Phone: [facility] 09-22-2022 07:43-0400 Body weight 88.[address] Mukul Castro Work Phone: [facility] 09-22-2022 07:43-0400 Diastolic blood pressure 57 mm[Hg] Dr. Mukul Castro Work Phone: [facility] 09-22-2022 07:43-0400 Heart rate 71 /min Dr. Mukul Castro Work Phone: [facility] 09-22-2022 07:43-0400 Respiratory rate 16 /min Dr. Mukul Castro Work Phone: 6(288)828-010250 [place] [address] 09-22-2022 07:43-0400 SaO2% (BldA) [Mass fraction] 99 % Dr. Mukul Castro Work Phone: [facility] 09-22-2022 07:43-0400 Systolic blood pressure 99 mm[Hg] Dr. Mukul Castro Work Phone: [facility] 07-14-2022 11:00-0400 Body height 190.[address] Muklu Castro Work Phone: 2(861)099-781950 [place] [address] 07-14-2022 10:57-0400 Body mass index (BMI) [Ratio] 25 kg/m2 Dr. Mukul Castro Work Phone: 5(759)028-192250 [place] [address] 07-14-2022 10:57-0400 Body weight 90.[address] Mukul Castro Work Phone: 3(288)514-091781 [place] [address] 07-14-2022 10:57-0400 Diastolic blood pressure 65 mm[Hg] Dr. Mukul Castro Work Phone: [facility] 07-14-2022 10:57-0400 Heart rate 62 /min Dr. Mukul Castro Work Phone: 4(593)101-465350 [place] [address] 07-14-2022 10:57-0400 Respiratory rate 18 /min Dr. Mukul Castro Work Phone: 6(732)584-930050 [place] [address] 07-14-2022 10:57-0400 SaO2% (BldA) [Mass fraction] 99 % Dr. Mukul Castro Work Phone: [facility] 07-14-2022 10:57-0400 Systolic blood pressure 112 mm[Hg] Dr. Mukul Castro Work Phone: 6(278)002-842250 [place] [address] 06-01-2022 16:12-0500 Body temperature 97.3 [degF] Dr. Mukul Castro Work Phone: [facility] 06-01-2022 16:12-0500 Diastolic blood pressure 50 mm[Hg] Dr. Mukul Castro Work Phone: [facility] 06-01-2022 16:12-0500 Heart rate 57 /min Dr. Mukul Castro Work Phone: [facility] 06-01-2022 16:12-0500 Respiratory rate 18 /min Dr. Mukul Castro Work Phone: [facility] 06-01-2022 16:12-0500 SaO2% (BldA) [Mass fraction] 99 % Dr. Mukul Castro Work Phone: [facility] 06-01-2022 16:12-0500 Systolic blood pressure 101 mm[Hg] Dr. Mukul Castro Work Phone: [facility] 06-01-2022 10:47-0500 Inhaled oxygen flow rate 4 L/min Dr. Mukul Castro Work Phone: [facility] 06-01-2022 06:13-0500 Body height 190.[address] Mukul Castro Work Phone: [facility] 06-01-2022 06:13-0500 Body mass index (BMI) [Ratio] 28.2 kg/m2 Dr. Mukul Castro Work Phone: [facility] 06-01-2022 06:13-0500 Body weight 102.[address] Mukul Castro Work Phone: [facility] 05-07-2022 10:05-0500 Body mass index (BMI) [Ratio] 27.8 kg/m2 Dr. Mukul Castro Work Phone: [facility] 05-07-2022 10:05-0500 Body weight 101.[address] Mukul Castro Work Phone: [facility] 05-07-2022 10:05-0500 Diastolic blood pressure 70 mm[Hg] Dr. Mukul Castro Work Phone: [facility] 05-07-2022 10:05-0500 Heart rate 52 /min Dr. Mukul Castro Work Phone: [facility] 05-07-2022 10:05-0500 Respiratory rate 16 /min Dr. Mukul Castro Work Phone: [facility] 05-07-2022 10:05-0500 Systolic blood pressure 120 mm[Hg] Dr. Mukul Castro Work Phone: [facility] 09-29-2021 15:10-0400 Body height 190.[address] Mukul Castro Work Phone: [facility] Work Phone: 09-29-2021 15:10-0400 Body mass index (BMI) [Ratio] 26.4 kg/m2 Dr. Mukul Castro Work Phone: [facility] Work Phone: 09-29-2021 15:10-0400 Body weight 95.[address] Mukul Castro Work Phone: [facility] Work Phone: 09-29-2021 15:10-0400 Diastolic blood pressure 78 mm[Hg] Dr. Mukul Castro Work Phone: [facility] Work Phone: 09-29-2021 15:10-0400 Heart rate 60 /min Dr. Mukul Castro Work Phone: [facility] Work Phone: 09-29-2021 15:10-0400 Respiratory rate 16 /min Dr. Mukul Castro Work Phone: [facility] Work Phone: 09-29-2021 15:10-0400 Systolic blood pressure 130 mm[Hg] Dr. Mukul Castro Work Phone: [facility] Work Phone: Encounters Encounter Date Encounter Type Care Provider Facility Start: 02-19-2025 ambulatory [facility] Start: 02-16-2025 End: 02-16-2025 Office outpatient visit 15 minutes Joselyn Barrios ELECTRONICS TECHNICIAN APPRENTICE-STUDY ASSISTANT Work Phone: [facility] Comment on above: Erythema migrans (Ly me disease) (Primary Dx) Start: 02-16-2025 End: 02-16-2025 ambulatory [facility] Start: 02-15-2025 ambulatory Laura Blanco NP Facili ty:[facility] Start: 02-12-2025 ambulatory DARCI NICHELLE Facility :[facility] Start: 01-29-2025 End: 01-29-2025 Patient encounter procedure Maritza Fabina NEUROLOGY PHYSICIAN ASSISTANT-C -[facility] Work Phone: Start: 01-29-2025 End: 01-29-[address] Mukul Castro MD Work Phone: -[facility] Start: 01-24-2025 End: 01-24-2025 ambulatory REYMUNDO GARCIA Facility:[facility] Start: 01-19-2025 End: 01-19-2025 Patient encounter procedure Laura Blanco NEUROLOGY PHYSICIAN ASSISTANT-C -[facility] Work Phone: Start: 01-19-2025 End: 01-19-[address] Mukul Castro MD Work Phone: -[facility] Start: 01-18-2025 End: 01-18-2025 Office outpatient new 45 minutes Merari Covarrubias MD Work Phone: [facility] Comment on above: Sensory hearing loss , bilateral (Primary Dx); Pre-op testing; Asymmetrical sensorineural hearing loss Start: 01-18-2025 End: 01-18-2025 Patient encounter status Merari Covarrubias MD Work Phone: [facility] Work Phone: Start: 01-18-2025 End: 01-18-2025 ambulatory MERARI COVARRUBIAS [facility] Start: 01-03-2025 End: 01-03-2025 ambulatory REYMUNDO GARCIA Facility:[facility] Start: 12-19-2024 End: 12-19-2024 ambulatory [facility] [place] Start: 07-20-2024 End: 07-20-2024 ambulatory Laura Blanco NP Facility:[facility] Start: 07-19-2024 End: 07-20-2024 ambulatory Reymundo Garcia MD Work Phone: Hematology/Oncology Comment on above: [place] with [facility] Start: 07-19-2024 End: 07-25-2024 Telephone encounter Reymundo Garcia MD Work Phone: Hematology/Oncology Comment on above: Results Start: 07-12-2024 End: 07-12-2024 ambulatory REYMUNDO GARCIA Facility:[facility] Start: 07-12-2024 End: 07-12-2024 Subsequent hospital visit by physician X[facility] Work Phone: Radiology Comment on above: 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 Koby [facility]VIN [facility] Start: 06-30-2024 End: 06-30-[address] Mukul Castro MD Work Phone: [facility] Work Phone: Start: 06-30-2024 End: 06-30-2024 Patient encounter procedure Lady Angeles PA -Cardiovascular Services Work Phone: Start: 06-30-2024 End: 06-30-2024 ambulatory Mukul Castro Facility:[facility] Start: 06-20-2024 End: 06-20-2024 ambulatory Mukul Castro Facility:[facility] Start: 06-20-2024 End: 06-20-2024 Patient encounter procedure Austin Galvin PA -[facility] Work Phone: Start: 06-07-2024 Non-patient / Non-visit Dr. Elmira Ruth MD -[facility] Work Phone: Start: 06-07-2024 End: 06-07-[address] Mukul Castro MD Work Phone: [facility] Work Phone: Start: 06-07-2024 End: 06-07-2024 Patient encounter procedure Lady SINGLETON -Pulmonary Services/Neurology Work Phone: Start: 06-07-2024 End: 06-07-2024 ambulatory Mukul Castro Facility:[facility] Start: 06-02-2024 End: 06-02-2024 [facility] Start: 06-02-2024 End: 06-02-2024 ambulatory Lady SINGLETON Facility:[facility] Start: 03-28-2024 End: 03-28-[address] Donald Callahan MD -[facility] Work Phone: Start: 03-28-2024 End: 03-28-2024 ambulatory Donald Callahan Facility:[facility] Start: 07-14-2023 Non-patient / Non-visit Dr. Catrachito Castro Work Phone: [facility] Start: 07-14-2023 End: 07-14-[address] Mukul Castro Work Phone: [facility] Work Phone: Start: 07-14-2023 End: 07-14-[address] Mukul Castro Work Phone: [facility]-Cardiovascula r Services Work Phone: Start: 06-11-2023 End: 06-11-[address] Mukul Castro Work Phone: [facility] Work Phone: Start: 03-01-2023 End: 03-01-2023 Patient encounter procedure Cassius Simon ELECTRONICS TECHNICIAN APPRENTICE-STUDY ASSISTANT Work Phone: [facility] Comment on above: Acute bronchitis, un specified organism (Primary Dx) Start: 11-30-2022 Non-patient / Non-visit Dr. Catrachito Castro Work Phone: [facility] Start: 11-30-2022 End: 11-30-2022 Admission to same day surgery center Dr. Mukul Castro Work Phone: [facility] Start: 11-30-2022 End: 11-30-[address] Mukul Castro Work Phone: [facility] Work Phone: Start: 11-11-2022 End: 11-11-[address] Mukul Castro Work Phone: [facility]-Laboratory, Specimen Work Phone: Start: 11-11-2022 End: 11-11-[address] Mukul Castro Work Phone: [facility] Work Phone: Start: 11-06-[address] Hermelindo Castro Work Phone: [facility] Start: 10-22-2022 End: 10-22-[address] [facility] Work Phone: Start: 10-09-2022 End: 10-09-[address] Mukul Castro Work Phone: [facility] Work Phone: Start: 10-05-2022 End: 10-05-[address] Mukul Castro Work Phone: [facility] Work Phone: Start: 10-05-2022 End: 10-05-[address] [facility] Start: 10-03-2022 End: 10-03-[address] Mukul Castro Work Phone: [facility] Work Phone: Start: 09-25-2022 End: 09-25-[address] Mukul Castro Work Phone: [facility] Work Phone: Start: 09-25-2022 End: 09-25-[address] Mukul Castro Work Phone: [facility]-Laboratory, Specimen Start: 09-24-2022 End: 09-24-[address] Mukul Castro Work Phone: [facility] Work Phone: Start: 09-24-2022 End: 09-24-[address] [facility] Start: 09-24-2022 End: 09-24-[address] Mukul Castro Work Phone: [facility] Start: 09-22-2022 End: 09-22-[address] Mukul Castro Work Phone: [facility]-Pulmonary Medicine [facility] Start: 08-14-2022 End: 08-14-[address] Mukul Castro Work Phone: [facility] Work Phone: Start: 08-14-2022 End: 08-14-[address] Muk[facility] Castro [facility] Start: 08-06-2022 End: 08-06-[address] Mukul Castro Work Phone: [facility] Work Phone: Start: 08-06-2022 End: 08-06-[address] Mukul Castro Work Phone: [facility] Start: 08-03-2022 Non-patient / Non-visit Dr. Catrachito Castro Work Phone: [facility] Start: 08-03-2022 End: 08-03-[address] Mukul Castro Work Phone: [facility]-Cardiovascula r Services Start: 07-24-2022 End: 07-24-[address] Mukul Castro Work Phone: [facility] Start: 07-17-2022 End: 07-17-[address] Mukul Castro Work Phone: [facility]-Pulmonary Services/Neurology Start: 07-14-2022 End: 07-14-[address] Mukul Castro Work Phone: [facility] Start: 07-14-2022 End: 07-14-[address] Mukul Castro Work Phone: [facility] Work Phone: Start: 07-14-2022 End: 07-14-[address] Mukul Castro Work Phone: [facility] Start: 06-01-2022 End: 06-01-2022 Admission to same day surgery center Dr. Mukul Castro Work Phone: [facility] Start: 06-01-2022 End: 06-01-[address] Mukul Castro Work Phone: [facility] Work Phone: Start: 05-25-2022 End: 05-25-[address] Mukul Castro Work Phone: [facility] Work Phone: Start: 05-25-2022 End: 05-25-[address] Mukul Castro Work Phone: [facility] Start: 05-07-2022 Patient encounter status Dr. Hermelindo Castro Work Phone: [facility] Start: 05-07-2022 End: 05-07-[address] Mukul Castro Work Phone: [facility] Start: 05-07-2022 End: 05-07-2022 Admission to same day surgery center Dr. Mukul Castro Work Phone: [facility] Start: 05-07-2022 End: 05-07-[address] Mukul Castro Work Phone: [facility] Start: 05-06-[address] Hermelindo Castro Work Phone: [facility] Start: 02-05-2022 End: 02-05-2022 ambulatory [facility] Work Phone: Start: 02-05-2022 End: 02-05-2022 [facility] Start: 09-29-2021 End: 09-29-[address] Mukul Castro Work Phone: [facility] Procedures Date Procedure Procedure Detail Performing Clinician Start: 01-18-2025 Follow-up visit Follow-up MERARI COVARRUBIAS Start: 03-01-2023 POCT BD VERITOR TRIPLEX AG Cassius Simon ELECTRONICS TECHNICIAN APPRENTICE-STUDY ASSISTANT Work Phone: Start: 11-30-2022 Lap Robotic Inguinal Hernia (Left) Dr. Mukul Castro Work Phone: Start: 11-11-2022 Nasal Screen MRSA/MSSA Dr. Mukul Castro Work Phone: Start: 10-22-2022 Computed tomography of abdomen and pelvis with contrast Dr. Mukul Castro Work Phone: Start: 09-25-2022 Measurement of occul t blood in stool specimen using immunoassay Dr. Mukul Castro Work Phone: Start: 08-06-2022 CT of head without contrast Dr. Mukul Castro Work Phone: Start: 07-14-2022 CT angiography of ch est with contrast Dr. Mukul Castro Work Phone: Start: 06-01-2022 Radiologic examinati on of knee Dr. Mukul Castro Work Phone: Start: 06-01-2022 Total Knee Replaceme nt Robotic Arm Kaylie (Right) Dr. Mukul Castro Work Phone: Start: 05-25-2022 MRI of lower extremity Dr. Mukul Castro Work Phone: Start: 05-03-2006 Lipid 1996 panel - S jill or Plasma Reymundo Garcia MD Work Phone: Nasal Screen MRSA/MSSA Dr. Hermelindo Castro Work Phone: Plan of Treatment Date Care Activity Detail Author Start: 01-07-2033 DTaP/Tdap/Td Vaccine s (4 - Td or Tdap) DTaP/Tdap/Td Vaccines (4 - Td or Tdap) [facility] Start: 01-07-2033 Urine microalbumin profile DTaP,Tdap,Td Vaccine (4 - Td or Tdap) [facility] Start: 11-02-2030 RSV Vaccine (1 - 1-d ose 75+ series) RSV Vaccine (1 - 1-dose 75+ series) [facility] Start: 07-13-2027 Diabetes Screening Diabetes Screenin g [facility] Start: 03-29-2026 End: 03-29-2026 Clinical Support 03/29/2026 10:30 AM EST Clinical Support [facility] [address] [place] [address] Robert Mendoza, JEN, CCC-A [address] [place] [address] [facility] Start: 07-30-2025 COVID-19 Vaccine ( season) COVID-19 Vaccine ( season) [facility] Start: 06-29-2025 End: 06-29-2025 Clinical Support 06/29/2025 10:30 AM EDT Clinical Support [facility] [address] [facility] [place] [address] Robert Mendoza AUD, CCC-A [address] [place] [address] [facility] Start: 05-04-2025 End: 05-04-2025 Clinical Support 05/04/2025 10:30 AM EST Clinical Support [facility] [address] [facility] [place] [phone] Robert Mendoza AUD, CCC-A [address] [place] [address] [facility] Start: 04-04-2025 End: 04-04-2025 Clinical Support 04/04/2025 8:30 AM EST Clinical Support [facility] [address] [facility] [place] [address] Robert Mendoza AUD, CCC-A [address] [place] [address] [facility] Start: 03-22-2025 End: 03-22-2025 Patient encounter procedure 03/22/2025 1:15 PM EST Office Visit [facility] [address] [facility] [address] [place] [address] Merari Covarrubias MD [address] [facility] [address] [place] [address] [facility] Start: 03-15-2025 End: 03-15-2025 Admission to same day surgery center 03/15/2025 1:15 PM EST - 03/15/2025 4:05 PM EST Surgery [facility] [place] [address] [place] [address] Merari Covarrubias MD [address] [facility] [address] [place] [phone] LEFT COCHLEAR IMPLANT, ADVANCED BIONICS [91199 (CPT )] [facility] [place] Comment on above: LEFT COCHLEAR IMPLAN T, ADVANCED BIONICS [25197 (CPT )] Start: 03-15-2025 End: 03-15-2025 Cochlear device implantation w/wo mastoidectomy INSERTION, IMPLANT, COCHLEAR Sensory hearing loss, bilateral 03/15/2025 1:15 PM EST Virtual [facility] [place] Start: 03-15-2025 Subsequent hospital visit by physician [facility] Start: 02-27-2025 End: 02-27-2025 Admission to establishment 02/27/2025 8:15 AM EST Pre-Admission Testing [facility] [address] [place] [phone] [facility] Start: 02-16-2025 End: 02-16-2026 LYME (B. BURGDORFERI) AB MODIFIED 2-TITER TESTING, WITH REFLEX TO IGM AND IGG BY LAWRENCE LYME (B. BURGDORFERI) AB MODIFIED 2-TITER TESTING, WITH REFLEX TO IGM AND IGG BY LAWRENCE Lab Routine Erythema migrans (Lyme disease) Expected: 02/16/2025 (Approximate), Expires: 02/16/2026 [facility] Service Area Work Phone: Comment on above: Expected: 02/16/2025 (Approximate), Expires: 02/16/2026 Start: 02-12-2025 Registered Recurring Registered Recu rring -Speech Therapy Work Phone: Start: 01-29-2025 End: 01-29-2025 Patient encounter procedure Sleep apnea -[facility] Work Phone: Start: 01-24-2025 End: 01-24-2025 ambulatory 01/24/2025 10:20 AM EDT Visit (SP) Office Hematology/Oncology [address] [place] [id number] Reymundo Garcia MD [address] [place] [address] OV/LABS 01/17* Hematology/Oncology Comment on above: OV/LABS 01/17* Start: 01-18-2025 End: 01-18-2026 CBC panel - Blood by Automated count CBC Lab Routine Sensory hearing loss, bilateral Pre-op testing Expected: 01/18/2025 (Approximate), Expires: 01/18/2026 [facility] Service Area Work Phone: Comment on above: Expected: 01/18/2025 (Approximate), Expires: 01/18/2026 Start: 01-18-2025 End: 01-18-2026 Comprehensive metabolic 2000 panel - Serum or Plasma Comprehensive Metabolic Panel Lab Routine Sensory hearing loss, bilateral Pre-op testing Expected: 01/18/2025 (Approximate), Expires: 01/18/2026 [facility] Work Phone: Comment on above: Expected: 01/18/2025 (Approximate), Expires: 01/18/2026 Start: 01-17-2025 End: 01-17-2025 ambulatory 01/17/2025 8:30 AM EDT Results Only [facility] [address] [place] [id number] [facility] Comment on above: [facility] Start: 12-11-2024 COVID-19 Vaccine ( season) COVID-19 Vaccine ( season) [facility] Start: 12-11-2024 Influenza vaccination Influenza Vacc ine (#1) [facility] Start: 07-12-2024 End: 10-11-2024 MONOCLONAL PROTEIN, SERUM (BLOOD) [facility] Comment on above: Expected: 07/12/2024 , Expires: 10/11/2024 Start: 07-12-2024 End: 10-11-2024 PROTEIN ELECTROPHORESIS SERUM W/INTERP [place] Work Phone: Comment on above: Expected: 07/12/2024 , Expires: 10/11/2024 Start: 07-12-2024 End: 07-12-2024 ambulatory 07/12/2024 10:30 AM EDT Visit (SP) Office Hematology/Oncology [address] [place] [address] Reymundo Garcia MD [address] [place], [place] [id number] NEUROLOGY PHYSICIAN ASSISTANT/MGUS, THROMBOCYTOPENIA/REF BY MUKUL CASTRO*NEXT AVAILABLE Hematology/Oncology Comment on above: NEUROLOGY PHYSICIAN ASSISTANT/MGUS, THROMBOCYTO PENIA/REF BY MUKUL CASTRO*NEXT AVAILABLE Start: 06-28-2024 Covid-19 Vaccine ( season) Covid-19 Vaccine ( season) [facility] Start: 04-12-2024 Advance Directive Discussion Advance Directive Discussion [facility] Start: 12-12-2023 Covid-19 Vaccine ( season) Covid-19 Vaccine ( season) [facility] Start: 12-12-2023 Influenza vaccination Influenza Vacc ine (#1) [facility] Start: 02-25-2023 COVID-19 Vaccine (3 - Moderna series) COVID-19 Vaccine (3 - Moderna series) [facility] Start: 11-30-2022 Patient discharge [facility] Start: 10-03-2022 Patient referral [facility] Work Phone: Start: 07-14-2022 CTA Chest vessels WO and W contrast IV [facility] Start: 07-14-2022 CTA Chest W/WO Contrast CTA Chest W/ WO Contrast [facility] Start: 06-01-2022 Anesth open/surg art hrs total knee arthroplasty ANESTH KNEE ARTHROPLASTY [facility] Start: 06-01-2022 Arthrp kne condyle&p latu medial&lat compartments TOTAL KNEE ARTHROPLASTY [facility] Start: 06-01-2022 Injection aa&/strd femoral nerve NJX AA&/STRD FEMORAL NRV IMG [facility] Start: 06-01-2022 Application of ice collar, cap or bag [facility] Start: 06-01-2022 Exercises [facility] Start: 06-01-2022 Incentive spirometry [facility] Start: 06-01-2022 Neurovascular assessment [facility] Start: 06-01-2022 Patient discharge [facility] Start: 06-01-2022 Patient education [facility] Start: 06-01-2022 Provision of activit y privileges [facility] Start: 06-01-2022 Recommendation to continue with treatment [facility] Start: 06-01-2022 Referral to service [facility] Start: 06-01-2022 Vital signs measurements [facility] Start: 06-01-2022 Wound care [facility] Start: 06-01-2022 [facility] Start: 11-13-2011 IPV Vaccines (2 of 3 - Adult catch-up series) IPV Vaccines (2 of 3 - Adult catch-up series) [facility] Start: 05-03-2011 Lipid panel Lipid Screening [facility] Start: 11-02-2010 Prostate specific an tigen measurement Prostate Cancer Screening Discussion [facility] Start: 08-17-2010 Diabetes Screening Diabetes Screenin g [facility] Start: 11-02-2005 Pneumococcal Vaccine : 50+ (1 of 1 - PCV) Pneumococcal Vaccine: 50+ (1 of 1 - PCV) [facility] Start: 11-02-2005 Prostate specific an tigen measurement PSA Prostate Cancer Screening [facility] Start: 11-02-2005 Shingrix Vaccine (1 of 2) Smith grix Vaccine (1 of 2) [facility] Start: 11-02-2000 Screening for malign ant neoplasm of colon [facility] Start: 11-02-1974 Urine microalbumin profile DTaP,Tdap,Td Vaccine (1 - Tdap) [facility] Start: 11-02-1973 Anxiety Screening Anxiety Screening [facility] Start: 11-02-1973 Depression Screening Depression Scre ening [facility] Start: 11-02-1973 Diabetes mellitus screening Diabetes Screening [facility] Start: 11-02-1973 Hepatitis C screening Hepatitis C Wa jayden [facility] Start: 11-02-1956 MMR Vaccines (1 of 1 - Standard series) MMR Vaccines (1 of 1 - Standard series) [facility] Start: 1955 Lipid panel Lipid Panel [facility] Start: 1955 Medicare Annual Well ness Visit Medicare Annual Wellness Visit (AWV) [facility] Start: 1955 Screening for malign ant neoplasm of colon [facility] Start: 1955 Yearly Adult Physical Yearly Adult P hysical [facility] End: 07-19-2025 Basic metabolic 2000 panel - Serum or Plasma BASIC METABOLIC PANEL Lab Routine Monoclonal gammopathy Every 6 months for 2 Occurrences starting 07/19/2024 until 07/19/[address] [facility] Comment on above: Every 6 months for 2 Occurrences starting 07/19/2024 until 07/19/2025 End: 07-19-2025 CBC W Auto Differential panel - Blood COMPLETE BLOOD COUNT AND DIFFERENTIAL Lab Routine Monoclonal gammopathy Every 6 months for 2 Occurrences starting 07/19/2024 until 07/19/2025 [place] Work Phone: Comment on above: Every 6 months for 2 Occurrences starting 07/19/2024 until 07/19/2025 Cochlear device implantation w/wo mastoidectomy INSERTION, IMPLANT, COCHLEAR Sensory hearing loss, bilateral Virtual [facility] [place] CT Abdomen and Pelvi s WO and W contrast IV [facility] End: 07-19-2025 KAPPA/WILL,FREE,SER KAPPA/WILL,FREE,SER Lab Routine Monoclonal gammopathy Every 6 months for 2 Occurrences starting 07/19/2024 until 07/19/[address] [facility] Comment on above: Every 6 months for 2 Occurrences starting 07/19/2024 until 07/19/2025 End: 07-19-2025 MONOCLONAL PROTEIN, SERUM (BLOOD) MONOCLONAL PROTEIN, SERUM (BLOOD) Lab Routine Monoclonal gammopathy Every 6 months for 2 Occurrences starting 07/19/2024 until 07/19/[address] [facility] Comment on above: Every 6 months for 2 Occurrences starting 07/19/2024 until 07/19/2025 Patient referral [facility] Work Phone: End: 07-19-2025 PROTEIN ELECTROPHORESIS SERUM W/INTERP PROTEIN ELECTROPHORESIS SERUM W/INTERP Lab Routine Monoclonal gammopathy Every 6 months for 2 Occurrences starting 07/19/2024 until 07/19/[address] [facility] Comment on above: Every 6 months for 2 Occurrences starting 07/19/2024 until 07/19/2025 [facility] End: 08-11-2025 XR Bones Complete Survey Views XR BONE SURVEY ROUTINE Radiology Routine Monoclonal gammopathy 1 Occurrences starting 07/12/2024 until 08/11/[address] [facility] Comment on above: 1 Occurrences starti ng 07/12/2024 until 08/11/2025 XR Bones Complete Garcia rvey Views XR BONE SURVEY ROUTINE Radiology Routine Monoclonal gammopathy 07/12/2024 11:38 AM EDT [facility] Immunizations Immunization Date Immunization Notes Care Provider Fa cility 12-30-2023 influenza virus vaccine, unspecified formulation Merari Covarrubias MD Work Phone: [facility] Work Phone: 02-18-2017 influenza, injectabl e, quadrivalent, preservative free Dr. Mukul Castro Work Phone: [facility] 02-18-2017 influenza, seasonal, injectable Dr. Mukul Castro Work Phone: [facility] 10-16-2011 poliovirus vaccine, unspecified formulation Merari Covarrubias MD Work Phone: [facility] Work Phone: Payers Date Payer Category Payer Self-pay [id number] 2023 Medicare supplementa l policy (as second payer) [id number] 2023 Unknown [employer] [place] MEDICARE SELECT SUPPLEMENT [id number] 2023-Present [address] [place] [address] [id number] 2023 Unknown [id number] 2020 Medicare [id number] 2020 Medicare [id number] 2016 Unknown [id number] 2007 Blue Cross Blue Shield [id number] 2007 Unknown [id number] 1955 Unknown [id number] 2.16.840.1.049512.3.579. 2.1244 1955 Unknown [id number] 2.840.1.759756.3.579. 2.1243 1955 Unknown [id number] 2.840.1.611900.3.579. 2.1245 1955 Unknown [id number] 2.840.1.154283.3.579. 2.1245 1955 Unknown [id number] 2.16.840.1.356406.3.579. 2.1245 Unknown [id number] 2.16.840.1.939255.3.579. 2.462 Unknown [id number] 2.16.840.1.030989.3.579. 2.462 Unknown [id number] 2.16.840.1.045402.3.579. 2.462 Unknown [id number] 2.16.840.1.061236.3.579. 2.462 Unknown [id number] 2.16.840.1.211119.3.579. 2.462 Unknown [id number] 2.16.840.1.054559.3.579. 2.462 Unknown [id number] 2.16840.1.804127.3.579. 2.462 Unknown [id number] 2.16.840.1.971585.3.579. 2.462 Unknown [id number] 2.16.840.1.293326.3.579. 2.462 Unknown [id number] 2.16.840.1.367924.3.579. 2.462 Unknown [id number] 2.840.1.635714.3.579. 2.462 Unknown [id number] 2.16.840.1.253471.3.579. 2.462 Social History Date Type Detail Facility Start: 09-29-2021 End: 06-11-2023 Tobacco smoking status NHIS Unknown if ever smoked [facility] Start: 02-18-2017 None [facility] Start: 02-18-2017 Spouse/ Signif icant Other [facility] Start: 1955 Sex Assigned At Male [facility] Start: 1955 Sex Assigned At Not on file [facility] Work Phone: Start: 07-12-2024 Gender identity Not on file [facility] Start: 02-19-2023 End: 03-01-2023 Exposure to SARS-CoV-2 (event) Not sure [facility] Start: 06-20-2024 End: 02-14-2025 Tobacco smoking status NHIS Never smoked tobacco (finding) [facility] Start: 03-07-2022 End: 06-20-2024 Sex Male (finding) [facility] Start: 08-26-2009 End: 07-12-2024 Alcoholic beverage intake Current drinker of alcohol (finding) [facility] Start: 07-12-2024 Tobacco use and exposure Smokeless tobacco non-user [facility] Start: 07-12-2024 History of Social function [facility] Start: 03-07-2022 National Score (1-100), lower number is lower risk 61 [facility] Medical Equipment Procedure Code Equipment Code Equipment Origin al Text Equipment Identifier Dates ASYMMETRIC PATELLA FDA Start: 06-01-2022 CRUCIATE RETAINI NG FEMORAL FDA Start: 06-01-2022 TIBIAL BEARING INSERT-CS FDA Start: 06-01-2022 TIBIAL COMPONENT FDA Start: 06-01-2022 ASYMMETRIC PATELLA FDA Start: 06-01-2022 CRUCIATE RETAINI NG FEMORAL FDA Start: 06-01-2022 TIBIAL BEARING INSERT-CS FDA Start: 06-01-2022 TIBIAL COMPONENT FDA Start: 06-01-2022 ASYMMETRIC PATELLA FDA Start: 06-01-2022 CRUCIATE RETAINI NG FEMORAL FDA Start: 06-01-2022 TIBIAL BEARING INSERT-CS FDA Start: 06-01-2022 TIBIAL COMPONENT FDA Start: 06-01-2022 ASYMMETRIC PATELLA FDA Start: 06-01-2022 CRUCIATE RETAINI NG FEMORAL FDA Start: 06-01-2022 TIBIAL BEARING INSERT-CS FDA Start: 06-01-2022 TIBIAL COMPONENT FDA Start: 06-01-2022 ASYMMETRIC PATELLA FDA Start: 06-01-2022 CRUCIATE RETAINI NG FEMORAL FDA Start: 06-01-2022 TIBIAL BEARING INSERT-CS FDA Start: 06-01-2022 TIBIAL COMPONENT FDA Start: 06-01-2022 ASYMMETRIC PATELLA FDA Start: 06-01-2022 CRUCIATE RETAINI NG FEMORAL FDA Start: 06-01-2022 TIBIAL BEARING INSERT-CS FDA Start: 06-01-2022 TIBIAL COMPONENT FDA Start: 06-01-2022 ASYMMETRIC PATELLA FDA Start: 06-01-2022 CRUCIATE RETAINI NG FEMORAL FDA Start: 06-01-2022 TIBIAL BEARING INSERT-CS FDA Start: 06-01-2022 TIBIAL COMPONENT FDA Start: 06-01-2022 ASYMMETRIC PATELLA FDA Start: 06-01-2022 CRUCIATE RETAINI NG FEMORAL FDA Start: 06-01-2022 TIBIAL BEARING INSERT-CS FDA Start: 06-01-2022 TIBIAL COMPONENT FDA Start: 06-01-2022 ASYMMETRIC PATELLA FDA Start: 06-01-2022 CRUCIATE RETAINI NG FEMORAL FDA Start: 06-01-2022 TIBIAL BEARING INSERT-CS FDA Start: 06-01-2022 TIBIAL COMPONENT FDA Start: 06-01-2022 MESH,3D MED WT L EFT LG FDA Start: 11-30-2022 ASYMMETRIC PATELLA FDA Start: 06-01-2022 CRUCIATE RETAINI NG FEMORAL FDA Start: 06-01-2022 TIBIAL BEARING INSERT-CS FDA Start: 06-01-2022 TIBIAL COMPONENT FDA Start: 06-01-2022 MESH,3D MED WT L EFT LG FDA Start: 11-30-2022 ASYMMETRIC PATELLA FDA Start: 06-01-2022 CRUCIATE RETAINI NG FEMORAL FDA Start: 06-01-2022 TIBIAL BEARING INSERT-CS FDA Start: 06-01-2022 TIBIAL COMPONENT FDA Start: 06-01-2022 MESH,3D MED WT L EFT LG FDA Start: 11-30-2022 ASYMMETRIC PATELLA FDA Start: 06-01-2022 CRUCIATE RETAINI NG FEMORAL FDA Start: 06-01-2022 TIBIAL BEARING INSERT-CS FDA Start: 06-01-2022 TIBIAL COMPONENT FDA Start: 06-01-2022 MESH,3D MED WT L EFT LG FDA Start: 11-30-2022 ASYMMETRIC PATELLA FDA Start: 06-01-2022 CRUCIATE RETAINI NG FEMORAL FDA Start: 06-01-2022 TIBIAL BEARING INSERT-CS FDA Start: 06-01-2022 TIBIAL COMPONENT FDA Start: 06-01-2022 MESH,3D MED WT L EFT LG FDA Start: 11-30-2022 Goals Date Patient Goal Desired Activity /State Personal health goal Functional Status Date Assessment Result Facility 02-16-2025 Functional status 110/65 [facility] 02-16-2025 Vital signs 58 02/16/2025 9: 33 AM EST Bess Mackey, SHAHANA [facility] Work Phone: 02-16-2025 [facility] Work Phone: 01-18-2025 Functional status [facility] 01-18-2025 [facility] Work Phone: Mental Status Date Assessment Result Facility 11-30-2022 Cognitive function Voice/Name;Touch/Catrina rae [facility] Work Phone: 06-01-2022 Cognitive function Voice/Name [facility] Work Phone: Clinical Notes 04-12-2006 to 02-16-2025 Joselyn Barrios APRN-STUDY ASSISTANT - 02/16/2025 9:30 AM EST Note Date & Type Note Facility 02-16-2025 History of Present illness Narrative Images from the original note were not included. [facility] NOTE: Name: Jayden Carpio, 69 y.o. CSN:[id number] ALL: Allergies[1] Chief Complaint: Tick Removal (Noticed on Wednesday on groin area) Encounter Date: 02/16/2025 HPI: The history was obtained from the patient. Jayden is a 69 y.o. male, who presents with a chief complaint of tick bite to the left groin, was noticed 3 days ago after being outside. Reports the tick was removed at home using tweezers but is concerned about possible infection or Lyme disease. Since removal notes mild erythema migrans rash at the bite site but denies fever, chills, fatigue, headache, joint pain. No prior history of Lyme disease or other tick-borne illnesses. Denies recent travel outside of usual geographic area. No history of immunodeficiency. PMHx: Medical History[2] Current Medications[3] PMSx: Surgical History[4] Fam Hx: Family History[5] SOC. Hx: Social History Socioeconomic History Marital status: Spouse name: Not on file Number of children: Not on file Years of education: Not on file Highest education level: Not on file Occupational History Not on file Tobacco Use Smoking status: Not on file Smokeless tobacco: Not on file Substance and Sexual Activity Alcohol use: Not on file Drug use: Not on file Sexual activity: Not on file Other Topics Concern Not on file Social History Narrative Not on file Social Drivers of Health Financial Resource Strain: Not on file Food Insecurity: Not on file Transportation Needs: Not on file Physical Activity: Not on file Stress: Not on file Social Connections: Not on file Intimate Partner Violence: Not on file Housing Stability: Not on file Vitals: 02/16/25 0933 BP: 110/65 Pulse: 58 Resp: 15 Temp: 36.3 C (97.4 F) SpO2: 95% Physical Exam Vitals and nursing note reviewed. Constitutional: General: He is not in acute distress. Appearance: Normal appearance. He is not ill-appearing. HENT: Head: Normocephalic and atraumatic. Mouth/Throat: Mouth: Mucous membranes are moist. Cardiovascular: Rate and Rhythm: Normal rate and regular rhythm. Heart sounds: Normal heart sounds. Pulmonary: Effort: Pulmonary effort is normal. Breath sounds: Normal breath sounds. Abdominal: General: Bowel sounds are normal. Skin: General: Skin is warm and dry. Capillary Refill: Capillary refill takes less than 2 seconds. Neurological: Mental Status: He is alert and oriented to person, place, and time. I did personally review Jayden's past medical history, surgical history, social history, as well as family history (when relevant). In this case, I also oversaw the his drug management by reviewing his medication list, allergy list, as well as the medications that I prescribed during the UC course and/or recommended as an out-patient (including possible OTC medications such as acetaminophen, NSAIDs , etc). After reviewing the items above, I did look at previous medical documentation, such as recent hospitalizations, office visits, and/or recent consultations with PCP/specialist. SDOH: Another factor that I considered in Jayden's care was his Social Determinants of Health (SDOH). During this UC encounter, he did have social determinants of health. Those SDOH influencing Jayden's care are: none UC COURSE/MEDICAL DECISION MAKING: Jayden is a 69 y.o., who presents with a working diagnosis of 1. Erythema migrans (Lyme disease) with a differential to include: atopic dermatitis (eczema), maculopapular drug eruptions, contact dermatitis, insect bites, erythema multiforme, and pityriasis rosea Plan: Doxycycline 1 tab twice daily for the next 10 days Lyme titer labs to be completed at patient's convenience Return to urgent care, primary care provider, or emergency department with worsening symptoms No red flags on exam. Plan of care reviewed with patient, agreeable to discharge Kasandra Barrios DNP Advanced Practice Provider [facility] Please note: While the patient may or may not have received printed discharge paperwork, all relevant medical findings, test results, and treatment details are accessible through the electronic medical record system. The patient is encouraged to review their chart via the patient portal for comprehensive information and follow-up instructions. [1] No Known Allergies [2] No past medical history on file. [3] Current Outpatient Medications Medication Sig Dispense Refill apixaban (Eliquis) 5 mg tablet Take 1 tablet (5 mg) by mouth 2 times a day. atorvastatin (Lipitor) 40 mg tablet Take 1 tablet (40 mg) by mouth once daily. furosemide (Lasix) 40 mg tablet Take 1 tablet (40 mg) by mouth once daily. methylPREDNISolone (Medrol Dospak) 4 mg tablets Take as directed on package. 21 tablet 0 multivitamin tablet Take 1 tablet by mouth once daily. ramipril (Altace) 10 mg capsule Take 1 capsule (10 mg) by mouth once daily. tamsulosin (Flomax) 0.4 mg 24 hr capsule Take 1 capsule (0.4 mg) by mouth once daily in the evening. Take before meals. doxycycline (Vibramycin) 100 mg capsule Take 1 capsule (100 mg) by mouth 2 times a day for 10 days. Take with at least 8 ounces (large glass) of water, do not lie down for 30 minutes after 20 capsule 0 No current facility-administered medications for this visit. [4] No past surgical history on file. [5] No family history on file. documented in this encounter [facility] Work Phone: 01-29-2025 Progress note [facility] 01-24-2025 Note HNO ID: [id number] Author: REYMUNDO GARCIA MD Service: ? Author Type: Physician Type: Progress Notes Filed: 01/24/2025 12:28 Note Text: (Elements copied from my note dated July 12, 2024, have been reviewed and updated where appropriate, and all reflect current assessment and medical decision making from today's encounter, January 24, 2025) HISTORY OF PRESENT ILLNESS: Jayden Carpio is a 69 year old male mitral valve replacement April 2006 we note chronic mild anemia and thrombocytopenia since then. He has been followed by Dr Castro, recently SPEP was done, shows low level M spike. We discussed the possible issue with this, also reviewed other labs, Cr 1.48 in May 2024, otherwise chemistries were normal. He feels well, notes no clinical changes other than recent onset atrial fibrillation. On eliquis and asa. Here for follow up of mgus Reviewed labs CLINICAL IMPRESSION: Chronic mild anemia, thrombocytopenia. Chronic and stable Monoclonal gammopathy, no CRAB RECOMMENDATION/PLAN: 1. Labs and follow up in 6 months. Written and verbal health teaching given to patient, patient verbalizes understanding and agrees with treatment plan. PAST MEDICAL HISTORY Diagnosis Date Atrial flutter (HCC) 08/18/2007 S/P Ablation x 4, 5-07 9-07, 10-, 2-08 BPH (benign prostatic hyperplasia) Hypertension PMH - PAST MEDICAL HISTORY OF No prolonged adult or childhood illness TIA (transient ischemic attack) Unspecified transient cerebral ischemia 08/18/2007 Episode 3-07 PAST SURGICAL HISTORY Procedure Laterality Date APPENDECTOMY HERNIA REPAIR HX 2022 PAST SURGICAL HISTORY OF Cardiac Ablation 02/05/07, 06/08/07, 2008 REPAIR OF KNEE Right REPLACEMENT MITRAL VALVE W/CARDIOPULMONARY BYP 04/12/2006 Mitral valve repair RPR 1ST INGUN HRNA AGE 5 YRS/> REDUCIBLE 08/22/2009 Right inguinal FAMILY HISTORY Problem Relation Age of Onset COPD Father Prostate Cancer Father other (good health [Other]) Sister living other (good health [Other]) Brother living Social History Tobacco Use Smoking status: Never Smokeless tobacco: Never Substance Use Topics Alcohol use: Yes Comment: 2-3 glasses a wine over a week ALLERGIES: ALLERGIES No Known Allergies CURRENT OUTPATIENT MEDICATIONS: aspirin, enteric coated (ASPIRIN, ENTERIC COATED) 81 mg EC tablet Take 81 mg by mouth once daily. apixaban (ELIQUIS) 5 mg tab(s) Take 5 mg by mouth two times a day. furosemide (LASIX) 40 mg tablet Take 40 mg by mouth once daily. ramipril (ALTACE) 5 mg capsule Take 5 mg by mouth once daily. tamsulosin (FLOMAX) 0.4 mg Take 0.4 mg by mouth once daily. multivitamin tablet Take 0.5 tablets by mouth two times a day. carvedilol(COREG 25 MG TAB) Take one(1) tablet twice daily. ramipril(ALTACE 10 MG CAP) one tablet twice a day (Patient not taking: Reported on 07/12/2024) omega-3 fatty acids/vitamin e(FISH OIL 1,000 MG CAP) one capsule twice a day (Patient not taking: Reported on 07/12/2024) ASPIRIN 325 MG TAB Take one(1) tablet daily. (Patient not taking: Reported on 07/12/2024) warfarin sodium(COUMADIN 7.5 MG TAB) Take one(1) tablet daily. (Patient not taking: Reported on 07/12/2024) REVIEW OF SYSTEMS: GENERAL: No fever, night sweats, weight loss or malaise. All other reviewed and negative other than HPI. PHYSICAL EXAMINATION: VITAL SIGNS: BP 112/68 Pulse 67 Temp 99 Wt 197 lb 8 oz (89.6kg) SpO2 98% GENERAL APPEARANCE: Well appearing, in no acute distress, alert and oriented x3, well-hydrated, well nourished. I spent a total of 30 minutes on the date of the service which included preparing to see the patient, [id number] patient care, completing clinical documentation, obtaining and/or reviewing separately obtained history, counseling and educating the patient/family/caregiver, ordering medications, tests, or procedures, independently interpreting results (not separately reported), and communicating results to the patient/family/caregiver. Electronically Signed: Reymundo Garcia MD January 24, 2025 [facility] 01-19-2025 Evaluation note Diagnosis Onset Date Resolution Cardiomyopathy in other diseases classified elsewhere chronic January 19, 2025 9:12am H/O mitral valve repair April, chronic January 19, 2025 9:12am History of cardiac radiofrequency ablation January, chronic January 19, 2025 9:12am Paroxysmal atrial fibrillation chronic January 19, 2025 9:12am Pure hypercholesterolemia chronic January 19, 2025 9:12am Sleep apnea chronic January 29, 2025 8:27am [facility] Work Phone: [phone] 178-869610-10-2025 Progress [facility] [address] [place], [place] [address] OFFICE VISIT Date of Service: 01/19/25 MR#: [id number] Acct: [id number] Name: PRETTYJAYDEN RUSSEL Rep #: [id number] : 1955 Provider: JOE Blanco Age/Sex: 69/M Location: [facility] Status: Signed HPI HPI History of Present Illness Details: This is a 69-year-old white male who presents to the office today for a cardiovascular follow up visit. 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 He states he is having a cochlear implant in March of this year. From a cardiac standpoint, the patient is doing well. He denies any palpitations, chest pain, pressure or heaviness. He does acknowledge SOB with climbing hills. He does walk 10,0000 steps a day, andstates his SOB is not as noticeable since increasing steps. He denies Orthopnea, and PND. He does not have bleeding issues; no blood in urine, stool, or nosebleeds. He denies any decrease in energy level, myalgias, or claudication. He does not have edema, or sudden weight gain. He does wear compression stockings. He denies lightheadedness, dizziness, syncopal or near syncopal episodes, and headaches. Intake Vital Signs 07/20/24 11:06 01/19/25 07:40 Height 6 ft 3 in 6 ft 3 in Weight: 213 lb 196 lb BMI 26.6 24.5 BP 119/67 115/71 Blood Pressure Location Rt brachial Lt brachial Position Sitting Sitting Respiration 18 18 Pulse 62 76 Pulse Source Monitor Monitor Pulse Oximetry (%) 95 99 Oxygen Delivery Method room air Intake Visit Reasons: 6 M FU Nephrologist Required: No Is patient in pain?: No Allergies No Known Allergies Allergy (Verified 01/19/25 09:37) Medications ?Medication ?Instructions ?Recorded ?Confirmed ?Type multivitamin 0.5 ea PO BID 02/17/1701/19 History tamsulosin 0.4 mg capsule 0.4 mg PO DAILY 06/11/2302/03 History atorvastatin 40 mg tablet 80 mg (2 x 40 mg) PO QHS #90 tabs 09/18/23 01/19/25 Rx aspirin 81 mg tablet,delayed 81 mg PO QDAY #90 tabs 01/19/25 Rx release (Adult Low Dose Aspirin) apixaban 5 mg tablet (Eliquis) 5 mg PO BID #180 TABLET S 04/20/24 01/19/25 Rx carvedilol 25 mg tablet 25 mg PO BID #180 tabs 04/2801/19/25 Rx furosemide 40 mg tablet (Lasix) 40 mg PO DAILY #90 tab s 04/28/24 01/19/25 Rx acetaminophen 325 mg tablet 325 mg Tablet#2 Samples 01/19/25 Sample (Tylenol) ramipril 5 mg capsule 10 mg PO QDAY 01/19/2501/19 History Ejection fraction %: 60 Have you fallen in the past year?: No Nurse's Note: cochlear implant in March [facility] Medical History MGUS (monoclonal gammopathy of unknown significance) Enlarged prostate History of edema Left inguinal hernia Wears hearing aid Wears glasses Alcohol use Arthritis Bladder disease High cholesterol Non-smoker CPAP (continuous positive airway pressure) dependence History of pain when walking History of echocardiogram History of stress test Hypertension Cardiology follow-up encounter Nonrheumatic mitral (valve) insufficiency Paroxysmal atrial flutter Pure hypercholesterolemia Palpitations radiofrequency ablation Hyperlipidemia Paroxysmal atrial fibrillation Nonrheumatic mitral (valve) prolapse Pulmonary hypertension Cardiomyopathy Tricuspid valve disorder Atrial fibrillation and flutter Surgical History Status post hernia repair History of cardiac radiofrequency ablation (~01/26/07) Hx of appendectomy H/O mitral valve repair (~05/05/06) Family History Father Hypertension Cancer prostate Afib Social History household members: spouse housing: house Smoking Status: Never smoker alcohol intake: current alcohol intake frequency: a few times a week substance use type: does not use caffeine: Yes (socially) what type of physical activity do you participate in: walking frequency: 3-4 times per week duration: 30-45 minutes/day seatbelt use: always do you feel safe at home: Yes ROS Const Const: Negative for fatigue, weakness, headache(s) or frequent falls Eyes Eyes: Negative for blurry vision ENT ENT: Positive for hearing loss; Negative for headache(s), dizziness or Nosebleed/epistaxis Cardio Chest Pain: No Palpitations: No Edema: None Muscle aches with walking: None Additional Details: occasional PVC, not bothersome Resp Respiratory: Positive for SOB with activity; Negative for SOB at rest or SOB orthopnea\SOB lying down GI GI: Negative nausea, vomiting, heartburn, bright, red blood in stools or black,tarry stools : Negative for hematuria Neuro Neuro: Negative for dizziness, lightheadedness, near syncope, syncope, frequent falls, headache(s),weakness or blurry vision Endo Endo: Negative for fatigue Cardiology Exam Const Appearance: cooperative, healthy appearing, comfortable, no acute distress, welldeveloped and well groomed Nutritional Appearance: average body habitus and well nourished Orientation: alert, awake and oriented x3 Head Head: normal to inspection, normocephalic and atraumatic Ears: hearing grossly impaired Nose: external nose normal Eyes Eyelids: eyelids normal Conjunctivae: conjunctivae normal Pupils: PERRL EOM: EOM intact bilaterally Neck Neck: normal visual inspection and full ROM Carotids: normal carotid upstroke Chest Chest inspection: normal inspection of the chest, symmetric chest movement and normal respiratory effort Auscultation: Bilateral: Clear to Auscultation Cardio Palpation: normal PMI Rhythm: irregularly irregular Heart sounds: S1 normal, S2 normal and murmur Murmur: Grade 3/6, holosystolic, LLSB, apex and axilla GI GI: normal to inspection and soft Neuro General: patient alert, patient awake, patient oriented x3 and moves all extremities Skin Skin: no rashes or lesions noted Extremities Pulses: Normal: Right Radial Pulse and Left Radial Pulse Lower Extremity Edema: None: Bilateral Psych Psychological: normal affect Supplemental Info Supplemental Information Echocardiogram 07/04/2024: Status post mitral valve repair with annular plasty ring. The left ventricular ejection fraction is 60%. Normal LV size. Bileaflet diffuse mitral valve thickening. Mild to moderate 1-2+ anteriorly directed mitral valve insufficiency. Transesophageal echocardiogram from 09/27/2023: Interpretation Summary Normal LV size. The left ventricular ejection fraction is 55 %. Status post mitral valve repair. Status post mitral valve repair with annuloplasty ring. Mild-Moderate (1-2+) eccentric mitral valve insufficiency. No evidence of thrombogenic or embolic source. Echocardiogram from 07/14/2023: Interpretation Summary Status post mitral valve repair. Normal LV size. Left ventricular systolic function is normal. The estimated ejection fraction is 55 %. Mild-Moderate (1-2+) anteriorly directed mitral valve insufficiency. Mild (1+) aortic valve insufficiency. Pulmonary artery systolic pressure is 34 mmHg. Compared to the previous echocardiogram the pulmonary pressures are much improved. Holter monitor from 06/07/2024: Atrial fibrillation with occasional PVCs Minimum heart rate 29 bpm. Average heart rate 61 bpm. Maximum heart rate 129 bpm. Ventricular ectopy 0.3%. Supraventricular ectopy 0.0%. Longest R to R interval 3.6 seconds. Atrial fibrillation 99.6%. No ventricular tachycardia. The patient kept 24-hour diary and noted palpitations and irregular heartbeats which correlated with atrial fibrillation and occasional ectopy. Carotid Duplex Ultrasound from 09/09/2023: Interpretation Summary Mild (<50%) stenosis right extracranial internal carotid. Mild (<50%) stenosis left extracranial internal carotid. Patent and antegrade vertebrals bilaterally. Labs: LDL Cholesterol, (0-130) 62 mg/dL HDL Cholesterol, (40-) 46 mg/dL Cholesterol, (200) 122 mg/dL Triglycerides, (-199) 70 mg/dL Diagnostics: Electrocardiogram Echocardiogram Transesophageal Echocardiogram Chest X-Ray Chest CTA Abdomen/Pelvis CT Carotid Duplex Past Visits: Cardiology Visit Today Assessment and Plan Assessment and Plan (1) H/O mitral valve repair: Status: Chronic Comment: mini mitral valve repair #36 ring 05/05/06 Plan: Patient has a history of mitral valve repair in 2006. Patient's most recent echocardiogram from 06/30/2024 demonstrated ejection fraction of 60%, status postmitral valve repair with annuloplasty ring,and mild to moderate anteriorly directed mitral valve insufficiency. He appears stable at this time, and deniesany recent symptoms or events. We will order an echocardiogram at his next office visit to reassess his mitral valve. He will continue AHA antibiotic prophylaxis. (2) Cardiomyopathy in other diseases classified elsewhere: Status: Chronic Plan: Patient has a history of cardiomyopathy. His echocardiogram from 06/30/2024 demonstrated an ejectionfraction of 60%. This has improved. At this time, he will continue carvedilol 25mg twice daily, Lasix 40 mg daily and ramipril 5 mg daily. He will continue to monitor for any concerning symptoms. (3) Paroxysmal atrial fibrillation: Status: Chronic Plan: Patient has a history of paroxysmal atrial fibrillation/flutter. This appears amy more persistent.He has undergone multiple EPS/RFA procedures. He appears to be in an irregularly irregular rhythm on exam. His heart rate is well controlledat this time. His most recent Holter monitor from May 2024 demonstrated atrial fibrillation 99.9% of the time. His most recent echocardiogram was reviewed, and did show severely enlarged left atrium, and moderately enlarged right atrium. This was reviewed with him. He will continue Eliquis 5mg twice daily, and carvedilol 25mg twice daily. He will continue to monitor for any concerning symptoms of atrial fibrillation. (4) History of cardiac radiofrequency ablation: Status: Chronic Comment: Ablation of SVT 01/26/07 Plan: He has undergone multiple EPS/RFA procedures in the past. At this time, he will continue with his current medical therapy. (5) Pure hypercholesterolemia: Status: Chronic Plan: Patient has a history of hypercholesterolemia. His PCP monitors this. His most recent lipid panel from 09/18/2023: Cholesterol 122, HDL 46, LDL 62, [id number]. He will continue atorvastatin 80 mg daily, along with aggressive risk factor and lifestyle modifications. A copy of his most recent lipid panel wouldbe greatly appreciated for continuity of care. Medications: Changed From ramipril 5 mg PO QDAY 90 caps 3RF To ramipril 10 mg PO QDAY Plan Details Additional Comments: Patient will follow-up in 6 months, or sooner if needed. Thank you for allowing me to participate in the care of your patient. Please don't hesitate to callif any issues arise. This note was generated using a voice recognition system and there may be incorrect words, spelling, or punctuation that were not noted when reviewing theoffice note prior to saving. Portions of this documentation were copied and pasted from previous office visitnotes to provide a cohesive continuity of the history. The note has been reviewed, edited, and updated, as necessary. Follow Up: Keep as is ([facility]) Coding Level of Care Code Off vis,est,level 4 Diagnoses H/O mitral valve repair Z98.890 Cardiomyopathy in other diseases classified elsewhere I43 Paroxysmal atrial fibrillation I48.0 History of cardiac radiofrequency ablation Z98.890 Pure hypercholesterolemia E78.00 Coding Level of Care Code Off vis,est,level 4 Diagnoses H/O mitral valve repair Z98.890 Cardiomyopathy in other diseases classified elsewhere I43 Paroxysmal atrial fibrillation I48.0 History of cardiac radiofrequency ablation Z98.890 Pure hypercholesterolemia E78.00 Clinical Quality Measures Falls Risk Screening/Assistive Devices Have you fallen in the past year?: No Cardiac Ejection fraction %: 60 01/19/25 2215 NEUROLOGY PHYSICIAN ASSISTANT NEUROLOGY PHYSICIAN ASSISTANT-C> Date _ Laura Blanco NEUROLOGY PHYSICIAN ASSISTANT NEUROLOGY PHYSICIAN ASSISTANT-C Cosigner Signature: Date (if applicable) CC: Dr. Mukul Castro MD ~ [facility]10-09-2025 History of Present illness Narrative* Merari Covarrubias MD - 01/18/2025 11:45 AM EDT History of present illness: Jayden Carpio is a 69 y.o. male is referred for possible cochlear implant for rehabilitation of progressive hearing loss. Patient is aided in both ears but continues to struggle with clarity. He struggles the most in conversing with his in the car as he relies on lip reading and he can't do that while driving. He reports that hearing in the left is worse than the right. 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 He was seen by Dr. Antonella HORTA previously for his hearing lossand he is interested in having an AB device in the left ear. He has no past history of otologic surgeries. There is family history of hearing loss in both his parents. Patient has a Holter monitor and is in A. Fib 90-95% of the time. He is currently on Eliquis and Aspirin 81 mg. The patient's current medications, active allergies and list of medical problems were reviewed in the EHR and confirmed electronically there are as follows; Allergies: Allergies[1] Current list of medications: Current Medications[2] Problem list: Problem List[3] Medical history: Medical History[4] Surgical history: Surgical History[5] Family history: Family History[6] Social history: Social History[7] Physical Examination: CONSTITUTIONAL: No acute distress VOICE: No hoarseness or other abnormality RESPIRATION: Breathing comfortably, no stridor CV: No clubbing/cyanosis/edema in hands EYES: EOM intact, sclera clear NEURO: Alert and oriented times 3, Cranial nerves II-XII grossly intact and symmetric bilaterally HEAD AND FACE: Symmetric facial features, no masses or lesions RIGHT EAR: Normal external ear and post auricular area, no visible lesions, external auditory canalpatent, tympanic membrane intact, no retraction, no signs of mass, effusion, or infection within the middle ear LEFT EAR: Normal external ear and post auricular area, no visible lesions, external auditory canal patent, tympanic membrane intact, no retraction, no signs of mass, effusion, or infection within themiddle ear NOSE: Deferred due to Covid-19 pandemic. ORAL CAVITY/OROPHARYNX/LIPS: Deferred due to Covid-19 pandemic. PHARYNGEAL LIM: Deferred due to Covid-19 pandemic. NECK/LYMPH: No LAD, no thyroid masses, trachea midline SKIN: Neck and facial skin is without scar or injury PSYCH: Alert and oriented with appropriate mood and affect Diagnostic testing: Audiometry: CI evaluation: Listening Condition Aided thresholds 250-6000 Hz Right CRUZ Only; left plugged 15-40 dB HL Left CRUZ Only; right masked 20-NR dB HL CNC Words Listening Condition Today (12/19/2024) Right CRUZ Only; left plugged 52% Left CRUZ Only; right masked 0% [employer] Sentences in Quiet Listening Condition Today (12/19/2024) Right CRUZ Only; left plugged 89% Left CRUZ Only; right masked 3% [employer] Sentences + 10 SNR (S0N0) Listening Condition Today (12/19/2024) Right CRUZ Only; left plugged 47% Left CRUZ Only; right plugged 4% CT findings from September 2023 reveal: well pneumatized middle ear and mastoid. Mastoid is appropriate size. No evidence of inner ear malformaton. Ossicles appear to be intact. Certainly this is somewhatlimited resolution, but sufficient. I personally reviewed the available patient's external record and independently reviewed their audiometric testing [and] radiographic imaging through the appropriate viewing software as detailed in my note and agree with the detailed report. Impression: bilateral Sensorineural hearing loss Recommendation: We reviewed the audiogram together and the patient meets the audiometric criteria for cochlear implantation. The patient appears to have realistic expectations and are motivated. The procedure was discussed and the risks reviewed included but not limited to bleeding, infection, device failure, dizzi ness, tinnitus, facial nerve injury and taste disturbance. The ear selected for implantation is theleft ear. Will proceed with [facility] [employer]. By signing my name below, ISarbjit , Scribe attest that this documentation has been preparedunder the direction and in the presence of Merari Covarrubias MD Scribe Attestation By signing my name below, IMarlen , Scribe attest that this documentation has been prepared under the direction and in the presence of Merari Covarrubias MD. [1] No Known Allergies [2] Current Outpatient Medications Medication Sig Dispense Refill apixaban (Eliquis) 5 mg tablet Take 1 tablet (5 mg) by mouth 2 times a day. atorvastatin (Lipitor) 40 mg tablet Take 1 tablet (40 mg) by mouth once daily. furosemide (Lasix) 40 mg tablet Take 1 tablet (40 mg) by mouth once daily. methylPREDNISolone (Medrol Dospak) 4 mg tablets Take as directed on package. 21 tablet 0 multivitamin tablet Take 1 tablet by mouth once daily. ramipril (Altace) 10 mg capsule Take 1 capsule (10 mg) by mouth once daily. tamsulosin (Flomax) 0.4 mg 24 hr capsule Take 1 capsule (0.4 mg) by mouth once daily in the evening. Take before meals. No current facility-administered medications for this visit. [3] Patient Active Problem List Diagnosis Atrial flutter (Multi) Paroxysmal atrial flutter (Multi) Cardiac device in situ History of mitral valve repair History of radiofrequency ablation (RFA) procedure for cardiac arrhythmia Left inguinal hernia Lightheadedness Mitral valve disease Palpitations Primary idiopathic hypertrophic cardiomyopathy (Multi) Pulmonary hypertension (Multi) Pure hypercholesterolemia Dyspnea on exertion Shortness of breath Sleep apnea Sudden visual loss of left eye Cerebral ischemia Cerebrovascular disease Appendicitis Anemia Abnormal result of cardiovascular function study [4] No past medical history on file. [5] No past surgical history on file. [6] No family history on file. [7] [facility] Work Phone: 1(412) 345-447704-15-2025 Telephone encounter Note* Telephone Encounter - Lydia Juarez - 07/25/2024 2:19 PM EDT Scheduled with patient [facility] Work Phone: 1(191) 841-368904-15-2025 Miscellaneous Notes* Telephone Encounter - Lydia Juarez - 07/25/2024 2:19 PM EDT Scheduled with patient * Telephone Encounter - Alice Madden - 07/24/2024 4:02 PM EDT Lvm for patient to return the call Alice Madden * Telephone Encounter - Haylie Moore - 07/19/2024 11:29 AM EDT I called and left a message for Jayden to call us back to schedule the below requested appointments Maricarmen pt needs MGUS labs in 6 months, follow up 1 week after labs, in person preferred. Per Dr.Abramovich Haylie Duvall * Telephone Encounter - Reymundo Garcia MD - 07/19/2024 11:03 AM EDT Called patient. Left VM re labs and x ray results. All appear consistent with MGUS. Will plan recheck of [facility]US labs in 6 months. Reymundo Garcia MD July 19, 20[address] Telephone encounter Note * Telephone Encounter - Alice Madden - 07/24/2024 4:02 PM EDT Lvm for patient to return the call Alice Madden [facility]04-09-2025 Telephone encounter Note* Telephone Encounter - Haylie Moore - 07/19/2024 11:29 AM EDT I called and left a message for Jayden to call us back to schedule the below requested appointments Maricarmen pt needs [facility]US labs in 6 months, follow up 1 week after labs, in person preferred. Per Dr.Abramovich Haylie Rockwell [facility]04-09-2025 Telephone encounter Note* Telephone Encounter - Reymundo Garcia MD - 07/19/2024 11:03 AM EDT Called patient. Left VM re labs and x ray results. All appear consistent with MGUS. Will plan recheck of [facility]US labs in 6 months. Reymundo Garica MD July 19, [address] [facility]04-02-2025 History of Present illness Narrative* Melisa Brooks, RT(R) - 07/12/2024 11:30 AM EDT Radiology Service Progress Note PATIENT NAME: Jayden Carpio DATE OF SERVICE: July 12, 2024 TIME: 11:07 AM PATIENT IDENTITY VERIFICATION COMPLETED USING TWO (2) IDENTIFIERS: Name and Date of confirmedby patient verbally. FALL SCREENING: Has the patient had 2 falls in the last year or 1 fall with injury or currently using an Ambulatory Assistive Device (Walker, Cane, Wheelchair, Crutches, etc.)? No PATIENT GENDER DATA: Assigned male at PATIENT RELEVANT IMPLANT DATA REVIEWED: Not Applicable PATIENT PRESENTS WITH AN IMPLANTABLE OR ATTACHED COMMUNITY CASE MANAGER: No RADIOLOGY DEPARTMENT: General X-ray: Exam(s) Completed: Bone Survey PERIPHERAL IV DATA: Not applicable SIGNED BY: RT Rao(Kristy) July 12, 2024 11:07 AM documented in this encounter[facility]04-[facility]-2025 NoteHNO ID: [id number] Author: MELISA BROOKS RT(R) Service: Radiology Author Type: Technologist Type: Progress Notes Filed: 07/12/2024 11:36 Note Text: Radiology Service Progress Note PATIENT NAME: Jayden Carpio DATE OF SERVICE: July 12, 2024 TIME: 11:07 AM PATIENT IDENTITY VERIFICATION COMPLETED USING TWO (2) IDENTIFIERS: Name and Date of confirmed by patient verbally. FALL SCREENING: Has the patient had 2 falls in the last year or 1 fall with injury or currently using an Ambulatory Assistive Device (Walker, Cane, Wheelchair, Crutches, etc.)? No PATIENT GENDER DATA: Assigned male at PATIENT RELEVANT IMPLANT DATA REVIEWED: Not Applicable PATIENT PRESENTS WITH AN IMPLANTABLE OR ATTACHED COMMUNITY CASE MANAGER: No RADIOLOGY DEPARTMENT: General X-ray: Exam(s) Completed: Bone Survey PERIPHERAL IV DATA: Not applicable SIGNED BY: RT Rao(R) July 12, 2024 11:[address] [facility]04-02-2025 NoteHNO ID: [id number] Author: REYMUNDO GARCIA MD Service: ? Author Type: Physician Type: Progress Notes Filed: 07/12/2024 11:15 Note Text: HISTORY OF PRESENT ILLNESS: Jayden Carpio is a 68 year old male mitral valve replacement April 2006 we note chronic mild anemia and thrombocytopenia since then. He has been followed by Dr Castro, recently SPEP was done, shows low level M spike. We discussed the possible issue with this, also reviewed other labs, Cr 1.48 in May 2024, otherwise chemistries were normal. He feels well, notes no clinical changes other than recent onset atrial fibrillation. On eliquis and asa. CLINICAL IMPRESSION: Chronic mild anemia, thrombocytopenia. Monoclonal gammopathy RECOMMENDATION/PLAN: 1. Labs, osseous survey as ordered 2. We will follow up by phone next week for review of results, plan follow up. Written and verbal health teaching given to patient, patient verbalizes understanding and agrees with treatment plan. PAST MEDICAL HISTORY Diagnosis Date Atrial flutter (HCC) 08/18/2007 S/P Ablation x 4, 5-07 9-07, 10-07, 2-08 BPH (benign prostatic hyperplasia) Hypertension PMH - PAST MEDICAL HISTORY OF No prolonged adult or childhood illness TIA (transient ischemic attack) Unspecified transient cerebral ischemia 08/18/2007 Episode 3-07 PAST SURGICAL HISTORY Procedure Laterality Date APPENDECTOMY HERNIA REPAIR HX 2022 PAST SURGICAL HISTORY OF Cardiac Ablation 02/05/07, 06/08/07, 2008 REPAIR OF KNEE Right REPLACEMENT MITRAL VALVE W/CARDIOPULMONARY BYP 04/12/2006 Mitral valve repair RPR 1ST INGUN HRNA AGE 5 YRS/> REDUCIBLE 08/22/2009 Right inguinal FAMILY HISTORY Problem Relation Age of Onset COPD Father Prostate Cancer Father other (good health [Other]) Sister living other (good health [Other]) Brother living Social History Tobacco Use Smoking status: Never Smokeless tobacco: Never Substance Use Topics Alcohol use: Yes Comment: 2-3 glasses a wine over a week ALLERGIES: ALLERGIES No Known Allergies CURRENT OUTPATIENT MEDICATIONS: aspirin, enteric coated (ASPIRIN, ENTERIC COATED) 81 mg EC tablet Take 81 mg by mouth once daily. apixaban (ELIQUIS) 5 mg tab(s) Take 5 mg by mouth two times a day. furosemide (LASIX) 40 mg tablet Take 40 mg by mouth once daily. ramipril (ALTACE) 5 mg capsule Take 5 mg by mouth once daily. tamsulosin (FLOMAX) 0.4 mg Take 0.4 mg by mouth once daily. multivitamin tablet Take 0.5 tablets by mouth two times a day. carvedilol(COREG 25 MG TAB) Take one(1) tablet twice daily. ramipril(ALTACE 10 MG CAP) one tablet twice a day (Patient not taking: Reported on 07/12/2024) omega-3 fatty acids/vitamin e(FISH OIL 1,000 MG CAP) one capsule twice a day (Patient not taking: Reported on 07/12/2024) ASPIRIN 325 MG TAB Take one(1) tablet daily. (Patient not taking: Reported on 07/12/2024) warfarin sodium(COUMADIN 7.5 MG TAB) Take one(1) tablet daily. (Patient not taking: Reported on 07/12/2024) REVIEW OF SYSTEMS: GENERAL: No fever, night sweats, weight loss or malaise. All other reviewed and negative other than HPI. PHYSICAL EXAMINATION: VITAL SIGNS: BP 107/64 Pulse 64 Temp (Src) 98.6 (Temporal) Ht 6' 3.75 (1.92m) Wt 210 lb (95.3kg) SpO2 100% BMI 25.73 kg/(m2). GENERAL APPEARANCE: Well appearing, in no acute distress, alert and oriented x3, well-hydrated, well nourished. I spent a total of 45 minutes on the date of the service which included preparing to see the patient, [id number] patient care, completing clinical documentation, obtaining and/or reviewing separately obtained history, counseling and educating the patient/family/caregiver, ordering medications, tests, or procedures, independently interpreting results (not separately reported), and communicating results to the patient/family/caregiver. Electronically Signed: Reymundo Garcia MD July 12, 2024 10:[address] [facility]04-02-2025 History of Present illness Narrative* Reymundo Garcia MD - 07/12/2024 10:40 AM EDT HISTORY OF PRESENT ILLNESS: Jayden Carpio is a 68 year old male mitral valve replacement April2006 we note chronic mild anemia and thrombocytopenia since then. He has been followed by Dr Castro,recently SPEP was done, shows low level M spike. We discussed the possible issue with this, also reviewed other labs, Cr 1.48 in May 2024, otherwise chemistries were normal. He feels well, notes no clinical changes other than recent onset atrial fibrillation. On eliquis and asa. CLINICAL IMPRESSION: Chronic mild anemia, thrombocytopenia. Monoclonal gammopathy RECOMMENDATION/PLAN: 1. Labs, osseous survey as ordered 2. We will follow up by phone next week for review of results, plan follow up. Written and verbal health teaching given to patient, patient verbalizes understanding and agrees with treatment plan. PAST MEDICAL HISTORY Diagnosis Date Atrial flutter (HCC) 08/18/2007 S/P Ablation x 4, 5-07 9-07, 10-07, 2-08 BPH (benign prostatic hyperplasia) Hypertension PMH - PAST MEDICAL HISTORY OF No prolonged adult or childhood illness TIA (transient ischemic attack) Unspecified transient cerebral ischemia 08/18/2007 Episode 3-07 PAST SURGICAL HISTORY Procedure Laterality Date APPENDECTOMY HERNIA REPAIR HX 2022 PAST SURGICAL HISTORY OF Cardiac Ablation 02/05/07, 06/08/07, 2008 REPAIR OF KNEE Right REPLACEMENT MITRAL VALVE W/CARDIOPULMONARY BYP 04/12/2006 Mitral valve repair RPR 1ST INGUN HRNA AGE 5 YRS/> REDUCIBLE 08/22/2009 Right inguinal FAMILY HISTORY Problem Relation Age of Onset COPD Father Prostate Cancer Father other (good health [Other]) Sister living other (good health [Other]) Brother living Social History Tobacco Use Smoking status: Never Smokeless tobacco: Never Substance Use Topics Alcohol use: Yes Comment: 2-3 glasses a wine over a week ALLERGIES: ALLERGIES No Known Allergies CURRENT OUTPATIENT MEDICATIONS: aspirin, enteric coated (ASPIRIN, ENTERIC COATED) 81 mg EC tablet Take 81 mg by mouth once daily. apixaban (ELIQUIS) 5 mg tab(s) Take 5 mg by mouth two times a day. furosemide (LASIX) 40 mg tablet Take 40 mg by mouth once daily. ramipril (ALTACE) 5 mg capsule Take 5 mg by mouth once daily. tamsulosin (FLOMAX) 0.4 mg Take 0.4 mg by mouth once daily. multivitamin tablet Take 0.5 tablets by mouth two times a day. carvedilol(COREG 25 MG TAB) Take one(1) tablet twice daily. ramipril(ALTACE 10 MG CAP) one tablet twice a day (Patient not taking: Reported on 07/12/2024) omega-3 fatty acids/vitamin e(FISH OIL 1,000 MG CAP) one capsule twice a day (Patient not taking: Reported on 07/12/2024) ASPIRIN 325 MG TAB Take one(1) tablet daily. (Patient not taking: Reported on 07/12/2024) warfarin sodium(COUMADIN 7.5 MG TAB) Take one(1) tablet daily. (Patient not taking: Reported on 07/12/2024) REVIEW OF SYSTEMS: GENERAL: No fever, night sweats, weight loss or malaise. All other reviewed and negative other than HPI. PHYSICAL EXAMINATION: VITAL SIGNS: BP 107/64 Pulse 64 Temp (Src) 98.6 (Temporal) Ht 6' 3.75 (1.92m) Wt 210 lb (95.3kg) SpO2 100% BMI 25.73 kg/(m^2). GENERAL APPEARANCE: Well appearing, in no acute distress, alert and oriented x3, well-hydrated, well nourished. I spent a total of 45 minutes on the date of the service which included preparing to see the patient, [id number] patient care, completing clinical documentation, obtaining and/or reviewing separately obtained history, counseling and educating the patient/family/caregiver, ordering medications, michael ts, or procedures, independently interpreting results (not separately reported), and communicating results to the patient/family/caregiver. Electronically Signed: Reymundo Garcia MD July 12, 2024 10:40 AM documented [facility]-2025 Telephone encounter Note * Telephone Encounter - Alice Madden - 07/11/2024 9:26 AM EDT Spoke to patient and scheduled with Dr. Garcia 07/[address] [facility]04-01-2025 Miscellaneous Notes* Telephone Encounter - Alice Madden - 07/11/2024 9:26 AM EDT Spoke to patient and scheduled with Dr. Garcia 07/12 Alice Madden * Telephone Encounter - Miracle Dugan LPN - 07/10/2024 4:22 PM EDT Records received , waiting for scheduling. Miracle Dugan LPN * Telephone Encounter - Miracle Dugan LPN - 07/07/2024 2:49 PM EDT Spoke with Mukul Castro officeJesica. Informed we need records on this pt. Miracle Dugan LPN * Telephone Encounter - Lydia Juarez - 07/06/2024 3:35 PM EDT Patient called stating Dr. Mukul Castro had sent a referral twice in last two weeks. Patient will have them send again to [id number]. Patient states referral is for abnormal lab. [facility]03-[facility]-2025 Telephone encounter Note * Telephone Encounter - Miracle Dugan LPN - 07/10/2024 4:22 PM EDT Records received , waiting for scheduling. Miracle Dugan LPN [facility]03-28-2025 Telephone encounter Note* Telephone Encounter - Miracle Dugan LPN - 07/07/2024 2:49 PM EDT Spoke with Jesica Hanna. Informed we need records on this pt. Miracle Dugan LPN [facility]03-27-2025 Telephone encounter Note* Telephone Encounter - Lydia Juarez - 07/06/2024 3:35 PM EDT Patient called stating Dr. Mukul Castro had sent a referral twice in last two weeks. Patient will have them send again to 4610. Patient states referral is for abnormal lab. [facility]12-17-2024 Evaluation note* Diagnosis Onset Date Resolution Status Admit Date Cardiomyopathy in other dise ases classified elsewhere chronic March 282023 12:46pm Paroxysmal atrial fibrillation chron ic March 28, 2024 12:46pm Pure hypercholesterolemia chronic March 28, 2024 12:46pm H/O mitral valve repair April, resolved March 28, 2024 12:46pm History of cardiac radiofrequency ablation January, resolved March 28, 2024 12:46pm [facility] Work Phone: 1(858) 861-536011-20-2023 History of Present illness Narrative* CHRISTIANO Francois - 03/01/2023 11:10 AM EST 67 y.o. male presents for evaluation of URI. Symptoms including cough, congestion, body aches, malaise, and headache have been present for 4 days and refractory to OTC meds. No fever, chills, nausea,vomiting, abdominal pain, CP, or SOB. No exacerbating factors. No known COVID 19/flu exposure. Vitals: 03/01/23 1122 BP: 109/63 Pulse: 94 Resp: 18 Temp: 37.2 C (98.9 F) SpO2: 97% No Known Allergies Medication Documentation Review Audit Reviewed by CHRISTIANO Francois (Nurse Practitioner) on 03/01/23 at 1125 Medication Order Taking? Sig Documenting Provider Last Dose Status apixaban (Eliquis) 5 mg tablet [id number] Yes Take 1 tablet (5 mg) by mouth 2 times a day. Historical MD Jeimy Taking Active atorvastatin (Lipitor) 40 mg tablet [id number] Yes Take 1 tablet (40 mg) by mouth once daily. Historical ProviderMD Taking Active furosemide (Lasix) 40 mg tablet [id number] Yes Take 1 tablet (40 mg) by mouth once daily. HistoricalProviMD dara Taking Active multivitamin tablet [id number] Yes Take 1 tablet by mouth once daily. Historical ProviderMD TakingActive ramipril (Altace) 10 mg capsule [id number] Yes Take 1 capsule (10 mg) by mouth once daily. Historical ProviderMD Taking Active tamsulosin (Flomax) 0.4 mg 24 hr capsule [id number] Yes Take 1 capsule (0.4 mg) by mouth once daily in the evening. Take before meals. Historical ProviderMD Active No past medical history on file. No past surgical history on file. ROS See HPI Physical Exam Vitals and nursing note reviewed. Constitutional: General: He is not in acute distress. Appearance: He is normal weight. He is ill-appearing (mildly). He is not toxic-appearing. HENT: Head: Normocephalic and atraumatic. Right Ear: Tympanic membrane, ear canal and external ear normal. Left Ear: Tympanic membrane, ear canal and external ear normal. Nose: Congestion present. Mouth/Throat: Mouth: Mucous membranes are moist. Pharynx: Oropharynx is clear. Eyes: Extraocular Movements: Extraocular movements intact. Conjunctiva/sclera: Conjunctivae normal. Pupils: Pupils are equal, round, and reactive to light. Cardiovascular: Rate and Rhythm: Normal rate and regular rhythm. Pulses: Normal pulses. Heart sounds: Normal heart sounds. Pulmonary: Effort: Pulmonary effort is normal. No respiratory distress. Breath sounds: No stridor. Rhonchi (bilateral bases) present. No wheezing or rales. Lymphadenopathy: Cervical: Cervical adenopathy present. Skin: General: Skin is warm. Capillary Refill: Capillary refill takes less than 2 seconds. Neurological: General: No focal deficit present. Mental Status: He is alert and oriented to person, place, and time. Psychiatric: Mood and Affect: Mood normal. Behavior: Behavior normal. Recent Results (from the past 1 hour(s)) POCT BD Veritor Triplex Ag Collection Time: 03/01/23 12:23 PM Result Value Ref Range POC Triplex SARS-CoV-2 Ag Presumptive negative for Triplex SARS-CoV-2 (no antigen detected) Presumptive negative for Triplex SARS-CoV-2 (no antigen detected) POC Triplex Flu A-Ag Presumptive negative for Triplex FLU A (no antigen detected) Presumptive negative for Triplex FLU A (no antigen detected) POC Triplex Flu B-Ag Presumptive negative for Triplex FLU B (no antigen detected) Presumptive negative for Triplex FLU B (no antigen detected) Assessment/Plan/MDM Jayden was seen today for uri. Diagnoses and all orders for this visit: Acute bronchitis, unspecified organism (Primary) - azithromycin (Zithromax Z-Elian) 250 mg tablet; Take 2 tablets (500 mg) on Day 1, followed by 1 tablet (250 mg) once daily on Days 2 through 5. - methylPREDNISolone (Medrol Dospak) 4 mg tablets; Take as directed on package. - POCT BD Veritor Triplex Ag Encouraged pt to continue otc cold remedies PRN, push by mouth fluids and rest. Patient's clinical presentation is otherwise unremarkable at this time. Patient is discharged with instructions to follow-up with primary care or seek emergency medical attention for worsening symptoms or any new concerns. Cassius Simon CNP [facility] [phone] documented in this [facility] Work Phone: 1(717) 965-660408-21-2023 History and physical note Author Robb Sheridan [facility] November 30, 2022 11:16am Note Date/Time November 30, 2022 11 :16am [facility] Medical Records Department [address] [place] [id number] History & Physical Exam 11/30/22 1114 MR#: [id number] Acct: [id number] Name: JAYDEN CARPIO Rep #:[id number] : 1955 67 From: Robb Rogers PCP: Dr. Mukul Castro MD Status:[facility] Location: [place] [address] History and Physical MR#: [id number] Acct: [id number] Name: JAYDEN CARPIO Rep #: [id number] : 1955 Provider: Dr. Robb Sheridan MD Age/Sex: 67/M Location: [facility] Status: Signed Intake Vital Signs 10/09/2308:24 11/12/2307:35 Height 6 ft 3 in 6 ft 3 in Weight: 197 lb 8 oz 200 lb BMI 24.7 25.0 BP 97/58 L 111/58 L Blood Pressure Location Rt brachial Rt brachial Position Sitting Sitting Respiration 18 18 Pulse 71 Pulse Source Monitor Temp 97.9 F Temp Source Tympanic Pulse Oximetry (%) 97 Oxygen Delivery Method room air Intake Visit Reasons: UPDATE H&P & MRSA SWAB Chief Complaint: update H&P Nephrologist Required: No Is patient in pain?: No Allergies No Known Allergies Allergy (Verified 11/11/22 08:34) Medications multivitamin 0.5 ea PO BID 02/17/17 [History Confirmed 11/11/22] tamsulosin 0.4 mg capsule 0.4 mg PO QHS 05/21/22 [History Confirmed 11/11/22] apixaban 5 mg tablet (Eliquis) 5 mg PO BID #180 tabs 07/14/22 [Rx Confirmed 11/11/22] furosemide 40 mg tablet (Lasix) 40 mg PO DAILY #30 tabs 08/07/22 [Rx Confirmed 11/11/22] atorvastatin 40 mg tablet 40 mg PO QHS #90 tabs 08/13/22 [Rx Confirmed 11/11/22] carvedilol 25 mg tablet 25 mg PO BID #180 tabs 08/13/22 [Rx Confirmed 11/11/22] ramipril 10 mg capsule 10 mg PO DAILY #90 caps 08/13/22 [Rx Confirmed 11/11/22] PFSH Medical History Alcohol use Arthritis Atrial fibrillation and flutter Bladder disease Cardiology follow-up encounter Cardiomyopathy CPAP (continuous positive airway pressure) dependence High cholesterol History of echocardiogram History of pain when walking History of stress test Hyperlipidemia Hypertension Left inguinal hernia Non-smoker Nonrheumatic mitral (valve) insufficiency Nonrheumatic mitral (valve) prolapse Palpitations Paroxysmal atrial fibrillation Paroxysmal atrial flutter Pulmonary hypertension Pure hypercholesterolemia radiofrequency ablation Tricuspid valve disorder Wears glasses Wears hearing aid Surgical History H/O mitral valve repair (~05/05/06) History of cardiac radiofrequency ablation (~01/26/07) Hx of appendectomy Family History Father Hypertension Cancer prostate Afib Social History Smoking Status: Never smoker alcohol intake: current alcohol intake frequency: a few times a week substance use type: does not use caffeine: Yes (socially) what type of physical activity do you participate in: walking frequency: 3-4 times per week duration: 30-45 minutes/day seatbelt use: always do you feel safe at home: Yes HPI HPI HPI: Update: Patient presents for update H&P. He denies any significant health updates. He did complete a CT scan as requested before today's visit. He also confirms that he has completed his moved to his new house and no longer will be needing to lift anything for a while. He reports that his symptoms are stable for his left inguinal hernia and that he is still experiencing bulging that he has to push back in 1-2 times per day. Below is recapitulated from patient's consultation visit 10/10/2022: Patient is a 66-year-old male who presents for complaint of new left groin bulge. He is referred from [facility] urgent care after a recent visit on 10/03/2022. This finding was first noticed by patient approximately 2 weeks ago while he was doing some moving activity as he and his family are transitioning to a new home. Patient states that he feels a twinge of discomfort, but by enlarge he has simply noticed a bulge. He denies any impact to his bowels. Patient gives a history of a prior inguinal hernia repair on the contralateral side with Dr. Herr. Patient is a retired dentist. Patient has no personal history of smoking. Patient has no personal history of recurrent cutaneous infections including staph. He is prescribed Eliquis for history of atrial fibrillation. He also has a diagnosis of pulmonary hypertension which he states pain after he experienced some exertional shortnessof breath while walking his dog, but has not experienced this of late. Although Dr. Carpio is no longer working, he reports that he remains active in physical therapy after having a total knee replacement 4 months ago. He alsostates that he works with a sailing crew and that this activity should be wrapped up by the end of October. Pertinent surgical history includes: Appendectomy with primary umbilical hernia repair in 2018 (patient notes that his right inguinal hernia was performed sometime before this, but is unable to provide an exact date ROS General General: Yes weight change; No appetite, fatigue, colon cancer, breast cancer or weakness HEENT HEENT: No difficulty swallowing, eye injury, eye surgery, swollen glands or hoarseness Endo Endocrine: No thyroid disease, diabetes mellitus, thyroid cancer, Hair loss, heat intolerance or cold intolerance Skin Skin: No rash or changing moles Breast Breast: No left breast lump, right breast lump, nipple discharge, breast pain, abnormal mammogram, abnormal US or breast enlargement Musc Musculoskeletal: No back problems, arthritis, rheumatoid arthritis, gout or joint pain Cardio Cardiovascular: Yes murmur, heart disease and atrial fibrillation; No pacemaker, high blood pressure, heart attack, heart stent, palpitations, shortness of breat with exertion or chest pain Psych Psychiatric: No depression, anxiety or hearing voices Resp Respiratory: No shortness of breath, Yes sleep apnea, No cough, No COPD, No asthma, No emphysema and No wheezing Gastro Gastrointestinal: No abdominal pain, No nausea or vomiting, No diarrhea, No constipation, No blood in stool, No acid reflux, No hemorrhoids, No ulcers, No gallbladder problem and No black,tarry stools [place] Hematologic: No blood thinners, No blood disorders, No bleeding, No anemia and No blood clots Neuro Neurologic: No system reviewed and no additional complaints, except as documented, No as per HPI, No abnormal gait, No abnormal hearing, No abnormal movements, No abnormal speech, No behavioral changes, No burning sensations, No confusion, No convulsions, No disequilibrium, No dizziness, No localized weakness, No frequent falls, No headache(s), No lack of coordination, No loss ofvision, No memory loss, No numbness, No other visual disturbances, No radicular pain, No restless legs, No sensory deficit, No syncope, No tingling, No tremor(s), No weakness and No other Exam Const General: cooperative, comfortable and no acute distress Orientation: alert, awake and oriented x3 Resp Effort & Inspection: normal respiratory effort Other: Left inguinal bulge that is reducible with some discomfort. Palpable indirect inguinal hernia defect Assessment and Plan Assessment and Plan (1) Left inguinal hernia: Status: Acute Comment: This is a 66-year-old male who presents for newly appreciated left inguinal hernia that is minimally symptomatic. Patient with stable symptoms and has now cleared to schedule to be able to abideby lifting restrictions. CT imaging was performed and no hernia was discussed by radiology, however, I see soft tissue adjacent to the spermatic cord on the left which is not present on the right. Patient does have a hernia by exam. Therefore, I recommend proceeding with our original plan of a robot-assisted left inguinal hernia repair with mesh. I briefly reviewed the details of the procedure and Dr. Carpio denies any further questions. A MRSA swab was obtained before our appointment ahead of mesh placement intraoperatively. Plan: ? Plan to proceed with outpatient left robot-assisted inguinal hernia repair with mesh via a transabdominal preperitoneal approach. We will follow-up MRSA swab to be sure patient does not require treatment for staph aureus. I have examined the patient and the H&P has been reviewed. There are no clinicalchanges since date of exam and patient confirms completion of staph eradication protocol. Procedure and post procedure details were briefly reviewed. Neither patient nor spouse offer any further questions. Therefore we will proceed to the operating room for scheduled robotic assisted left inguinal hernia repair with mesh. 11/30/22 1116 <Electronically signed by Robb Sheridan MD> Cosigner Signature (if applicable): CC: Dr. Mukul Castro MD; Dr. Robb Sheridan MD~ Signed [facility] Work Phone: 1(893) 951-290902-20-2023 Procedure [facility] 04-12-2006 Evaluation note* Diagnosis Onset Date Resolution Status Cardiomyopathy in other dise ases classified elsewhere chronic Paroxysmal atrial fibrillation chronic Pure hypercholesterolemia ch ronic H/O mitral valve repair April, res olved History of cardiac radiofrequency ablation January, resolved [facility] Work Phone: 1(652) 645-517801-01-2007 Evaluation note* Diagnosis Onset Date Resolution Status Admit Date Cardiomyopathy in other dise ases classified elsewhere chronic January 9:12am H/O mitral valve repair April, chronic January 19, 2025 9:12am History of cardiac radiofreq uency ablation January, chronic January 19 9:12am Paroxysmal atrial fibrillation chron ic January 19, 2025 9:12am Pure hypercholesterolemia chronic January 19, 2025 9:12am Sleep apnea chronic January 29, 2025 8:27am [facility] Work Phone: Evaluation noteNo assessment information available [facility] Work Phone: Evaluation note* Diagnosis Onset Date Resolution Status Preoperative cardiovascular examination acute Cardiomyopathy in other dise ases classified elsewhere chronic Paroxysmal atrial fibrillation chronic Paroxysmal atrial flutter ch ronic Pure hypercholesterolemia ch ronic H/O mitral valve repair April, res olved History of cardiac radiofrequency ablation January, resolved [facility] Work Phone: Evaluation note* Diagnosis Onset Date Resolution Status Preoperative cardiovascular examination acute Cardiomyopathy in other dise ases classified elsewhere chronic Paroxysmal atrial fibrillation chronic Paroxysmal atrial flutter ch ronic Pure hypercholesterolemia ch ronic H/O mitral valve repair April, res olved History of cardiac radiofrequency ablation January, resolved MATTA (dyspnea on exertion) [place] Lightheaded acute Premature ventricular contractions acute Cardiomyopathy in other dise ases classified elsewhere chronic Paroxysmal atrial fibrillation chronic Pure hypercholesterolemia ch ronic H/O mitral valve repair April, res olved History of cardiac radiofrequency ablation January, resolved [facility] Work Phone: Evaluation note* Diagnosis Onset Date Resolution Status MATTA (dyspnea on exertion) ac [place] Lightheaded acute Premature ventricular contractions acute Cardiomyopathy in other dise ases classified elsewhere chronic Paroxysmal atrial fibrillation chronic Pure hypercholesterolemia ch ronic H/O mitral valve repair April, res olved History of cardiac radiofrequency ablation January, resolved Sleep apnea acute Anemia acute Cardiomyopathy in other dise ases classified elsewhere chronic Paroxysmal atrial fibrillation chronic Pure hypercholesterolemia ch ronic H/O mitral valve repair April, res olved History of cardiac radiofrequency ablation January, resolved [facility] Work Phone: Evaluation note* Diagnosis Onset Date Resolution Status MATTA (dyspnea on exertion) [place] Lightheaded acute Premature ventricular contractions acute Cardiomyopathy in other dise ases classified elsewhere chronic Paroxysmal atrial fibrillation chronic Pure hypercholesterolemia ch ronic H/O mitral valve repair April, res olved History of cardiac radiofrequency ablation January, resolved Sleep apnea acute Anemia acute Cardiomyopathy in other dise ases classified elsewhere chronic Paroxysmal atrial fibrillation chronic Pure hypercholesterolemia ch ronic H/O mitral valve repair April, res olved History of cardiac radiofrequency ablation January, resolved Left inguinal hernia acute [facility] Work Phone: Evaluation note* Diagnosis Onset Date Resolution Status Sleep apnea acute Anemia acute Cardiomyopathy in other dise ases classified elsewhere chronic Paroxysmal atrial fibrillation chronic Pure hypercholesterolemia ch ronic H/O mitral valve repair April, res olved History of cardiac radiofrequency ablation January, resolved Left inguinal hernia acute Left inguinal hernia acute Left inguinal hernia acute [facility] Work Phone: Evaluation note* Diagnosis Acute bronchitis, unspecified organism- Primary documented in this encounter [facility] Work Phone: Evaluation note* Diagnosis Monoclonal gammopathy- Primary Monoclonal paraproteinemia Anemia, unspecified type Thrombocytopenia Thrombocytopenia, unspecified [facility] Monoclonal gammopathy Monoclonal paraproteinemia [facility] Monoclonal gammopathy- Primary Monoclonal paraproteinemia [facility] Sensory hearing loss, bilateral- Primary Pre-op testing Unspecified pre-operative examination Asymmetrical sensorineural hearing loss Sensorineural hearing loss, asymmetrical Sensory hearing loss, bilateral- Primary documented in this encounter [facility] Work Phone: Evaluation note* Diagnosis Sensory hearing loss, bilateral- Primary Erythema migrans (Lyme disease)- Primary Lyme disease Sensory hearing loss, bilateral documented in this encounter [facility] Work Phone: Progress note Author Laura Blanco [facility] Note Date/Time January 19, 2025 9 :58am [facility] [address] [place] [address] OFFICE VISIT Date of Service: 01/19/25 MR#: [id number] Acct: [id number] Name: JAYDEN CARPIO Rep #: [id number] : 1955 Provider: JOE Blanco Age/Sex: 69/M Location: [facility] Status: Signed HPI HPI History of Present Illness Details: This is a 69-year-old white male who presents to the office today for a cardiovascular follow up visit. 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 He states he is having a cochlear implant in March of this year. From a cardiac standpoint, the patient is doing well. He denies any palpitations, chest pain, pressure or heaviness. He does acknowledge SOB with climbing hills. He does walk 10,0000 steps a day, and states his SOB is not as noticeable since increasing steps. He denies Orthopnea, and PND. He does not have bleeding issues; no blood in urine, stool, or nosebleeds. He denies any decrease in energy level, myalgias, or claudication. He does not have edema, or sudden weight gain. He does wear compression stockings. He denies lightheadedness, dizziness, syncopal or near syncopal episodes, and headaches. Intake Vital Signs 07/20/24 11:06 01/19/25 07:40 Height 6 ft 3 in 6 ft 3 in Weight: 213 lb 196 lb BMI 26.6 24.5 BP 119/67 115/71 Blood Pressure Location Rt brachial Lt brachial Position Sitting Sitting Respiration 18 18 Pulse 62 76 Pulse Source Monitor Monitor Pulse Oximetry (%) 95 99 Oxygen Delivery Method room air Intake Visit Reasons: 6 M FU Nephrologist Required: No Is patient in pain?: No Allergies No Known Allergies Allergy (Verified 01/19/25 09:37) Medications ?Medication ?Instructions ?Recorded ?Confirmed ?Type multivitamin 0.5 ea PO BID 02/17/1701/19 History tamsulosin 0.4 mg capsule 0.4 mg PO DAILY 06/11/2302/03 History atorvastatin 40 mg tablet 80 mg (2 x 40 mg) PO QHS #90 tabs 09/18/23 01/19/25 Rx aspirin 81 mg tablet,delayed 81 mg PO QDAY #90 tabs 01/19/25 Rx release (Adult Low Dose Aspirin) apixaban 5 mg tablet (Eliquis) 5 mg PO BID #180 TABLET S 04/20/24 01/19/25 Rx carvedilol 25 mg tablet 25 mg PO BID #180 tabs 04/2801/19/25 Rx furosemide 40 mg tablet (Lasix) 40 mg PO DAILY #90 tab s 04/28/24 01/19/25 Rx acetaminophen 325 mg tablet 325 mg Tablet#2 Samples 01/19/25 Sample (Tylenol) ramipril 5 mg capsule 10 mg PO QDAY 01/19/2501/19 History Ejection fraction %: 60 Have you fallen in the past year?: No Nurse's Note: cochlear implant in March [facility] Medical History MGUS (monoclonal gammopathy of unknown significance) Enlarged prostate History of edema Left inguinal hernia Wears hearing aid Wears glasses Alcohol use Arthritis Bladder disease High cholesterol Non-smoker CPAP (continuous positive airway pressure) dependence History of pain when walking History of echocardiogram History of stress test Hypertension Cardiology follow-up encounter Nonrheumatic mitral (valve) insufficiency Paroxysmal atrial flutter Pure hypercholesterolemia Palpitations radiofrequency ablation Hyperlipidemia Paroxysmal atrial fibrillation Nonrheumatic mitral (valve) prolapse Pulmonary hypertension Cardiomyopathy Tricuspid valve disorder Atrial fibrillation and flutter Surgical History (Reviewed 01/19/25 @ 22:12 by Laura Blanco NEUROLOGY PHYSICIAN ASSISTANT, NEUROLOGY PHYSICIAN ASSISTANT-C) Status post hernia repair History of cardiac radiofrequency ablation (~01/26/07) Hx of appendectomy H/O mitral valve repair (~05/05/06) Family History Father Hypertension Cancer prostate Afib Social History household members: spouse housing: house Smoking Status: Never smoker alcohol intake: current alcohol intake frequency: a few times a week substance use type: does not use caffeine: Yes (socially) what type of physical activity do you participate in: walking frequency: 3-4 times per week duration: 30-45 minutes/day seatbelt use: always do you feel safe at home: Yes ROS Const Const: Negative for fatigue, weakness, headache(s) or frequent falls Eyes Eyes: Negative for blurry vision ENT ENT: Positive for hearing loss; Negative for headache(s), dizziness or Nosebleed/epistaxis Cardio Chest Pain: No Palpitations: No Edema: None Muscle aches with walking: None Additional Details: occasional PVC, not bothersome Resp Respiratory: Positive for SOB with activity; Negative for SOB at rest or SOB orthopnea\SOB lying down GI GI: Negative nausea, vomiting, heartburn, bright, red blood in stools or black,tarry stools : Negative for hematuria Neuro Neuro: Negative for dizziness, lightheadedness, near syncope, syncope, frequent falls, headache(s), weakness or blurry vision Endo Endo: Negative for fatigue Cardiology Exam Const Appearance: cooperative, healthy appearing, comfortable, no acute distress, welldeveloped and well groomed Nutritional Appearance: average body habitus and well nourished Orientation: alert, awake and oriented x3 Head Head: normal to inspection, normocephalic and atraumatic Ears: hearing grossly impaired Nose: external nose normal Eyes Eyelids: eyelids normal Conjunctivae: conjunctivae normal Pupils: PERRL EOM: EOM intact bilaterally Neck Neck: normal visual inspection and full ROM Carotids: normal carotid upstroke Chest Chest inspection: normal inspection of the chest, symmetric chest movement and normal respiratory effort Auscultation: Bilateral: Clear to Auscultation Cardio Palpation: normal PMI Rhythm: irregularly irregular Heart sounds: S1 normal, S2 normal and murmur Murmur: Grade 3/6, holosystolic, LLSB, apex and axilla GI GI: normal to inspection and soft Neuro General: patient alert, patient awake, patient oriented x3 and moves all extremities Skin Skin: no rashes or lesions noted Extremities Pulses: Normal: Right Radial Pulse and Left Radial Pulse Lower Extremity Edema: None: Bilateral Psych Psychological: normal affect Supplemental Info Supplemental Information Echocardiogram 07/04/2024: Status post mitral valve repair with annular plasty ring. The left ventricular ejection fraction is 60%. Normal LV size. Bileaflet diffuse mitral valve thickening. Mild to moderate 1-2+ anteriorly directed mitral valve insufficiency. Transesophageal echocardiogram from 09/27/2023: Interpretation Summary Normal LV size. The left ventricular ejection fraction is 55 %. Status post mitral valve repair. Status post mitral valve repair with annuloplasty ring. Mild-Moderate (1-2+) eccentric mitral valve insufficiency. No evidence of thrombogenic or embolic source. Echocardiogram from 07/14/2023: Interpretation Summary Status post mitral valve repair. Normal LV size. Left ventricular systolic function is normal. The estimated ejection fraction is 55 %. Mild-Moderate (1-2+) anteriorly directed mitral valve insufficiency. Mild (1+) aortic valve insufficiency. Pulmonary artery systolic pressure is 34 mmHg. Compared to the previous echocardiogram the pulmonary pressures are much improved. Holter monitor from 06/07/2024: Atrial fibrillation with occasional PVCs Minimum heart rate 29 bpm. Average heart rate 61 bpm. Maximum heart rate 129 bpm. Ventricular ectopy 0.3%. Supraventricular ectopy 0.0%. Longest R to R interval 3.6 seconds. Atrial fibrillation 99.6%. No ventricular tachycardia. The patient kept 24-hour diary and noted palpitations and irregular heartbeats which correlated with atrial fibrillation and occasional ectopy. Carotid Duplex Ultrasound from 09/09/2023: Interpretation Summary Mild (<50%) stenosis right extracranial internal carotid. Mild (<50%) stenosis left extracranial internal carotid. Patent and antegrade vertebrals bilaterally. Labs: LDL Cholesterol, (0-130) 62 mg/dL HDL Cholesterol, (40-) 46 mg/dL Cholesterol, (200) 122 mg/dL Triglycerides, (-199) 70 mg/dL Diagnostics: Electrocardiogram Echocardiogram Transesophageal Echocardiogram Chest X-Ray Chest CTA Abdomen/Pelvis CT Carotid Duplex Past Visits: Cardiology Visit Today Assessment and Plan Assessment and Plan (1) H/O mitral valve repair: Status: Chronic Comment: mini mitral valve repair #36 ring 05/05/06 Plan: Patient has a history of mitral valve repair in 2006. Patient's most recent echocardiogram from 06/30/2024 demonstrated ejection fraction of 60%, status postmitral valve repair with annuloplasty ring, and mild to moderate anteriorly directed mitral valve insufficiency. He appears stable at this time, and deniesany recent symptoms or events. We will order an echocardiogram at his next office visit to reassess his mitral valve. He will continue AHA antibiotic prophylaxis. (2) Cardiomyopathy in other diseases classified elsewhere: Status: Chronic Plan: Patient has a history of cardiomyopathy. His echocardiogram from 06/30/2024 demonstrated an ejection fraction of 60%. This has improved. At this time, he will continue carvedilol 25mg twice daily, Lasix 40 mg daily and ramipril 5 mg daily. He will continue to monitor for any concerning symptoms. (3) Paroxysmal atrial fibrillation: Status: Chronic Plan: Patient has a history of paroxysmal atrial fibrillation/flutter. This appears amy more persistent. He has undergone multiple EPS/RFA procedures. He appears to be in an irregularly irregular rhythm on exam. His heart rate is well controlledat this time. His most recent Holter monitor from May 2024 demonstrated atrial fibrillation 99.9% of the time. His most recent echocardiogram was reviewed, and did show severely enlarged left atrium, and moderately enlarged right atrium. This was reviewed with him. He will continue Eliquis 5mg twice daily, and carvedilol 25mg twice daily. He will continue to monitor for any concerning symptoms of atrial fibrillation. (4) History of cardiac radiofrequency ablation: Status: Chronic Comment: Ablation of SVT 01/26/07 Plan: He has undergone multiple EPS/RFA procedures in the past. At this time, he will continue with his current medical therapy. (5) Pure hypercholesterolemia: Status: Chronic Plan: Patient has a history of hypercholesterolemia. His PCP monitors this. His most recent lipid panel from 09/18/2023: Cholesterol 122, HDL 46, LDL 62, [id number]. He will continue atorvastatin 80 mg daily, along with aggressive risk factor and lifestyle modifications. A copy of his most recent lipid panel wouldbe greatly appreciated for continuity of care. Medications: Changed From ramipril 5 mg PO QDAY 90 caps 3RF To ramipril 10 mg PO QDAY Plan Details Additional Comments: Patient will follow-up in 6 months, or sooner if needed. Thank you for allowing me to participate in the care of your patient. Please don't hesitate to call if any issues arise. This note was generated using a voice recognition system and there may be incorrect words, spelling, or punctuation that were not noted when reviewing theoffice note prior to saving. Portions of this documentation were copied and pasted from previous office visitnotes to provide a cohesive continuity of the history. The note has been reviewed, edited, and updated, as necessary. Follow Up: Keep as is ([facility]) Coding Level of Care Code Off vis,est,level 4 Diagnoses H/O mitral valve repair Z98.890 Cardiomyopathy in other diseases classified elsewhere I43 Paroxysmal atrial fibrillation I48.0 History of cardiac radiofrequency ablation Z98.890 Pure hypercholesterolemia E78.00 Coding Level of Care Code Off vis,est,level 4 Diagnoses H/O mitral valve repair Z98.890 Cardiomyopathy in other diseases classified elsewhere I43 Paroxysmal atrial fibrillation I48.0 History of cardiac radiofrequency ablation Z98.890 Pure hypercholesterolemia E78.00 Clinical Quality Measures Falls Risk Screening/Assistive Devices Have you fallen in the past year?: No Cardiac Ejection fraction %: 60 01/19/25 6066 <Electronically signed by Laura Blanco NP NEUROLOGY PHYSICIAN ASSISTANT-C> Date _ Laura Blanco NP, NP-C Cosigner Signature: Date (if applicable) CC: Dr. Mukul Castro MD ~ [facility] Work Phone: Progress note Author Maritzairene Fabian [facility] Note Date/Time January 29, 2025 1 0:01am [facility] [address] [place] [address] OFFICE VISIT Date of Service: 01/29/25 MR#: [id number] Acct: [id number] Name: JAYDEN CARPIO Rep #: [id number] : 1955 Provider: JOE Fabian Age/Sex: 69/M Location: [facility] Status: Signed Assessment and Plan Assessment and Plan (1) Sleep apnea: Status: Chronic Qualifiers: Sleep apnea type: obstructive Qualified Code(s): G47.33 - Obstructive sleep apnea (adult) (pediatric) Plan: He is using and benefiting from Pap therapy. No indication for titration study at this time. Contact the office for any new or worsening symptoms in the meantime. Follow-up in 1 year. Plan Details Additional Comments: This note was generated with [employer] dictation software. It may contain incorrectwords, spelling, and punctuation that were not noted in checking the note beforesigning. Portions of this documentation have been copied and pasted from previous office visit notes to provide a cohesive continuity of the history. The note has been reviewed, edited, and updated, as necessary. Follow Up: 1 Year HPI 1 Y FU Chief Complaint: Routine follow-up HPI Comments Details: This patient presents to the office today for follow-up on his obstructive sleepapnea. He is ambulatory and on room air. He has not recently been seen in the ED or urgent care for any respiratory illness. He has not required any antibiotics or prednisone for any breathing problems. He denies any shortness of breath. He denies any cough, sputum production or hemoptysis. He denies any wheezing, chest tightness, chest pain or palpitations. He also denies any fever, chills or body aches. He wakes up feeling rested and refreshed. He is not requiring naps. He is not having difficulty with dry mouth or mask leaks. He is not having excessive nocturia. Compliance report for the past 30 days shows 97 % compliance with an average useof 6 hours and 10 minutes per night. Current setting is CPAP 12 cmH2O with residual AHI 1.9 events per hour. Leaks do not appear to be problematic. Intake Vital Signs 07/20/24 11:06 01/29/25 08:37 Height 6 ft 3 in 6 ft 3 in Weight: 213 lb 193 lb BMI 26.6 24.1 BP 119/67 104/61 Blood Pressure Location Rt brachial Rt brachial Position Sitting Sitting Respiration 18 18 Pulse 62 59 L Pulse Source Monitor Monitor Temp 97.4 F L Temperature Source Temporal Artery Pulse Oximetry (%) 95 99 Oxygen Delivery Method room air room air Intake Visit Reasons: 1 Y FU Nephrologist Required: No DME Vendor: [employer] Accompanied by: Self Is patient in pain?: No Allergies No Known Allergies Allergy (Verified 01/29/25 08:36) Medications ?Medication ?Instructions ?Recorded ?Confirmed ?Type multivitamin 0.5 ea PO BID 02/17/1701/29 History tamsulosin 0.4 mg capsule 0.4 mg PO DAILY 06/11/23 History atorvastatin 40 mg tablet 80 mg (2 x 40 mg) PO QHS #90 tabs 09/18/23 01/29/25 Rx aspirin 81 mg tablet,delayed 81 mg PO QDAY #90 tabs 01/29/25 Rx release (Adult Low Dose Aspirin) apixaban 5 mg tablet (Eliquis) 5 mg PO BID #180 TABLET S 04/20/24 01/29/25 Rx carvedilol 25 mg tablet 25 mg PO BID #180 tabs 04/2801/29/25 Rx furosemide 40 mg tablet (Lasix) 40 mg PO DAILY #90 tab s 04/28/24 01/29/25 Rx acetaminophen 325 mg tablet 325 mg Tablet#2 Samples 01/29/25 Sample (Tylenol) ramipril 5 mg capsule 10 mg PO QDAY 01/19/2501/29 History Have you fallen in the past year?: No PFSH Medical History (Reviewed 01/29/25 @ 08:46 by Maritza Fabian NEUROLOGY PHYSICIAN ASSISTANT, NEUROLOGY PHYSICIAN ASSISTANT-C) MGUS (monoclonal gammopathy of unknown significance) Enlarged prostate History of edema Left inguinal hernia Wears hearing aid Wears glasses Alcohol use Arthritis Bladder disease High cholesterol Non-smoker CPAP (continuous positive airway pressure) dependence History of pain when walking History of echocardiogram History of stress test Hypertension Cardiology follow-up encounter Nonrheumatic mitral (valve) insufficiency Paroxysmal atrial flutter Pure hypercholesterolemia Palpitations radiofrequency ablation Hyperlipidemia Paroxysmal atrial fibrillation Nonrheumatic mitral (valve) prolapse Pulmonary hypertension Cardiomyopathy Tricuspid valve disorder Atrial fibrillation and flutter Surgical History (Reviewed 01/29/25 @ 08:46 by Maritza Fabian NEUROLOGY PHYSICIAN ASSISTANT, NEUROLOGY PHYSICIAN ASSISTANT-C) Status post hernia repair History of cardiac radiofrequency ablation (~01/26/07) Hx of appendectomy H/O mitral valve repair (~05/05/06) Family History (Reviewed 01/29/25 @ 08:46 by Maritza Fabian NEUROLOGY PHYSICIAN ASSISTANT, NEUROLOGY PHYSICIAN ASSISTANT-C) Father Hypertension Cancer prostate Afib Social History household members: spouse housing: house Smoking Status: Never smoker alcohol intake: current alcohol intake frequency: a few times a week substance use type: does not use caffeine: Yes (socially) what type of physical activity do you participate in: walking frequency: 3-4 times per week duration: 30-45 minutes/day seatbelt use: always do you feel safe at home: Yes Review of Systems Resp Respiratory: Yes as per HPI Exam Const Constitutional: Positive conversant, cooperative, in no acute respiratory distress, healthy appearing, well developed, well nourished and good hygiene Head Head: Yes normocephalic, Yes atraumatic and No cyanosis of lips/distal nose Eyes Eye: Positive clear conjunctiva; Negative nystagmus or scleral abnormality Ears Ear: Positive hard of hearing and external ears normal Nose Nose: Yes external nose normal Mouth Mouth: Positive oral mucosae normal and good dentition Neck Neck: Positive normal visual inspection, full ROM and trachea midline Chest Wall Chest: Positive normal inspection of the chest and symmetric chest movement; Negative increased A/P diameter Resp lung sounds: Positive clear to auscultation, good air exchange, normal expiratory time and normal respiratory effort; Negative diminished lung sounds, wheezes, rhonchi or rales Cardio Cardiac: Positive S1 normal, S2 normal and murmur (2/6) murmur: Positive right upper sternal border and systolic; Negative regular rate or regular rhythm GI GI: Positive normal to inspection Genitourinary: Positive deferred Musc Musculoskeletal: Positive steady gait and ROM normal; Negative kyphosis or scoliosis Skin Pulmonary Skin Exam: Positive intact; Negative lesion, rash or ulcers Extremities Extremities: No clubbing and No cyanosis Neuro Neurologic: Yes no focal neuro deficits, Yes conversant, Yes cooperative, Yes normal cognition, Yes normal coordination, Yes normal concentration and Yes understands questions Psych Appearance: Positive grossly normal, eye contact and well kempt Mental Status: Positive mental status grossly normal Mood: Positive congruent mood Affect: Positive normal affect Coding Level of Care Code Off vis,est,level 3 Diagnoses Obstructive sleep apnea syndrome G47.33 Sleep apnea type: obstructive Clinical Quality Measures Falls Risk Screening/Assistive Devices Have you fallen in the past year?: No 01/29/25 1206 <Electronically signed by Maritza cazares NP NEUROLOGY PHYSICIAN ASSISTANT-C> Date _ Maritza Fabian NP NEUROLOGY PHYSICIAN ASSISTANT-C Cosigner Signature: Date (if applicable) CC: Dr. Mukul Castro MD ~ [facility] Work Phone: Reason for referral (narrative)No reason for referral information availableWLake [facility] Work Phone: Reason for visit Narrative* Diagnostic Procedure Only (Routine) - Closed Specialty Diagnoses / Procedures Referred By Contac t Referred To Contact XR IMAGING Diagnoses Monoclonal gammopathy Procedures XR BONE SURVEY ROUTINE RADIOLOGIC EXAMINATION OSSEOUS SURVEY COMPL Reymundo Garcia MD [address] [place] [address] Phone: [place]: [place] [phone] Referral ID Status Reason Start Date Expiration Date V isits Requested Visits Authorized [id number] Closed Auto-Generate d Referral 07/12/2024 08/11/[address] [facility] Chief Complaint and Reason for Visit Chief Complaint 6 M FU Reason for Visit Cardiomyopathy in ot her diseases classified elsewhere Paroxysmal atrial fibrillation Pure hypercholesterolemia H/O mitral valve repair History of cardiac radiofrequency ablation Chief Complaint 6 m fu E ORDERS RT KNEE *LAISHA PROTOCOL* RT TOTAL KNEE W LAISHA Reason for Visit Preoperative cardiov ascular examination Cardiomyopathy in other diseases classified elsewhere Paroxysmal atrial fibrillation Paroxysmal atrial flutter Pure hypercholesterolemia H/O mitral valve repair History of cardiac radiofrequency ablation Chief Complaint 6 m fu E ORDERS RT KNEE *LAISHA PROTOCOL* RT TOTAL KNEE W LAISHA Shortness of breath E ORDERS ELEVATE D DIMER DIZZINESS Reason for Visit Preoperative cardiov ascular examination Cardiomyopathy in other diseases classified elsewhere Paroxysmal atrial fibrillation Paroxysmal atrial flutter Pure hypercholesterolemia H/O mitral valve repair History of cardiac radiofrequency ablation MATTA (dyspnea on exertion) Lightheaded Premature ventricular contractions Cardiomyopathy in other diseases classified elsewhere Paroxysmal atrial fibrillation Pure hypercholesterolemia H/O mitral valve repair History of cardiac radiofrequency ablation Chief Complaint 6 m fu E ORDERS RT KNEE *LAISHA PROTOCOL* RT TOTAL KNEE W LAISHA Shortness of breath E ORDERS ELEVATE D DIMER DIZZINESS SHORTNESS OF BREATH HEARING LOSS BILATERAL; ACOUSTIC NEUROMA Reason for Visit Preoperative cardiov ascular examination Cardiomyopathy in other diseases classified elsewhere Paroxysmal atrial fibrillation Paroxysmal atrial flutter Pure hypercholesterolemia H/O mitral valve repair History of cardiac radiofrequency ablation MATTA (dyspnea on exertion) Lightheaded Premature ventricular contractions Cardiomyopathy in other diseases classified elsewhere Paroxysmal atrial fibrillation Pure hypercholesterolemia H/O mitral valve repair History of cardiac radiofrequency ablation Chief Complaint 6 m fu E ORDERS RT KNEE *LAISHA PROTOCOL* RT TOTAL KNEE W LAISHA Shortness of breath E ORDERS ELEVATE D DIMER DIZZINESS SHORTNESS OF BREATH HEARING LOSS BILATERAL; ACOUSTIC NEUROMA INT LABS Reason for Visit Preoperative cardiov ascular examination Cardiomyopathy in other diseases classified elsewhere Paroxysmal atrial fibrillation Paroxysmal atrial flutter Pure hypercholesterolemia H/O mitral valve repair History of cardiac radiofrequency ablation MATTA (dyspnea on exertion) Lightheaded Premature ventricular contractions Cardiomyopathy in other diseases classified elsewhere Paroxysmal atrial fibrillation Pure hypercholesterolemia H/O mitral valve repair History of cardiac radiofrequency ablation Chief Complaint Shortness of breath E ORDERS ELEVATE D DIMER DIZZINESS SHORTNESS OF BREATH HEARING LOSS BILATERAL; ACOUSTIC NEUROMA INT LABS Sleep problems 6 M FU E ORDER E ORDER Reason for Visit MATTA (dyspnea on exer tion) Lightheaded Premature ventricular contractions Cardiomyopathy in other diseases classified elsewhere Paroxysmal atrial fibrillation Pure hypercholesterolemia H/O mitral valve repair History of cardiac radiofrequency ablation Sleep apnea Anemia Cardiomyopathy in other diseases classified elsewhere Paroxysmal atrial fibrillation Pure hypercholesterolemia H/O mitral valve repair History of cardiac radiofrequency ablation Chief Complaint Shortness of breath E ORDERS ELEVATE D DIMER DIZZINESS SHORTNESS OF BREATH HEARING LOSS BILATERAL; ACOUSTIC NEUROMA INT LABS Sleep problems 6 M FU E ORDER E ORDER CONCERN FOR HERNIA/LEFT GROIN SLEEP APNEA HERNIA URGENT CARE 10/03 Reason for Visit MATTA (dyspnea on exer tion) Lightheaded Premature ventricular contractions Cardiomyopathy in other diseases classified elsewhere Paroxysmal atrial fibrillation Pure hypercholesterolemia H/O mitral valve repair History of cardiac radiofrequency ablation Sleep apnea Anemia Cardiomyopathy in other diseases classified elsewhere Paroxysmal atrial fibrillation Pure hypercholesterolemia H/O mitral valve repair History of cardiac radiofrequency ablation Left inguinal hernia Chief Complaint SHORTNESS OF BREATH HEARING LOSS BILATERAL; ACOUSTIC NEUROMA INT LABS Sleep problems 6 M FU E ORDER E ORDER CONCERN FOR HERNIA/LEFT GROIN SLEEP APNEA HERNIA URGENT CARE 10/03 LT INGUINAL HERNIA, HX HERNIA REPAIR UPDATE H&P & MRSA SWAB Lap Robotic Inguinal Hernia with mesh Lap Robotic Inguinal Hernia with mesh Reason for Visit Sleep apnea Anemia Cardiomyopathy in other diseases classified elsewhere Paroxysmal atrial fibrillation Pure hypercholesterolemia H/O mitral valve repair History of cardiac radiofrequency ablation Left inguinal hernia Left inguinal hernia Left inguinal hernia Chief Complaint 9 M FU Pulmonary hypertension, unspecified Reason for Visit Cardiomyopathy in ot her diseases classified elsewhere Paroxysmal atrial fibrillation Pure hypercholesterolemia H/O mitral valve repair History of cardiac radiofrequency ablation Chief Complaint Admit Date 9 m fu w MAIN GALLEY SCULLION per MA[place] GALLEY SCULLION March 28, 2024 12:46pm EORDERS June 02, 2024 1:08pm IRREGULAR HEARTBEAT, AFIB, S/P ABLATION June 07, 2024 8:55am IRREGULAR HEARTBEAT, AFIB, S/P ABLATION June 07, 2024 9:15am COUGH, CONGESTION June 20, 2024 3:3 5pm Reason for Visit Admit Date Cardiomyopathy in other diseases classif ied elsewhere March 28, 2024 12:46pm Paroxysmal atrial fibrillation March 28, 2024 12:46pm Pure hypercholesterolemia March 28, 2024 12:46pm H/O mitral valve repair March 28, 024 12:46pm History of cardiac radiofrequency ablati on March 28, 2024 12:46pm Chief Complaint Admit Date 9 m fu w MA[place] G[place] SCULLION per [place] SCULLION March 28, 2024 12:46pm EORDERS June 02, 2024 1:08pm IRREGULAR HEARTBEAT, AFIB, S/P ABLATION June 07, 2024 8:55am IRREGULAR HEARTBEAT, AFIB, S/P ABLATION June 07, 2024 9:15am COUGH, CONGESTION June 20, 2024 3:3 5pm ATRIAL FIB FLUTTER June 30, 2024 10: 25am Chief Complaint Admit Date 6 M FU January 19, 2025 9 :12am 1 Y FU January 29, 2025 8 :27am Reason for Visit Admit Date Cardiomyopathy in other diseases classif ied elsewhere January 19, 2025 9:12am H/O mitral valve repair January 19 9:12am History of cardiac radiofrequency ablati on January 19, 2025 9:12am Paroxysmal atrial fibrillation January 102024 9:12am Pure hypercholesterolemia January 19, 2025 9:12am Sleep apnea January 29, 2025 8 :27am Chief Complaint Admit Date 6 M FU January 19, 2025 9 :12am 1 Y FU January 29, 2025 8 :27am AUDITORY DR TO FAX February 12, 2025 9 :47am Family History No Family History Records Found Relationship Condition Age at Onset Recorded Date/T treasure father Hypertension Unknown Malignant neoplasm Unknown Atrial fibrillation Unknown Advance Directives No Advanced Directives Records Found Advance Directive Response Recorded Date/ Time Living Will Yes February 18 2:24am Power of Spring Winder Yes February 18, 2017 2:24am Advance Directive Response Recorded Date/ Time Name of Medical Power of Spring Winder SPOUSE May 21, 2022 8:17am Living Will Yes May 21 8:17am Power of Spring Winder Yes May 21, 2022 8:17am Advance Directive Response Recorded Date/ Time Name of Medical Power of Spring Winder SPOUSE May 21, 2022 9:17am Living Will Yes May 21 9:17am Power of Spring Winder Yes May 21, 2022 9:17am Advance Directive Response Recorded Date/ Time Living Will Yes May 21 9:17am Power of Spring Winder Yes May 21, 2022 9:17am Advance Directive Response Recorded Date/ Time Name of Medical Power of Spring Winder MATTHEW SANTARYAN November 19, 2022 11:17am Living Will Yes November 19 11:17am Power of Spring Winder Yes November 19 023 11:17am Advance Directive Response Recorded Date/ Time Living Will Yes November 19 11:17am Power of Spring Winder Yes Winder 10th, 2 023 11:17am Advance Directive Response Recorded Date/ Time Living Will Yes November 19 11:17am Do you have a Healthcare Power of Spring Winder? Yes November 19, 2022 11:17am Summary Purpose Additional Source Comments Goals (unrecognized section and content) Goals may be documented in a n alternate sectionGoals may be documented in an alternate sectionGoals may be documented in an alternate sectionGoals may be documented in an alternate sectionGoals may be documented in an alternate sectionGoals may be documented in an alternate sectionGoals may be documented in an alternate sectionGoals may be documented in an alternate sectionGoals may be documented in an alternate sectionGoals may be documented in an alternate section Care Teams (unrecognized sec tion and content) Team Status: Active Member Role Status Dates Dr. Mukul Castro MD Family Provider Active Dr. Mukul Castro MD Primary Care Provider Active Team Status: Inactive Member Role Status Dates Dr. Mukul Castro MD Primary Care Provider, Referring P rovider Active Dr. Mars Paz MD Attending Provider Active Team Status: Inactive Member Role Status Dates Dr. Mukul Castro MD Primary Care Provider Active Lydia Cast NEUROLOGY PHYSICIAN ASSISTANT-C Attending Provider, Referrin g Provider Active Team Status: Inactive Member Role Status Dates Dr. Mukul Castro MD Primary Care Provider Active Dr. Mars Paz MD Attending Provider, Referring Provider Active Team Status: Inactive Member Role Status Dates Dr. Mukul Castro MD Primary Care Provider Active Dr. Robb Longoria DO Attending Provider, Referring Provider Active Team Status: Active Member Role Status Dates Dr. Mukul Castro MD Primary Care Provider Active Dr. Robb Longoria DO Attending Provider Active Team Status: Inactive Member Role Status Dates Dr. Mukul Castro MD Primary Care Provider Active Dr. Robb Longoria DO Attending Provider Active Team Status: Inactive Member Role Status Dates Dr. Mukul Castro MD Primary Care Provider, Referring P rovider Active Laura Blanco NEUROLOGY PHYSICIAN ASSISTANT, NEUROLOGY PHYSICIAN ASSISTANT-C Attending Provider Active Team Status: Active Member Role Status Dates Dr. Mukul Castro MD Primary Care Provider Active Laura Blanco NP, NEUROLOGY PHYSICIAN ASSISTANT-C Attending Provider, Referring P rovider Active Team Status: Inactive Member Role Status Dates Dr. Mukul Castro MD Primary Care Provider Active Laura Blanco NEUROLOGY PHYSICIAN ASSISTANT, NEUROLOGY PHYSICIAN ASSISTANT-C Attending Provider, Referring P rovider Active Team Status: Active Member Role Status Dates Dr. Mukul Castro MD Primary Care Provider Active Laura Blanco NEUROLOGY PHYSICIAN ASSISTANT, NEUROLOGY PHYSICIAN ASSISTANT-C Attending Provider Active Team Status: Active Member Role Status Dates Dr. Mukul Castro MD Primary Care Provider Active Dr. Rickey Wilson MD Attending Provider Active Team Status: Inactive Member Role Status Dates Dr. Mukul Castro MD Primary Care Provider Active Laura Blanco NEUROLOGY PHYSICIAN ASSISTANT, NEUROLOGY PHYSICIAN ASSISTANT-C Attending Provider Active Team Status: Inactive Member Role Status Dates Dr. Mukul Castro MD Primary Care Provider Active Dr. Fabricio Berman MD Attending Provider, Referring P rovider Active Team Status: Inactive Member Role Status Dates Dr. Mukul Castro MD Primary Care Provider, Attending P rovider Active Team Status: Inactive Member Role Status Dates Dr. Mukul Castro MD Primary Care Provider, Referring P rovider Active Lady Angeles PA, PA Attending Provider Active Team Status: Inactive Member Role Status Dates Dr. Mukul Castro MD Primary Care Provider, Referring P rovider Active Maritza Fabian NEUROLOGY PHYSICIAN ASSISTANT, NEUROLOGY PHYSICIAN ASSISTANT-C Attending Provider Active Team Status: Inactive Member Role Status Dates Dr. Mukul Castro MD Primary Care Provider Active Lady Angeles PA, PA Attending Provider Active Team Status: Active Member Role Status Dates Dr. Mukul Castro MD Primary Care Provider Active Lady Angeles PA, PA Attending Provider, Referr ing Provider Active Team Status: Inactive Member Role Status Dates Dr. Mukul Castro MD Primary Care Provider Active Lady Angeles PA, PA Attending Provider, Referr ing Provider Active Team Status: Inactive Member Role Status Dates Dr. Mukul Castro MD Primary Care Provider, Referring P rovider Active Austin Galvin PA, PA Attending Provider Active Team Status: Inactive Member Role Status Dates Dr. Mukul Castro MD Primary Care Provider, Referring P rovider Active Dr. Robb Sheridan MD Attending Provider Active Team Status: Inactive Member Role Status Dates Dr. Mukul Castro MD Primary Care Provider Active Maritza Fabain NEUROLOGY PHYSICIAN ASSISTANT, NEUROLOGY PHYSICIAN ASSISTANT-C Attending Provider, Referrin g Provider Active Team Status: Active Member Role Status Dates Dr. Mukul Castro MD Primary Care Provider Active Dr. Robb Sheridan MD Attending Provide r, Referring Provider, Other Provider Active Team Status: Inactive Member Role Status Dates Dr. Mukul Castro MD Primary Care Provider Active Dr. Robb Sheridan MD Attending Provider, Referring P rovider Active Piling Cutter Relationship Specialty Start Date End Date Mukul Castro MD [address] [place] [address] PCP - General Family Medicine 03/01/23 Team Status: Inactive Member Role Status Dates Dr. Mukul Castro MD Primary Care Provider, Referring P rovider Active Dr. Donald Callahan MD Attending Provider Active Team Status: Active Member Role Status Dates Dr. Mukul Castro MD Primary Care Provider Active Dr. Donald Callahan MD Attending Provider Active Team Status: Inactive Member Role Status Dates Dr. Mukul Castro MD Primary Care Provider Active Dr. Donald Callahan MD Attending Provider, Referring Pro vider Active Team Status: Active Member Role Status Dates Dr. Mukul Castro MD Primary Care Provider Active Team Status: Inactive Member Role Status Dates Dr. Mukul Castro MD Primary Care Provider Active Start: March 28, 2024 End: March 28, 2024 Dr. Mukul Castro MD Referring Provider Active St art: March 28, 2024 End: March 28, 2024 Dr. Donald Callahan MD Attending Provider Active S tart: March 28, 2024 End: March 28, 2024 Team Status: Inactive Member Role Status Dates Dr. Mukul Castro MD Primary Care Provider Active Start: June 02, 2024 End: June 02, 2024 Lady Angeles PA, PA Attending Provider Active Start: June 02, 2024 End: June 02, 2024 Lady Angeles PA, PA Referring Provider Active Start: June 02, 2024 End: June 02, 2024 Team Status: Inactive Member Role Status Dates Dr. Mukul Castro MD Primary Care Provider Active Start: June 07, 2024 End: June 07, 2024 Lady Angeles PA, PA Attending Provider Active Start: June 07, 2024 End: June 07, 2024 Lady Angeles PA, PA Referring Provider Active Start: June 07, 2024 End: June 07, 2024 Team Status: Active Member Role Status Dates Dr. Mukul Castro MD Primary Care Provider Active Start: June 07, 2024 Dr. Kannan Ruth MD Attending Provider Activ e Start: June 07, 2024 Lady Angeles PA, PA Referring Provider Active Start: June 07, 2024 Team Status: Inactive Member Role Status Dates Dr. uMkul Castro MD Primary Care Provider Active Start: June 20, 2024 End: June 20, 2024 Dr. Mukul Castro MD Referring Provider Active St art: June 20, 2024 End: June 20, 2024 Austin SINGLETON, PA Attending Provider Active Start: June 20, 2024 End: June 20, 2024 Team Status: Inactive Member Role Status Dates Dr. Mukul Castro MD Primary Care Provider Active Start: June 30, 2024 End: June 30, 2024 Lady SINGLETON, PA Attending Provider Active Start: June 30, 2024 End: June 30, 2024 Lady SINGLETON PA Referring Provider Active Start: June 30, 2024 End: June 30, 2024 Team Status: Active Member Role Status Dates Dr. Mukul Castro MD Primary Care Provider Active Start: June 30, 2024 Dr. Donald Callahan MD Attending Provider Active S tart: June 30, 2024 Piling Cutter Relationship Specialty Start Date End Date Mukul Castro MD [address] [place] [address] PCP - General Family Medicine 07/11/24 Piling Cutter Relationship Specialty Start Date End Date Mukul Castro MD [address] [place], [place] [id number] PCP - General Family Medicine 07/11/24 Reymundo Garcia MD [address] [place], [place] [id number] Hematology/Oncology 07/12/24 Piling Cutter Relationship Specialty Start Date End Date Mukul Castro MD [address] [place] [address] PCP - General Family Medicine 07/11/24 Reymundo Garcia MD [address] [place], [place] [id number] Hematology/Oncology 07/12/24 Piling Cutter Relationship Specialty Start Date End Date Mukul Castro MD [address] [facility] [address] [place], [place] [id number] PCP - General Family Medicine 07/11/24 Reymundo Garcia MD [address] [place] [place], [place] [id number] Hematology/Oncology 07/12/24 Piling Cutter Relationship Specialty Start Date End Date Mukul Castro MD [address] [facility] [address] [place] [address] PCP - General Family Medicine 07/11/24 Reymundo Garcia MD [address] [place], [place] [address] Hematology/Oncology 07/12/24 Piling Cutter Relationship Specialty Start Date End Date Mukul Castro MD [address] [facility] [address] [place], [place] [address] PCP - General Family Medicine 03/01/23 Team Status: Active Member Role/Relationship Status Dates Dr. Mukul Castro MD Primary care physician Active Team Status: Inactive Member Role/Relationship Status Dates Dr. Mukul Castro MD Primary care physician Active Start: January 19, 2025 End: January 19, 2025 Dr. Mukul Castro MD Referring Provider Active St art: January 19, 2025 End: January 19, 2025 Laura Blanco NEUROLOGY PHYSICIAN ASSISTANT, NEUROLOGY PHYSICIAN ASSISTANT-C Attending physician Active Start: January 19, 2025 End: January 19, 2025 Team Status: Inactive Member Role/Relationship Status Dates Dr. Mukul Castro MD Primary care physician Active Start: January 29, 2025 End: January 29, 2025 Dr. Mukul Castro MD Referring Provider Active St art: January 29, 2025 End: January 29, 2025 Maritza Fabian NEUROLOGY PHYSICIAN ASSISTANT, NEUROLOGY PHYSICIAN ASSISTANT-C Attending physician Active Start: January 29, 2025 End: January 29, 2025 Team Status: Active Member Role/Relationship Status Dates Dr. Mukul Castro MD Primary care physician Active Start: February 12, 2025 SATISH SÁNCHEZ Attending physician Active Start: February 12, 2025 SATISH SÁNCHEZ Referring Provider Active Start: February 12, 2025 Piling Cutter Relationship Specialty Start Date End Date Mukul Castro MD [address] [place] [address] PCP - General Family Medicine 03/01/23 Reason for Visit (unrecogniz ed section and content) Reason Comments URI Cough and runny nose and Reason Comments New Patient Reason Comments New Patient Evaluation Reason Comments Results Reason Comments Follow-up Reason Comments Tick Removal Noticed on Wednesday on groin area Source Comments (unrecognize d section and content) In the event this informatio n is protected by the Federal Confidentiality of Alcohol and Drug Abuse Patient Records regulations: The Federal rules restrict any use of the information to criminally investigate or prosecute any alcohol or drug abuse patient.[facility] event this information is protected by the Federal Confidentiality of Alcohol and Drug Abuse Patient Records regulations: The Federal rules restrict any use of the information to criminally investigate or prosecute any alcohol or drug abuse patient.[facility] the event this information is protected by the Federal Confidentiality of Alcohol and Drug Abuse Patient Records regulations: The Federal rules restrict any use of the information to criminally investigate or prosecute any alcohol or drug abuse patient.[facility] the event this information is protected by the Federal Confidentiality of Alcohol and Drug Abuse Patient Records regulations: The Federal rules restrict any use of the information to criminally investigate or prosecute any alcohol or drug abuse patient.[facility] the event this information is protected by the Federal Confidentiality of Alcohol and Drug Abuse Patient Records regulations: The Federal rules restrict any use of the information to criminally investigate or prosecute any alcohol or drug abuse patient.[facility] (unrecognized sect ion and content) No Status Records FoundNo Status Records FoundNo Status Records FoundNo Status Records FoundNo Status Records Found INFORMATION SOURCE (unrecogn ized section and content) DATE CREATED AUTHOR 01/20/2025 [facility] DATE CREATED AUTHOR 'S ORGANIZ ATION 01/26/2025 [facility] DATE CREATED AUTHOR 'S ORGANIZ ATION 02/16/2025 [facility] DATE CREATED AUTHOR AUTHOR'S ORGANARIANNA ATION 02/18/2025 [facility] DATE CREATED AUTHOR AUTHOR'S ORGANARIANNA ATION 02/20/2025 [facility] FOR RECORDS PERTAINING TO PATIENTS WHO ARE OR HAVE BEEN ENROLLED IN A CHEMICAL DEPENDENCY/SUBSTANCEABUSE PROGRAM, SOME INFORMATION MAY BE OMITTED. This clinical summary was aggregated from multiple sources. Caution should be exercised in using it in the provision of clinical care. This summary normalizes information from multiple sources, and as a consequence, information in this document may materially change the coding, format and clinical context of patient data. In addition, data may be omitted in some cases. CLINICAL DECISIONS SHOULD BE BASED ON THE PRIMARY CLINICAL RECORDS. [employer] provides no warranty or guarantee of the accuracy or completeness of information in this document.
== END 2025-03-22 16:41 | disposition home or self-care (01) ==
LOC: ED 16:36
PROVIDERS: Emergency Provider Emergency Medicine; PCP Family Medicine; Visit Provider Emergency Medicine
DX: M79.89 Other specified soft tissue disorders (principal); Z79.01 Long term (current) use of anticoagulants
CPT/HCPCS: 93971; 99282